=== PATIENT | female | born 1960 ===

== ENCOUNTER 2024-05-26 13:04 | Outpatient (AMB) | payer MEDICARE, MEDICAID, SELFPAY ==
--- NOTE | 2024-05-26 13:07 | MHC.OFFVIS ---
Vital Signs 05/26/24 13:15 Height 5 ft 7 in Weight 257 lb 15.053 oz BMI 40.4 BP 138/84 Blood Pressure Location Rt brachial Position Sitting Pulse 72 Pulse Source Pulse Oximeter Intake Visit Reasons: T2DM/Confirmed Intake Note: NEW Patient presents today to establish treatment for Type 2 Diabetes Mellitus: Last Diabetic eye exam was on: DUE Last Podiatry exam was on: Does not see a Coagulating Drying Supervisor Most recent HbA1c: 8.8%, 05/26/2024 Random Glucose- 171 mg/dL, Today Family Services Assistant Required: No Accompanied by: Self / Same As Patient Allergies No Known Allergies Allergy (Verified 05/26/24 13:16) Medication List - Last Reconciled 05/26/24 by Edie Savage PA-C atenolol 50 mg PO DAILY atorvastatin 20 mg PO BEDTIME celecoxib 400 mg PO BID PRN insulin glargine (Lantus Solostar U-100 Insulin) 60 units in the morning, 50 units at night subcutaneously every morning; lisinopril 10 mg PO DAILY oxycodone myristate CR-ER (Xtampza ER) 9 mg PO Q12H sitagliptin phosphate (Januvia) 100 mg PO DAILY HPI HPI T2DM/Confirmed: Details: Patient is a 63-year-old female with a significant past medical history of overactive bladder, chronic pain syndrome, PVD, lower leg edema, varicose veins, kidney stones, hyperlipidemia, type 2 diabetes presenting today to establish care regarding her diabetes. Endo: Dm- She was previously following with endocrinology at [place] but recently asked to switch practices. She was last seen about a year ago. Her most recent a1c was >12. Her a1c today is 8.8. She was dx with t2dm in her early 30s. She is currently on Lantus 60 units in the morning and 50 units in the evening, she is on Januvia 100 mg. -She does not frequently monitor her blood sugars. She states this morning it was 200. Today in the office it is 171. -She wants a weight loss drug. She has a hard time exercising with her chronic pain. She is very frustrated with her weight. She used to be on actos and states does not know why she was taken off, she used to be on metformin but had too much GI upset. She states that previously she thinks she was on glipizide or glimepiride and does not recall. Does not think that she had a reaction to the medication but at some point was taken off of it. cgm- has not had in year or so. She states that she had a reaction to the tape of the fay. She states that she has had diabetic training and met with an educator. She goes to Dr. Tidwell at [place] for podiatry. CV: Blood pressure today in the office is 138/84. She is currently on atenolol 50 mg daily and lisinopril 10 mg daily. Cholesterol is managed with atorvastatin 20 mg. Vasc: reports PVD and follows with vascular surgery, last visit with Radha Lombardi. Urology: follows with [facility] for renal stones[facility] Medical History (Updated 05/26/24 @ 14:00 by Edie Savage PA-C) Lupus (systemic lupus erythematosus) History of chronic back pain Type 2 diabetes mellitus with hyperglycemia Hx of hyperlipidemia Hx of essential hypertension Surgical History (Updated 05/26/24 @ 13:18 by ANJELICA Greer) History of back surgery Family History (Updated 05/26/24 @ 13:33 by ANJELICA Greer) Father Lupus (systemic lupus erythematosus) Mother Diabetes mellitus Maternal Aunt Diabetes mellitus Heart disease Social History Alcohol intake: current Alcohol intake frequency: does not drink Patient Tobacco Use Status: Never used Tobacco Physical Exam Vital Signs: Last Vital Signs Pulse 72 05/26/24 13:15 BP 138/84 05/26/24 13:15 BMI result Body Mass Index 40.4 Const Orientation/consciousness: patient oriented x3 Neck Neck: Yes no lymphadenopathy Thyroid: Thyroid normal Carotids: no bruits Resp Auscultation: clear to auscultation bilaterally Cardio Rate: regular rate Rhythm: regular rhythm Heart sounds: S1 normal heart sound present and S2 normal heart sound present Peripheral pulses: dorsalis pedis present Neuro General: patient oriented x3, gait normal and no focal motor deficits Extrem Other: Monofilament sensation intact bilaterally. Vibratory sensation intact bilaterally. Skin intact. General: Yes normal to inspection Office Procedures Glucose Monitoring Details Details: Dexcom G7 sensor provided today and applied for the patient. Reviewed how to work the reader and how the sensor works. I paired the sensor and the reader. Downloaded rosario on her phone as well. 71205 - Glucose Monitoring, continuous Procedure code (CPT) selection complete Results AMB Hemoglobin A1c AMB Hemoglobin A1c 8.8 % Last Edit by ANJELICA Greer on 05/26/24 13:37 Assessment & Plan Assessment & Plan (1) Uncontrolled type 2 diabetes mellitus with hyperglycemia, with long-term current use of insulin: Code(s): E11.65 - Type 2 diabetes mellitus with hyperglycemia; Z79.4 - continuous churn buttermaker (current) use of insulin Category: Medical Plan: We did spend about 70 minutes in [id number] time today discussing patient's past medical history, reviewing the pathophysiology of diabetes, the complications associated with diabetes including risk of amputations, neuropathy, blindness, stroke, heart attack etc.. We reviewed the diabetic diet. She did tell me about all of the diabetic books that she has at home to help her with cooking. start ozempic 0.25 mg weekly - discussed risks and benefits and adverse effects such as n/v/, pancreatitis. denies fam hx of thyroid malignancy d/c januvia continue lantus 60 units AM and 50 units PM start glipizide 5 mg er in the AM. -denies known reaction to this drug sensor and reader given today of the dexcom-downloaded and paired for the patient -ordered refills labs prior to appointment (2) Hyperlipidemia: Code(s): E78.5 - Hyperlipidemia, unspecified Category: Medical Plan: Continue atorvastatin. LFTs and lipids ordered (3) Hypertension: Code(s): I10 - Essential (primary) hypertension Category: Medical Plan: Continue current regimen. Orders: Orders AMB Hemoglobin A1c Today E11.9 - Type 2 diabetes mellitus without complications Comprehensive [place]. Panel Fast Today E11.65 - Type 2 diabetes mellitus with hyperglycemia, E78.5 - Hyperlipidemia, unspecified, I10 - Essential (primary) hypertension, Z79.4 - continuous churn buttermaker (current) use of insulin Microalbumin, Random (w Creat) Today E11.65 - Type 2 diabetes mellitus with hyperglycemia, E78.5 - Hyperlipidemia, unspecified, I10 - Essential (primary) hypertension, Z79.4 - [facility] (current) use of insulin Lipid Panel Today E11.65 - Type 2 diabetes mellitus with hyperglycemia, E78.5 - Hyperlipidemia, unspecified, I10 - Essential (primary) hypertension, Z79.4 - continuous churn buttermaker (current) use of insulin B Type Natriuretic Peptide Today E11.65 - Type 2 diabetes mellitus with hyperglycemia, E78.5 - Hyperlipidemia, unspecified, I10 - Essential (primary) hypertension, Z79.4 - [facility] (current) use of insulin Medications: New semaglutide (Ozempic) 0.25 mg (0.368 mL) subcut QWEEK 3 mL 1RF blood-glucose sensor (Dexcom G7 Sensor device) Use daily As directed to monitor glucose. change q 10 days 3 ea 5RF E11.65 - Type 2 diabetes mellitus with hyperglycemia, Z79.4 - continuous churn buttermaker (current) use of insulin glipizide ER 5 mg PO DAILY 90 tabs 0RF blood-glucose meter,continuous (Dexcom G7 Cashier Credit) use daily As directed to monitor blood glucose 1 ea 0RF Patient Instructions: stop januvia once you pick or get the ok to get ozempic start glipizide 5 mg in the morning continue lantus dosing sensors for the dexcom were sent in for you today short term followup in 2-3 weeks to be reassessed Coding Level of Care Code New Pt Level 5 (61030) Diagnoses Uncontrolled type 2 diabetes mellitus with hyperglycemia, with long-term current use of insulin E11.65; Z79.4 Hyperlipidemia E78.5 Hypertension I10 CPT Codes Details - CPT: 99292 - Glucose Monitoring, continuous ([id number])
[2024-05-26 13:15] VITALS: BP 138/84; PULSE 72; BMI 40.4
[2024-05-26 13:34] LABS: Glucose, Whole Blood 171 mg/dL (60-115)
== END 2024-05-26 14:09 | disposition home or self-care (01) ==
PROVIDERS: PCP Internal Medicine; Visit Provider Physician Assistant
DX: E11.65 Type 2 diabetes mellitus with hyperglycemia (principal); Z79.4 Long term (current) use of insulin; E78.5 Hyperlipidemia, unspecified; I10 Essential (primary) hypertension; E11.9 Type 2 diabetes mellitus without complications

== ENCOUNTER → 2024-05-26 13:04 | Outpatient (BNVA) | payer MEDICARE, MEDICAID, SELFPAY | PROVIDERS: PCP Internal Medicine; Visit Provider Physician Assistant | DX: E11.65 Type 2 diabetes mellitus with hyperglycemia (principal); E11.51 Type 2 diabetes mellitus with diabetic peripheral angiopathy without gangrene; E78.5 Hyperlipidemia, unspecified; N32.81 Overactive bladder; G89.4 Chronic pain syndrome; I10 Essential (primary) hypertension; Z79.4 Long term (current) use of insulin | CPT/HCPCS: 82947; 83036; 95250; 99202 ==

== ENCOUNTER 2024-06-16 10:23 | Outpatient (AMB) | payer MEDICARE, MEDICAID, SELFPAY ==
[2024-06-16 10:30] VITALS: BP 130/74; PULSE 74; BMI 40.8
--- NOTE | 2024-06-16 10:30 | A.OFFVIS_ITS ---
Vital Signs 06/16/24 10:30 Height 5 ft 7 in Weight 260 lb 12.909 oz BMI 40.8 BP 130/74 Blood Pressure Location Rt brachial Position Sitting Pulse 74 Pulse Source Pulse Oximeter Intake Visit Reasons: T2DM Intake Note: Patient present today to follow up on Type 2 Diabetes Mellitus. Last Diabetic Eye exam: 03/2024 Last Podiatry Visit: 03/2024 Random Glucose: 191 mg/dl HgA1C: 8.8% 05/26/2024 Information Security Associate Required: No Accompanied by: Self / Same As Patient Allergies No Known Allergies Allergy (Verified 06/16/24 10:36) Medication List - Last Reconciled 06/16/24 by Edie Savage PA-C atenolol 50 mg PO DAILY atorvastatin 20 mg PO BEDTIME blood-glucose meter,continuous (Dexcom G7 Glass Finisher) use daily As directed to monitor blood glucose blood-glucose sensor (Dexcom G7 Sensor device) Use daily As directed to monitor glucose. change q 10 days celecoxib 400 mg PO BID PRN insulin glargine (Lantus Solostar U-100 Insulin) 50 units in the morning, 50 units at night subcutaneously every morning; lisinopril 10 mg PO DAILY oxycodone myristate CR-ER (Xtampza ER) 9 mg PO Q12H semaglutide (Ozempic) 0.5 mg (0.736 mL) subcut QWEEK HPI HPI T2DM: Details: Patient is a 63-year-old female with a significant past medical history of overactive bladder, chronic pain syndrome, PVD, lower leg edema, varicose veins, kidney stones, hyperlipidemia, type 2 diabetes presenting today fr a follow up regarding her diabetes. Endo: Dm- Her a1c was 8.8. She was dx with t2dm in her early 30s. She is currently on Lantus 60 units in the morning and 40 units in the evening, she is on Ozempic 0.25 mg weekly, and glipizide -She wants a weight loss drug. She has a hard time exercising with her chronic pain. She is very frustrated with her weight. -She states that her blood sugars have been a bit lower since starting the ozempic. She is tolerating this medication. cgm- Dexcom download shows average glucose 185, G mi 7.7, standard deviation 51%. Very hyperglycemic 11%, hyperglycemic 43%, in range 45%, 1% hypoglycemia -the hypoglycemia occurred around 07:00. She used to be on actos and states does not know why she was taken off, she used to be on metformin but had too much GI upset. She states that previously she thinks she was on glipizide or glimepiride and does not recall. She was on glipizide recently but caused hypogylcemia. She states that she has had diabetic training and met with an educator. She goes to Dr. Tidwell at [facility] podiatry. CV: Blood pressure today in the office is 130/74. She is currently on atenolol 50 mg daily and lisinopril 10 mg daily. Cholesterol is managed with atorvastatin 20 mg. Vasc: reports PVD and follows with vascular surgery, last visit with Radha Lombardi. Urology: follows with [facility] for renal stones. [facility] Medical History Lupus (systemic lupus erythematosus) History of chronic back pain Type 2 diabetes mellitus with hyperglycemia Hx of hyperlipidemia Hx of essential hypertension Surgical History History of back surgery Family History Father Lupus (systemic lupus erythematosus) Mother Diabetes mellitus Maternal Aunt Diabetes mellitus Heart disease Social History Alcohol intake: current Alcohol intake frequency: does not drink Patient Tobacco Use Status: Never used Tobacco Physical Exam Vital Signs: Last Vital Signs Pulse 74 06/16/24 10:30 BP 130/74 06/16/24 10:30 BMI result Body Mass Index 40.8 Const Orientation/consciousness: patient oriented x3 Neck Neck: Yes no lymphadenopathy Thyroid: Thyroid normal Carotids: no bruits Resp Auscultation: clear to auscultation bilaterally Cardio Rate: regular rate Rhythm: regular rhythm Heart sounds: S1 normal heart sound present and S2 normal heart sound present Neuro General: patient oriented x3, gait normal and no focal motor deficits Office Procedures Glucose Monitoring Details Details: see [facility] [address] - Glucose monitoring, continuous-physician I&R Procedure code (CPT) selection complete Results Reviewed Results Reviewed: Laboratory Tests 05/26/24 13:34 Hgb A1c (Clinic) 8.8 H Assessment & Plan Assessment & Plan (1) Uncontrolled type 2 diabetes mellitus with hyperglycemia, with long-term current use of insulin: Code(s): E11.65 - Type 2 diabetes mellitus with hyperglycemia; Z79.4 - intermediate project manager (current) use of insulin Category: Medical Plan: decrease lantus to 50 units BID. increase ozempic 0.5 mg weekly follow up in 2-3 months or sooner if needed (2) Hypertension: Code(s): I10 - Essential (primary) hypertension Category: Medical Plan: wnl today. continue current plan (3) Hyperlipidemia: Code(s): E78.5 - Hyperlipidemia, unspecified Category: Medical Plan: continue current plan. Medications: New semaglutide (Ozempic) 0.5 mg (0.736 mL) subcut QWEEK 3 mL 4RF Discontinued semaglutide (Ozempic) Discontinued Reason: Doctor's Order 0.25 mg (0.368 mL) subcut QWEEK 3 mL 1RF glipizide ER Discontinued Reason: Doctor's Order 5 mg PO DAILY 90 tabs 0RF Coding Level of Care Code Est Pt Level 4 (80637) Diagnoses Uncontrolled type 2 diabetes mellitus with hyperglycemia, with long-term current use of insulin E11.65; Z79.4 Hypertension I10 Hyperlipidemia E78.5 CPT Codes Details - CPT: 82142 - Glucose monitoring, continuous-physician I&R ([id number])
[2024-06-16 10:42] LABS: Glucose, Whole Blood 191 mg/dL (60-115)
--- OUTSIDE RECORDS SUMMARY | 2024-06-16 15:04 | XMS_ITS | Encounter Summary ---
Author Organization [facility] Address [address] [place] [address] Care Team Providers Care Mathematics Professor Name Role Phone Brandyn Arriaga MD Unavailable Francisco Scales MD Unavailable [phone] Misbah Niño MD Unavailable David Maxwell MD Unavailable Ming Alvarez MD Unavailable [phone] Lino Carpio MD Unavailable [phone] Gianfranco Reynoso MD Unavailable Unavailable Efe Sanabria DO Unavailable Shaka Lyman MD Unavailable Pcp, No Primary Care Provider UnavailBryce Nayak DPM Unavailable Dominique Nicholas MD Primary Care Provider [phone] Anne Marie Chance MD Unavailable [phone] Ishmael Shaw OD Unavailable Amaya Cardenas RN Unavailable Robel Camarena DO Unavailable Robel Camarena DO Primary Care Provider [phone] Robel Camarena DO Unavailable Anne Marie Shafer [facility] Unavailable [phone] Reason for Visit * Reason Comments Medication Refill Encounter Details Date Type Department Care Team (Late st Contact Info) Description 02/16/2017 Refill [facility] [address] [place] [address] Dominique Nicholas MD [address] [place] [address] [place] [address] Allergic rhinitis due to other allergic trigger, unspecified rhinitis seasonality Social History Tobacco Use Types Packs/Day Years Used Date Smoking Tobacco: Never Smokeless Tobacco: Never Alcohol Use Standard Drinks/Week Comments No 0 (1 standard drink = 0.6 oz pur e alcohol) Sex and Gender Information Value Date Recorded Sex Assigned at Not on file Gender Identity Not on file Sexual Orientation Not on file documented as of this encounter Miscellaneous Notes * Telephone Encounter - Dominique Nicholas - 02/19/2017 7:51 AM EDT She is not primary care patient here any more * Telephone Encounter - Mai Fagan RN - 02/16/2017 4:46 PM EDT IS THIS PT. STILL OUR PRIMARY CARE PT.? documented in this encounter Plan of Treatment Not on file documented as of this encounter Visit Diagnoses Diagnosis Allergic rhinitis due to other allergic trigger, unspecified rhinitis seasonality documented in this encounter Care Teams Mathematics Professor Relationship Specialty Start Date End Date Pcp, No PCP - General General Medicine 11/06/16 06/20/17 Dominique Nicholas MD PCP - General Internal Medicine 06/21/17 04/18/20 Robel Camarena DO [address] [place] [address] PCP - General Internal Medicine 04/19/20 Robel Camarena [address] [place] [address] PCP - [employer] Medicare Attributed 11/02/20 Brandyn Arriaga MD [address] [place] [address] [address] [id number] Consulting Provider Gastroenterology 06/04/15 Francisco Scales MD [facility] [address] [place] [address] Consulting Provider Cardiovascular Disease 06/04/15 Misbah Niño MD [address] [place] [phone] Consulting Provider Physical Medicine and Rehabilitation 06/04/15 05/21/17 David Maxwell MD [address] [place] [address] [address] [place] [address] Consulting Provider Neurology 06/04/15 05/21/17 Ming Alvarez MD [address] [place] [address] Consulting Provider Surgery, Bariatric 06/04/15 05/21/17 Lino Carpio MD [address] [place] [address] Consulting Provider Internal Medicine 06/04/15 12/12/18 Gianfranco Reynoso MD [address] [place] [address] Consulting Provider Endocrinology 07/06/15 Efe Sanabria DO [address] [facility] [address] [place] [address] Consulting Provider Pulmonary Medicine 10/11/15 Shaka Lyman MD [address] [facility] [address] [place] [address] Consulting Provider Gastroenterology 10/11/15 12/12/18 Bryce Lema DPM Consulting Provider Podiatry 05/22/17 Anne Marie Chance MD Consulting Provider Rheumatology 05/07/18 Ishmael Shaw OD [address] [place] [address] Consulting Provider Optometry 07/22/18 Amaya Cardenas, RN [address] [address] ICP Community Cable Tender 02/27/19 06/01/19 Robel Camarena DO [address] [place] [address] Internal Medicine 02/16/20 Anne Marie Shafer LCSW [address] [place] [address] ICP Community Cable Tender 03/02/22 03/02/22 Rell Howe MD Consulting Provider Anesthesiology 10/11/15 KELLEN GEE MD [address] [place] [address] Rheumatology 03/22/16 05/21/17 batsheva chow [facility] 11/06/16 06/29/19 documented as of this encounter
--- OUTSIDE RECORDS SUMMARY | 2024-06-16 15:04 | XMS_ITS | Encounter Summary ---
Author Organization [facility] Address [address] [place] [address] Care Team Providers Care Transition Rn Name Role Phone Brandyn Arriaga MD Unavailable Francisco Scales MD Unavailable [phone] Lino Carpio MD Unavailable [phone] Gianfranco Reynoso MD Unavailable Unavailable Efe Sanabria DO Unavailable Shaka Lyman MD Unavailable Bryce Lema DPM Unavailable Dominique Nicholas MD Primary Care Provider [phone] Anne Marie Chance MD Unavailable [phone] Ishmael Shaw OD Unavailable Amaya Cardenas RN Unavailable [phone] Robel Camarena DO Unavailable [phone] Robel Camarena DO Primary Care Provider Robel Camarena DO Unavailable [phone] Anne Marie Shafer LCSW Unavailable [phone] Encounter Details Date Type Department Care Team (Late st Contact Info) Description 09/20/2017 Scanned Document [facility] [address] [place] [address] Provider, Generic Social History Tobacco Use Types Packs/Day Years Used Date Smoking Tobacco: Never Smokeless Tobacco: Never Alcohol Use Standard Drinks/Week Comments No 0 (1 standard drink = 0.6 oz pur e alcohol) Sex and Gender Information Value Date Recorded Sex Assigned at Not on file Gender Identity Not on file Sexual Orientation Not on file documented as of this encounter Plan of Treatment Not on file documented as of this encounter Visit Diagnoses Not on filedocumented in this encounter Care Teams Transition Rn Relationship Specialty Start Date End Date Dominique Nicholas MD [address] [place] [address] [address] [place] [address] PCP - General Internal Medicine 06/21/17 04/18/20 Robel Camarena DO [address] [place] [address] PCP - General Internal Medicine 04/19/20 Robel Camarena DO [address] [place] [address] PCP - [employer] Medicare Attributed 11/02/20 Brandyn Arriaga MD [address] [place] [address] [address] [place] [address] Consulting Provider Gastroenterology 06/04/15 Francisco Scales MD [address] [place] [address] [address] [place] [address] Consulting Provider Cardiovascular Disease 06/04/15 Lino Carpio MD [address] [place] [address] Consulting Provider Internal Medicine 06/04/15 12/12/18 Gianfranco Reynoso MD [address] [place] [address] Consulting Provider Endocrinology 07/06/15 Efe Sanabria DO [address] [facility] [address] [place] [address] Consulting Provider Pulmonary Medicine 10/11/15 Shaka Lyman MD [address] [facility] [address] [place] [address] Consulting Provider Gastroenterology 10/11/15 12/12/18 Bryce Lema DPM [address] [facility] [address] [place] [address] Consulting Provider Podiatry 05/22/17 Anne Marie Chance MD [address] [facility] [address] [place] [address] Consulting Provider Rheumatology 05/07/18 Ishmael Shaw OD [address] [address] Consulting Provider Optometry 07/22/18 Amaya Cardenas, RN [address] [facility] [address] [place] [address] ICP Community Paving Block Cutter 02/27/19 06/01/19 Robel Camarena DO [address] [place] [address] Internal Medicine 02/16/20 Anne Marie Shafer LCSW [address] [place] [address] ICP Community Paving Block Cutter 03/02/22 03/02/22 Rell Howe MD Consulting Provider Anesthesiology 10/11/15 batsheva chow [facility] 11/06/16 06/29/19 documented as of this encounter
--- OUTSIDE RECORDS SUMMARY | 2024-06-16 15:04 | XMS_ITS | Encounter Summary ---
Author Organization [facility] Address [address] [place] [address] Care Team Providers Care Horticulture Instructor Name Role Phone Brandyn Arriaga MD Unavailable Francisco Scales MD Unavailable [phone] Lino Carpio MD Unavailable [phone] Gianfranco Reynoso MD Unavailable Unavailable Efe Sanabria DO Unavailable Shaka Lyman MD Unavailable [phone] Bryce Lema DPM Unavailable Dominique Nicholas MD Primary Care Provider [phone] Anne Marie Chance MD Unavailable +[phone] [phone] Ishmael Shaw OD Unavailable Amaya Cardenas RN Unavailable [phone] Robel Camarena DO Unavailable Robel Camarena DO Primary Care Provider Robel Camarena DO Unavailable [phone] Anne Marie Shafer LCSW Unavailable [phone] Encounter Details Date Type Department Care Team (Late st Contact Info) Description 03/25/2018 Scanned Document [facility] 1060 [place] [address] Provider, Generic Social History Tobacco Use Types [...] on filedocumented in this encounter Care Teams Horticulture Instructor Relationship Specialty Start Date End Date Dominique Nicholas MD [address] [place] [address] [address] [place] [address] PCP - General Internal Medicine 06/21/17 04/18/20 Robel Camarena DO 200 [place] [address] PCP - General Internal Medicine 04/19/20 Robel Camarena DO [address] [place] [address] PCP - United Medicare Attributed 11/02/20 Brandyn Arriaga MD [address] [place] [address] 1000 [place] [address] Consulting Provider Gastroenterology 06/04/15 Francisco Scales MD [address] [place] [address] 811 [place] [address] Consulting Provider Cardiovascular Disease 06/04/15 Lino Carpio MD [address] [place] [address] Consulting Provider Internal Medicine 06/04/15 12/12/18 Gianfranco Reynoso MD [address] [place] [address] Consulting Provider Endocrinology 07/06/15 Efe Sanabria DO 85 [facility] 923 [place] [address] Consulting Provider Pulmonary Medicine 10/11/15 Shaka Lyman MD 6 [facility] [address] [place] [address] Consulting Provider Gastroenterology 10/11/15 12/12/18 Bryce Lema DPM [address] [facility] [address] [place] [address] Consulting Provider Podiatry 05/22/17 Anne Marie Chance MD [address] [facility] [address] [place] [address] Consulting Provider Rheumatology 05/07/18 Ishmael Shaw OD [address] [address] Consulting Provider Optometry 07/22/18 Amaya Cardenas, RN [address] [facility] 4 [place] [address] [employer] Community Computer Graphics Illustrator 02/27/19 06/01/19 Robel Camarena DO [address] [place] [address] Internal Medicine 02/16/20 Anne Marie Shafer LCSW [address] [place] [address] [employer] Community Computer Graphics Illustrator 03/02/22 03/02/22 Rell Howe MD Consulting Provider Anesthesiology 10/11/15 batsheva chow [facility] 11/06/16 06/29/19 documented as of this encounter
--- OUTSIDE RECORDS SUMMARY | 2024-06-16 15:04 | XMS_ITS | Encounter Summary ---
Author Organization [facility] Address [address] [place] [address] Care Team Providers Care Hash Slinger Name Role Phone Darien Caraballo DO Primary Care Provider [phone] Dominique Nicholas MD Primary Care Provider [phone] Brandyn Arriaga MD Unavailable Francisco Scales MD Unavailable [phone] Misbah Niño MD Unavailable [phone] David Maxwell MD Unavailable [phone] Ming Alvarez MD Unavailable [phone] Lino Carpio MD Unavailable [phone] Gianfranco Reynoso MD Unavailable Unavailable Efe Sanabria DO Unavailable [phone] Shaka Lyman MD Unavailable [phone] Pcp, No Primary Care Provider UnavailDominique Simmons MD Primary Care Provider [phone] Pcp, No Primary Care Provider Unavailmaria del carmen e Bryce Lema DPM Unavailable Dominique Nicholas MD Primary Care Provider Anne Marie Chance MD Unavailable +[phone] [phone] Ishmael Shaw OD Unavailable Amaya Cardenas RN Unavailable Robel Camarena DO Unavailable [phone] KathyRobel freeman DO Primary Care Provider RadhaadriannaRobel freeman DO Unavailable [phone] Anne Marie Shafer SPECIAL NEEDS CAREGIVER Unavailable [phone] Dominique Nicholas MD Primary Care Provider [phone] Encounter Details Date Type Department Care Team (Late st Contact Info) Description 06/01/2014 Scanned Document [address] [place] [address] Provider, Generic Social History Tobacco Use Types Packs/Day Years Used Date Smoking Tobacco: Never Assessed Sex and Gender Information Value Date Recorded Sex Assigned at Not on file Gender Identity Not on file Sexual Orientation Not on file documented as of this encounter Plan of Treatment Not on file documented as of this encounter Visit Diagnoses Not on filedocumented in this encounter Care Teams Hash Slinger Relationship Specialty Start Date End Date Darien Caraballo DO [address] [place] [address] PCP - General Internal Medicine 02/18/15 03/30/15 Dominique Nicholas MD [address] [place] [address] PCP - General Internal Medicine 03/31/15 07/09/16 Pcp, No PCP - General General Medicine 07/13/16 10/29/16 Dominique Nicholas MD [facility]0 [place] [address] PCP - General Internal Medicine 10/30/16 11/05/16 Pcp, No PCP - General General Medicine 11/06/16 06/20/17 Dominique Nicholas MD 1060 [place], [place] [address] PCP - General Internal Medicine 06/21/17 04/18/20 Robel Camarena DO 200 [place] [address] PCP - General Internal Medicine 04/19/20 Robel Camarena DO 200 [place] [address] PCP - United Medicare Attributed 11/02/20 Dominique Nicholas MD [address] [facility] 4011 [place], [place] [address] PCP - General 02/17/15 Brandyn Arriaga MD 85 [facility] 1000 [place] [address] Consulting Provider Gastroenterology 06/04/15 Francisco Scales MD [address] [place] [address] Consulting Provider Cardiovascular Disease 06/04/15 Misbah Niño MD [address] [place] [phone] Consulting Provider Physical Medicine and Rehabilitation 06/04/15 05/21/17 David Maxwell MD 85 [facility] 800 [place] [address] Consulting Provider Neurology 06/04/15 05/21/17 Ming Alvarez MD [address] [address] Consulting Provider Surgery, Bariatric 06/04/15 05/21/17 Lino Carpio MD 100 [place] [address] Consulting Provider Internal Medicine 06/04/15 12/12/18 Gianfranco Reynoso MD 100 [place] [address] Consulting Provider Endocrinology 07/06/15 Efe Sanabria DO 85 [facility] 923 [place] [address] Consulting Provider Pulmonary Medicine 10/11/15 Shaka Lyman MD 6 [facility] [address] [place] [address] Consulting Provider Gastroenterology 10/11/15 12/12/18 Bryce Lema DPM Consulting Provider Podiatry 05/22/17 Anne Marie Chance MD Consulting Provider Rheumatology 05/07/18 Ishmael Shaw OD [address] [place] [address] Consulting Provider Optometry 07/22/18 Amaya Cardenas, GREGORY 1290 [facility] 4 [place] [address] [facility] Community Actuarial Mathematician 02/27/19 06/01/19 Robel Camarena DO [address] [place] [address] Internal Medicine 02/16/20 Anne Marie Shafer, SPECIAL NEEDS CAREGIVER [address] [place] [address] [facility] Community Actuarial Mathematician 03/02/22 03/02/22 Rell Howe MD Consulting Provider Anesthesiology 10/11/15 KELLEN GEE MD [address] [place] [address] Rheumatology 03/22/16 05/21/17 batsheva chow SPECIAL NEEDS CAREGIVER [facility] 11/06/16 06/29/19 documented as of this encounter
--- OUTSIDE RECORDS SUMMARY | 2024-06-16 15:04 | XMS_ITS | Encounter Summary ---
Author Organization [facility] Address [address] [place] [address] Care Team Providers Care Stereo Equipment Salesperson Name Role Phone Darien Caraballo DO Primary Care Provider [phone] Dominique Nicholas MD Primary Care Provider [phone] Brandyn Arriaga MD Unavailable Francisco Scales MD Unavailable [phone] Misbah Niño MD Unavailable [phone] David Maxwell MD Unavailable [phone] Ming Alvarez MD Unavailable +[phone] Lino Carpio MD Unavailable [phone] Gianfranco Reynoso MD Unavailable Unavailable Efe Sanabria DO Unavailable [phone] Shaka Lyman MD Unavailable [phone] Pcp, No Primary Care Provider UnavailDominique Simmons MD Primary Care Provider [phone] Pcp, No Primary Care Provider Unavailmaria del carmen e Bryce Lema DPM Unavailable Dominique Nicholas MD Primary Care Provider Anne Marie Chance MD Unavailable +[phone] 00-0000 Ishmael Shaw OD Unavailable RonaldAmaya RN Unavailable Robel Camarena DO Unavailable FridanellyRobel freeman DO Primary Care Provider Robel Camarena DO Unavailable [phone] Anne Marie Shafer ADJUNCT WRITING INSTRUCTOR Unavailable Dominique Nicholas MD Primary Care Provider Encounter Details Date Type Department Care Team (Late st Contact Info) Description 12/04/2014 Scanned Document [place] [address] [place] [phone] Provider, Generic Social History Tobacco Use Types Packs/Day Years Used Date Smoking Tobacco: Never Assessed Sex and Gender Information Value Date Recorded Sex Assigned at Not on file Gender Identity Not on file Sexual Orientation Not on file documented as of this encounter Plan of Treatment Not on file documented as of this encounter Procedures Procedure Name Priority Date/Time Associated Diagnosis Comments HX GASTROENTEROLOGY UPPER ENDOSCOPY-SCAN 12/14/2014 documented in this encounter Results * HX GASTROENTEROLOGY UPPER ENDOSCOPY-SCAN (12/14/2014) Narrative 12/14/2014 Ordered by an unspecified provider. Generic Provider HX AMB PROCEDURES documented in this encounter Visit Diagnoses Not on filedocumented in this encounter Care Teams Stereo Equipment Salesperson Relationship Specialty Start Date End Date Darien Caraballo DO [address] [place] [address] PCP - General Internal Medicine 02/18/15 03/30/15 Dominique Nicholas MD [address] [place] [address] PCP - General Internal Medicine 03/31/15 07/09/16 Pcp, No PCP - General General Medicine 07/13/16 10/29/16 Dominique Nicholas MD 1060 [facility] [place] [address] PCP - General Internal Medicine 10/30/16 11/05/16 Pcp, No PCP - General General Medicine 11/06/16 06/20/17 Dominique Nicholas MD 1060 [facility] [place] [address] PCP - General Internal Medicine 06/21/17 04/18/20 Robel Camarena DO 200 [place] [address] PCP - General Internal Medicine 04/19/20 Robel Camarena DO 200 [place] [address] PCP - United Medicare Attributed 11/02/20 Dominique Nicholas MD 234 [facility] 4011 [place], [place] [address] PCP - General 02/17/15 Brandyn Arriaga MD 85 [facility] 1000 [place], [place] [address] Consulting Provider Gastroenterology 06/04/15 Francisco Scales MD [address] [place], [place] [address] Consulting Provider Cardiovascular Disease 06/04/15 Misbah Niño MD [address] [place] [address] Consulting Provider Physical Medicine and Rehabilitation 06/04/15 05/21/17 David Maxwell MD 85 [facility] 800 [place] [address] Consulting Provider Neurology 06/04/15 05/21/17 Ming Alvarez MD [address] [place] [address] Consulting Provider Surgery, Bariatric 06/04/15 05/21/17 Lino Carpio MD [address] [place] [address] Consulting Provider Internal Medicine 06/04/15 12/12/18 Gianfranco Reynoso MD [address] [place] [address] Consulting Provider Endocrinology 07/06/15 Efe Sanabria DO [address] [place] [address] 923 [place] [address] Consulting Provider Pulmonary Medicine 10/11/15 Shaka Lyman MD [address] [place] [address] 302 [place] [address] Consulting Provider Gastroenterology 10/11/15 12/12/18 Bryce Lema DPM Consulting Provider Podiatry 05/22/17 Anne Marie Chance MD Consulting Provider Rheumatology 05/07/18 Ishmael Shaw OD [address] [place] [address] Consulting Provider Optometry 07/22/18 Amaya Cardenas, RN [address] [place] [address] [facility] Community Store Group Manager 02/27/19 06/01/19 KathyRobel freeman [address] [place] [address] Internal Medicine 02/16/20 Anne Marie Shafer ADJUNCT WRITING INSTRUCTOR [address] [place] [address] [facility] Community Store Group Manager 03/02/22 03/02/22 Rell Howe MD Consulting Provider Anesthesiology 10/11/15 KELLEN GEE MD [address] [place] [address] Rheumatology 03/22/16 05/21/17 batsheva chow ADJUNCT WRITING INSTRUCTOR [facility] 11/06/16 06/29/19 documented as of this encounter
--- OUTSIDE RECORDS SUMMARY | 2024-06-16 15:04 | XMS_ITS | Encounter Summary ---
Author Organization [facility] Address [address] [place] [address] Care Team Providers Care Full Stack Engineer Name Role Phone Darien Caraballo DO Primary Care Provider [phone] Dominique Nicholas MD Primary Care Provider [phone] Brandyn Arriaga MD Unavailable Francisco Scales MD Unavailable [phone] Misbah Niño MD Unavailable [phone] David Maxwell MD Unavailable [phone] Ming Alvarez MD Unavailable +[phone] Lino Carpio MD Unavailable [phone] Gianfranco Reynoso MD Unavailable Unavailable Efe Sanabria DO Unavailable [phone] Shaka Lyman MD Unavailable [phone] Pcp, No Primary Care Provider UnavailDominique Simmons MD Primary Care Provider [phone] Pcp, No Primary Care Provider Unavailmaria del carmen e Bryce Lema DPM Unavailable Dominique Nicholas MD Primary Care Provider [phone] Anne Marie Chance MD Unavailable +1-000-0 00-0000 Ishmael Shaw OD Unavailable Amaya Cardenas RN Unavailable [phone] Robel Camarena DO Unavailable KathyRobel freeman DO Primary Care Provider [phone] KathyRobel freeman DO Unavailable Anne Marie Shafer PE MANAGER Unavailable Encounter Details Date Type Department Care Team (Late st Contact Info) Description 03/19/2015 Scanned Document [facility] 1060 [place] [address] Provider, Generic Social History Tobacco Use Types [...] on filedocumented in this encounter Care Teams Full Stack Engineer Relationship Specialty Start Date End Date Darien Caraballo DO [address] [place] [address] PCP - General Internal Medicine 02/18/15 03/30/15 Dominique Nicholas MD [address] [place] [address] PCP - General Internal Medicine 03/31/15 07/09/16 Pcp, No PCP - General General Medicine 07/13/16 10/29/16 Dominique Nicholas MD [address] [place] [address], [place] [address] PCP - General Internal Medicine 10/30/16 11/05/16 Pcp, No PCP - General General Medicine 11/06/16 06/20/17 Dominique Nicholas MD [address] [place] [address], [place] [address] PCP - General Internal Medicine 06/21/17 04/18/20 Robel Camarena DO 200 [place] [address] PCP - General Internal Medicine 04/19/20 Robel Camarena DO 200 [place] [address] PCP - United Medicare Attributed 11/02/20 Brandyn Arriaga MD 85 [facility] 1000 [place] [address] Consulting Provider Gastroenterology 06/04/15 Francisco Scales MD [facility] 811 [place] [address] Consulting Provider Cardiovascular Disease 06/04/15 Misbah Niño MD 35 [facility] [address] [place] [phone] Consulting Provider Physical Medicine and Rehabilitation 06/04/15 05/21/17 David Maxwell MD 85 [facility] 800 [place] [address] Consulting Provider Neurology 06/04/15 05/21/17 Ming Alvarez MD [address] [place] [address] Consulting Provider Surgery, Bariatric 06/04/15 05/21/17 Lino Carpio MD [address] [place] [address] Consulting Provider Internal Medicine 06/04/15 12/12/18 Gianfranco Reynoso MD 100 [place] [address] Consulting Provider Endocrinology 07/06/15 Efe Sanabria DO 85 [facility] 923 [place] [address] Consulting Provider Pulmonary Medicine 10/11/15 Shaka Lyman MD 6 [facility] [address] [place] [address] Consulting Provider Gastroenterology 10/11/15 12/12/18 Bryce Lema DPM Consulting Provider Podiatry 05/22/17 Anne Marie Chance MD Consulting Provider Rheumatology 05/07/18 Ishmael Shaw, LYDIA [address] [place] [address] Consulting Provider Optometry 07/22/18 Amaya Cardenas, GREGORY [address] [place] [address] [facility] Community Retail Event Assistant 02/27/19 06/01/19 Robel Camarena DO [address] [place] [address] Internal Medicine 02/16/20 Anne Marie Shafer, PE MANAGER [address] [place] [address] [facility] Community Retail Event Assistant 03/02/22 03/02/22 Rell Howe MD Consulting Provider Anesthesiology 10/11/15 KLELEN GEE MD [address] [place] [address] Rheumatology 03/22/16 05/21/17 [email or web address] chow [facility] 11/06/16 06/29/19 documented as of this encounter
--- OUTSIDE RECORDS SUMMARY | 2024-06-16 15:04 | XMS_ITS | Encounter Summary ---
Author Organization [facility] Address [address] [place] [address] Care Team Providers Care Provisioning Analyst Name Role Phone Dominique Nicholas MD Primary Care Provider [phone] Brandyn Arriaga MD Unavailable Francisco Scales MD Unavailable [phone] Misbah Niño MD Unavailable [phone] David Maxwell MD Unavailable [phone] Ming Alvarez MD Unavailable +[phone] Lino Carpio MD Unavailable [phone] Gianfranco Reynoso MD Unavailable Unavailable Efe Sanabria DO Unavailable [phone] Shaka Lyman MD Unavailable [phone] Pcp, No Primary Care Provider UnavailDominique Simmons MD Primary Care Provider Pcp, No Primary Care Provider UnavailBryce Nayak DPM Unavailable Dominique Nicholas MD Primary Care Provider Anne Marie Chance MD Unavailable +[phone] 00-0000 Ishmael Shaw OD Unavailable [phone] Amaya Cardenas RN Unavailable Robel Camarena DO Unavailable [phone] Robel Camarena DO Primary Care Provider Robel Camarena DO Unavailable [phone] Anne Marie Shafer BOARD OF EDUCATION SECRETARY Unavailable Encounter Details Date Type Department Care Team (Late st Contact Info) Description 12/04/2015 Scanned Document [address] [phone] Provider, Generic Social History Tobacco Use Types [...] Procedure Name Priority Date/Time Associated Diagnosis Comments XRAY EXTERNAL RESULT 12/04/2015 documented in this encounter Results * XRAY EXTERNAL RESULT (12/04/2015) Anatomical Region Laterality Modality Computed Radiogr aphy Narrative 12/07/2015 12:52 AM EDT Ordered by an unspecified provider. Generic Provider IMG DIAGNOSTIC IMAGI NG ORDERABLES documented in this encounter Visit Diagnoses Not on filedocumented in this encounter Care Teams Provisioning Analyst Relationship Specialty Start Date End Date Dominique Nicholas MD PCP - General Internal Medicine 03/31/15 07/09/16 Pcp, No PCP - General General Medicine 07/13/16 10/29/16 Dominique Nicholas MD PCP - General Internal Medicine 10/30/16 11/05/16 Pcp, No PCP - General General Medicine 11/06/16 06/20/17 Dominique Nicholas MD PCP - General Internal Medicine 06/21/17 04/18/20 Robel Camarena DO 200 [place] [address] PCP - General Internal Medicine 04/19/20 Robel Camarena DO 200 [place] [address] PCP - United Medicare Attributed 11/02/20 Brandyn Arriaga MD 85 [facility] 1000 [place] [address] Consulting Provider Gastroenterology 06/04/15 Francisco Scales MD [address] [place] [address] 811 [place] [address] Consulting Provider Cardiovascular Disease 06/04/15 Misbah Niño MD 35 [facility] 101 [place] [address] Consulting Provider Physical Medicine and Rehabilitation 06/04/15 05/21/17 David Maxwell MD 85 [facility] 800 [place] [address] Consulting Provider Neurology 06/04/15 05/21/17 Ming Alvarez MD [address] [place] [address] Consulting Provider Surgery, Bariatric 06/04/15 05/21/17 Lino Carpio MD [address] [place] [address] Consulting Provider Internal Medicine 06/04/15 12/12/18 Gianfranco Reynoso MD 100 [place] [address] Consulting Provider Endocrinology 07/06/15 Efe Sanabria DO 85 [facility] 923 [place] [address] Consulting Provider Pulmonary Medicine 10/11/15 Shaka Lyman MD 6 [facility] 302 [place] [address] Consulting Provider Gastroenterology 10/11/15 12/12/18 Bryce Lema DPM Consulting Provider Podiatry 05/22/17 Anne Marie Chance MD Consulting Provider Rheumatology 05/07/18 Ishmael Shaw OD [address] [place] [address] Consulting Provider Optometry 07/22/18 Amaya Cardenas, RN [address] [facility] 4 [place] [address] [facility] Community Pharmacy Associate 02/27/19 06/01/19 Robel Camarena DO [address] [place] [address] Internal Medicine 02/16/20 Anne Marie Shafer, BOARD OF EDUCATION SECRETARY [address] [place] [address] [facility] Community Pharmacy Associate 03/02/22 03/02/22 Rell Howe MD Consulting Provider Anesthesiology 10/11/15 KELLEN GEE MD [address] [place] [address] Rheumatology 03/22/16 05/21/17 [email or web address] chow [facility] 11/06/16 06/29/19 documented as of this encounter
--- OUTSIDE RECORDS SUMMARY | 2024-06-16 15:04 | XMS_ITS | Encounter Summary ---
Author Organization [facility] Address [address] [place] [address] Care Team Providers Care Forms Builder Name Role Phone Brandyn Arriaga MD Unavailable Francisco Scales MD Unavailable [phone] Lino Carpio MD Unavailable [phone] Gianfranco Reynoso MD Unavailable Unavailable Efe Sanabria DO Unavailable [phone] Shaka Lyman MD Unavailable Bryce Lema DPM Unavailable Dominique Nicholas MD Primary Care Provider Anne Marie Chance MD Unavailable [phone] [phone] Ishmael Shaw OD Unavailable [phone] Amaya Cardenas RN Unavailable Robel Camarena DO Unavailable Robel Camarena DO Primary Care Provider [phone] Robel Camarena DO Unavailable [phone] Anne Marie Shafer LCSW Unavailable [phone] Encounter Details Date Type Department Care Team (Late st Contact Info) Description 06/21/2017 Scanned Document [facility] [address] [place] [address] Dominique Nicholas MD [address] [place] [address] Social History Tobacco Use Types Packs/Day Years [...] on filedocumented in this encounter Care Teams Forms Builder Relationship Specialty Start Date End Date Dominique Nicholas MD 6 [facility] [address] [place] [address] PCP - General Internal Medicine 06/21/17 04/18/20 Robel Camarena DO [address] [place] [address] PCP - General Internal Medicine 04/19/20 Robel Camarena DO [address] [place] [address] PCP - [employer] Medicare Attributed 11/02/20 Brandyn Arriaga MD [address] [place] [address] [address] [place] [address] Consulting Provider Gastroenterology 06/04/15 Francisco Scales MD [address] [place] [address] 8[address] [place] [address] Consulting Provider Cardiovascular Disease 06/04/15 Lino Carpio MD [address] [place] [address] Consulting Provider Internal Medicine 06/04/15 12/12/18 Gianfranco Reynoso MD 100 [place] [address] Consulting Provider Endocrinology 07/06/15 Efe Sanabria DO [address] [place] [address] 923 [place] [address] Consulting Provider Pulmonary Medicine 10/11/15 Shaka Lyman MD [address] [facility] [address] [place] [address] Consulting Provider Gastroenterology 10/11/15 12/12/18 Bryce Lema DPM [address] [place] [address] Dr [address] [place] [address] Consulting Provider Podiatry 05/22/17 Anne Marie Chance MD [address] [place] [address] Dr [address] [place] [address] Consulting Provider Rheumatology 05/07/18 Ishmael Shaw OD [address] [place] [address] Consulting Provider Optometry 07/22/18 Amaya Cardenas, GREGORY [address] [place] [address] [facility] Community Solvent Process Extractor Operator 02/27/19 06/01/19 Robel Camarena DO [address] [place] [address] Internal Medicine 02/16/20 Anne Marie Shafer, SEB [address] [place] [address] [facility] Community Solvent Process Extractor Operator 03/02/22 03/02/22 Rell Howe MD Consulting Provider Anesthesiology 10/11/15 batsheva chow [facility] 11/06/16 06/29/19 documented as of this encounter
--- OUTSIDE RECORDS SUMMARY | 2024-06-16 15:04 | XMS_ITS | Encounter Summary ---
Author Organization [facility] Address [address] [place] [address] Care Team Providers Care Digital Imaging Technician Name Role Phone Brandyn Arriaga MD Unavailable Francisco Scales MD Unavailable [phone] Gianfranco Reynoso MD Unavailable Unavailable Efe Sanabria DO Unavailable [phone] Bryce Lema DPM Unavailable Dominique Nicholas MD Primary Care Provider [phone] Anne Marie Chance MD Unavailable +[phone] 00-0000 Ishmael Shaw OD Unavailable [phone] Amaya Cardenas RN Unavailable [phone] Robel Camarena DO Unavailable [phone] RadhaadanellyeEvano DO Primary Care Provider Eva Camarenano DO Unavailable [phone] Anne Marie ShaferW Unavailable [phone] Encounter Details Date Type Department Care Team (Late st Contact Info) Description 12/24/2018 Scanned Document [facility] NEUROSURGERY SCAN Neurosurgery, Scan Social History Tobacco Use Types Packs/Day Years [...] on filedocumented in this encounter Care Teams Digital Imaging Technician Relationship Specialty Start Date End Date Dominique Nicholas MD 85 [facility] 923 [place] [address] PCP - General Internal Medicine 06/21/17 04/18/20 Robel Camarena DO 200 [place] [address] PCP - General Internal Medicine 04/19/20 Robel Camarena DO [address] [place] [address] PCP - [employer] Medicare Attributed 11/02/20 Brandyn Arriaga MD 85 [facility] [address] [place] [address] Consulting Provider Gastroenterology 06/04/15 Francisco Scales MD [address] [place] [address] Consulting Provider Cardiovascular Disease 06/04/15 Gianfranco Reynoso MD [address] [place] [address] Consulting Provider Endocrinology 07/06/15 Efe Sanabria DO 85 [facility] [address] [place] [address] Consulting Provider Pulmonary Medicine 10/11/15 Bryce Lema DPM 85 [facility] [address] [place] [address] Consulting Provider Podiatry 05/22/17 Anne Marie Chance MD 85 [facility] 923 [place] [address] Consulting Provider Rheumatology 05/07/18 Ishmael Shaw OD 110 [facility] 100 [place] [address] Consulting Provider Optometry 07/22/18 Amaya Cardenas, RN [email or web address] [place] [address] [facility] Community House Parent 02/27/19 06/01/19 Robel Camarena DO [address] [place] [address] Internal Medicine 02/16/20 Anne Marie Shafer, QUALITY REVIEWER [address] [place] [address] [facility] Community House Parent 03/02/22 03/02/22 Rell Howe MD Consulting Provider Anesthesiology 10/11/15 [email or web address] chow QUALITY REVIEWER [facility] 11/06/16 06/29/19 documented as of this encounter
--- OUTSIDE RECORDS SUMMARY | 2024-06-16 15:04 | XMS_ITS | Encounter Summary ---
Author Organization [facility] Address [address] [place] [address] Care Team Providers Care Retail Tire Sales Manager Name Role Phone Dominique Nicholas MD Primary Care Provider Brandyn Arriaga MD Unavailable Francisco Scales MD Unavailable [phone] Misbah Niño MD Unavailable [phone] David Maxwell MD Unavailable [phone] Ming Alvarez MD Unavailable [phone] Lino Carpio MD Unavailable [phone] Gianfranco Reynoso MD Unavailable Unavailable Efe Sanabria DO Unavailable [phone] Shaka Lyman MD Unavailable [phone] Pcp, No Primary Care Provider UnavailDominique Simmons MD Primary Care Provider [phone] Pcp, No Primary Care Provider UnavailBryce Nayak DPM Unavailable Dominique Nicholas MD Primary Care Provider Anne Marie Chance MD Unavailable [phone] [phone] Ishmael Shaw OD Unavailable [phone] Amaya Cardenas RN Unavailable Robel Camarena DO Unavailable [phone] FridanellyRobel freeman DO Primary Care Provider Kathypete Robel DO Unavailable [phone] Anne Marie Shafer [facility] Unavailable Encounter Details Date Type Department Care Team (Late st Contact Info) Description 09/24/2015 Scanned Document [address] [id number] Provider, Generic Social History Tobacco Use Types Packs/Day Years Used Date Smoking Tobacco: Never Alcohol Use Standard Drinks/Week Comments Yes 0 (1 standard drink = 0.6 oz pur e alcohol) Sex and Gender Information Value Date Recorded Sex Assigned at Not on file Gender Identity Not on file Sexual Orientation Not on file documented as of this encounter Plan of Treatment Not on file documented as of this encounter Visit Diagnoses Not on filedocumented in this encounter Care Teams Retail Tire Sales Manager Relationship Specialty Start Date End Date Dominique Nicholas MD PCP - General Internal Medicine 03/31/15 07/09/16 Pcp, No PCP - General General Medicine 07/13/16 10/29/16 Dominique Nicholas MD PCP - General Internal Medicine 10/30/16 11/05/16 Pcp, No PCP - General General Medicine 11/06/16 06/20/17 Dominique Nicholas MD PCP - General Internal Medicine 06/21/17 04/18/20 Robel Camarena DO [address] [place] [address] PCP - General Internal Medicine 04/19/20 Robel Camarena DO [address] [place] [address] PCP - [employer] Medicare Attributed 11/02/20 Brandyn Arriaga MD 85 [place] [facility] 1000 [place] [address] Consulting Provider Gastroenterology 06/04/15 Francisco Scales MD [address] [place] [address] Consulting Provider Cardiovascular Disease 06/04/15 Misbah Niño MD [facility] [address] [place] [id number] Consulting Provider Physical Medicine and Rehabilitation 06/04/15 05/21/17 David Maxwell MD 85 [place] 800 [place] [address] Consulting Provider Neurology 06/04/15 05/21/17 Ming Alvarez MD [address] [place] [address] Consulting Provider Surgery, Bariatric 06/04/15 05/21/17 Lino Carpio MD [address] [place] [address] Consulting Provider Internal Medicine 06/04/15 12/12/18 Gianfranco Reynoso MD [address] [place] [address] Consulting Provider Endocrinology 07/06/15 Efe Sanabria DO 85 [facility] 923 [place] [address] Consulting Provider Pulmonary Medicine 10/11/15 Shaka Lyman MD 6 [facility] [address] [place] [address] Consulting Provider Gastroenterology 10/11/15 12/12/18 Bryce Lema DPM Consulting Provider Podiatry 05/22/17 Anne Marie Chance MD Consulting Provider Rheumatology 05/07/18 Ishmael Shaw OD [address] [place] [address] Consulting Provider Optometry 07/22/18 Amaya Cardenas, GREGORY [address] [address] [employer] Creative Services Designer 02/27/19 06/01/19 Robel Camarena DO [address] [place] [address] Internal Medicine 02/16/20 Anne Marie Shafer, GRADES 7 AND 8 TEACHER [address] [place] [address] [employer] Services Designer 03/02/22 03/02/22 Rell Howe MD Consulting Provider Anesthesiology 10/11/15 KELLEN GEE MD [address] [place] [address] Rheumatology 03/22/16 05/21/17 batsheva chow [facility] 11/06/16 06/29/19 documented as of this encounter
--- OUTSIDE RECORDS SUMMARY | 2024-06-16 15:04 | XMS_ITS | Clinical Summary ---
Author Organization [facility] Address [address] [place] [address] Care Team Providers Care Mechanical Estimator Name Role Phone Brandyn Arriaga MD Unavailable Francisco Scales MD Unavailable [phone] Gianfranco Reynoso MD Unavailable Unavailable Efe Sanabria DO Unavailable Bryce Lema DPM Unavailable Anne Marie Chance MD Unavailable [phone] Ishmael Shaw OD Unavailable [phone] Robel Camarena DO Unavailable Robel Camarena DO Primary Care Provider [phone] Robel Camarena DO Unavailable Allergies Active Allergy Reactions Criticality Noted Date Comments Aspirin Shortness Of Breath High 12/22/2014 Clopidogrel Shortness Of Breath High 07/10/2016 Duloxetine Hcl Rash/Dermatitis Low 10/11/2015 Canagliflozin Rash/Dermatitis Low 10/11/2015 Isoflavones (Soy) Swelling Medium 07/10/2016 Patient reports throat swelling with soy intake Lactose GI Intolerance/Nausea/Vo miting Low 12/01/2017 Latex Rash/Dermatitis Medium 11/30/2015 Pregabalin Shortness Of Breath High 10/11/2015 Chest pressure Metformin And Related Diarrhea Low 12/22/2014 diarrhea Ibuprofen Shortness Of Breath High 12/22/2014 SHORTNESS OF BREATH SHORTNESS OF BREATH Medications Medication Sig Dispensed Refills Start Date End Date Status albuterol (VENTOLIN HFA) 108 (90 BASE) MCG/ACT inhalerIndications:A alona, mild persistent, uncomplicated Inhale 2 puffs every 4 (four) hours as needed for wheezing. 1 Inhaler 1 03/10/2015 Active ADVAIR DISKUS 250-50 MCG/DOSE diskus inhalerIndications:A sthma, unspecified asthma severity, uncomplicated INHALE 1 PUFF 2 (TWO) TIMES A DAY. 1 each 3 06/14/2015 Active oxyCODONE-acetaminop hen (PERCOCET) 10-325 mg per tablet Take 1 tablet by mouth 3 (three) times a day as needed. 0 06/15/2016 Active hydroxychloroquine (PLAQUENIL) 200 MG tablet Take 200 mg by mouth 2 (two) times a day. With food or milk. Active FIBER ADULT GUMMIES PO Take by mouth. Active atorvastatin (LIPITOR) 20 MG tabletIndications:Mi xed hyperlipidemia Take 1 tablet (20 mg total) by mouth daily. 30 tablet 5 05/22/2017 Active escitalopram (LEXAPRO) 10 MG tablet Take 10 mg by mouth daily. 6 09/28/2017 Active KRILL OIL PO Take by mouth. Active B-D UF III MINI PEN NEEDLES 31G X 5 MM needleIndications:Di abetes mellitus without complication (HCC) USE WITH INSULIN PEN TWICE A DAY 100 pen needle 3 01/22/2018 Active lisinopril (PRINIVIL,ZeSTRIL) 20 MG tabletIndications:Es sential hypertension Take 1 tablet (20 mg total) by mouth daily. 30 tablet 3 04/23/2018 Active atenolol (TENORMIN) 50 MG tablet 06/01/2015 Active Biotin 10 MG Cap 06/01/2015 Active XTAMPZA ER 9 MG ER (extended release) capsule Take 9 mg by mouth 2 (two) times a day. 0 04/17/2018 Active baclofen (LIORESAL) 5 MG tablet Take 5 mg by mouth 2 (two) times a day as needed. Active lidocaine-prilocaine (EMLA) cream Apply topically once. Active fluticasone (FloNASE) 50 mcg/spray nasal sprayIndications:Env ironmental allergies SPRAY 2 SPRAYS INTO EACH NOSTRIL EVERY DAY 48 g 1 02/04/2019 Active sitaGLIPtin (Januvia) 100 MG tabletIndications:Di abetes mellitus without complication (HCC) Take 1 tablet (100 mg total) by mouth daily. 90 tablet 3 09/17/2019 Active pioglitazone (ACTOS) 45 MG tabletIndications:Di abetes mellitus without complication (HCC) Take 1 tablet (45 mg total) by mouth daily. 90 tablet 3 09/17/2019 Active insulin glargine (Lantus SoloStar) 100 units/mL prefilled pen injectionIndications :Diabetes mellitus without complication (HCC) INJECT 1 ML (100 UNITS TOTAL) UNDER THE SKIN DAILY INDICATIONS: TYPE 2 DIABETES. 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) 06/08/2016 Paranoia 05/19/2016 Chronic ankle pain 11/30/2015 Fibromyalgia 10/11/2015 Pain in joint, multiple sites 06/11/2015 Postlaminectomy syndrome, lumbar region 06/11/19 16 Diabetic peripheral neuropathy 06/01/2015 Depression 03/10/2015 Herniation of cervical inter vertebral disc with radiculopathy 03/10/2015 Risk for falls 03/10/2015 Hypotensive lower esophageal sphincter 5 Varicose vein 03/10/2015 Hyperuricuria 12/07/2014 Obstructive sleep apnea 12/04/2014 Type II diabetes mellitus with neurological elizabeth festations 10/06/2014 Hyperlipidemia 10/06/2014 Essential hypertension 10/06/2014 Type II diabetes mellitus 10/06/2014 Chronic pain associated with significant psychosocial dysfunction 06/08/2014 Overview (03/07/2015): Description : Pt went to the OR to have disc dissection and this resulted in an aggressive staph infection requiring multiple surgeries, ICU care x 5 months and she is left with chronic pain and lower limb monoplegia. She tries to manage this but difficult as she previously was quite active, raised 3 boys Annotation : back pain Description : Pt went to the OR to have disc dissection and this resulted in an aggressive staph infection requiring multiple surgeries, ICU care x 5 months and she is left with chronic pain and lower limb monoplegia. She tries to manage this but difficult as she previously was quite active, raised 3 boys Annotation : back pain Obesity 06/08/2014 Brachial neuritis 03/24/2014 Monoplegia of lower limb affecting side 03/24/20 14 Asthma 06/06/2013 Esophageal reflux 06/06/2013 Cervicalgia 06/06/2013 Resolved Problems Problem Noted Date Diagnosed Date Resolved Date Acute cystitis with hematuria 12/03/2016 05/22/2017 Dehydration 12/03/2016 05/22/2017 Hypertension, uncontrolled 11/08/2016 0 05/22/2017 Ankle swelling 11/08/2016 11/05/2017 Homeless 11/08/2016 12/13/2018 Partial small bowel obstruction 09/10/2016 05/22/2017 Dysuria 07/10/2016 05/22/2017 Pre-op exam 11/30/2015 05/22/2017 Regurgitation of food 03/10/20152017 Solitary cyst of breast 10/06/201409/19 Type II diabetes mellitus, uncontrolled 07/20/2014 06/04/2015 Chronic pain 06/08/2014 11/05/2017 Overview (11/30/2015): Description : Pt went to the OR to have disc dissection and this resulted in an aggressive staph infection requiring multiple surgeries, ICU care x 5 months and she is left with chronic pain and lower limb monoplegia. She tries to manage this but difficult as she previously was quite active, raised 3 boys Annotation : back pain Disturbance of skin sensation 12/01/2013 10/11/2015 Pain in soft tissues of limb 12/01/2013 10/11/2015 Elevation of level of transa minase and lactic acid dehydrogenase (LDH) 06/06/2013 10/11/2015 Immunizations Name Administration Dates Next Due Influenza High-Dose Quadrivalent,(FLUZONE HIGH-DOSE), Perservative Free IM 0.7 mL 65 years and older 03/05/2017 Influenza Inactivated/Split Preservative Free IM 05/21/9998,02/20/2018,03/14/2016,02/18,02/12/2012,02/22/2009,03/26/2008 Influenza, Quadrivalent 02/20/2018 PPD Test 05/23/2013,06/26/2011,05/09/2001 Pneumococcal Polysaccharide 23-Valent 05/09/2001 Tdap 05/23/2013 Family History Medical History Relation Name Comments Depression Father Diabetes Father Hypertension Father Lupus Father Systemic Erythe matosus Renal Disease Father Diabetes Mother Hyperlipidemia Mother Osteoporosis Mother Thyroid disease Sister Heart disease Unknown 1 Hypertension Unknown 2 Stroke Unknown 3 Relation Name Status Comments Father Mother Sister Unknown 1 Unknown 2 Unknown 3 Social History Tobacco Use Types Packs/Day Years Used Date Smoking Tobacco: Never Smokeless Tobacco: Never Alcohol Use Standard Drinks/Week Comments No 0 (1 standard drink = 0.6 oz pur e alcohol) Sex and Gender Information Value Date Recorded Sex Assigned at Not on file Gender Identity Not on file Sexual Orientation Not on file Last Filed Vital Signs Vital Sign Reading Time Taken Comments Blood Pressure 126/74 06/04/2020 10:56 AM EST Pulse 80 06/04/2020 10:56 AM EST Temperature 36.1 ??C (96.9 ??F) 06/04/2020 10:[address] Respiratory Rate 20 12/13/2018 12:55 PM EDT Oxygen Saturation 97% 12/13/2018 12:55 PM EDT Inhaled Oxygen Concentration - - Weight 124 kg (274 lb) 06/04/2020 10:56 AM EST Height 170.2 cm (5' 7 ) 12/13/2018 12:55 PM EDT Body Mass Index 42.91 12/13/2018 12:55 PM EDT Plan of Treatment Health Maintenance Due Date Last Done Comments COVID-19 Vaccine (#1) 10/30/1964 HIV Screening 10/30/1972 Zoster (Shingles) Vaccine (1 of 2) 10/30/1978 Pneumococcal Vaccine: Pediatric (0-5 Years) and At-Risk Patients (6 to 49 Years) (2 of 2 - PCV) 05/09/2002 05/09/2001 Pneumococcal Vaccines 50+ (2 of 2 - PCV) 05/09/2002 05/09/2001 Mammogram 10/08/2016 10/08/2014 Ophthalmology Exam 03/27/2019 03/27/2018 (P reviously Completed) RSV Vaccine 60 years and older and Patients (1 - Risk 60-74 years 1-dose series) 2019 Foot Exam 12/14/2019 12/13/2018 Creatinine with GFR 03/19/2020 03/19/2019, 11/14/2018, 02/08/2018, Additional history exists Lipid Panel 03/19/2020 03/19/2019, 10/20, 02/08/2018, Additional history exists Hemoglobin A1C 10/17/2020 04/19/2020, 02/20, 11/14/2018, Additional history exists Microalbumin/Creatinine Ratio Urine 04/19/2021 04/19/2020, 03/19/2019, 06/26/2017, Additional history exists Colonoscopy 07/18/2021 07/19/2011 (Prev iously Completed), 07/19/2011 Pap Smear (Ages 21-65) 12/13/2021 9 (Previously Completed), 12/13/2018 DTaP/Tdap/Td Vaccines (2 - Td or Tdap) 05/23/2023 05/23/2013 Influenza Vaccine 12/20/2023 04/15/4578, , 02/20/2018, Additional history exists Hepatitis C Virus Screening Completed 11/14/2018 Hepatitis B Vaccines Aged Out No long er eligible based on patient's age to complete this topic Procedures Procedure Name Priority Date/Time Associated Diagnosis Comments MICROALBUMIN, CREATININE, URINE, RANDOM Routine 04/19/2020 11:36 AM EST Type 2 diabetes mellitus with hyperglycemia, with long-term current use of insulin (HCC) HEMOGLOBIN A1C Routine 04/19/2020 11:36 AM EST Type 2 diabetes mellitus with hyperglycemia, with long-term current use of insulin (HCC) LIPID PANEL REFLEX DIRECT LDL Routine 03/19/2019 8:52 AM EDT Diabetes mellitus without complication (HCC) CREATININE WITH EGFR Routine 03/19/2019 8:52 AM EDT Diabetes mellitus without complication (HCC) THINPREP PAP TEST (DISPATCHER RADIO) WITH HPV SCREEN Routine 12/13/2018 1:34 PM EDT Screening for cervical cancer HEPATITIS C VIRUS (HCV) ANTIBODY Routine 11/14/2018 9:19 AM EDT Health care maintenance MAMMO - DIGITAL - SCREENING WITH CAD - G0202, [id number] Routine 10/08/2014 8:30 AM EDT HX GASTROENTEROLOGY COLONOSCOPY-SCAN Routine 07/19/2011 from Last 3 Months or Most Recently Relevant to Health Maintenance Results * Microalbumin, Creatinine, Urine, Random (04/19/2020 11:36 AM EST) Creatinine, Urine, Random 180 20 - 275 mg/dL [facility] Microalbumin, Urine, Random 2.5 See Note: mg/dL [facility] Comment: Reference Range: Reference Range Not established Microalbumin/Creat inine Ratio 14 <30 mcg/mg creat [facility] Comment: The ADA defines abnormalities in albumin excretion as follows: Category ? Result (mcg/mg creatinine) Normal ?<30 Microalbuminuria ? 30-299 Clinical albuminuria ?? > OR = 300 The ADA recommends that at least two of three specimens collected within a 3-6 month period be abnormal before considering a patient to be within a diagnostic category. Urine Pharyngeal structure / Unknown 04/19/2020 11:36 AM EST 04/19/2020 11:39 AM EST Narrative [facility] - 04/19/2020 9:39 PM EST FASTING:YES FASTING: YES Jv Connors APRN URINE ORDERABLES [facility] [address] [place] [address], [place] [address] * (ABNORMAL) Hemoglobin A1c (04/19/2020 11:36 AM EST) Hemoglobin A1C 6.5(H) <5.7 % of total Hgb [facility] Comment: For someone without known diabetes, a hemoglobin A1c value of 6.5% or greater indicates that they may have diabetes and this should be confirmed with a follow-up test. For someone with known diabetes, a value <7% indicates that their diabetes is well controlled and a value greater than or equal to 7% indicates suboptimal control. A1c targets should be individualized based on duration of diabetes, age, comorbid conditions, and other considerations. Currently, no consensus exists regarding use of hemoglobin A1c for diagnosis of diabetes for children. ?? Blood specimen (specimen) 04/19/2020 11:36 AM EST 04/19/2020 11:39 AM EST Narrative [facility] - 04/19/2020 9:39 PM EST FASTING:YES FASTING: YES Jv Connors APRN LAB BLOOD ORDERABLE S [facility] [address] [place] [address], [place] [address] * (ABNORMAL) Lipid Panel Reflex Direct LDL (03/19/2019 8:52 AM EDT) Cholesterol, Total 206(H) <200 mg/dL [facility] Cholesterol, HDL 43(L) >50 mg/dL [facility] Triglycerides 350(H) <150 mg/dL [facility] Comment: If a non-fasting specimen was collected, consider repeat triglyceride testing on a fasting specimen if clinically indicated. Zan et al. J. of Clin. Lipidol. 2015;9:129-169. LDL Cholesterol 113(H) mg/dL (calc) [facility] Comment: Reference range: <100 Desirable range <100 mg/dL for primary prevention; ?? <70 mg/dL for patients with CHD or diabetic patients with > or = 2 CHD risk factors. LDL-C is now calculated using the Humberto calculation, which is a validated novel method providing better accuracy than the Friedewald equation in the estimation of LDL-C. Roverto KING et al. HAILEY. 2013;310(19): 1101-6475 (http://education.Transmetrics/faq/JRK657) Cholesterol/HDL Ratio 4.8 <5.0 (calc) [facility] Non HDL Chol. (LDL+VLDL) 163(H) <130 mg/dL (calc) [facility] Comment: For patients with diabetes plus 1 major ASCVD risk factor, treating to a non-HDL-C goal of <100 mg/dL (LDL-C of <70 mg/dL) is considered a therapeutic option. Blood specimen (specimen) Blood specimen / Unknown 03/19/2019 8:52 AM EDT 03/19/2019 8:52 AM EDT Narrative [facility] - 03/20/2019 4:53 PM EDT FASTING:YES FASTING: YES Resulting Agency Comment Performing Organization Information: ?Site ID: [id number] ?Name: [facility] ?Address: [address] [place] [address], [place] [address] ?Director: Xenia Guerrero MD Gianfranco Reynoso MD LAB BLOOD ORDERABLES [facility] [address] [place] [address], [place] [address] * Creatinine with eGFR (03/19/2019 8:52 AM EDT) Creatinine 0.77 0.50 - 1.05 mg/dL [facility] Comment: For patients >49 years of age, the reference limit for Creatinine is approximately 13% higher for people identified as -[place]. eGFR Non- 85 > OR = 60 mL/min/1. 73m2 [facility] eGFR 98 > OR = 60 mL/min/1. 73m2 [facility] Blood specimen (specimen) Blood specimen / Unknown 03/19/2019 8:52 AM EDT 03/19/2019 8:52 AM EDT Narrative [facility] - 03/20/2019 4:53 PM EDT FASTING:YES FASTING: YES Resulting Agency Comment Performing Organization Information: ?Site ID: [id number] ?Name: [facility] ?Address: [address], [place] [address] ?Director: Xenia Guerrero MD Gianfranco Reynoso MD LAB BLOOD ORDERABLES [facility] [address], [facility] [place] [address] * ThinPrep Pap Test (Typo Machine Operator) with HPV Screen (12/13/2018 1:34 PM EDT) Clinical Information [facility] Comment:Postmenopausal LMP: [facility] Comment:POSTMENOPAUSAL Previous PAP: NONE GIVEN [facility] Previous Biopsy NONE GIVEN [facility] Source: Cervix [facility] Statement of Adequacy: [facility] Comment:SATISFACTORY FOR WILFREDO LUATION Interpretation/Res ult: [facility] Comment: Negative for intraepithelial lesion or malignancy. Atrophic pattern; predominantly parabasal cells Comment: [facility] Comment: This Pap test has been evaluated with computer assisted technology. Utility Maintenance Worker: [facility] Comment: RMM, CT(ASCP) CT screening location: [address] ??[id number] Review Utility Maintenance Worker: [facility] Comment: HJP, CT(ASCP) CT screening location: [address] ??[address] Comment [facility] Comment: EXPLANATORY NOTE: The Pap is a screening test for cervical cancer. It is not a diagnostic test and is subject to false negative and false positive results. It is most reliable when a satisfactory sample, regularly obtained, is submitted with relevant clinical findings and history, and when the Pap result is evaluated along with historic and current clinical information. Hpv Mrna [id number] Not Detected Not Detected [facility] Comment: This test was performed using the APTIMA HPV Assay ([employer] This assay detects E6/E7 viral messenger RNA (mRNA) from 14 high-risk HPV types (16,18,31,33,35,39,45,51,52,56,58,59,66,68). The analytical performance characteristics of this assay have been determined by [employer]. The modifications have not been cleared or approved by the FDA. This assay has been validated pursuant to the CLIA regulations and is used for clinical purposes. 12/13/2018 1:34 PM EDT 12/14/2018 3:07 AM EDT Narrative Resulting Agency Comment Performing Organization Information: ?Site ID: [id number] ?Name: [facility] ?Address: [address] [place] [address], [place] [address] ?Director: Xenia Guerrero MD Dominique Nicholas MD PATHOLOGY/CYTOLOGY O RDERABLES [email or web address] [address] [place] [address], [place] [address] * Hepatitis C Virus (HCV) Antibody (11/14/2018 9:19 AM EDT) Hepatitis C Antibody NON-REACT ROMAN NON-REACT ROMAN [facility] Hepatitis C Antibody (s/co) 0.07 <1.00 [facility] Comment: HCV antibody was non-reactive. There is no laboratory evidence of HCV infection. In most cases, no further action is required. However, if recent HCV exposure is suspected, a test for HCV RNA (test code 03276) is suggested. For additional information please refer to http://education.Medabil/faq/DBO39r5 (This link is being provided for informational/ educational purposes only.) Blood specimen (specimen) Blood specimen / Unknown 11/14/2018 9:19 AM EDT 11/14/2018 9:20 AM EDT Narrative [facility] - 11/15/2018 7:08 AM EDT FASTING:YES FASTING: YES Resulting Agency Comment Performing Organization Information: ?Site ID: [id number] ?Name: [facility] ?Address: [address] [place] [address], [place] [address] ?Director: Xenia Guerrero MD Dominique Nicholas MD LAB BLOOD ORDERABLES [facility] [address] [facility] 3rd Floor, [place] [address] * MAMMO - Digital - SCREENING with CAD - G0202, [id number] (10/08/2014 8:30 AM EDT) Anatomical Region Laterality Modality Other Narrative 10/08/2014 8:30 AM EDT HISTORY: Patient is 53 years old and is seen for screening. ??The patient has a history of bilateral biopsy more than 10 years ago - benign - 2003 and . ??The patient has no personal history of breast or ovarian cancer. ??The patient has no family history of breast cancer. FILMS COMPARED: The present examination has been compared to a prior imaging study dated 12/03/2010. TISSUE DENSITY: There are scattered fibroglandular densities. (ACR BIRADS density Category b) * MAMMOGRAM FINDINGS: The following digital mammographic views were obtained: bilateral craniocaudal, bilateral mediolateral oblique. ??Computer-aided detection was utilized by the radiologist in the interpretation of this examination. There are post-treatment changes seen in both breasts. Finding remains unchanged from the prior study. No suspicious masses, calcifications or other abnormalities are seen in either breast. IMPRESSION: Post-treatment changess in both breasts are benign. Routine follow-up mammogram in 1 year is recommended. The patient will receive a lay summary of the results of this breast imaging exam. Lay summaries for mammography examinations will also identify the patients personal breast tissue composition as required by state law. BIRADS Category 2: Benign *BREAST COMPOSITION Breast composition descriptions are based on the standard practice guidelines of the ACR BI-RADS [place]. A reference guide is provided below. BREAST COMPOSITION CATEGORIES - BIRADS VERSION V a. The breasts are almost entirely fatty. b. There are scattered areas of fibroglandular density. c. The breasts are heterogeneously dense, which may obscure small masses. d. The breasts are extremely dense, which lowers the sensitivity of mammography. Patients in categories c. and d. may qualify for supplemental screening exams. Thank you for referring your patient to us, Micki Wall MD (Electronically Signed - 10/09/2014 09:17) Procedure Note Ishmael Perez W - 12/02/2014 HISTORY: Patient is 53 years old and is seen for screening. The patient has ahistory of bilateral biopsy more than 10 years ago - benign - 2003 [id number]. The patient has no personal history of breast or ovarian cancer.The patient has no family history of breast cancer. FILMS COMPARED: The present examination has been compared to a prior imaging study dated12/03/2010. TISSUE DENSITY: There are scattered fibroglandular densities. (ACR BIRADS density Categoryb) * MAMMOGRAM FINDINGS: The following digital mammographic views were obtained: bilateralcraniocaudal, bilateral mediolateral oblique. Computer-aided detectionwas utilized by the radiologist in the interpretation of this examination.There are post-treatment changes seen in both breasts. Finding remains unchanged from the prior study. No suspicious masses, calcifications or other abnormalities are seen ineither breast. IMPRESSION: Post-treatment changess in both breasts are benign. Routine follow-up mammogram in 1 year is recommended. The patient will receive a lay summary of the results of this breastimaging exam. Lay summaries for mammography examinations will alsoidentify the patients personal breast tissue composition as required bystate law. BIRADS Category 2: Benign *BREAST COMPOSITION Breast composition descriptions are based on the standard practiceguidelines of the ACR BI-RADS [place]. A reference guide is providedbelow. BREAST COMPOSITION CATEGORIES - BIRADS VERSION V a. The breasts are almost entirely fatty. b. There are scattered areas of fibroglandular density. c. The breasts are heterogeneously dense, which may obscure smallmasses. d. The breasts are extremely dense, which lowers the sensitivity ofmammography. Patients in categories c. and d. may qualify for supplemental screeningexams. Thank you for referring your patient to us, Micki Wall MD (Electronically Signed - 10/09/2014 09:17) Ishmael Perez MD IMG LEGACY PROCEDURE S * HX GASTROENTEROLOGY COLONOSCOPY-SCAN (07/19/2011) Ishmael Perez MD HX AMB PROCEDURES from Last 3 Months or Most Recently Relevant to Health Maintenance Advance Directives * Full Code (Latest Code Status on File) Date Activated Date Inactivated Comments 09/10/2016 6:42 PM 09/13/2016 3:22 PM Care Teams Mechanical Estimator Relationship Specialty Start Date End Date Robel Camarena DO [address] [place] [address] PCP - General Internal Medicine 04/19/20 Robel Camarena DO [address] [place] [address] PCP - [employer] Attributed 11/02/20 Brandyn Arriaga MD [address] [facility] [address] [place] [address] Consulting Provider Gastroenterology 06/04/15 Francisco Scales MD [address] [place] [address] Consulting Provider Cardiovascular Disease 06/04/15 Gianfranco Reynoso MD [address] [place] [address] Consulting Provider Endocrinology 07/06/15 Efe Sanabria DO [address] [facility] [address] [place] [address] Consulting Provider Pulmonary Medicine 10/11/15 Bryce Lema DPM [address] [place] [address] Consulting Provider Podiatry 05/22/17 Anne Marie Chance MD [address] [place] [address] Consulting Provider Rheumatology 05/07/18 Ishmael Shaw OD [address] [place] [address] Consulting Provider Optometry 07/22/18 Robel Camarena DO [address] [place] [address] Internal Medicine 02/16/20 Rell Howe MD Consulting Provider Anesthesiology 10/11/15
--- OUTSIDE RECORDS SUMMARY | 2024-06-16 15:04 | XMS_ITS | Encounter Summary ---
Author Organization [facility] Address [address] [place] [address] Care Team Providers Care Hand Etcher Helper Name Role Phone Brandyn Arriaga MD Unavailable Francisco Scales MD Unavailable [phone] Lino Carpio MD Unavailable [phone] Gianfranco Reynoso MD Unavailable Unavailable Efe Sanabria DO Unavailable [phone] Shaka Lyman MD Unavailable Bryce Lema DPM Unavailable Dominique Nicholas MD Primary Care Provider [phone] Anne Marie Chance MD Unavailable [phone] Ishmael Shaw OD Unavailable Amaya Cardenas RN Unavailable Robel Camarena DO Unavailable Robel Camarena DO Primary Care Provider [phone] Robel Camarena DO Unavailable [phone] Anne Marie ShaferW Unavailable Reason for Visit * Reason Comments Medication Refill Encounter Details Date Type Department Care Team (Late st Contact Info) Description 01/19/2018 [facility] Endocrinology [address] [place] [address] Gianfranco Reynoso MD Needs valid address Social History Tobacco Use Types Packs/Day Years [...] encounter Miscellaneous Notes * Telephone Encounter - Gi Mota MA - 01/22/2018 11:23 AM EDT Sent to pharmacy. documented in this encounter Plan of Treatment Not on file documented as of this encounter Visit Diagnoses Not on filedocumented in this encounter Care Teams Hand Etcher Helper Relationship Specialty Start Date End Date Dominique Nicholas MD 6 [facility] [address] [place] [address] PCP - General Internal Medicine 06/21/17 04/18/20 Robel Camarena DO [address] [place] [address] PCP - General Internal Medicine 04/19/20 Robel Camarena DO [address] [place] [address] PCP - United Medicare Attributed 11/02/20 Brandyn Arriaga MD 85 [facility] [address] [place] [address] Consulting Provider Gastroenterology 06/04/15 Francisco Scales MD [address] [place] [address] Consulting Provider Cardiovascular Disease 06/04/15 Lino Carpio MD 100 [place] [address] Consulting Provider Internal Medicine 06/04/15 12/12/18 Gianfranco Reynoso MD [address] [place] [address] Consulting Provider Endocrinology 07/06/15 Efe Sanabria DO [address] [place] [address] Consulting Provider Pulmonary Medicine 10/11/15 Shaka Lyman MD [address] [place] [address] [address] [place] [address] Consulting Provider Gastroenterology 10/11/15 12/12/18 Bryce Lema DPM [address] [place] [address] Dr [address] [place] [address] Consulting Provider Podiatry 05/22/17 Anne Marie Chance MD [address] [place] [address] Dr [address] [place] [address] Consulting Provider Rheumatology 05/07/18 Ishmael Shaw OD [address] [place] [address] Consulting Provider Optometry 07/22/18 Amaya Cardenas, GREGORY [address] [address] [facility] Community Repair Cameraman 02/27/19 06/01/19 Robel Camarena DO [address] [place] [address] Internal Medicine 02/16/20 Anne Marie Shafer, BIOLOGY INTERNSHIP [address] [place] [address] [facility] Community Repair Cameraman 03/02/22 03/02/22 Rell Howe MD Consulting Provider Anesthesiology 10/11/15 batsheva chow [facility] 11/06/16 06/29/19 documented as of this encounter
--- OUTSIDE RECORDS SUMMARY | 2024-06-16 15:04 | XMS_ITS | Clinical Summary ---
Author Organization [email or web address] [facility] Address 1 [facility] [place] [address] Care Team Providers Care Ballistics Expert Name Role Phone Dominique Nicholas MD Primary Care Provider [phone] Allergies Active Allergy Reactions Criticality Noted Date Comments Aspirin Swelling 12/01/2017 Lactose GI Intolerance 12/01/2017 Latex, Natural Rubber Swelling 12/01/2017 Medications hydroxychloroqu ine (PLAQUENIL) 200 mg tablet TAKE 1 TABLET BY MOUTH TWICE A DAY 2 11/12/2017 Active atenolol (TENORMIN) 50 MG tablet TAKE 1 TABLET BY MOUTH EVERY DAY 2 09/16/2017 Active diazePAM (VALIUM) 5 MG tablet TAKE 1 TABLET BY MOUTH TWICE A DAY 0 10/04/2017 Active escitalopram oxalate (LEXAPRO) 10 MG tablet TAKE 1 TABLET EVERY DAY 6 09/28/2017 Active LANTUS SOLOSTAR U-100 INSULIN 100 unit/mL (3 mL) inpn INJECT 1 ML (100 UNITS TOTAL) UNDER THE SKIN DAILY INDICATIONS: TYPE 2 DIABETES. 3 11/05/2017 Active lidocaine-prilo cheryl (EMLA) cream APPLY TO AFFECTED AREA 3 TIMES A DAY NEEDED 0 11/23/2017 Active oxyCODONE-aceta minophen (PERCOCET) 10-325 mg tablet TAKE 1 TABLET BY MOUTH THREE TIMES A DAY 0 11/18/2017 Active XTAMPZA ER 9 mg CSpT TAKE 1 CAPSULE BY MOUTH TWICE A DAY 0 11/23/2017 Active JANUVIA 100 mg tablet TAKE 1 TABLET BY MOUTH EVERY DAY 3 09/29/2017 Active QSYMIA 7.5-46 mg CM24 TAKE 1 TABLET BY MOUTH DAILY. START AFTER 10/08.75 COMPLETED. 1 09/10/2017 Active Social History Tobacco Use Types Packs/Day Years Used Date Smoking Tobacco: Never Smokeless Tobacco: Never Comments No Sex and Gender Information Value Date Recorded Sex Assigned at Not on file Legal Sex Female 12:03 PM EDT Gender Identity Not on file Sexual Orientation Not on file Last Filed Vital Signs Vital Sign Reading Time Taken Comments Blood Pressure 128/78 12/01/2017 12:41 PM EDT Pulse 68 12/01/2017 12:41 PM EDT Temperature 36.1 ??C (97 ??F) 12/01/2017 12:41 PM EDT Respiratory Rate 14 12/01/2017 12:41 PM EDT Oxygen Saturation 97% 12/01/2017 12:41 PM EDT Inhaled Oxygen Concentration - - Weight 86.2 kg (190 lb) 12/01/2017 12:41 PM EDT Height 170.2 cm (5' 7 ) 12/01/2017 12:41 PM EDT Body Mass Index 29.76 12/01/2017 12:41 PM EDT Plan of Treatment Health Maintenance Due Date Last Done Comments Colorectal Cancer: COLONOSCO PY Screening every 10 yrs (or Modifier) 1960 Depression: Screening Annual ly using PHQ-2/9 in Adults 18 yrs or above (or HM Modifier)([facility]) 10/30/1977 Hepatitis C Virus Infection in Adolescents and Adults: Screening (or Modifier) ([facility]) 10/30/1977 EMILY Screening: Once using [facility]-BANG Questionnaire for Adults with Conditions or high BMI([facility]) 10/30/1977 SDOH Screening Reminder: Debby lindsey for all adults ([facility]) 10/30/1977 Tobacco Smoking Cessation: i n Adults excluding Women: Behavioral and Pharmacotherapy Interventions ([facility]) 10/30/1977 DTaP/Tdap/Td Vaccines ([facility]) (1 - Tdap) 10/30/1978 Cervical Cancer Screenin 1-65 yrs of age (or Modifier) 10/30/1980 Cervical Cancer Screening: P ap every 3 yrs pts age 21-65 10/30/1980 Cervical Cancer: Pap Screeni ng with Modifier timing ([facility]) 10/30/1980 Cervical Cancer: hrHPV alone or with cotesting Pap for Pts 30-65yrs screening every 5yrs ([facility]) 10/30/1980 Colorectal Cancer Screening 45 -75 Yrs (or HM Modifier) 10/30/2004 Colorectal Cancer: FLEXIBLE SIGMOIDOSCOPY Screening every 5 yrs 10/30/2004 Colorectal Cancer: Fecal Immunochemical Test (FIT) Annually [facility] 10/30/2004 Colorectal Cancer: High-sens itivity gFOBT Screening Annually [facility] 10/30/2004 Colorectal Cancer: Stool Col oguard Screening every 3 yrs 10/30/2004 Colorectal Cancer:CT Colonog venita Screening every 5 yrs 10/30/2004 Lipid Screening: Every 5 yrs for Women aged 45+ (or HM Modifier) ([facility]) 10/30/2005 Breast Cancer: Screening Debby ually age 50-74 yrs (or HM Modifier)([facility]) 10/30/2009 Zoster/Shingles Vaccine Seri es Screening: Adults aged 18+ yrs (or HM Modifiers)([facility]) (1 of 2) 10/30/2009 Flu Vaccination: Yearly for ages 18mos through 64 years (or Modifier)([facility]) 12/20/2023 COVID-19 Vaccine Screening: Initial Series and Booster Status ([facility]) ( - 2023-25 season) 2024 RSV Vaccines (1 - 1-dose 75+ series) 10/30/2034 Pneumococcal Vaccination Scr eening: Pts 0-19 & 19-64 yrs of age ([facility]) Aged Out No longer eligible based on patient's age to complete this topic Medical Devices Not on file Insurance [employer] MEDICARE Care Teams Ballistics Expert Relationship Specialty Start Date End Date Dominique Nicholas MD PCP - Personnel Supervisor 12/01/17
--- OUTSIDE RECORDS SUMMARY | 2024-06-16 15:04 | XMS_ITS | Encounter Summary ---
Author Organization [facility] Address [address] [place] [address] Care Team Providers Care Internet Marketing Manager Name Role Phone Brandyn Arriaga MD Unavailable Francisco Scales MD Unavailable [phone] Misbah Niño MD Unavailable David Maxwell MD Unavailable [phone] Ming Alvarez MD Unavailable [phone] Lino Carpio MD Unavailable [phone] Gianfranco Reynoso MD Unavailable Unavailable Efe Sanabria DO Unavailable Shaka Lyman MD Unavailable Pcp, No Primary Care Provider UnavailBryce Nayak DPM Unavailable Dominique Nicholas MD Primary Care Provider Anne Marie Chance MD Unavailable [phone] Ishmael Shaw OD Unavailable Amaya Cardenas RN Unavailable Robel Camarena DO Unavailable Robel Camarena DO Primary Care Provider Robel Camarena DO Unavailable [phone] Anne Marie Shafer [facility] Unavailable Reason for Visit * Reason Comments Medication Refill Encounter Details Date Type Department Care Team (Late st Contact Info) Description 03/22/2017 Refill [facility] [address] [place] [phone] Dominique Nicholas MD [address] [place] [address] [place] [id number] Essential hypertension Social History Tobacco Use Types Packs/Day Years [...] encounter Miscellaneous Notes * Telephone Encounter - Malina Flor LPN - 03/22/2017 7:15 AM EDT No longer a patient here, patient needs to find new PCP documented in this encounter Plan of Treatment Not on file documented as of this encounter Visit Diagnoses Diagnosis Essential hypertension Unspecified essential hypertension documented in this encounter Care Teams Internet Marketing Manager Relationship Specialty Start Date End Date Pcp, No PCP - General General Medicine 11/06/16 06/20/17 Dominique Nicholas MD PCP - General Internal Medicine 06/21/17 04/18/20 Robel Camarena DO [address] [place] [address] PCP - General Internal Medicine 04/19/20 Robel Camarena DO [address] [place] [address] PCP - United Medicare Attributed 11/02/20 Brandyn Arriaga MD 85 [facility] [address] [place] [phone] Consulting Provider Gastroenterology 06/04/15 Francisco Scales MD [address] [place] [address] Consulting Provider Cardiovascular Disease 06/04/15 Misbah Niño MD [facility] [address] [place] [phone] Consulting Provider Physical Medicine and Rehabilitation 06/04/15 05/21/17 David Maxwell MD 85 [facility] [address] [place] [address] Consulting Provider Neurology 06/04/15 05/21/17 Ming Alvarez MD [address] [place] [address] Consulting Provider Surgery, Bariatric 06/04/15 05/21/17 Lino Carpio MD 100 [place] [address] Consulting Provider Internal Medicine 06/04/15 12/12/18 Gianfranco Reynoso MD [address] [place] [address] Consulting Provider Endocrinology 07/06/15 Efe Sanabria DO [address] [facility] 9[address] [place] [address] Consulting Provider Pulmonary Medicine 10/11/15 Shaka Lyman MD 6 [facility] [address] [place] [address] Consulting Provider Gastroenterology 10/11/15 12/12/18 Bryce Lema DPM Consulting Provider Podiatry 05/22/17 Anne Marie Chance MD Consulting Provider Rheumatology 05/07/18 Ishmael Shaw OD [address] [address] Consulting Provider Optometry 07/22/18 Amaya Cardenas, RN [facility] 4 [place] [address] [facility] Community Mail Inserter 02/27/19 06/01/19 Robel Camarena DO [address] [place] [address] Internal Medicine 02/16/20 Anne Marie Shafer, COAT JOINER LOCKSTITCH [address] [facility] 4 [place] [address] [facility] Community Mail Inserter 03/02/22 03/02/22 Rell Howe MD Consulting Provider Anesthesiology 10/11/15 KELLEN GEE MD [address] [place] [address] Rheumatology 03/22/16 05/21/17 batsheva chow [facility] 11/06/16 06/29/19 documented as of this encounter
--- OUTSIDE RECORDS SUMMARY | 2024-06-16 15:04 | XMS_ITS | Encounter Summary ---
Author Organization [facility] Address [address] [place] [address] Care Team Providers Care Data Warehouse Administrator Name Role Phone Dominique Nicholas MD Primary Care Provider [phone] Brandyn Arriaga MD Unavailable Francisco Scales MD Unavailable [phone] Misbah Niño MD Unavailable [phone] David Maxwell MD Unavailable [phone] Ming Alvarez MD Unavailable [phone] Lino Carpio MD Unavailable [phone] Gianfranco Reynoso MD Unavailable Unavailable Efe Sanabria DO Unavailable [phone] Shaka Lyman MD Unavailable [phone] Pcp, No Primary Care Provider UnavailDominique Simmons MD Primary Care Provider [phone] Pcp, No Primary Care Provider UnavailBryce Nayak DPM Unavailable Dominique Nicholas MD Primary Care Provider Anne Marie Chance MD Unavailable [phone] Ishmael Shaw OD Unavailable [phone] Amaya Cardenas RN Unavailable Robel Camarena DO Unavailable [phone] FridanellyRobel freeman DO Primary Care Provider [phone] Kathypete Robel DO Unavailable [phone] Anne Marie Shafer [facility] Unavailable Encounter Details Date Type Department Care Team (Late st Contact Info) Description 05/06/2015 Scanned Document [address] [phone] Provider, Generic Social History Tobacco Use Types Packs/Day Years Used Date Smoking Tobacco: Never Alcohol Use Standard Drinks/Week Comments Not Asked 0 (1 standard drink = 0.6 oz pur e alcohol) Sex and Gender Information Value Date Recorded Sex Assigned at Not on file Gender Identity Not on file Sexual Orientation Not on file documented as of this encounter Plan of Treatment Not on file documented as of this encounter Visit Diagnoses Not on filedocumented in this encounter Care Teams Data Warehouse Administrator Relationship Specialty Start Date End Date Dominique Nicholas MD PCP - General Internal Medicine 03/31/15 07/09/16 Pcp, No PCP - General General Medicine 07/13/16 10/29/16 Dominique Nicholas MD PCP - General Internal Medicine 10/30/16 11/05/16 Pcp, No PCP - General General Medicine 11/06/16 06/20/17 Dominique Nicholas MD PCP - General Internal Medicine 06/21/17 04/18/20 Robel Camarena DO [address] [place] [address] PCP - General Internal Medicine 04/19/20 Robel Camarena DO [address] [place] [address] PCP - United Medicare Attributed 11/02/20 Brandyn Arriaga MD 85 [facility] [address] [place] [address] Consulting Provider Gastroenterology 06/04/15 Francisco Scales MD [address] [place] [address] Consulting Provider Cardiovascular Disease 06/04/15 Misbah Niño MD [facility] [address] [place] [phone] Consulting Provider Physical Medicine and Rehabilitation 06/04/15 05/21/17 David Maxwell MD 85 [facility] [address] [place] [address] Consulting Provider Neurology 06/04/15 05/21/17 Ming Alvarez MD [address] [place] [address] Consulting Provider Surgery, Bariatric 06/04/15 05/21/17 Lino Carpio MD [address] [place] [address] Consulting Provider Internal Medicine 06/04/15 12/12/18 Gianfranco Reynoso MD [address] [place] [address] Consulting Provider Endocrinology 07/06/15 Efe Sanabria DO 85 [facility] [address] [place] [address] Consulting Provider Pulmonary Medicine 10/11/15 Shaka Lyman MD 6 [facility] [address] [place] [address] Consulting Provider Gastroenterology 10/11/15 12/12/18 Bryce Lema DPM Consulting Provider Podiatry 05/22/17 Anne Marie Chance MD Consulting Provider Rheumatology 05/07/18 Ishmael Shaw OD [address] [place] [address] Consulting Provider Optometry 07/22/18 Amaya Cardenas, GREGORY [address] [address] [facility] Community Derrick Follower 02/27/19 06/01/19 Robel Camarena DO [address] [place] [address] Internal Medicine 02/16/20 Anne Marie Shafer, MARBLE SETTER [address] [address] [facility] Community Derrick Follower 03/02/22 03/02/22 Rell Howe MD Consulting Provider Anesthesiology 10/11/15 KELLEN GEE MD [address] [place] [address] Rheumatology 03/22/16 05/21/17 batsheva chow [facility] 11/06/16 06/29/19 documented as of this encounter
--- OUTSIDE RECORDS SUMMARY | 2024-06-16 15:04 | XMS_ITS | Encounter Summary ---
Author Organization [facility] Address [address] [place] [address] Care Team Providers Care Senior Staff Consultant Name Role Phone Dominique Nicholas MD Primary Care Provider Brandyn Arriaga MD Unavailable Francisco Scales MD Unavailable [phone] Misbah Niño MD Unavailable [phone] David Maxwell MD Unavailable [phone] Ming Alvarez MD Unavailable [phone] Lino Carpio MD Unavailable [phone] Gianfranco Reynoso MD Unavailable Unavailable Efe Sanabria DO Unavailable [phone] Shaka Lyman MD Unavailable [phone] Pcp, No Primary Care Provider UnavailDominique Simmons MD Primary Care Provider Pcp, No Primary Care Provider UnavailBryce Nayak DPM Unavailable Dominique Nicholas MD Primary Care Provider [phone] Anne Marie Chance MD Unavailable [phone] Ishmael Shaw OD Unavailable [phone] Amaya Cardenas RN Unavailable [phone] Robel Camarena DO Unavailable FridanellyRobel freeman DO Primary Care Provider [phone] Kathypete Robel DO Unavailable [phone] Anne Marie Shafer [facility] Unavailable Encounter Details Date Type Department Care Team (Late st Contact Info) Description 10/28/2015 Scanned Document [address] [phone] Provider, Generic Social History Tobacco Use Types [...] on filedocumented in this encounter Care Teams Senior Staff Consultant Relationship Specialty Start Date End Date Dominique Nicholas MD PCP - General Internal Medicine 03/31/15 07/09/16 Pcp, No PCP - General General Medicine 07/13/16 10/29/16 Dominique Nicholas MD PCP - General Internal Medicine 10/30/16 11/05/16 Pcp, No PCP - General General Medicine 11/06/16 06/20/17 Dominique Nicholas MD PCP - General Internal Medicine 06/21/17 04/18/20 Robel Camarena DO [address] [place] [address] PCP - General Internal Medicine 04/19/20 Robel Camarena DO [address] [place] [address] PCP - United Medicare Attributed 11/02/20 Brandyn Arriaga MD 85 [facility] [address] [place] [address] Consulting Provider Gastroenterology 06/04/15 Francisco Scales MD [address] [place] [address] Consulting Provider Cardiovascular Disease 06/04/15 Misbah Niño MD [facility] [address] [place] [phone] Consulting Provider Physical Medicine and Rehabilitation 06/04/15 05/21/17 David Maxwell MD 85 [facility] [address] [place] [address] Consulting Provider Neurology 06/04/15 05/21/17 Ming Alvarez MD [address] [place] [address] Consulting Provider Surgery, Bariatric 06/04/15 05/21/17 Lino Carpio MD [address] [place] [address] Consulting Provider Internal Medicine 06/04/15 12/12/18 Gianfranco Reynoso MD [address] [place] [address] Consulting Provider Endocrinology 07/06/15 Efe Sanabria DO [address] [facility] [address] [place] [address] Consulting Provider Pulmonary Medicine 10/11/15 Shaka Lyman MD 6 [facility] [address] [place] [address] Consulting Provider Gastroenterology 10/11/15 12/12/18 Bryce Lema DPM Consulting Provider Podiatry 05/22/17 Anne Marie Chance MD Consulting Provider Rheumatology 05/07/18 Ishmael Shaw OD [address] [place] [address] Consulting Provider Optometry 07/22/18 Amaya Cardenas, GREGORY [address] [address] [facility] Community Order Picker 02/27/19 06/01/19 Robel Camarena DO [address] [place] [address] Internal Medicine 02/16/20 Anne Marie Shafer, COMPUTER TESTER [address] [place] [address] [facility] Community Order Picker 03/02/22 03/02/22 Rell Howe MD Consulting Provider Anesthesiology 10/11/15 KELLEN GEE MD [address] [place] [address] Rheumatology 03/22/16 05/21/17 batsheva chow [facility] 11/06/16 06/29/19 documented as of this encounter
--- OUTSIDE RECORDS SUMMARY | 2024-06-16 15:04 | XMS_ITS | Encounter Summary ---
Author Organization [facility] Address [address] [place] [place] [address] Care Team Providers Care Transformer Builder Name Role Phone Brandyn Arriaga MD Unavailable Francisco Scales MD Unavailable [phone] Lino Carpio MD Unavailable [phone] Gianfranco Reynoso MD Unavailable Unavailable Efe Sanabria DO Unavailable [phone] Shaka Lyman MD Unavailable Pcp, No Primary Care Provider UnavailBryce Nayak DPM Unavailable Dominique Nicholas MD Primary Care Provider Anne Marie Chance MD Unavailable [phone] Ishmael Shaw OD Unavailable Amaya Cardenas RN Unavailable Robel Camarena DO Unavailable Robel Camarena DO Primary Care Provider Robel Camarena DO Unavailable [phone] Anne Marie Shafer WEB UI SOFTWARE ENGINEER Unavailable [phone] Reason for Visit * Reason Comments Medication Refill Encounter Details Date Type Department Care Team (Late st Contact Info) Description 06/20/2017 [facility] [address] [facility] [address] [place] [phone] Darien Caraballo, [address] [place] [address] Social History Tobacco Use Types Packs/Day Years [...] * Telephone Encounter - Dominique Nicholas - 06/21/2017 9:08 AM EST Followed by Dr Reynoso for diabetes * Telephone Encounter - Malina Flor LPN - 06/20/2017 2:26 PM EST This patient has an upcoming appointment with you, however you are no longer listed as PCP. Does this patient still see you? Are you willing to RF? documented in this encounter Plan of Treatment Not on file documented as of this encounter Visit Diagnoses Not on filedocumented in this encounter Care Teams Transformer Builder Relationship Specialty Start Date End Date Pcp, No PCP - General General Medicine 11/06/16 06/20/17 Dominique Nicholas MD PCP - General Internal Medicine 06/21/17 04/18/20 Robel Camarena DO 200 [place] [address] PCP - General Internal Medicine 04/19/20 Robel Camarena DO 200 [place] [address] PCP - United Medicare Attributed 11/02/20 Brandyn Arriaga MD 85 [facility] 1000 [place] [address] Consulting Provider Gastroenterology 06/04/15 Francisco Scales MD [address] [place] [address] Consulting Provider Cardiovascular Disease 06/04/15 Lino Carpio MD 100 [place] [address] Consulting Provider Internal Medicine 06/04/15 12/12/18 Gianfranco Reynoso MD [address] [place] [address] Consulting Provider Endocrinology 07/06/15 Efe Sanabria DO 85 [facility] 923 [place] [address] Consulting Provider Pulmonary Medicine 10/11/15 Shaka Lyman MD 6 [facility] [address] [place] [address] Consulting Provider Gastroenterology 10/11/15 12/12/18 Bryce Lema DPM Consulting Provider Podiatry 05/22/17 Anne Marie Chance MD Consulting Provider Rheumatology 05/07/18 Ishmael Shaw, OD 110 [facility] 100 [place] [address] Consulting Provider Optometry 07/22/18 Amaya Cardenas, RN [address] [place] [address] [facility] Community Gastroenterology Teacher 02/27/19 06/01/19 Robel Camarena DO [address] [place] [address] Internal Medicine 02/16/20 Anne Marie Shafer, WEB UI SOFTWARE ENGINEER [address] [place] [address] [facility] Community Gastroenterology Teacher 03/02/22 03/02/22 Rell Howe MD Consulting Provider Anesthesiology 10/11/15 batsheva chow WEB UI SOFTWARE ENGINEER [facility] 11/06/16 06/29/19 documented as of this encounter
--- OUTSIDE RECORDS SUMMARY | 2024-06-16 15:04 | XMS_ITS | Encounter Summary ---
Author Organization [facility] Address [address] [place] [address] Care Team Providers Care Guest Services Director Name Role Phone Darien Caraballo DO Primary Care Provider [phone] Dominique Nicholas MD Primary Care Provider [phone] Brandyn Arriaga MD Unavailable Francisco Scales MD Unavailable [phone] Misbah Niño MD Unavailable [phone] David Maxwell MD Unavailable [phone] Ming Alvarez MD Unavailable [phone] Lino Carpio MD Unavailable [phone] Gianfranco Reynoso MD Unavailable Unavailable Efe Sanabria DO Unavailable [phone] Shaka Lyman MD Unavailable [phone] Pcp, No Primary Care Provider UnavailDominique Simmons MD Primary Care Provider [phone] Pcp, No Primary Care Provider Unavailmaria del carmen e Bryce Lema DPM Unavailable Dominique Nicholas MD Primary Care Provider Anne Marie Chance MD Unavailable [phone] Ishmael Shaw OD Unavailable Amaya Cardenas RN Unavailable Robel Camarena DO Unavailable KathyRobel freeman DO Primary Care Provider [phone] KathyRobel freeman DO Unavailable [phone] Anne Marie Shafer ANIMAL HUSBANDMAN Unavailable Encounter Details Date Type Department Care Team (Late st Contact Info) Description 03/01/2015 Scanned Document [facility] 1060 [place] [address] Provider, Generic Social History Tobacco [...] on filedocumented in this encounter Care Teams Guest Services Director Relationship Specialty Start Date End Date Darien Caraballo DO [address] [place] [address] PCP - General Internal Medicine 02/18/15 03/30/15 Dominique Nicholas MD [address] [place] [address] PCP - General Internal Medicine 03/31/15 07/09/16 Pcp, No PCP - General General Medicine 07/13/16 10/29/16 Dominique Nicholas MD [address] [place] [address], [place] [address] PCP - General Internal Medicine 10/30/16 11/05/16 Pcp, No PCP - General General Medicine 11/06/16 06/20/17 Dominique Nicholas MD [address] [place] [address], [place] [address] PCP - General Internal Medicine 06/21/17 04/18/20 Robel Camarena DO 200 [place] [address] PCP - General Internal Medicine 04/19/20 Robel Camarena DO 200 [place] [address] PCP - United Medicare Attributed 11/02/20 Brandyn Arriaga MD 85 [facility] 1000 [place] [address] Consulting Provider Gastroenterology 06/04/15 Francisco Scales MD 100 [facility] 811 [place] [address] Consulting Provider Cardiovascular Disease 06/04/15 Misbah Niño MD 35 [facility] [address] [place] [phone] Consulting Provider Physical Medicine and Rehabilitation 06/04/15 05/21/17 David Maxwell MD 85 [facility] 800 [place] [address] Consulting Provider Neurology 06/04/15 05/21/17 Ming Alvarez MD [address] [place] [address] Consulting Provider Surgery, Bariatric 06/04/15 05/21/17 Lino Carpio MD [address] [place] [address] Consulting Provider Internal Medicine 06/04/15 12/12/18 Gianfranco Reynoso MD 100 [place] [address] Consulting Provider Endocrinology 07/06/15 Efe Sanabria DO 85 [facility] 923 [place] [address] Consulting Provider Pulmonary Medicine 10/11/15 Shaka Lyman MD 6 [facility] [address] [place] [address] Consulting Provider Gastroenterology 10/11/15 12/12/18 Bryce Lema DPM Consulting Provider Podiatry 05/22/17 Anne Marie Chance MD Consulting Provider Rheumatology 05/07/18 Ishmael Shaw, LYDIA [address] [place] [address] Consulting Provider Optometry 07/22/18 Amaya Cardenas, GREGORY [address] [place] [address] [facility] Community Hide Selector 02/27/19 06/01/19 Robel Camarena DO [address] [place] [address] Internal Medicine 02/16/20 Anne Marie Shafer, ANIMAL HUSBANDMAN [address] [place] [address] [facility] Community Hide Selector 03/02/22 03/02/22 Rell Howe MD Consulting Provider Anesthesiology 10/11/15 KELLEN GEE MD [address] [place] [address] Rheumatology 03/22/16 05/21/17 [email or web address] chow [facility] 11/06/16 06/29/19 documented as of this encounter
--- OUTSIDE RECORDS SUMMARY | 2024-06-16 15:04 | XMS_ITS | Encounter Summary ---
Author Organization [facility] Address [address] [place] [address] Care Team Providers Care Internal Combustion Engine Assembler Name Role Phone Brandyn Arriaga MD Unavailable Francisco Scales MD Unavailable [phone] Gianfranco Reynoso MD Unavailable Unavailable Efe Sanabria DO Unavailable [phone] Bryce Lema DPM Unavailable Dominique Nicholas MD Primary Care Provider Anne Marie Chance MD Unavailable [phone] Ishmael Shaw OD Unavailable Amaya Cardenas RN Unavailable Robel Camarena DO Unavailable RadhaadanteEvano DO Primary Care Provider Eva Camarenano DO Unavailable [phone] Anne Marie ShaferW Unavailable Encounter Details Date Type Department Care Team (Late st Contact Info) Description 01/08/2019 Scanned Document [address] [address] Provider, Generic Social History Tobacco Use [...] on filedocumented in this encounter Care Teams Internal Combustion Engine Assembler Relationship Specialty Start Date End Date Dominique Nicholas MD 85 [facility] 923 [place] [address] PCP - General Internal Medicine 06/21/17 04/18/20 Robel Camarena DO 200 [place] [address] PCP - General Internal Medicine 04/19/20 Robel Camarena DO 200 [place] [address] PCP - United Medicare Attributed 11/02/20 Brandyn Arriaga MD 85 [facility] [address] [place] [id number] Consulting Provider Gastroenterology 06/04/15 Francisco Scales MD [address] [place] [address] Consulting Provider Cardiovascular Disease 06/04/15 Gianfranco Reynoso MD [address] [place] [address] Consulting Provider Endocrinology 07/06/15 Efe Sanabria DO 85 [facility] 923 [place] [address] Consulting Provider Pulmonary Medicine 10/11/15 Bryce Lema DPM 85 [facility] 923 [place] [address] Consulting Provider Podiatry 05/22/17 Anne Marie Chance MD 85 [facility] 923 [place] [address] Consulting Provider Rheumatology 05/07/18 Ishmael Shaw OD 110 [facility] 100 [place] [address] Consulting Provider Optometry 07/22/18 Amaya Cardenas, GREGORY [address] [place] [address] [facility] Community Head Teller 02/27/19 06/01/19 Robel Camarena DO [address] [place] [address] Internal Medicine 02/16/20 Anne Marie Shafer PURCHASING ASSOCIATE [address] [place] [address] [facility] Community Head Teller 03/02/22 03/02/22 Rell Howe MD Consulting Provider Anesthesiology 10/11/15 batsheva chow PURCHASING ASSOCIATE [facility] 11/06/16 06/29/19 documented as of this encounter
--- OUTSIDE RECORDS SUMMARY | 2024-06-16 15:04 | XMS_ITS | Encounter Summary ---
Author Organization [facility] Address [address] [place] [address] Care Team Providers Care Dog Barber Name Role Phone Darien Caraballo DO Primary Care Provider [phone] Dominique Nicholas MD Primary Care Provider [phone] Brandyn Arriaga MD Unavailable Francisco Scales MD Unavailable [phone] Misbah Niño MD Unavailable [phone] David Maxwell MD Unavailable [phone] Ming Alvarez MD Unavailable [phone] Lino Carpio MD Unavailable [phone] Gianfranco Reynoso MD Unavailable Unavailable Efe Sanabria DO Unavailable [phone] Shaka Lyman MD Unavailable [phone] Pcp, No Primary Care Provider UnavailDominique Simmons MD Primary Care Provider [phone] Pcp, No Primary Care Provider Unavailmaria del carmen e Bryce Lema DPM Unavailable Dominique Nicholas MD Primary Care Provider Anne Marie Chance MD Unavailable +[phone] Ishmael Shaw OD Unavailable Amaya Cardenas RN Unavailable [phone] Robel Camarena DO Unavailable [phone] KathyRobel freeman DO Primary Care Provider RadhaadriannaRobel freeman DO Unavailable [phone] Anne Marie Shafer PEARL STRINGER Unavailable [phone] Dominique Nicholas MD Primary Care Provider [phone] Encounter Details Date Type Department Care Team (Late st Contact Info) Description 10/15/2014 Scanned Document [address] [place] [id number] Provider, Generic Social History Tobacco Use [...] on filedocumented in this encounter Care Teams Dog Barber Relationship Specialty Start Date End Date Darien Caraballo DO [address] [place] [address] PCP - General Internal Medicine 02/18/15 03/30/15 Dominique Nicholas MD [address] [place] [address] PCP - General Internal Medicine 03/31/15 07/09/16 Pcp, No PCP - General General Medicine 07/13/16 10/29/16 Dominique Nicholas MD [facility]0 [place] [address] PCP - General Internal Medicine 10/30/16 11/05/16 Pcp, No PCP - General General Medicine 11/06/16 06/20/17 Dominique Nicholas MD 1060 [place], [place] [address] PCP - General Internal Medicine 06/21/17 04/18/20 Robel Camarena DO 200 [place] [address] PCP - General Internal Medicine 04/19/20 Roebl Camarena DO 200 [place] [address] PCP - United Medicare Attributed 11/02/20 Dominique Nicholas MD 234 [facility] 4011 [place], [place] [address] PCP - General 02/17/15 Brandyn Arriaga MD 85 [facility] 1000 [place] [address] Consulting Provider Gastroenterology 06/04/15 Francisco Scales MD [address] [place] [address] Consulting Provider Cardiovascular Disease 06/04/15 Misbah Niño MD [address] [place] [phone] Consulting Provider Physical Medicine and Rehabilitation 06/04/15 05/21/17 David Maxwell MD 85 [facility] 800 [place] [address] Consulting Provider Neurology 06/04/15 05/21/17 Ming Alvarez MD [address] [address] Consulting Provider Surgery, Bariatric 06/04/15 05/21/17 Lino Carpio MD 100 [place] [address] Consulting Provider Internal Medicine 06/04/15 12/12/18 Gianfranco Reynoso MD 100 [place] [address] Consulting Provider Endocrinology 07/06/15 Efe Sanabria DO 85 [facility] 923 [place] [address] Consulting Provider Pulmonary Medicine 10/11/15 Shaka Lyman MD 6 [facility] [address] [place] [address] Consulting Provider Gastroenterology 10/11/15 12/12/18 Bryce Lema DPM Consulting Provider Podiatry 05/22/17 Anne Marie Chance MD Consulting Provider Rheumatology 05/07/18 Ishmael Shaw OD [address] [place] [address] Consulting Provider Optometry 07/22/18 Amaya Cardenas, GREGORY 1290 [facility] 4 [place] [address] [facility] Community Senior Software Architect 02/27/19 06/01/19 Robel Camarena DO [address] [place] [address] Internal Medicine 02/16/20 Anne Marie Shafer, PEARL STRINGER [address] [place] [address] [facility] Community Senior Software Architect 03/02/22 03/02/22 Rell Howe MD Consulting Provider Anesthesiology 10/11/15 KELLEN GEE MD [address] [place] [address] Rheumatology 03/22/16 05/21/17 [email or web address] chow PEARL STRINGER [facility] 11/06/16 06/29/19 documented as of this encounter
--- OUTSIDE RECORDS SUMMARY | 2024-06-16 15:05 | XMS_ITS | Encounter Summary ---
Author Organization [facility] Address [address] [place] [address] Care Team Providers Care Circuit Clerk Name Role Phone Darien Caraballo DO Primary Care Provider [phone] Dominique Nicholas MD Primary Care Provider [phone] Brandyn Arriaga MD Unavailable Francisco Scales MD Unavailable [phone] Misbah Niño MD Unavailable [phone] David Maxwell MD Unavailable [phone] Ming Alvarez MD Unavailable [phone] Lino Carpio MD Unavailable [phone] Gianfranco Reynoso MD Unavailable Unavailable Efe Sanabria DO Unavailable [phone] Shaka Lyman MD Unavailable [phone] Pcp, No Primary Care Provider UnavailDominique Simmons MD Primary Care Provider [phone] Pcp, No Primary Care Provider Unavailmaria del carmen e Bryce Lema DPM Unavailable Dominique Nicholas MD Primary Care Provider Anne Marie Chance MD Unavailable [phone] Ishmael Shaw OD Unavailable RonaldAmaya RN Unavailable Robel Camarena DO Unavailable FridanellyRobel freeman DO Primary Care Provider Robel Camarena DO Unavailable Anne Marie Shafer SUPPLIER QUALITY MANAGER Unavailable [phone] Dominique Nicholas MD Primary Care Provider Encounter Details Date Type Department Care Team (Late st Contact Info) Description 01/28/2015 Scanned Document [address] [place] [address] [place] [phone] Provider, Generic Social History Tobacco Use Types [...] Associated Diagnosis Comments HX GASTROENTEROLOGY UPPER ENDOSCOPY-SCAN 01/28/2015 documented in this encounter Results * HX GASTROENTEROLOGY UPPER ENDOSCOPY-SCAN (01/28/2015) Narrative 01/28/2015 Ordered by an unspecified provider. Generic Provider HX AMB PROCEDURES documented in this encounter Visit Diagnoses Not on filedocumented in this encounter Care Teams Circuit Clerk Relationship Specialty Start Date End Date Darien Caraballo DO [address] [place] [address] PCP - General Internal Medicine 02/18/15 03/30/15 Dominique Nicholas MD [address] [place] [address] PCP - General Internal Medicine 03/31/15 07/09/16 Pcp, No PCP - General General Medicine 07/13/16 10/29/16 Dominique Nicholas MD 1060 [place] [address] PCP - General Internal Medicine 10/30/16 11/05/16 Pcp, No PCP - General General Medicine 11/06/16 06/20/17 Dominique Nicholas MD 1060 [place] [address] PCP - General Internal Medicine 06/21/17 04/18/20 Robel Camarena DO 200 [place] [address] PCP - General Internal Medicine 04/19/20 Robel Camarena DO 200 [place] [address] PCP - United Medicare Attributed 11/02/20 Dominique Nicholas MD 234 [facility] 4011 [place], [place] [address] PCP - General 02/17/15 Brandyn Arriaga MD 85 [facility] 1000 [place], [place] [address] Consulting Provider Gastroenterology 06/04/15 Francisco Scales MD [address] [place], [place] [address] Consulting Provider Cardiovascular Disease 06/04/15 Misbah Niño MD [address] [place] [address] Consulting Provider Physical Medicine and Rehabilitation 06/04/15 05/21/17 David Maxwell MD 85 [facility] 800 [place] [address] Consulting Provider Neurology 06/04/15 05/21/17 Ming Alvarez MD [address] [place] [address] Consulting Provider Surgery, Bariatric 06/04/15 05/21/17 Lino Carpio MD [address] [place] [address] Consulting Provider Internal Medicine 06/04/15 12/12/18 Gianfranco Reynoso MD [address] [place] [address] Consulting Provider Endocrinology 07/06/15 Efe Sanabria DO [address] [place] [address] 923 [place] [address] Consulting Provider Pulmonary Medicine 10/11/15 Shaka Lyman MD [address] [place] [address] 302 [place] [address] Consulting Provider Gastroenterology 10/11/15 12/12/18 Bryce Lema DPM Consulting Provider Podiatry 05/22/17 Anne Marie Chance MD Consulting Provider Rheumatology 05/07/18 Ishmael Shaw OD [address] [place] [address] Consulting Provider Optometry 07/22/18 Amaya Cardenas, RN [address] [place] [address] [facility] Community Pharmaceutical Assistant 02/27/19 06/01/19 KathyRobel freeman [address] [place] [address] Internal Medicine 02/16/20 Anne Marie Shafer SUPPLIER QUALITY MANAGER [address] [place] [address] [facility] Community Pharmaceutical Assistant 03/02/22 03/02/22 Rell Howe MD Consulting Provider Anesthesiology 10/11/15 KELLEN GEE MD [address] [place] [address] Rheumatology 03/22/16 05/21/17 [email or web address] chow SUPPLIER QUALITY MANAGER [facility] 11/06/16 06/29/19 documented as of this encounter
--- OUTSIDE RECORDS SUMMARY | 2024-06-16 15:05 | XMS_ITS | Encounter Summary ---
Author Organization [facility] Address [address] [place] [address] Care Team Providers Care Acid Polymerization Operator Name Role Phone Brandyn Arriaga MD Unavailable Francisco Scales MD Unavailable [phone] Misbah Niño MD Unavailable David Maxwell MD Unavailable Ming Alvarez MD Unavailable [phone] Lino Carpio MD Unavailable Gianfranco Reynoso MD Unavailable Unavailable Efe Sanabria DO Unavailable [phone] Shaka Lyman MD Unavailable Pcp, No Primary Care Provider UnavailDominique Simmons MD Primary Care Provider Pcp, No Primary Care Provider UnavailBryce Nayak DPM Unavailable Dominique Nicholas MD Primary Care Provider Anne Marie Chance MD Unavailable [phone] Ishmael Shaw OD Unavailable Amaya Cardenas RN Unavailable Robel Camarena DO Unavailable Nicol Robel Primary Care Provider [phone] Radhaadriannapete Robel Unavailable Anne Marie Shafer [facility] Unavailable [phone] Encounter Details Date Type Department Care Team (Late st Contact Info) Description 09/13/2016 Documentation [place] [address] [address] [place] [address] Inez Galo, GREGORY 80 [place], [place] [phone] Social History Tobacco Use Types Packs/Day Years [...] on filedocumented in this encounter Care Teams Acid Polymerization Operator Relationship Specialty Start Date End Date Pcp, No PCP - General General Medicine 07/13/16 10/29/16 Dominique Nicholas MD PCP - General Internal Medicine 10/30/16 11/05/16 Pcp, No PCP - General General Medicine 11/06/16 06/20/17 Dominique Nicholas MD PCP - General Internal Medicine 06/21/17 04/18/20 Robel Camarena DO 200 [place] [address] PCP - General Internal Medicine 04/19/20 Robel Camarena DO 200 [place] [address] PCP - United Medicare Attributed 11/02/20 Brandyn Arriaga MD 85 [facility] [address] [place] [address] Consulting Provider Gastroenterology 06/04/15 Francisco Scales MD [address] [place] [address] Consulting Provider Cardiovascular Disease 06/04/15 Misbah Niño MD [address] [place] [phone] Consulting Provider Physical Medicine and Rehabilitation 06/04/15 05/21/17 David Maxwell MD 85 [facility] [address] [place] [address] Consulting Provider Neurology 06/04/15 05/21/17 Ming Alvarez MD [address] [place] [address] Consulting Provider Surgery, Bariatric 06/04/15 05/21/17 Lino Carpio MD 100 [place] [address] Consulting Provider Internal Medicine 06/04/15 12/12/18 Gianfranco Reynoso MD 100 [place] [address] Consulting Provider Endocrinology 07/06/15 Efe Sanabria DO 85 [facility] [address] [place] [address] Consulting Provider Pulmonary Medicine 10/11/15 Shaka Lyman MD 6 [facility] [address] [place] [address] Consulting Provider Gastroenterology 10/11/15 12/12/18 Bryce Lema DPM Consulting Provider Podiatry 05/22/17 Anne Marie Chance MD Consulting Provider Rheumatology 05/07/18 Ishmael Sahw OD [address] [address] Consulting Provider Optometry 07/22/18 Amaya Cardenas, RN [address] [facility] 4 [place] [address] [facility] Community Portable Track Line Marker 02/27/19 06/01/19 Robel Camarena DO [address] [place] [address] Internal Medicine 02/16/20 Anne Marie Shafer, WAREHOUSE LABORER [address] [facility] 4 [place] [address] [facility] Community Portable Track Line Marker 03/02/22 03/02/22 Rell Howe MD Consulting Provider Anesthesiology 10/11/15 KELLEN GEE MD [address] [place] [address] Rheumatology 03/22/16 05/21/17 [email or web address] chow WAREHOUSE LABORER [facility] 11/06/16 06/29/19 documented as of this encounter
--- OUTSIDE RECORDS SUMMARY | 2024-06-16 15:05 | XMS_ITS | Encounter Summary ---
Author Organization [facility] Address [address] [place] [address] Care Team Providers Care Cashier Or Checker Stock Clerk Name Role Phone Brandyn Arriaga MD Unavailable Francisco Scales MD Unavailable [phone] Gianfranco Reynoso MD Unavailable Unavailable Efe Sanabria DO Unavailable Bryce Lema DPM Unavailable Anne Marie Chance MD Unavailable [phone] Ishmael Shaw OD Unavailable Robel Camarena DO Unavailable [phone] Robel Camarena DO Primary Care Provider [phone] Robel Camarena DO Unavailable Anne Marie Shafer [facility] Unavailable [phone] Reason for Visit * Reason Comments Medication Refill Encounter Details Date Type Department Care Team (Late st Contact Info) Description 05/18/2021 Refill [facility] Endocrinology [address] [phone] Gianfranco Reynoso MD Needs valid address Type 2 diabetes mellitus with hyperglycemia, with long-term current use of insulin (HCC) Social History Tobacco Use Types Packs/Day Years [...] as of this encounter Visit Diagnoses Diagnosis Type 2 diabetes mellitus with hyperglycemia, with long-term current use of insulin (HCC) documented in this encounter Care Teams Cashier Or Checker Stock Clerk Relationship Specialty Start Date End Date Robel Camarena DO [address] [place] [address] PCP - General Internal Medicine 04/19/20 Robel Camarena DO [address] [place] [address] PCP - [employer] Medicare Attributed 11/02/20 Brandyn Arriaga MD 85 [facility] [address] [place] [address] Consulting Provider Gastroenterology 06/04/15 Francisco Scales MD [address] [place], [place] [id number] Consulting Provider Cardiovascular Disease 06/04/15 Gianfranco Reynoso MD [address] [place] [address] Consulting Provider Endocrinology 07/06/15 Efe Sanabria DO 85 [facility] [address] [place] [address] Consulting Provider Pulmonary Medicine 10/11/15 Bryce Lema DPM 85 [facility] [address] [place] [address] Consulting Provider Podiatry 05/22/17 Anne Marie Chance MD 85 [facility] 923 [place] [address] Consulting Provider Rheumatology 05/07/18 Ishmael Shaw OD 110 [facility] 100 [place] [address] Consulting Provider Optometry 07/22/18 Robel Camarena DO [address] [place] [address] Internal Medicine 02/16/20 Anne Marie Shafer, [facility] 1290 [facility] 4 [place] [address] [facility] Community Shop And Alteration Tailor 03/02/22 03/02/22 Rell Howe MD Consulting Provider Anesthesiology 10/11/15 documented as of this encounter
--- OUTSIDE RECORDS SUMMARY | 2024-06-16 15:05 | XMS_ITS | Encounter Summary ---
Author Organization [facility] Address [address] [place] [address] Care Team Providers Care Transport Manager Name Role Phone Brandyn Arriaga MD Unavailable Francisco Scales MD Unavailable [phone] Gianfranco Reynoso MD Unavailable Unavailable Efe Sanabria DO Unavailable Bryce Lema DPM Unavailable Anne Marie Chance MD Unavailable [phone] Ishmael Shaw OD Unavailable Robel Camarena DO Unavailable [phone] Robel Camarena DO Primary Care Provider Robel Camarena DO Unavailable Anne Marie Shafer [facility] Unavailable Reason for Visit * Reason Comments Medication Refill Encounter Details Date Type Department Care Team (Late st Contact Info) Description 09/08/[address] [phone] Gianfranco Reynoso MD Needs valid address Diabetes mellitus without complication (HCC) Social History Tobacco Use Types Packs/Day [...] as of this encounter Visit Diagnoses Diagnosis Diabetes mellitus without complication (HCC) Type II or unspecified type diabetes mellitus without mention of complication, not stated as uncontrolled documented in this encounter Care Teams Transport Manager Relationship Specialty Start Date End Date Robel Camarena DO [address] [place] [address] PCP - General Internal Medicine 04/19/20 Robel Camarena DO [address] [place] [address] PCP - [employer] Medicare Attributed 11/02/20 Brandyn Arriaga MD 85 [facility] [address] [place] [address] Consulting Provider Gastroenterology 06/04/15 Francisco Scales MD [address] [place] [address] Consulting Provider Cardiovascular Disease 06/04/15 Gianfranco Reynoso MD [address] [place] [address] Consulting Provider Endocrinology 07/06/15 Efe Sanabria DO 85 [facility] [address] [place] [address] Consulting Provider Pulmonary Medicine 10/11/15 Bryce Lema DPM 85 [facility] 923 [place] [address] Consulting Provider Podiatry 05/22/17 Anne Marie Chance MD 85 [facility] 923 [place] [address] Consulting Provider Rheumatology 05/07/18 Ishmael Shaw OD 110 [facility] 100 [place] [address] Consulting Provider Optometry 07/22/18 Robel Camarena DO [address] [place] [address] Internal Medicine 02/16/20 Anne Marie Shafer SERVICE ESTABLISHMENT ATTENDANT [address] [facility] 4 [place] [address] [facility] Community Rn Case Mgr 03/02/22 03/02/22 Rell Howe MD Consulting Provider Anesthesiology 10/11/15 documented as of this encounter
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
--- OUTSIDE RECORDS SUMMARY | 2024-06-16 15:05 | XMS_ITS | Encounter Summary ---
Author Organization [facility] Address [address] [place] [address] Care Team Providers Care Entry Processor Name Role Phone Brandyn Arriaga MD Unavailable Francisco Scales MD Unavailable [phone] Gianfranco Reynoso MD Unavailable Unavailable Efe Sanabria DO Unavailable Bryce Lema DPM Unavailable Anne Marie Chance MD Unavailable [phone] Ishmael Shaw OD Unavailable Robel Camarena DO Unavailable Robel Camarena DO Primary Care Provider [phone] Robel Camarena DO Unavailable [phone] Anne Marie Shafer [facility] Unavailable Reason for Visit * Reason Comments Medication Refill Encounter Details Date Type Department Care Team (Late st Contact Info) Description 11/10/[address] [phone] Gianfranco Reynoso MD Needs valid address Diabetes [...] uncontrolled documented in this encounter Care Teams Entry Processor Relationship Specialty Start Date End Date Robel Camarena DO [address] [place] [address] PCP - General Internal Medicine 04/19/20 Robel Camarena DO [address] [place] [address] PCP - [employer] Medicare Attributed 11/02/20 Brandyn Arriaga MD 85 [facility] [address] [place] [address] Consulting Provider Gastroenterology 06/04/15 Francisco Scales MD [address] [place] [address] Consulting Provider Cardiovascular Disease 06/04/15 Gianfranco Reynoso MD [address] [place] [address] Consulting Provider Endocrinology 07/06/15 Efe Sanabria DO 85 [facility] [address] [place] [address] Consulting Provider Pulmonary Medicine 10/11/15 Bryce Lema DPM 85 [facility] [address] [place] [address] Consulting Provider Podiatry 05/22/17 Anne Marie Chance MD 85 [facility] [address] [place] [address] Consulting Provider Rheumatology 05/07/18 Ishmael Shaw OD 110 [facility] 100 [place] [address] Consulting Provider Optometry 07/22/18 Robel Camarena DO [address] [place] [address] Internal Medicine 02/16/[address] LIGHT REPAIRER HELPER [address] [facility] 4 [place] [address] [facility] Community Agricultural Science Professor 03/02/22 03/02/22 Rell Howe MD Consulting Provider Anesthesiology 10/11/15 documented as of this encounter
--- OUTSIDE RECORDS SUMMARY | 2024-06-16 15:05 | XMS_ITS | Encounter Summary ---
Author Organization [facility] Address [address] [place] [address] Care Team Providers Care Shipping/Receiving Manager Name Role Phone Dominique Nicholas MD Primary Care Provider Brandyn Arriaga MD Unavailable Francisco Scales MD Unavailable [phone] Misbah Niño MD Unavailable [phone] David Maxwell MD Unavailable [phone] Ming Alvarez MD Unavailable [phone] Lino Carpio MD Unavailable [phone] Gianfranco Reynoso MD Unavailable Unavailable Efe Sanabria DO Unavailable [phone] Shaka Lyman MD Unavailable [phone] Pcp, No Primary Care Provider UnavailDominique Simmons MD Primary Care Provider [phone] Pcp, No Primary Care Provider UnavailBryce Nayak DPM Unavailable Dominique Nicholas MD Primary Care Provider [phone] Anne Marie Chance MD Unavailable [phone] Ishmael Shaw OD Unavailable [phone] Amaya Cardenas RN Unavailable [phone] Robel Camarena DO Unavailable [phone] Robel Camarena DO Primary Care Provider Robel Camarena DO Unavailable [phone] Anne Marie Shafer COUNTERINTELLIGENCE/HUMINT SPECIALIST Unavailable Encounter Details Date Type Department Care Team (Late st Contact Info) Description 05/09/2016 Scanned Document [address] [phone] Provider, Generic Social History Tobacco Use Types [...] Procedure Name Priority Date/Time Associated Diagnosis Comments ECG 12-LEAD 05/09/2016 documented in this encounter Results * ECG 12-LEAD (05/09/2016) Narrative 05/09/2016 Ordered by an unspecified provider. Generic Provider ECG ORDERABLES documented in this encounter Visit Diagnoses Not on filedocumented in this encounter Care Teams Shipping/Receiving Manager Relationship Specialty Start Date End Date Dominique Nicholas MD PCP - General Internal Medicine 03/31/15 07/09/16 Pcp, No PCP - General General Medicine 07/13/16 10/29/16 Dominique Nicholas MD PCP - General Internal Medicine 10/30/16 11/05/16 Pcp, No PCP - General General Medicine 11/06/16 06/20/17 Dominique Nicholas MD PCP - General Internal Medicine 06/21/17 04/18/20 Robel Camarena DO 200 [place] [address] PCP - General Internal Medicine 04/19/20 Robel Camarena DO 200 [place] [address] PCP - United Medicare Attributed 11/02/20 Brandyn Arriaga MD 85 [facility] 1000 [place] [address] Consulting Provider Gastroenterology 06/04/15 Francisco Scales MD 100 [facility] [address] [place] [address] Consulting Provider Cardiovascular Disease 06/04/15 Misbah Niño MD 35 [facility] [address] [place] [address] Consulting Provider Physical Medicine and Rehabilitation 06/04/15 05/21/17 David Maxwell MD 85 [facility] 800 [place] [address] Consulting Provider Neurology 06/04/15 05/21/17 Ming Alvarez MD [address] [place] [address] Consulting Provider Surgery, Bariatric 06/04/15 05/21/17 Lino Carpio MD [address] [place] [address] Consulting Provider Internal Medicine 06/04/15 12/12/18 Gianfranco Reynoso MD 100 [place] [address] Consulting Provider Endocrinology 07/06/15 Efe Sanabria DO 85 [facility] 923 [place] [address] Consulting Provider Pulmonary Medicine 10/11/15 Shaka Lyman MD 6 [facility] [address] [place] [address] Consulting Provider Gastroenterology 10/11/15 12/12/18 Bryce Lema DPM Consulting Provider Podiatry 05/22/17 Anne Marie Chance MD Consulting Provider Rheumatology 05/07/18 Ishmael Shaw OD 110 [facility] 100 [place] [address] Consulting Provider Optometry 07/22/18 Amaya Cardenas, RN [address] [facility] 4 [place] [address] ICP Community Resident Advisor 02/27/19 06/01/19 Robel Camarena DO [address] [place] [address] Internal Medicine 02/16/20 Anne Marie Shafer, COUNTERINTELLIGENCE/HUMINT SPECIALIST [address] [place] [address] ICP Community Resident Advisor 03/02/22 03/02/22 Rell Howe MD Consulting Provider Anesthesiology 10/11/15 KELLEN GEE MD [address] [place] [address] Rheumatology 03/22/16 05/21/17 batsheva chow [facility] 11/06/16 06/29/19 documented as of this encounter
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
--- OUTSIDE RECORDS SUMMARY | 2024-06-16 15:05 | XMS_ITS | Clinical Summary ---
Author Organization [facility] Address [address] [place] [address] Care Team Providers Care Preventive Medicine Officer Name Role Phone Dominique Nicholas MD Primary Care Provider [phone] Allergies Active Allergy Reactions Criticality Noted Date Comments Aspirin Anaphylaxis High 05/25/2014 All aspirin products; i.e. plavix Canagliflozin Rash Low 12/24/2015 Duloxetine Hcl Rash Low 12/24/2015 Ibuprofen Shortness Of Breath High 12/24/2015 SHORTNESS OF BREATH Latex Other (See Comments) Medium 12/24/2015 Metformin And Related Diarrhea Low 12/24/2015 diarrhea Clopidogrel 12/24/2015 Pollen Extract Other (See Comments) Medium 12/24/2015 Pregabalin Other (See Comments) 12/24/2015 Chest pressure Medications Medication Sig Dispensed Refills Start Date End Date Status insulin glargine (LANTUS) injection 100 units/mL Inject 80 Units under the skin daily. 20 units at bedtime 0 Active atenolol (TENORMIN) tablet 50 mg Take 50 mg by mouth daily. 0 Active sitaGLIPtin (JANUVIA) 100 MG tablet Take 100 mg by mouth daily. 0 Active Loratadine 10 MG CAPS Take by mouth daily. 0 Active pantoprazole (PROTONIX) 40 MG tablet Take 40 mg by mouth every morning on an empty stomach. 0 Active Probiotic Product (PROBIOTIC DAILY PO) Take by mouth daily. 0 Active QSYMIA 11.25-69 MG CP24 daily. Did not stop Last dose this am Instructed not to take DOS Joel in 's office informed 0 12/10/2015 Active oxyCODONE-acetamino phen (PERCOCET) 7.5-325 MG per tablet 1 tablet every 8 (eight) hours as needed. 0 11/27/2015 Active diazepam (VALIUM) tablet 5 mg Take 5 mg by mouth 2 (two) times a day. 0 Active KRILL OIL PO Take by mouth daily. 0 Active atorvastatin (LIPITOR) tablet 20 mg Take 20 mg by mouth every evening. 0 Active fluticasone (FLONASE) 50 MCG/ACT nasal spray spray/apply 1 spray in each nostril daily. 0 Active fluticasone-salmete rol (ADVAIR) 250-50 MCG/DOSE DISKUS 1 inhalation by Inhaled route every 12 (twelve) hours. 0 Active albuterol (PROVENTIL HFA;VENTOLIN HFA) 108 (90 BASE) MCG/ACT inhaler Inhale 2 puffs into the lungs every 6 (six) hours as needed for wheezing. 0 Active lisinopril (PRINIVIL,ZESTRIL) tablet 20 mg Take 20 mg by mouth every evening. 0 Active oxyCODONE-acetamino phen (PERCOCET) 5-325 MG per tablet Take 1 tablet by mouth every 4 (four) hours as needed. 30 tablet 0 12/24/2015 Active Social History Tobacco Use Types Packs/Day [...] Sign Reading Time Taken Comments Blood Pressure 102/76 12/24/2015 2:40 PM EDT Pulse 70 12/24/2015 2:40 PM EDT Temperature 36.7 ??C (98.1 ??F) 12/24/2015 11:59 AM E DT Respiratory Rate 16 12/24/2015 2:40 PM EDT Oxygen Saturation 97% 12/24/2015 2:40 PM EDT Inhaled Oxygen Concentration - - Weight 98.9 kg (218 lb) 12/23/2015 10:57 AM EDT Height 170.2 cm (5' 7 ) 12/23/2015 10:57 AM EDT Body Mass Index 34.14 12/23/2015 10:57 AM EDT Plan of Treatment Health Maintenance Due Date Last Done Comments Hepatitis C Screening 1960 COVID-19 Vaccine (#1) 05/01/1960 Depression Screening 1971 Preventative Health Evaluation 10/30/1977 Cervical Cancer Screening (Pap Smear) 10/30/1980 Colon Cancer Screening (Colonoscopy) 10/30/2004 Breast Cancer Screening (Mammogram) 10/30/2009 Shingrix-Zoster Vaccine (1 of 2) 10/30/2009 DTap / Tdap / Td (2 - Td or Tdap) 05/23/2023 05/23/2013 Influenza Vaccine (#1) 2024 7, 03/14/2016, 02/18/2015, Additional history exists Pneumococcal Vaccine (2 of 2 - PCV) 10/30/2024 05/09/2001 RSV Adult > 60+ Yrs or (1 - 1-dose 75+ series) 10/30/2034 Pneumococcal Vaccine Aged Out 05/09/2001 No long er eligible based on patient's age to complete this topic Hepatitis B Vaccines Aged Out No long er eligible based on patient's age to complete this topic RSV Ped < 20 months Aged Out No longe r eligible based on patient's age to complete this topic Medical Devices Implanted Type Area Conveyor Tender [employer] Device Identifier Shelf Expiration Date Model / Serial / Lot Ubly 3.5mm Insite Ft Ti W\(2) Strands Of Size 0 Needled Fo - [id number] - [id number] Implanted:Qty: 1 on 12/24/2015 by Bryce Lema DPM at [facility] Right: Ankle [employer] 12/18/2017 [id number] / / [id number] Ubly 4.5mm Insite Ft Ti W\(2) Strands Of Size 2 Needled Fo - [id number] - [id number] Implanted:Qty: 1 on 12/24/2015 by Bryce Lema DPM at [facility] Right: Ankle [employer] 11/22/2016 [id number] / / [id number] Accufill Injectable Bone Substitute Material 3cc - [id number] - [id number] Implanted:Qty: 1 on 12/24/2015 by Bryce Lema DPM at [facility] Right: Ankle [employer] 02/17/2018 [id number] / / [id number] Advance Directives For more information, please contact: [phone] Latest Code Status on File Code Status Date Activated Date Inactivated Comments Full Code 12/24/2015 8:14 AM 12/24/2015 10:27 PM This c ode status was ascertained in the following way: discussion with patient. Care Teams Preventive Medicine Officer Relationship Specialty Start Date End Date Dominique Nicholas MD [address] [facility] [address] [place] [address] PCP - General Internal Medicine 12/23/15
--- OUTSIDE RECORDS SUMMARY | 2024-06-16 15:05 | XMS_ITS | Encounter Summary ---
Author Organization [facility] Address [address] [place] [address] Care Team Providers Care Gas Or Petroleum Operator Name Role Phone Dominique Nicholas MD Primary Care Provider Brandyn Arriaga MD Unavailable Francisco Scales MD Unavailable [phone] Misbah Niño MD Unavailable [phone] David Maxwell MD Unavailable [phone] Ming Alvarez MD Unavailable [phone] Lino Carpio MD Unavailable [phone] Gianfranco Reynoso MD Unavailable Unavailable Efe Sanabria DO Unavailable [phone] Shaka Lyman MD Unavailable [phone] Pcp, No Primary Care Provider UnavailDominique Simmons MD Primary Care Provider Pcp, No Primary Care Provider UnavailBryce Nayak DPM Unavailable Dominique Nicholas MD Primary Care Provider Anne Marie Chance MD Unavailable [phone] Ishmael Shaw OD Unavailable [phone] Amaya Cardenas RN Unavailable [phone] FridanellyRobel freeman DO Unavailable Robel Camarena DO Primary Care Provider Robel Camarena DO Unavailable [phone] Anne Marie Shafer BULK COOLERS INSTALLER Unavailable [phone] Encounter Details Date Type Department Care Team (Late st Contact Info) Description 05/12/2016 Scanned Document [address] [address] Provider, Generic Social History Tobacco Use Types [...] on filedocumented in this encounter Care Teams Gas Or Petroleum Operator Relationship Specialty Start Date End Date Dominique Nicholas MD PCP - General Internal Medicine 03/31/15 07/09/16 Pcp, No PCP - General General Medicine 07/13/16 10/29/16 Dominique Nicholas MD PCP - General Internal Medicine 10/30/16 11/05/16 Pcp, No PCP - General General Medicine 11/06/16 06/20/17 Dominique Nicholas MD PCP - General Internal Medicine 06/21/17 04/18/20 Robel Camarena DO [address] [place] [address] PCP - General Internal Medicine 04/19/20 Robel Camarena DO [address] [place] [address] PCP - [employer] Medicare Attributed 11/02/20 Brandyn Arriaga MD 85 [facility] 1000 [place] [address] Consulting Provider Gastroenterology 06/04/15 Francisco Scales MD [address] [place] [address] Consulting Provider Cardiovascular Disease 06/04/15 Misbah Niño MD [address] [place] [address] [address] [place] [address] Consulting Provider Physical Medicine and Rehabilitation 06/04/15 05/21/17 David Maxwell MD 85 [facility] 800 [place] [address] Consulting Provider Neurology 06/04/15 05/21/17 Ming Alvarez MD [address] [place] [address] Consulting Provider Surgery, Bariatric 06/04/15 05/21/17 Lino Carpio MD [address] [place] [address] Consulting Provider Internal Medicine 06/04/15 12/12/18 Gianfranco Reynoso MD [address] [place] [address] Consulting Provider Endocrinology 07/06/15 Efe Sanabria DO 85 [facility] 923 [place] [address] Consulting Provider Pulmonary Medicine 10/11/15 Shaka Lyman MD [address] [facility] [address] [place] [address] Consulting Provider Gastroenterology 10/11/15 12/12/18 Bryce Lema DPM Consulting Provider Podiatry 05/22/17 Anne Marie Chance MD Consulting Provider Rheumatology 05/07/18 Ishmael Shaw OD [address] [place] [address] Consulting Provider Optometry 07/22/18 Amaya Cardenas, RN [address] [facility] 4 [place] [address] ICP Community Apparel Merchandiser 02/27/19 06/01/19 Robel Camarena DO [address] [place] [address] Internal Medicine 02/16/20 Anne Marie Shafer BULK COOLERS INSTALLER [address] [place] [address] ICP Community Apparel Merchandiser 03/02/22 03/02/22 Rell Howe MD Consulting Provider Anesthesiology 10/11/15 KELLEN GEE MD [address] [place] [address] Rheumatology 03/22/16 05/21/17 batsheva chow [facility] 11/06/16 06/29/19 documented as of this encounter
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
--- OUTSIDE RECORDS SUMMARY | 2024-06-16 15:05 | XMS_ITS | Encounter Summary ---
Author Organization [facility] Address [address] [place] [address] Care Team Providers Care Municipal Firefighter Name Role Phone Darien Caraballo DO Primary Care Provider [phone] Dominique Nicholas MD Primary Care Provider [phone] Brandyn Arriaga MD Unavailable Francisco Scales MD Unavailable [phone] Misbah Niño MD Unavailable [phone] David Maxwell MD Unavailable [phone] Ming Alvarez MD Unavailable [phone] Lino Carpio MD Unavailable [phone] Gianfranco Reynoso MD Unavailable Unavailable Efe Sanabria DO Unavailable [phone] Shaka Lyman MD Unavailable [phone] Pcp, No Primary Care Provider UnavailDominique Simmons MD Primary Care Provider [phone] Pcp, No Primary Care Provider Unavailmaria del carmen e Bryce Lema DPM Unavailable Dominique Nicholas MD Primary Care Provider Anne Marie Chance MD Unavailable [phone] Ishmael Shaw OD Unavailable Amaya Cardenas RN Unavailable [phone] Robel Camarena DO Unavailable [phone] KathyRobel freeman DO Primary Care Provider RadhaadriannaRobel freeman DO Unavailable [phone] Anne Marie Shafer ADVERTISING OPERATIONS COORDINATOR Unavailable [phone] Dominique Nicholas MD Primary Care Provider Encounter Details Date Type Department Care Team (Late st Contact Info) Description 12/28/2014 Scanned Document [address] [place] [address] Provider, Generic Social History Tobacco Use [...] on filedocumented in this encounter Care Teams Municipal Firefighter Relationship Specialty Start Date End Date Darien Caraballo DO [address] [place] [address] PCP - General Internal Medicine 02/18/15 03/30/15 Dominique Nicholas MD [address] [place] [address] PCP - General Internal Medicine 03/31/15 07/09/16 Pcp, No PCP - General General Medicine 07/13/16 10/29/16 Dominique Nicholas MD [facility] [place] [address] PCP - General Internal Medicine 10/30/16 11/05/16 Pcp, No PCP - General General Medicine 11/06/16 06/20/17 Dominique Nicholas MD [address] [place], [place] [address] PCP - General Internal Medicine 06/21/17 04/18/20 Robel Camarena DO 200 [place] [address] PCP - General Internal Medicine 04/19/20 Robel Camarena DO 200 [place] [address] PCP - [employer] Medicare Attributed 11/02/20 Dominique Nicholas MD [address] [facility] 4[address] [place], [place] [address] PCP - General 02/17/15 Brandyn Arriaga MD 85 [facility] 1000 [place] [address] Consulting Provider Gastroenterology 06/04/15 Francisco Scales MD [address] [place] [address] Consulting Provider Cardiovascular Disease 06/04/15 Misbah Niño MD [address] [place] [phone] Consulting Provider Physical Medicine and Rehabilitation 06/04/15 05/21/17 David Maxwell MD 85 [facility] 800 [place] [address] Consulting Provider Neurology 06/04/15 05/21/17 Ming Alvarez MD [address] [address] Consulting Provider Surgery, Bariatric 06/04/15 05/21/17 Lino Carpio MD 100 [place] [address] Consulting Provider Internal Medicine 06/04/15 12/12/18 Gianfranco Reynoso MD 100 [place] [address] Consulting Provider Endocrinology 07/06/15 Efe Sanabria DO 85 [facility] 923 [place] [address] Consulting Provider Pulmonary Medicine 10/11/15 Shaka Lyman MD 6 [facility] [address] [place] [address] Consulting Provider Gastroenterology 10/11/15 12/12/18 Bryce Lema DPM Consulting Provider Podiatry 05/22/17 Anne Marie Chance MD Consulting Provider Rheumatology 05/07/18 Ishmael Shaw OD [address] [place] [address] Consulting Provider Optometry 07/22/18 Amaya Cardenas, GREGORY 1290 [facility] 4 [place] [address] [facility] Community Bread Icer 02/27/19 06/01/19 Robel Camarena DO [address] [place] [address] Internal Medicine 02/16/20 Anne Marie Shafer, ADVERTISING OPERATIONS COORDINATOR [address] [place] [address] [facility] Community Bread Icer 03/02/22 03/02/22 Rell Howe MD Consulting Provider Anesthesiology 10/11/15 KELLEN GEE MD [address] [place] [address] Rheumatology 03/22/16 05/21/17 batsheva chow ADVERTISING OPERATIONS COORDINATOR [facility] 11/06/16 06/29/19 documented as of this encounter
--- OUTSIDE RECORDS SUMMARY | 2024-06-16 15:05 | XMS_ITS | Encounter Summary ---
Author Organization [facility] Address [address] [place] [address] Care Team Providers Care Certified Veterinary Technician Name Role Phone Brandyn Arriaga MD Unavailable Francisco Scales MD Unavailable [phone] Gianfranco Reynoso MD Unavailable Unavailable Efe Sanabria DO Unavailable [phone] Bryce Lema DPM Unavailable Anne Marie Chance MD Unavailable +1-000-0 00-0000 Ishmael Shaw OD Unavailable [phone] Robel Camarena DO Unavailable Robel Camarena DO Primary Care Provider Robel Camarena DO Unavailable [phone] Anne Marie Shafer [facility] Unavailable [phone] Reason for Visit * Reason Comments Medication Refill Encounter Details Date Type Department Care Team (Late st Contact Info) Description 06/14/[address] [phone] Gianfranco Reynoso MD Needs valid address Diabetes [...] on file Sexual Orientation Not on file COVID-19 Exposure Response Date Recorded In the last month, have you been in contact with someone who was confirmed or suspected to have Coronavirus / COVID-19? No / Unsure 06/04/2020 10:37 AM EST documented as of this encounter Plan of Treatment Not on file documented as of this encounter Visit Diagnoses Diagnosis Diabetes mellitus without complication (HCC) Type II or unspecified type diabetes mellitus without mention of complication, not stated as uncontrolled documented in this encounter Care Teams Certified Veterinary Technician Relationship Specialty Start Date End Date Robel Camarena DO [address] [place] [address] PCP - General Internal Medicine 04/19/20 Robel Camarena DO 200 [place] [address] PCP - United Medicare Attributed 11/02/20 Brandyn Arriaga MD 85 [facility] [address] [place] [address] Consulting Provider Gastroenterology 06/04/15 Francisco Scales MD [address] [place] [address] Consulting Provider Cardiovascular Disease 06/04/15 Gianfranco Reynoso MD [address] [place] [address] Consulting Provider Endocrinology 07/06/15 Efe Sanabria DO 85 [facility] [address] [place] [address] Consulting Provider Pulmonary Medicine 10/11/15 Bryce Lema DPM [address] [place] [address] [address] Consulting Provider Podiatry 05/22/17 Anne Marie Chance MD [address] [address] Consulting Provider Rheumatology 05/07/18 Ishmael Shaw OD 110 [facility] 100 [place] [address] Consulting Provider Optometry 07/22/18 Robel Camarena DO [address] [place] [address] Internal Medicine 02/16/20 Anne Marie Shafer, [facility] 1290 [facility] 4 [place] [address] [facility] Community School Teacher 03/02/22 03/02/22 Rell Howe MD Consulting Provider Anesthesiology 10/11/15 documented as of this encounter
--- OUTSIDE RECORDS SUMMARY | 2024-06-16 15:05 | XMS_ITS | Encounter Summary ---
Author Organization [facility] Address [address] [place] [address] Care Team Providers Care Health Manager Name Role Phone Brandyn Arriaga MD Unavailable Francisco Scales MD Unavailable [phone] Misbah Niño MD Unavailable David Maxwell MD Unavailable [phone] Ming Alvarez MD Unavailable [phone] Lino Carpio MD Unavailable [phone] Gianfranco Reynoso MD Unavailable Unavailable Efe Sanabria DO Unavailable [phone] Shaka Lyman MD Unavailable [phone] Dominique Nicholas MD Primary Care Provider Pcp, No Primary Care Provider Unavailmaria del carmen e Bryce Lema DPM Unavailable Dominique Nicholas MD Primary Care Provider Anne Marie Chance MD Unavailable [phone] Ishmael Shaw OD Unavailable Amaya Cardenas RN Unavailable Robel Camarena DO Unavailable Robel Camarena DO Primary Care Provider [phone] FridanellyRobel freeman DO Unavailable Anne Marie Shafer [facility] Unavailable [phone] Encounter Details Date Type Department Care Team (Late st Contact Info) Description 11/01/2016 Abstract [facility] [address] [place] [phone] Matthew Sahu LPN 406 [place] [address] Social History Tobacco Use Types Packs/Day Years [...] on filedocumented in this encounter Care Teams Health Manager Relationship Specialty Start Date End Date Dominique Nicholas MD 6 [facility] [address] [place] [address] PCP - General Internal Medicine 10/30/16 11/05/16 Pcp, No PCP - General General Medicine 11/06/16 06/20/17 Dominique Nicholas MD 6 [facility] [address] [place] [address] PCP - General Internal Medicine 06/21/17 04/18/20 Robel Camarena DO 200 [place] [address] PCP - General Internal Medicine 04/19/20 Robel Camarena DO 200 [place] [address] PCP - United Medicare Attributed 11/02/20 Brandyn Arriaga MD 85 [facility] 1000 [place] [phone] Consulting Provider Gastroenterology 06/04/15 Francisco Scales MD [address] [place] [address] Consulting Provider Cardiovascular Disease 06/04/15 Misbah Niño MD 35 [facility] [address] [place] [phone] Consulting Provider Physical Medicine and Rehabilitation 06/04/15 05/21/17 David Maxwell MD 85 [facility] 800 [place] [address] Consulting Provider Neurology 06/04/15 05/21/17 Ming Alvarez MD [address] [place] [address] Consulting Provider Surgery, Bariatric 06/04/15 05/21/17 Lino Carpio MD 100 [place] [address] Consulting Provider Internal Medicine 06/04/15 12/12/18 Gianfranco Reynoso MD 100 [place] [address] Consulting Provider Endocrinology 07/06/15 Efe Sanabria DO 85 [facility] 923 [place] [address] Consulting Provider Pulmonary Medicine 10/11/15 Shaka Lyman MD [address] [facility] [address] [place] [address] Consulting Provider Gastroenterology 10/11/15 12/12/18 Bryce Lema DPM Consulting Provider Podiatry 05/22/17 Anne Marie Chance MD Consulting Provider Rheumatology 05/07/18 Ishmael Shaw OD [address] [address] Consulting Provider Optometry 07/22/18 Amaya Cardenas, RN [address] [facility] 4 [place] [address] [facility] Community Carpet Weaver 02/27/19 06/01/19 Robel Camarena DO [address] [place] [address] Internal Medicine 02/16/20 Anne Marie Shafer, [facility] [address] [facility] 4 [place] [address] ICP Community Carpet Weaver 03/02/22 03/02/22 Rell Howe MD Consulting Provider Anesthesiology 10/11/15 KELLEN GEE MD [address] [place] [address] Rheumatology 03/22/16 05/21/17 batsheva chow CAR MOVER [facility] 11/06/16 06/29/19 documented as of this encounter
--- OUTSIDE RECORDS SUMMARY | 2024-06-16 15:05 | XMS_ITS | Encounter Summary ---
Author Organization [facility] Address [address] [place] [address] Care Team Providers Care Barrel Cooper Name Role Phone Brandyn Arriaga MD Unavailable Francisco Scales MD Unavailable [phone] Misbah Niño MD Unavailable David Maxwell MD Unavailable Ming Alvarez MD Unavailable [phone] Lino Carpio MD Unavailable [phone] Gianfranco Reynoso MD Unavailable Unavailable Efe Sanabria DO Unavailable [phone] Shaka Lyman MD Unavailable Pcp, No Primary Care Provider UnavailDominique Simmons MD Primary Care Provider Pcp, No Primary Care Provider UnavailBryce Nayak DPM Unavailable Dominique Nicholas MD Primary Care Provider [phone] Anne Marie Chance MD Unavailable +1-000-0 00-0000 Ishmael Shaw OD Unavailable Amaya Cardenas RN Unavailable [phone] Robel Camarena DO Unavailable Kathypete Robel Primary Care Provider Nicol Robel Unavailable [phone] Anne Marie ShaferW Unavailable [phone] Encounter Details Date Type Department Care Team (Late st Contact Info) Description 09/13/2016 Documentation [facility] 80 [place] [address] Rowena Baker, GREGORY [address] [place], [place] [phone] Social History Tobacco Use Types Packs/Day Years [...] on filedocumented in this encounter Care Teams Barrel Cooper Relationship Specialty Start Date End Date Pcp, No PCP - General General Medicine 07/13/16 10/29/16 Dominique Nicholas MD PCP - General Internal Medicine 10/30/16 11/05/16 Pcp, No PCP - General General Medicine 11/06/16 06/20/17 Dominique Nicholas MD PCP - General Internal Medicine 06/21/17 04/18/20 Robel Camarena DO 200 [place] [address] PCP - General Internal Medicine 04/19/20 Robel Camarena DO 200 [place] [address] PCP - United Medicare Attributed 11/02/20 Brandyn Arriaga MD 85 [facility] [address] [place] [address] Consulting Provider Gastroenterology 06/04/15 Francisco Scales MD [address] [place] [address] Consulting Provider Cardiovascular Disease 06/04/15 Misbah Niño MD [address] [place] [phone] Consulting Provider Physical Medicine and Rehabilitation 06/04/15 05/21/17 David Maxwell MD 85 [facility] [address] [place] [address] Consulting Provider Neurology 06/04/15 05/21/17 Ming Alvarez MD [address] [place] [address] Consulting Provider Surgery, Bariatric 06/04/15 05/21/17 Lino Carpio MD 100 [place] [address] Consulting Provider Internal Medicine 06/04/15 12/12/18 Gianfranco Reynoso MD 100 [place] [address] Consulting Provider Endocrinology 07/06/15 Efe Sanabria DO 85 [facility] [address] [place] [address] Consulting Provider Pulmonary Medicine 10/11/15 Shaka Lyman MD [address] [facility] [address] [place] [address] Consulting Provider Gastroenterology 10/11/15 12/12/18 Bryce Lema DPM Consulting Provider Podiatry 05/22/17 Anne Marie Chance MD Consulting Provider Rheumatology 05/07/18 Ishmael Shaw OD [address] [address] Consulting Provider Optometry 07/22/18 Amaya Cardenas, RN [facility] 4 [place] [address] ICP Community Remote Coders 02/27/19 06/01/19 Robel Camarena DO [address] [place] [address] Internal Medicine 02/16/20 Anne Marie Shafer, [employer]VE[employer]ATION DIV[employer]IEUTENANT [address] [facility] 4 [place] [address] ICP Community Remote Coders 03/02/22 03/02/22 Rell Howe MD Consulting Provider Anesthesiology 10/11/15 KELLEN GEE MD [address] [place] [address] Rheumatology 03/22/16 05/21/17 batsheva chow [employer]VE[employer]ATION [employer] [facility] 11/06/16 06/29/19 documented as of this encounter
--- OUTSIDE RECORDS SUMMARY | 2024-06-16 15:05 | XMS_ITS | Encounter Summary ---
Author Organization [facility] Address [address] [place] [address] Care Team Providers Care Road Marker Name Role Phone Dominique Nicholas MD Primary Care Provider Brandyn Arriaga MD Unavailable Francisco Scales MD Unavailable [phone] Misbah Niño MD Unavailable [phone] David Maxwell MD Unavailable [phone] Ming Alvarez MD Unavailable [phone] Lino Carpio MD Unavailable [phone] Gianfranco Reynoso MD Unavailable Unavailable Efe Sanabria DO Unavailable [phone] Shaka Lyman MD Unavailable [phone] Pcp, No Primary Care Provider UnavailDominique Simmons MD Primary Care Provider [phone] Pcp, No Primary Care Provider UnavailBryce Nayak DPM Unavailable Dominique Nicholas MD Primary Care Provider [phone] Anne Marie Chance MD Unavailable +[phone] 00-0000 Ishmael Shaw OD Unavailable [phone] Amaya Cardenas RN Unavailable Robel Camarena DO Unavailable FridanellyRobel freeman DO Primary Care Provider FridanellyRobel freeman DO Unavailable [phone] Anne Marie Shafer INSTRUCTIONAL DESIGN SPECIALIST Unavailable Encounter Details Date Type Department Care Team (Late st Contact Info) Description 04/21/2016 Scanned Document [facility] Bariatric Surgery [address] [place] [address] Tressa Goddard PA Needs valid address Social History Tobacco Use [...] on filedocumented in this encounter Care Teams Road Marker Relationship Specialty Start Date End Date Dominique Nicholas MD PCP - General Internal Medicine 03/31/15 07/09/16 Pcp, No PCP - General General Medicine 07/13/16 10/29/16 Dominique Nicholas MD PCP - General Internal Medicine 10/30/16 11/05/16 Pcp, No PCP - General General Medicine 11/06/16 06/20/17 Dominique Nicholas MD PCP - General Internal Medicine 06/21/17 04/18/20 Robel Camarena DO [address] [place] [address] PCP - General Internal Medicine 04/19/20 Robel Camarena DO [address] [place] [address] PCP - United Medicare Attributed 11/02/20 Brandyn Arriaga MD 85 [facility] 1000 [place] [address] Consulting Provider Gastroenterology 06/04/15 Francisco Scales MD [address] [place] [address] Consulting Provider Cardiovascular Disease 06/04/15 Misbah Niño MD [address] [place] [address] 101 [place] [phone] Consulting Provider Physical Medicine and Rehabilitation 06/04/15 05/21/17 David Maxwell MD 85 [facility] 800 [place] [address] Consulting Provider Neurology 06/04/15 05/21/17 Ming Alvarez MD [address] [place] [address] Consulting Provider Surgery, Bariatric 06/04/15 05/21/17 Lino Carpio MD 100 [place] [address] Consulting Provider Internal Medicine 06/04/15 12/12/18 Gianfranco Reynoso MD 100 [place] [address] Consulting Provider Endocrinology 07/06/15 Efe Sanabria DO 85 [facility] 923 [place] [address] Consulting Provider Pulmonary Medicine 10/11/15 Shaka Lyman MD 6 [facility] [address] [place] [address] Consulting Provider Gastroenterology 10/11/15 12/12/18 Bryce eLma DPM Consulting Provider Podiatry 05/22/17 Anne Marie Chance MD Consulting Provider Rheumatology 05/07/18 Ishmael Shaw OD [address] [place] [address] Consulting Provider Optometry 07/22/18 Amaya Cardenas, RN [address] [facility] 4 [place] [address] ICP Community Safety Compliance Specialist 02/27/19 06/01/19 Robel Camarena DO [address] [place] [address] Internal Medicine 02/16/20 Anne Marie Shafer, [facility] [address] [facility] 4 [place] [address] ICP Community Safety Compliance Specialist 03/02/22 03/02/22 Rell Howe MD Consulting Provider Anesthesiology 10/11/15 KELLEN GEE MD [address] [place] [address] Rheumatology 03/22/16 05/21/17 batsheva chow [facility] 11/06/16 06/29/19 documented as of this encounter
--- OUTSIDE RECORDS SUMMARY | 2024-06-16 15:05 | XMS_ITS | Encounter Summary ---
Author Organization [facility] Address [address] [place] [address] Care Team Providers Care Grain Thresher Name Role Phone Dominique Nicholas MD Primary Care Provider Brandyn Arriaga MD Unavailable Francisco Scales MD Unavailable [phone] Misbah Niño MD Unavailable [phone] David Maxwell MD Unavailable [phone] Ming Alvarez MD Unavailable [phone] Lino Carpio MD Unavailable Gianfranco Reynoso MD Unavailable Unavailable Efe Sanabria DO Unavailable [phone] Shaka Lyman MD Unavailable [phone] Pcp, No Primary Care Provider UnavailDominique Simmons MD Primary Care Provider Pcp, No Primary Care Provider UnavailBryce Nayak DPM Unavailable Dominique Nicholas MD Primary Care Provider Anne Marie Chance MD Unavailable +[phone] 00-0000 Ishmael Shaw OD Unavailable [phone] Amaya Cardenas RN Unavailable Robel Camarena DO Unavailable [phone] Robel Camarena DO Primary Care Provider [phone] Robel Camarena DO Unavailable [phone] Anne Marie Shafer LUMBER RACKER Unavailable Encounter Details Date Type Department Care Team (Late st Contact Info) Description 04/06/[address] [facility] [place] [address] Provider, Generic Social History Tobacco Use Types [...] Procedure Name Priority Date/Time Associated Diagnosis Comments LAB RESULT 04/11/2016 documented in this encounter Results * LAB RESULT (04/11/2016) Narrative 04/11/2016 Ordered by an unspecified provider. Generic Provider HX AMB PROCEDURES documented in this encounter Visit Diagnoses Not on filedocumented in this encounter Care Teams Grain Thresher Relationship Specialty Start Date End Date Dominique Nicholas MD PCP - General Internal Medicine 03/31/15 07/09/16 Pcp, No PCP - General General Medicine 07/13/16 10/29/16 Dominique Nicholas MD PCP - General Internal Medicine 10/30/16 11/05/16 Pcp, No PCP - General General Medicine 11/06/16 06/20/17 Dominique Nicholas MD PCP - General Internal Medicine 06/21/17 04/18/20 Eva CamarenaDO kimberly 200 [place] [address] PCP - General Internal Medicine 04/19/20 Kathypete DO Robel 200 [place] [address] PCP - United Medicare Attributed 11/02/20 Brandyn Arriaga MD 85 [facility] 1000 [place] [address] Consulting Provider Gastroenterology 06/04/15 Francisco Scales MD [address] [place] [address] Consulting Provider Cardiovascular Disease 06/04/15 Misbah Niño MD 35 [facility] [address] [place] [address] Consulting Provider Physical Medicine and Rehabilitation 06/04/15 05/21/17 David Maxwell MD 85 [facility] 800 [place] [address] Consulting Provider Neurology 06/04/15 05/21/17 Ming Alvarez MD [address] [place] [address] Consulting Provider Surgery, Bariatric 06/04/15 05/21/17 Lino Carpio MD [address] [place] [address] Consulting Provider Internal Medicine 06/04/15 12/12/18 Gianfranco Reynoso MD 100 [place] [address] Consulting Provider Endocrinology 07/06/15 Efe Sanabria DO 85 [facility] 923 [place] [address] Consulting Provider Pulmonary Medicine 10/11/15 Shaka Lyman MD 6 [facility] [address] [place] [address] Consulting Provider Gastroenterology 10/11/15 12/12/18 Bryce Lema DPM Consulting Provider Podiatry 05/22/17 Anne Marie Chance MD Consulting Provider Rheumatology 05/07/18 Ishmael Shaw OD [address] [place] [address] Consulting Provider Optometry 07/22/18 Amaya Cardenas, GREGORY 1290 [facility] [address] [address] [facility] Community Cd Storage And Materials Make Up Helper 02/27/19 06/01/19 Robel Camarena DO [address] [place] [address] Internal Medicine 02/16/20 Anne Marie Shafer, SEB [address] [facility] 4 [place] [address] ICP Community [employer] Make Up Helper 03/02/22 03/02/22 Rell Howe MD Consulting Provider Anesthesiology 10/11/15 KELLEN GEE MD [address] [place], [place] Rheumatology 03/22/16 05/21/17 [email or web address] chow [facility] 11/06/16 06/29/19 documented as of this encounter
--- OUTSIDE RECORDS SUMMARY | 2024-06-16 15:05 | XMS_ITS | Encounter Summary ---
Author Organization [facility] Address [address] [place] [address] Care Team Providers Care Termination Clerk Name Role Phone Brandyn Arriaga MD Unavailable Francisco Scales MD Unavailable [phone] Misbah Niño MD Unavailable David Maxwell MD Unavailable Ming Alvarez MD Unavailable [phone] Lino Carpio MD Unavailable [phone] Gianfranco Reynoso MD Unavailable Unavailable Efe Sanabria DO Unavailable Shaka Lyman MD Unavailable Pcp, No Primary Care Provider UnavailDominique Simmons MD Primary Care Provider Pcp, No Primary Care Provider UnavailBryce Nayak DPM Unavailable Dominique Nicholas MD Primary Care Provider [phone] Anne Marie Chance MD Unavailable +1-000-0 00-0000 Ishmael Shaw OD Unavailable Amaya Cardenas RN Unavailable Robel Camarena DO Unavailable Robel Camarena DO Primary Care Provider FridanellyRobel freeman DO Unavailable Anne Marie Shafer [facility] Unavailable [phone] Encounter Details Date Type Department Care Team (Late st Contact Info) Description 07/19/2016 Scanned Document [address] [address] Provider, Generic Social History Tobacco [...] on filedocumented in this encounter Care Teams Termination Clerk Relationship Specialty Start Date End Date Pcp, No PCP - General General Medicine 07/13/16 10/29/16 Dominique Nicholas MD PCP - General Internal Medicine 10/30/16 11/05/16 Pcp, No PCP - General General Medicine 11/06/16 06/20/17 Dominique Nicholas MD PCP - General Internal Medicine 06/21/17 04/18/20 Robel Camarena DO 200 [place] [address] PCP - General Internal Medicine 04/19/20 Robel Camarena DO 200 [place] [address] PCP - United Medicare Attributed 11/02/20 Brandyn Arriaga MD [address] [place], [place] [id number] Consulting Provider Gastroenterology 06/04/15 Francisco Scales MD [address] [place] [address] Consulting Provider Cardiovascular Disease 06/04/15 Misbah Nioñ MD [facility] [address] [place] [address] Consulting Provider Physical Medicine and Rehabilitation 06/04/15 05/21/17 David Maxwell MD 85 [facility] [address] [place] [id number] Consulting Provider Neurology 06/04/15 05/21/17 Ming Alvarez MD [address] [place] [address] Consulting Provider Surgery, Bariatric 06/04/15 05/21/17 Lino Carpio MD [address] [place] [address] Consulting Provider Internal Medicine 06/04/15 12/12/18 Gianfranco Reynoso MD 100 [place] [address] Consulting Provider Endocrinology 07/06/15 Efe Sanabria DO 85 [facility] 923 [place] [address] Consulting Provider Pulmonary Medicine 10/11/15 Shaka Lyman MD [address] [place] [address] [address] [place] [address] Consulting Provider Gastroenterology 10/11/15 12/12/18 Bryce Lema DPM Consulting Provider Podiatry 05/22/17 Anne Marie Chance MD Consulting Provider Rheumatology 05/07/18 Ishmael Shaw OD [address] [place] [address] Consulting Provider Optometry 07/22/18 Amaya Cardenas, RN [address] [place] [address] [facility] Community Bobbin Winder Tender 02/27/19 06/01/19 Robel Camarena DO [address] [place] [address] Internal Medicine 02/16/20 Anne Marie Shafer, DENTURE WAXER [address] [place] [address] ICP Community Bobbin Winder Tender 03/02/22 03/02/22 Rell Howe MD Consulting Provider Anesthesiology 10/11/15 KELLEN GEE MD [address] [place] [address] Rheumatology 03/22/16 05/21/17 batsheva chow DENTURE WAXER [facility] 11/06/16 06/29/19 documented as of this encounter
== END 2024-06-16 11:02 | disposition home or self-care (01) ==
PROVIDERS: PCP Internal Medicine; Visit Provider Physician Assistant
DX: E11.65 Type 2 diabetes mellitus with hyperglycemia (principal); Z79.4 Long term (current) use of insulin; I10 Essential (primary) hypertension; E78.5 Hyperlipidemia, unspecified

== ENCOUNTER → 2024-06-16 10:23 | Outpatient (BNVA) | payer MEDICARE, MEDICAID, SELFPAY | PROVIDERS: PCP Internal Medicine; Visit Provider Physician Assistant | DX: E11.65 Type 2 diabetes mellitus with hyperglycemia (principal); E78.5 Hyperlipidemia, unspecified; I10 Essential (primary) hypertension; Z79.4 Long term (current) use of insulin | CPT/HCPCS: 82947; 99212 ==

== ENCOUNTER 2024-09-15 10:46 | Outpatient (AMB) | payer MEDICARE, MEDICAID, SELFPAY ==
[2024-09-15 10:55] VITALS: BP 128/80; PULSE 78; O2SAT 97; BMI 39.7
--- NOTE | 2024-09-15 10:55 | A.OFFVIS_ITS ---
Vital Signs 09/15/24 10:55 Height 5 ft 7 in Weight 253 lb 8.505 oz BMI 39.7 BP 128/80 Blood Pressure Location Rt brachial Position Sitting Pulse 78 Pulse Source Pulse Oximeter Pulse Oximetry (%) 97 Oxygen Delivery Method Room Air Intake Visit Reasons: T2DM Intake Note: Patient present today for Type 2 Diabetes Mellitus Last Diabetic eye exam: 2023 Last Podiatry Visit: 06/2024 Random Glucose: 194 mg/dl HgA1C: 8.5% Air Traffic Control Operator Required: No Accompanied by: Self / Same As Patient Allergies No Known Allergies Allergy (Verified 09/15/24 11:01) Medication List - Last Reconciled 09/15/24 by Edie Savage PA-C atenolol 50 mg PO DAILY atorvastatin 20 mg PO BEDTIME blood-glucose sensor ([employer] G7 Sensor device) Use daily As directed to monitor glucose. change q 10 days blood-glucose,software developer consultant,cont ([employer]ex[employer] G7 Communications Lead) use daily As directed to monitor blood glucose celecoxib 400 mg PO BID PRN insulin glargine (Lantus Solostar U-100 Insulin) 50 units in the morning, 50 units at night subcutaneously every morning; lisinopril 10 mg PO DAILY oxycodone myristate CR-ER (Xtampza ER) 9 mg PO Q12H semaglutide (Ozempic) 0.5 mg (0.736 mL) subcut QWEEK HPI HPI T2DM: Details: Patient is a 63-year-old female with a significant past medical history of overactive bladder, chronic pain syndrome, PVD, lower leg edema, varicose veins, kidney stones, hyperlipidemia, type 2 diabetes presenting today fr a follow up regarding her diabetes. Endo: Dm- Her a1c was 8.8 and today is 8.5. She was dx with t2dm in her early 30s. She is currently on Lantus 50 units in the morning and 50 units in the evening, she is on Ozempic 0.5 mg weekly. -She states that her blood sugars have been a bit lower since starting the ozempic. She is tolerating this medication. She has cut the lantus down to 30 or 20 units at night as she is getting a lot of low blood sugars overnight. She states that the ozempic is curbing her appetite and the dose of lantus is too much. cgm- Dexcom download shows average glucose 185, G mi 7.4, standard deviation 51%. Very hyperglycemic 1%, hyperglycemic 18%, in range 81%, 0% hypoglycemia She was going low overnight and in the morning She used to be on actos and states does not know why she was taken off, she used to be on metformin but had too much GI upset. She states that previously she thinks she was on glimepiride and had hypoglycemia. She was on glipizide recently but caused hypogylcemia. Did not tolerate trulicity with nausea and felt ineffective. She states that she has had diabetic training and met with an educator. She goes to Dr. Tidwell at [facility] for podiatry. CV: Blood pressure today in the office is 128/80. She is currently on atenolol 50 mg daily and lisinopril 10 mg daily. Cholesterol is managed with atorvastatin 20 mg. Vasc: reports PVD and follows with vascular surgery, last visit with Radha Lombardi. Urology: follows with [facility] for renal stones. [facility] Medical History Lupus (systemic lupus erythematosus) History of chronic back pain Type 2 diabetes mellitus with hyperglycemia Hx of hyperlipidemia Hx of essential hypertension Surgical History History of back surgery Family History Father Lupus (systemic lupus erythematosus) Mother Diabetes mellitus Maternal Aunt Diabetes mellitus Heart disease Social History Alcohol intake: current Alcohol intake frequency: does not drink Patient Tobacco Use Status: Never used Tobacco Physical Exam Vital Signs: Last Vital Signs Pulse 78 09/15/24 10:55 BP 128/80 09/15/24 10:55 Pulse Ox 97 09/15/24 10:55 Oxygen Delivery Method Room Air 09/15/24 10:55 BMI result Body Mass Index 39.7 Const Orientation/consciousness: patient oriented x3 HEENT Ears: hearing grossly normal bilaterally Neck Thyroid: Thyroid normal Lymphatic: no lymphadenopathy noted Resp Auscultation: clear to auscultation bilaterally Cardio Rate: regular rate Rhythm: regular rhythm Heart sounds: S1 normal heart sound present and S2 normal heart sound present Skin General skin exam: no rashes or lesions noted Neuro General: patient oriented x3, gait normal and no focal motor deficits Results AMB Hemoglobin A1c AMB Hemoglobin A1c 8.5 % Last Edit by ANJELICA Carmichael on 09/15/24 11:33 Results Reviewed Results Reviewed: Laboratory Last Values Glucose (Clinic) 194 mg/dL (60-115) H 09/15/24 11:04 Hgb A1c (Clinic) 8.5 % (4.0-6.0) H 09/15/24 11:06 Laboratory Tests 05/26/24 06/16/24 13:34 10:38 Glucose (Clinic) 191 H Hgb A1c (Clinic) 8.8 H Assessment & Plan Assessment & Plan (1) Uncontrolled type 2 diabetes mellitus with hyperglycemia, with long-term current use of insulin: Code(s): E11.65 - Type 2 diabetes mellitus with hyperglycemia; Z79.4 - group home (current) use of insulin Category: Medical Plan: increase ozempic to 1 mg decrease lantus to 50 units once a day advised labs prior to appointment (2) Hyperlipidemia: Code(s): E78.5 - Hyperlipidemia, unspecified Category: Medical Plan: atorivastatin 20 mg lipids and lfts ordered (3) Hypertension: Code(s): I10 - Essential (primary) hypertension Category: Medical Plan: wnl continue current plan Orders: Orders AMB Hemoglobin A1c Today E11.65 - Type 2 diabetes mellitus with hyperglycemia, Z13.9 - Encounter for screening, unspecified, Z79.4 - group home (current) use of insulin Medications: New insulin glargine (Lantus Solostar U-100 Insulin) 50 units (0.5 mL) subcut QAM 15 mL 4RF semaglutide (Ozempic) 1 mg (0.75 mL) subcut QWEEK 3 mL 5RF Discontinued semaglutide (Ozempic) Discontinued Reason: Doctor's Order 0.5 mg (0.736 mL) subcut QWEEK 3 mL 4RF Patient Instructions: reduce the lantus to ONCE A DAY to 50 units increase ozempic to 1 mg weekly do labs a few days prior to our appointment Coding Level of Care Code Est Pt Level 4 (56780) Complex EM visit Add On G2211 Diagnoses Uncontrolled type 2 diabetes mellitus with hyperglycemia, with long-term current use of insulin E11.65; Z79.4 Hyperlipidemia E78.5 Hypertension I10
[2024-09-15 11:08] LABS: Glucose, Whole Blood 194 mg/dL (60-115)
--- OUTSIDE RECORDS SUMMARY | 2024-09-15 12:49 | XMS_ITS | Encounter Summary ---
Author Organization Formerly [facility] Address [address] [place] [address] Care Team Providers Care Documentation Designer Name Role Phone Brandyn Arriaga MD Unavailable Francisco Scales MD Unavailable [phone] Lino Carpio MD Unavailable [phone] Gianfranco Reynoso MD Unavailable Unavailable Efe Sanabria DO Unavailable [phone] Shaka Lyman MD Unavailable Pcp, No Primary Care Provider UnavailBryce Nayak DPM Unavailable Dominique Nicholas MD Primary Care Provider Anne Marie Chance MD Unavailable [phone] 00-0000 Ishmael Sahw OD Unavailable Amaya Cardenas RN Unavailable Roebl Camarena DO Unavailable Robel Camarena DO Primary Care Provider [phone] Robel Camarena DO Unavailable Anne Marie Shafer SCHEDULING SPECIALIST Unavailable Reason for Visit * Reason Comments Medication Refill Encounter Details Date Type Department Care Team (Late st Contact Info) Description 06/20/2017 [facility] [place]iller [address] [place] [id number] Darien Caraballo, [address] [place] [address] Social History Tobacco Use Types Packs/Day Years Used Date Smoking Tobacco: Never Smokeless Tobacco: Never Alcohol Use Standard Drinks/Week Comments No 0 (1 standard drink = 0.6 oz pur e alcohol) Comments No Sex and Gender Information Value Date Recorded Sex Assigned at Not on file Legal Sex Female 3:33 PM EDT Gender Identity Not on file Sexual Orientation Not on file 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 Not on file Not [...] on filedocumented in this encounter Care Teams Documentation Designer Relationship Specialty Start Date End Date Pcp, No PCP - General General Medicine 11/06/16 06/20/17 Dominique Nicholas MD PCP - General Internal Medicine 06/21/17 04/18/20 Robel Camarena DO [address] [place] [address] PCP - General Internal Medicine 04/19/20 Robel Camarena DO [address] [place] [address] PCP - United Medicare Attributed 11/02/20 Brandyn Arriaga MD 85 [facility] [address] [place] [address] Consulting Provider Gastroenterology 06/04/15 Francisco Scales MD [address] [place] [address] Consulting Provider Cardiovascular Disease 06/04/15 Lino Carpio MD 100 [place] [address] Consulting Provider Internal Medicine 06/04/15 12/12/18 Gianfranco Reynoso MD 100 [place] [address] Consulting Provider Endocrinology 07/06/15 Efe Sanabria DO 85 [facility] [address] [place] [address] Consulting Provider Pulmonary Medicine 10/11/15 Shaka Lyman MD 6 [facility] [address] [place] [address] Consulting Provider Gastroenterology 10/11/15 12/12/18 Bryce Lema DPM Consulting Provider Podiatry 05/22/17 Anne Marie Chance MD Consulting Provider Rheumatology 05/07/18 Ishmael Shaw OD [address] [place] [address] 100 [place] [address] Consulting Provider Optometry 07/22/18 Amaya Cardenas, RN [address] [place] [address] [facility] Community Assistant Education Director 02/27/19 06/01/19 Robel Camarena DO [address] [place] [address] Internal Medicine 02/16/20 Anne Marie Shafer [facility] [address] [place] [address] [facility] Community Assistant Education Director 03/02/22 03/02/22 Rell Howe MD Consulting Provider Anesthesiology 10/11/15 batsheva chow [facility] 11/06/16 06/29/19 documented as of this encounter
--- OUTSIDE RECORDS SUMMARY | 2024-09-15 12:49 | XMS_ITS | Encounter Summary ---
Author Organization [facility] Address [address] [place] [address] Care Team Providers Care Fundraising Specialist Name Role Phone Brandyn Arriaga MD Unavailable Francisco Scales MD Unavailable [phone] Gianfranco Reynoso MD Unavailable Unavailable Efe Sanabria DO Unavailable Bryce Lema DPM Unavailable Dominique Nicholas MD Primary Care Provider Anne Marie Chance MD Unavailable +1-000-0 00-0000 Ishmael Shaw OD Unavailable [phone] Amaya Cardenas RN Unavailable Robel Camarena DO Unavailable RadhaadanteEvano DO Primary Care Provider [phone] Eva Camarenano DO Unavailable [phone] Anne Marie ShaferW Unavailable Encounter Details Date Type Department Care Team (Late st Contact Info) Description 01/08/2019 Scanned Document [address] [address] Provider, Generic Social History Tobacco [...] on filedocumented in this encounter Care Teams Fundraising Specialist Relationship Specialty Start Date End Date Dominique Nicholas MD 85 [facility] 923 [place] [address] PCP - General Internal Medicine 06/21/17 04/18/20 Robel Camarena DO 200 [place] [address] PCP - General Internal Medicine 04/19/20 Robel Camarena DO [address] [place] [address] PCP - United Medicare Attributed 11/02/20 Brandyn Arriaga MD 85 [facility] [address] [place] [address] Consulting Provider Gastroenterology 06/04/15 Francisco Scales MD [address] [place] [address] Consulting Provider Cardiovascular Disease 06/04/15 Gianfranco Reynoso MD [address] [place] [address] Consulting Provider Endocrinology 07/06/15 Efe Sanabria DO 85 [facility] [address] [place] [address] Consulting Provider Pulmonary Medicine 10/11/15 Bryce Lema DPM [address] [place] [address] Consulting Provider Podiatry 05/22/17 Anne Marie Chance MD [address] [place] [address] Consulting Provider Rheumatology 05/07/18 Ishmael Shaw OD 110 [facility] 100 [place] [address] Consulting Provider Optometry 07/22/18 Amaya Cardenas, RN [address] [facility] 4 [place] [address] [facility] Community Yoke Setter 02/27/19 06/01/19 Robel Camarena DO [address] [place] [address] Internal Medicine 02/16/20 Anne Marie Shafer, BRAKE HOLDER [address] [place] [address] [facility] Community Yoke Setter 03/02/22 03/02/22 Rell Howe MD Consulting Provider Anesthesiology 10/11/15 batsheva chow BRAKE HOLDER [facility] 11/06/16 06/29/19 documented as of this encounter
--- OUTSIDE RECORDS SUMMARY | 2024-09-15 12:49 | XMS_ITS | Encounter Summary ---
Author Organization [facility] Address [address] [place] [address] Care Team Providers Care Vessel Scrapper Helper Name Role Phone Brandyn Arriaga MD Unavailable Francisco Scales MD Unavailable [phone] Gianfranco Reynoso MD Unavailable Unavailable Efe Sanabria DO Unavailable Bryce Lema DPM Unavailable Dominique Nicholas MD Primary Care Provider Anne Marie Chance MD Unavailable +1-000-0 00-0000 Ishmael Shaw OD Unavailable [phone] Amaya Cardenas RN Unavailable [phone] Robel Camarena DO Unavailable [phone] Radhaadante Robel DO Primary Care Provider [phone] Eva Camarenano DO Unavailable [phone] Anne Marie ShaferW Unavailable [phone] Encounter Details Date Type Department Care Team (Late st Contact Info) Description 12/24/2018 Scanned Document [facility] NEUROSURGERY SCAN Neurosurgery, Scan Social History [...] on filedocumented in this encounter Care Teams Vessel Scrapper Helper Relationship Specialty Start Date End Date Dominique Nicholas MD 85 [facility] 923 [place] [address] PCP - General Internal Medicine 06/21/17 04/18/20 Robel Camarena DO 200 [place] [address] PCP - General Internal Medicine 04/19/20 Robel Camarena DO 200 [place] [address] PCP - United Medicare Attributed 11/02/20 Brandyn Arriaga MD [address] [facility] [address] [place] [id number] Consulting Provider Gastroenterology 06/04/15 Francisco Scales MD [address] [place] [address] Consulting Provider Cardiovascular Disease 06/04/15 Gianfranco Reynoso MD [address] [place] [address] Consulting Provider Endocrinology 07/06/15 Efe Sanabria DO 85 [facility] 923 [place] [address] Consulting Provider Pulmonary Medicine 10/11/15 Bryce Lema DPM 85 [facility] 923 [place] [address] Consulting Provider Podiatry 05/22/17 Anne Marie Chance MD 85 [facility] 923 [place] [address] Consulting Provider Rheumatology 05/07/18 Ishmael Shaw, LYDIA [address] [place] [address] 100 [place] [address] Consulting Provider Optometry 07/22/18 Amaya Cardenas, GREGORY [address] [place] [address] [facility] Community Transitional Nurse 02/27/19 06/01/19 Robel Camarena DO [address] [place] [address] Internal Medicine 02/16/20 Anne Marie Shafer [facility] RN [address] [place] [address] [facility] Community Transitional Nurse 03/02/22 03/02/22 Rell Howe MD Consulting Provider Anesthesiology 10/11/15 batsheva chow BEH[facility]IORAL HEALTH RN [facility] 11/06/16 06/29/19 documented as of this encounter
--- OUTSIDE RECORDS SUMMARY | 2024-09-15 12:49 | XMS_ITS | Encounter Summary ---
Author Organization [facility] Address [address] [place] [address] Care Team Providers Care Classified Advertising Supervisor Name Role Phone Dominique Nicholas MD Primary Care Provider Brandyn Arriaga MD Unavailable Francisco Scales MD Unavailable [phone] Misbah Niño MD Unavailable [phone] David Maxwell MD Unavailable [phone] Ming Alvarez MD Unavailable [phone] Lino Carpio MD Unavailable [phone] Gianfranco Reynoso MD Unavailable Unavailable Efe Sanabria DO Unavailable [phone] Shaka Lyman MD Unavailable [phone] Pcp, No Primary Care Provider UnavailDominique Simmons MD Primary Care Provider Pcp, No Primary Care Provider UnavailBryce Nayak DPM Unavailable Dominique Nicholas MD Primary Care Provider Anne Marie Chance MD Unavailable +[phone] 00-0000 Ishmael Shaw OD Unavailable [phone] Amaya Cardenas RN Unavailable [phone] Robel Camarena DO Unavailable [phone] Nicol Robel DO Primary Care Provider [phone] Kathypete Robel DO Unavailable [phone] Anne Marie Shafer DRY KILN OPERATOR HELPER Unavailable [phone] Encounter Details Date Type Department Care Team (Late st Contact Info) Description 09/24/2015 Scanned Document [address] [id number] Provider, Generic Social History Tobacco Use Types [...] on filedocumented in this encounter Care Teams Classified Advertising Supervisor Relationship Specialty Start Date End Date Dominique Nicholas MD PCP - General Internal Medicine 03/31/15 07/09/16 Pcp, No PCP - General General Medicine 07/13/16 10/29/16 Dominique Nicholas MD PCP - General Internal Medicine 10/30/16 11/05/16 Pcp, No PCP - General General Medicine 11/06/16 06/20/17 Dominique Nicholas MD PCP - General Internal Medicine 06/21/17 04/18/20 Robel Camarena DO [address] [place] [address] PCP - General Internal Medicine 04/19/20 Robel Camarena DO [address] [place] [address] PCP - United Medicare Attributed 11/02/20 Brandyn Arriaga MD 85 [facility] 1000 [place] [address] Consulting Provider Gastroenterology 06/04/15 Francisco Scales MD [address] [place] [address] Consulting Provider Cardiovascular Disease 06/04/15 Misbah Niño MD [address] [place] [address] Consulting Provider Physical Medicine and Rehabilitation 06/04/15 05/21/17 David Maxwell MD 85 [facility] 800 [place] [address] Consulting Provider Neurology 06/04/15 05/21/17 Ming Alvarez MD [address] [place] [address] Consulting Provider Surgery, Bariatric 06/04/15 05/21/17 Lino Carpio MD [address] [place] [address] Consulting Provider Internal Medicine 06/04/15 12/12/18 Gianfranco Reynoso MD 100 [place] [address] Consulting Provider Endocrinology 07/06/15 Efe Sanabria DO 85 [facility] 923 [place] [address] Consulting Provider Pulmonary Medicine 10/11/15 Shaka Lyman MD [address] [place] [address] Consulting Provider Gastroenterology 10/11/15 12/12/18 Bryce Lema DPM Consulting Provider Podiatry 05/22/17 Anne Marie Chance MD Consulting Provider Rheumatology 05/07/18 Ishmael Shaw OD [address] [place] [address] 100 [place] [address] Consulting Provider Optometry 07/22/18 Amaya Cardenas, GREGORY [address] [address] [facility] Community Senior Field Engineer 02/27/19 06/01/19 Robel Camarena DO [address] [place] [address] Internal Medicine 02/16/20 Anne Marie Shafer LCSW [address] [place] [address] [facility] Community Senior Field Engineer 03/02/22 03/02/22 Rell Howe MD Consulting Provider Anesthesiology 10/11/15 KELLEN GEE MD [address] [place] [address] Rheumatology 03/22/16 05/21/17 batsheva OLVERAW [facility] 11/06/16 06/29/19 documented as of this encounter
--- OUTSIDE RECORDS SUMMARY | 2024-09-15 12:49 | XMS_ITS | Encounter Summary ---
Author Organization [facility] Address [address] [place] [address] Care Team Providers Care Wash Operator Name Role Phone Dominique Nicholas MD Primary Care Provider Brandyn Arriaga MD Unavailable Francisco Scales MD Unavailable [phone] Misbah Niño MD Unavailable [phone] David Maxwell MD Unavailable [phone] Ming Alvarez MD Unavailable [phone] Lino Carpio MD Unavailable [phone] Gianfranco Palomo MD Unavailable Unavailable Efe Sanabria DO Unavailable [phone] Shaka Lyman MD Unavailable [phone] Pcp, No Primary Care Provider UnavailDominique Simmons MD Primary Care Provider Pcp, No Primary Care Provider UnavailBryce Nayak DPM Unavailable Dominique Nicholas MD Primary Care Provider [phone] Anne Marie Chance MD Unavailable +1-000-0 00-0000 Ishmael Shaw OD Unavailable [phone] Amaya Cardenas RN Unavailable [phone] Robel Camarena DO Unavailable [phone] Robel Camarena DO Primary Care Provider Robel Camarena DO Unavailable [phone] Anne Marie Shafer [facility] Unavailable Reason for Visit * Reason Comments Medication Refill Encounter Details Date Type Department Care Team (Late st Contact Info) Description 04/05/[address] [address] Catina Mckoy MD [address] [place] [address] Social History Tobacco Use Types Packs/Day Years Used Date Smoking Tobacco: Never Alcohol Use Standard Drinks/Week Comments Not Asked 0 (1 standard drink = 0.6 oz pur e alcohol) Comments Unknown Sex and Gender Information Value Date Recorded Sex Assigned at Not on file Legal Sex Female 3:33 PM EDT Gender Identity Not on file Sexual Orientation Not on file documented as of this encounter Miscellaneous Notes * Telephone Encounter - Mai Fagan RN - 04/05/2015 10:41 AM EST PLEASE FORWARD REFILL REQUEST TO DR. [place] IN [place] documented in this encounter Plan of Treatment Not on file documented as of this encounter Visit Diagnoses Not on filedocumented in this encounter Care Teams Wash Operator Relationship Specialty Start Date End Date Dominique Nicholas MD PCP - General Internal Medicine 03/31/15 07/09/16 Pcp, No PCP - General General Medicine 07/13/16 10/29/16 Dominique Nicholas MD PCP - General Internal Medicine 10/30/16 11/05/16 Pcp, No PCP - General General Medicine 11/06/16 06/20/17 Dominique Nicholas MD PCP - General Internal Medicine 06/21/17 04/18/20 Eva Camarenakimberly 200 [place] [address] PCP - General Internal Medicine 04/19/20 Eva CamarenanoDO 200 [place] [address] PCP - United Medicare Attributed 11/02/20 Brandyn Arriaga MD 85 [facility] 1000 [place] [address] Consulting Provider Gastroenterology 06/04/15 Francisco Scales MD [address] [place] [address] Consulting Provider Cardiovascular Disease 06/04/15 Misbah Niño MD [address] [place] [address] Consulting Provider Physical Medicine and Rehabilitation 06/04/15 05/21/17 David Maxwell MD 85 [facility] 800 [place] [address] Consulting Provider Neurology 06/04/15 05/21/17 Ming Alvarez MD [address] [place] [address] Consulting Provider Surgery, Bariatric 06/04/15 05/21/17 Lino Carpio MD 100 [place] [address] Consulting Provider Internal Medicine 06/04/15 12/12/18 Gianfranco Palomo MD 100 [place] [address] Consulting Provider Endocrinology 07/06/15 Efe Sanabria DO 85 [facility] 923 [place] [address] Consulting Provider Pulmonary Medicine 10/11/15 Shaka Lyman MD 6 [facility] 302 [place] [address] Consulting Provider Gastroenterology 10/11/15 12/12/18 Bryce Lema DPM Consulting Provider Podiatry 05/22/17 Anne Marie Chance MD Consulting Provider Rheumatology 05/07/18 Ishmael Shaw OD [address] [place] [address] Consulting Provider Optometry 07/22/18 Amaya Cardenas, GREGORY [address] [place] [address] [facility] Community Sand Analyst 02/27/19 06/01/19 Robel Camarena DO [address] [place] [address] Internal Medicine 02/16/20 Anne Marie Shafer, ELECTRIC SWITCH REPAIRER [address] [place] [address] [facility] Community Sand Analyst 03/02/22 03/02/22 Rell Howe MD Consulting Provider Anesthesiology 10/11/15 KELLEN GEE MD [address] [place] [address] Rheumatology 03/22/16 05/21/17 batsheva chow [facility] 11/06/16 06/29/19 documented as of this encounter
--- OUTSIDE RECORDS SUMMARY | 2024-09-15 12:49 | XMS_ITS | Encounter Summary ---
Author Organization [facility] Address [address] [place] [address] Care Team Providers Care Guest Services Manager Name Role Phone Darien Caraballo DO Primary Care Provider [phone] Dominique Nicholas MD Primary Care Provider [phone] Brandyn Arriaga MD Unavailable Francisco Scales MD Unavailable [phone] Misbah Niño MD Unavailable [phone] David Maxwell MD Unavailable [phone] Ming Alvarez MD Unavailable [phone] Lino Carpio MD Unavailable [phone] Gianfranco Reynoso MD Unavailable Unavailable Efe Sanabria DO Unavailable [phone] Shaka Lyman MD Unavailable [phone] Pcp, No Primary Care Provider UnavailDominique Simmons MD Primary Care Provider [phone] Pcp, No Primary Care Provider Unavailmaria del carmen e Bryce Lema DPM Unavailable Dominique Nicholas MD Primary Care Provider Anne Marie Chance MD Unavailable [phone] Ishmael Shaw OD Unavailable Amaya Cardenas RN Unavailable [phone] Robel Camarena DO Unavailable [phone] KathyRobel freeman DO Primary Care Provider FridanellyRobel freeman DO Unavailable [phone] Anne Marie Shafer GOVERNMENT SALES MANAGER Unavailable Dominique Nicholas MD Primary Care Provider Encounter Details Date Type Department Care Team (Late st Contact Info) Description 06/01/2014 Scanned Document [address] [place] [id number] Provider, Generic Social History Tobacco Use Types Packs/Day Years Used Date Smoking Tobacco: Never Assessed Comments Unknown Sex and Gender Information Value Date Recorded Sex Assigned at Not on file Legal Sex Female 3:33 PM EDT Gender Identity Not on file Sexual Orientation Not on file documented as of this encounter Plan of Treatment Not on file documented as of this encounter Visit Diagnoses Not on filedocumented in this encounter Care Teams Guest Services Manager Relationship Specialty Start Date End Date Darien Caraballo DO [facility]0 [place] [address] PCP - General Internal Medicine 02/18/15 03/30/15 Dominique Nicholas MD [facility] [place] [address] PCP - General Internal Medicine 03/31/15 07/09/16 Pcp, No PCP - General General Medicine 07/13/16 10/29/16 Dominique Nicholas MD [address] [facility] [address] PCP - General Internal Medicine 10/30/16 11/05/16 Pcp, No PCP - General General Medicine 11/06/16 06/20/17 [place] [address] [place] [address] PCP - General Internal Medicine 06/21/17 04/18/20 Robel Camarena DO [address] [place] [address] PCP - General Internal Medicine 04/19/20 Robel Camarena DO [address] [place] [address] PCP - [employer] Medicare Attributed 11/02/20 Dominique Nicholas MD [address] [place] [address] PCP - General 02/17/15 Brandyn Arriaga MD 85 [facility] 1000 [place] [address] Consulting Provider Gastroenterology 06/04/15 Francisco Scales MD [address] [place] [address] Consulting Provider Cardiovascular Disease 06/04/15 Misbah Niño MD [address] [place] [address] Consulting Provider Physical Medicine and Rehabilitation 06/04/15 05/21/17 David Maxwell MD [address] [facility] 800 [place] [address] Consulting Provider Neurology 06/04/15 05/21/17 Ming Alvarez MD [address] [address] Consulting Provider Surgery, Bariatric 06/04/15 05/21/17 Lino Carpio MD 100 [place] [address] Consulting Provider Internal Medicine 06/04/15 12/12/18 Gianfranco Reynoso MD 100 [place] [address] Consulting Provider Endocrinology 07/06/15 Efe Sanabria DO 85 [facility] 923 [place] [address] Consulting Provider Pulmonary Medicine 10/11/15 Shaka Lyman MD [address] [place] [address] Consulting Provider Gastroenterology 10/11/15 12/12/18 Bryce Lema DPM Consulting Provider Podiatry 05/22/17 Anne Marie Chance MD Consulting Provider Rheumatology 05/07/18 Ishmael Shaw OD [address] [place] [address] 100 [place] [address] Consulting Provider Optometry 07/22/18 Amaya Cardenas, GREGORY 1290 [facility][1] 4 [place] [address] [facility] Community Fish Hatchery Laborer 02/27/19 06/01/19 Robel Camarena DO [address] [place] [address] Internal Medicine 02/16/20 Anne Marie Shafer, GOVERNMENT SALES MANAGER [address] [place] [address] [facility] Community Fish Hatchery Laborer 03/02/22 03/02/22 Rell [place] MD Consulting Provider Anesthesiology 10/11/15 KELLEN GEE MD [address] [place] [address] Rheumatology 03/22/16 05/21/[address] [facility] 11/06/16 06/29/19 documented as of this encounter
--- OUTSIDE RECORDS SUMMARY | 2024-09-15 12:49 | XMS_ITS | Encounter Summary ---
Author Organization [facility] Address [address] [place] [address] Care Team Providers Care Trim Master Operator Name Role Phone Brandyn Arriaga MD Unavailable Francisco Scales MD Unavailable [phone] Lino Carpio MD Unavailable [phone] Gianfranco Reynoso MD Unavailable Unavailable Efe Sanabria DO Unavailable [phone] Shaak Lyman MD Unavailable Bryce Lema DPM Unavailable Dominique Nicholas MD Primary Care Provider [phone] Anne Marie Chance MD Unavailable [phone] Ishmael Shaw OD Unavailable [phone] Amaya Cardenas RN Unavailable Robel Camarena DO Unavailable Robel Camarena DO Primary Care Provider [phone] Robel Camarena DO Unavailable [phone] Anne Marie ShaferW Unavailable [phone] Reason for Visit * Reason Comments Medication Refill Encounter Details Date Type Department Care Team (Late st Contact Info) Description 01/19/2018 [facility] Endocrinology [address] [place] [address] Gianfranco Reynoso MD Social History Tobacco Use Types Packs/Day Years [...] on filedocumented in this encounter Care Teams Trim Master Operator Relationship Specialty Start Date End Date Dominique Nicholas MD 6 [facility] [address] [place] [address] PCP - General Internal Medicine 06/21/17 04/18/20 Robel Camarena DO 200 [place] [address] PCP - General Internal Medicine 04/19/20 Robel Camarena DO 200 [place] [address] PCP - [employer] Medicare Attributed 11/02/20 Brandyn Arriaga MD 85 [facility] 1000 [place] [address] Consulting Provider Gastroenterology 06/04/15 Francisco Scales MD [address] [place] [address] Consulting Provider Cardiovascular Disease 06/04/15 Lino Carpio MD 100 [place] [address] Consulting Provider Internal Medicine 06/04/15 12/12/18 Gianfranco Reynoso MD 100 [place] [address] Consulting Provider Endocrinology 07/06/15 Efe Sanabria DO 85 [facility] [address] [place] [address] Consulting Provider Pulmonary Medicine 10/11/15 Shaka Lyman MD [address] [facility] [address] [place] [address] Consulting Provider Gastroenterology 10/11/15 12/12/18 Bryce Lema DPM [address] [facility] [address] [place] [address] Consulting Provider Podiatry 05/22/17 Anne Marie [place] MD [address] [facility] [address] [place] [address] Consulting Provider Rheumatology 05/07/18 Ishmael Shaw OD [address] [place] [address] Consulting Provider Optometry 07/22/18 Amaya Cardenas, GREGORY [address] [facility] 4 [place] [address] [facility] Community Delivery Technician 02/27/19 06/01/19 Robel Camarena DO [address] [place] [address] Internal Medicine 02/16/20 Anne Marie Shafer, BIOINFORMATICIST [address] [place] [address] [facility] Community Delivery Technician 03/02/22 03/02/22 Rell [place] MD Consulting Provider Anesthesiology 10/11/15 batsheva chow [facility] 11/06/16 06/29/19 documented as of this encounter
--- OUTSIDE RECORDS SUMMARY | 2024-09-15 12:49 | XMS_ITS | Clinical Summary ---
Author Organization [employer] [facility] Address [address] [place] [address] Care Team Providers Care Machine Deicer Element Winder Name Role Phone Dominique Nicholas MD Primary Care Provider [phone] Allergies Active Allergy Reactions Criticality Noted Date [...] Adults 18 yrs or above (or HM Modifier)([facility]) 1959 Hepatitis C Virus Infection in Adolescents and Adults: Screening (or Modifier) ([facility]) 10/30/1977 EMILY Screening: Once using [facility] Questionnaire for Adults with Conditions or high BMI([facility]) 10/30/1977 SDOH Screening Reminder: Debby portillo for all adults ([facility]) 10/30/1977 Tobacco Smoking Cessation: i n Adults excluding Women: Behavioral and Pharmacotherapy Interventions ([facility]) 10/30/1977 DTaP/Tdap/Td Vaccines ([facility]) (1 - Tdap) 10/30/1978 Cervical Cancer Screenin 1-65 yrs of age (or Modifier) 10/30/1980 Cervical Cancer Screening: P ap every 3 yrs pts age 21-65 10/30/1980 Cervical Cancer: Pap Screeni ng with Modifier timing ([facility]) 10/30/1980 Cervical Cancer: hrHPV alone or with cotesting Pap for Pts 30-65yrs screening every 5yrs ([facility]) 10/30/1980 Colorectal Cancer Screening 45 -75 Yrs (or HM Modifier ) 10/30/2004 Colorectal Cancer: FLEXIBLE SIGMOIDOSCOPY Screening every 5 yrs 10/30/2004 Colorectal Cancer: Fecal Imm unochemical Test (FIT) Annually [facility] 10/30/2004 Colorectal Cancer: High-sens itivity gFOBT Screening Annually [facility] 10/30/2004 Colorectal Cancer: Stool Col oguard Screening every 3 yrs 10/30/2004 Colorectal Cancer:CT Colonography Screening every 5 yr s 10/30/2004 Lipid Screening: Every 5 yrs for Women aged 45+ (or HM Modifier) ([facility]) 10/30/2005 Breast Cancer: Screening Debby ually age 50-74 yrs (or HM Modifier)([facility]) 10/30/2009 Pneumococcal Vaccination Scr eening: Patients 50+ yrs of age ([facility]) (1 of 1 - PCV) 10/30/2009 Zoster/Shingles Vaccine Seri es Screening: Adults aged 18+ yrs (or HM Modifiers)([facility]) (1 of 2) 10/30/2009 COVID-19 Vaccine Screening: Initial Series and Booster Status ([facility]) (2023- season) 2024 Flu Vaccination: Yearly for ages 18mos through 64 years (or Modifier)([facility]) 12/19/2024 RSV Vaccines (1 - 1-dose 75+ series) 10/30/2034 [employer] Not on file Insurance [employer] MEDICARE Care Teams Machine Deicer Element Winder Relationship Specialty Start Date End Date Dominique Nicholas MD PCP - Morning Nanny 12/01/17
--- OUTSIDE RECORDS SUMMARY | 2024-09-15 12:49 | XMS_ITS | Encounter Summary ---
Author Organization [facility] Address [address] [place] [address] Care Team Providers Care Agricultural Pilot Name Role Phone Brandyn Arriaga MD Unavailable Francisco Scales MD Unavailable [phone] Lino Carpio MD Unavailable [phone] Gianfranco Reynoso MD Unavailable Unavailable Efe Sanabria DO Unavailable [phone] Shaka Lyman MD Unavailable Bryce Lema DPM Unavailable Dominique Nicholas MD Primary Care Provider Anne Marie Chance MD Unavailable +[phone] 00-0000 Ishmael Shaw OD Unavailable [phone] Amaya Cardenas RN Unavailable [phone] Robel Camarena DO Unavailable [phone] Robel Camarena DO Primary Care Provider Robel Camarena DO Unavailable [phone] Anne Marie Shafer LCSW Unavailable [phone] Encounter Details Date Type Department Care Team (Late st Contact Info) Description 06/21/2017 Scanned Document [facility] [address] [place] [address] Dominique Nicholas MD [address] [place] [address] Social History Tobacco Use Types Packs/Day Years [...] on filedocumented in this encounter Care Teams Agricultural Pilot Relationship Specialty Start Date End Date Dominique Nicholas MD 6 [facility] [address] [place] [address] PCP - General Internal Medicine 06/21/17 04/18/20 Robel Camarena DO 200 [place] [address] PCP - General Internal Medicine 04/19/20 Robel Camarena DO 200 [place] [address] PCP - [employer] Medicare Attributed 11/02/20 Brandyn Arriaga MD 85 [facility] 1000 [place] [address] Consulting Provider Gastroenterology 06/04/15 Francisco Scales MD [address] [place] [address] Consulting Provider Cardiovascular Disease 06/04/15 Lino Carpio MD [address] [place] [address] Consulting Provider Internal Medicine 06/04/15 12/12/18 Gianfranco Reynoso MD [address] [place] [address] Consulting Provider Endocrinology 07/06/15 Efe Sanabria DO [address] [place] [address] Consulting Provider Pulmonary Medicine 10/11/15 Shaka Lyman MD [address] [place] [address] [address] [place] [address] Consulting Provider Gastroenterology 10/11/15 12/12/18 Bryce Lema DPM [address] [place] [address] [address] [place] [address] Consulting Provider Podiatry 05/22/17 Anne Marie [place] MD [address] [place] [address] [place] [address] Consulting Provider Rheumatology 05/07/18 Ishmael Shaw OD [address] [place] [address] Consulting Provider Optometry 07/22/18 Amaya Cardenas, GREGORY 1290 [facility] 4 [place] [address] [facility] Community University Counselor 02/27/19 06/01/19 Robel Camarena DO [address] [place] [address] Internal Medicine 02/16/20 Anne Marie Shafer, PROPOSAL EDITOR [address] [place] [address] [facility] Community University Counselor 03/02/22 03/02/22 Rell [place] MD Consulting Provider Anesthesiology 10/11/15 batsheva chow [facility] 11/06/16 06/29/19 documented as of this encounter
--- OUTSIDE RECORDS SUMMARY | 2024-09-15 12:49 | XMS_ITS | Encounter Summary ---
Author Organization [facility] Address [address] [place] [address] Care Team Providers Care Inventory Auditor Name Role Phone Brandyn Arriaga MD Unavailable Francisco Scales MD Unavailable [phone] Lino Carpio MD Unavailable [phone] Gianfranco Reynoso MD Unavailable Unavailable Efe Sanabria DO Unavailable [phone] Shaka Lyman MD Unavailable Bryce Lema DPM Unavailable Dominique Nicholas MD Primary Care Provider [phone] Anne Marie Chance MD Unavailable +[phone] [phone] Ishmael Shaw OD Unavailable Amaya Cardenas RN Unavailable [phone] Robel Camarena DO Unavailable Robel Camarena DO Primary Care Provider Robel Camarena DO Unavailable [phone] Anne Marie Shafer LCSW Unavailable [phone] Encounter Details Date Type Department Care Team (Late st Contact Info) Description 09/20/2017 Scanned Document [facility] 1060 [place] [address] Provider, Generic Social History Tobacco Use Types [...] on filedocumented in this encounter Care Teams Inventory Auditor Relationship Specialty Start Date End Date Dominique Nicholas MD 6 [facility] [address] [place] [address] PCP - General Internal Medicine 06/21/17 04/18/20 Robel Camarena DO 200 [place] [address] PCP - General Internal Medicine 04/19/20 Robel Camarena DO 200 [place] [address] PCP - [employer] Medicare Attributed 11/02/20 Brandyn Arriaga MD [address] [place] [address] 1000 [place] [address] Consulting Provider Gastroenterology 06/04/15 Francisco Scales MD 100 [facility] 811 [place] [address] Consulting Provider Cardiovascular Disease 06/04/15 Lino Carpio MD 100 [place] [address] Consulting Provider Internal Medicine 06/04/15 12/12/18 Gianfranco Reynoso MD 100 [place] [address] Consulting Provider Endocrinology 07/06/15 Efe Sanabria DO [address] [place] [address] 923 [place] [address] Consulting Provider Pulmonary Medicine 10/11/15 Shaka Lyman MD [address] [facility] [address] [place] [address] Consulting Provider Gastroenterology 10/11/15 12/12/18 Bryce Lema DPM [address] [facility] [address] [place] [address] Consulting Provider Podiatry 05/22/17 Anne Marie [place] MD [address] [place] [address] [address] [place] [address] Consulting Provider Rheumatology 05/07/18 Ishmael Shaw OD [address] [place] [address] Consulting Provider Optometry 07/22/18 Amaya Cardenas, GREGORY [address] [place] [address] [facility] Community Smog Technician 02/27/19 06/01/19 Robel Camarena DO [address] [place] [address] Internal Medicine 02/16/20 Anne Marie Shafer, MOLDING PROCESS TECHNICIAN [address] [place] [address] [facility] Community Smog Technician 03/02/22 03/02/22 Rell [place] MD Consulting Provider Anesthesiology 10/11/15 batsheva chow [facility] 11/06/16 06/29/19 documented as of this encounter
--- OUTSIDE RECORDS SUMMARY | 2024-09-15 12:49 | XMS_ITS ---
Author Name [facility] Organization Unknown Care Team Organization Name Specialty Phone Email Start Date End Da te [facility] Neurology, [facility] LOIS MORALES, Primary Care 02/10/2021 024 [facility] JUANJOSE LIU Primary Care
--- OUTSIDE RECORDS SUMMARY | 2024-09-15 12:49 | XMS_ITS | Clinical Summary ---
Author Organization [facility] Address [address] [place] [address] Care Team Providers Care Manufacturing Engineering Professor Name Role Phone Brandyn Arriaga MD Unavailable Francisco Scales MD Unavailable [phone] Gianfranco Reynoso MD Unavailable Unavailable Efe aSnabria DO Unavailable Bryce Lema DPM Unavailable Anne Marie Chance MD Unavailable [phone] Ishmael Shaw OD Unavailable [phone] Robel Camarena DO Unavailable Robel Camarena DO Primary Care Provider [phone] Robel Camarena DO Unavailable [phone] Allergies Active Allergy Reactions Criticality Noted Date [...] SHORTNESS OF BREATH SHORTNESS OF BREATH Medications albuterol (VENTOLIN HFA) 108 (90 BASE) MCG/ACT inhalerIndications :Asthma, mild persistent, uncomplicated Inhale 2 puffs every 4 (four) hours as needed for wheezing. 1 Inhaler 1 5 Active ADVAIR DISKUS 250-50 MCG/DOSE diskus inhalerIndications :Asthma, unspecified asthma severity, uncomplicated INHALE 1 PUFF 2 (TWO) TIMES A DAY. 1 each 3 6 Active oxyCODONE-acetamin ophen (PERCOCET) 10-325 mg per tablet Take 1 tablet by mouth 3 (three) times a day as needed. 0 7 Active hydroxychloroquine (PLAQUENIL) 200 MG tablet Take 200 mg by mouth 2 (two) times a day. With food or milk. Active FIBER ADULT GUMMIES PO Take by mouth. Active atorvastatin (LIPITOR) 20 MG tabletIndications: Mixed hyperlipidemia Take 1 tablet (20 mg total) by mouth daily. 30 tablet 5 8 Active escitalopram (LEXAPRO) 10 MG tablet Take 10 mg by mouth daily. 6 8 Active KRILL OIL PO Take by mouth. Active B-D UF III MINI PEN NEEDLES 31G X 5 MM needleIndications: Diabetes mellitus without complication (HCC) USE WITH INSULIN PEN TWICE A DAY 100 pen needle 3 8 Active lisinopril (PRINIVIL,ZeSTRIL) 20 MG tabletIndications: Essential hypertension Take 1 tablet (20 mg total) by mouth daily. 30 tablet 3 8 Active atenolol (TENORMIN) 50 MG tablet 6 Active Biotin 10 MG Cap 6 Active XTAMPZA ER 9 MG ER (extended release) capsule Take 9 mg by mouth 2 (two) times a day. 0 8 Active baclofen (LIORESAL) 5 MG tablet Take 5 mg by mouth 2 (two) times a day as needed. Active lidocaine-prilocai ne (EMLA) cream Apply topically once. Active fluticasone (FloNASE) 50 mcg/spray nasal sprayIndications:E nvironmental allergies SPRAY 2 SPRAYS INTO EACH NOSTRIL EVERY DAY 48 g 1 9 Active sitaGLIPtin (Januvia) 100 MG tabletIndications: Diabetes mellitus without complication (HCC) Take 1 tablet (100 mg total) by mouth daily. 90 tablet 3 0 Active pioglitazone (ACTOS) 45 MG tabletIndications: Diabetes mellitus without complication (HCC) Take 1 tablet (45 mg total) by mouth daily. 90 tablet 3 0 Active insulin glargine (Lantus SoloStar) 100 units/mL prefilled pen injectionIndicatio ns:Diabetes mellitus without complication (HCC) INJECT 1 ML (100 UNITS TOTAL) UNDER THE SKIN DAILY INDICATIONS: TYPE 2 DIABETES. 30 pens 30 pen 3 0 Active OneTouch Verio stripIndications:T ype 2 diabetes mellitus with hyperglycemia, with long-term current use of insulin (HCC) Tests blood sugar once daily 100 test strip 3 0 Active OneTouch Delica Lancets 30G Misc lancetIndications: Type 2 diabetes mellitus with hyperglycemia, with long-term current use of insulin (HCC) Tests blood sugar once daily 100 lancet 3 0 Active Active Problems Problem Noted Date Diagnosed [...] lactic acid dehydrogenase (LDH) 06/06/2013 10/11/2015 Immunizations Immunization Administration Dates Next Due Influenza High-Dose Quadrivalent,(FLUZONE HIGH-DOSE), Perservative Free IM 0.7 mL 65 years and older 03/05/2017 Influenza Inactivated/Split Preservative Free IM 02/20/2018,03/14/2016,02/18/2015,02/11,02/22/2009,03/26/2008, Influenza, Quadrivalent 02/20/2018 PPD Test 05/23/2013,06/26/2011,05/09/2001 Pneumococcal [...] file Not on file Not on file Last Filed Vital Signs [...] (Shingles) Vaccine (1 of 2) 10/30/1978 Pneumococcal Vaccines 50+ (2 of 2 - [...] or Tdap) 05/23/2023 05/23/2013 Influenza Vaccine 12/20/2023 02/20/2018, , 03/05/2017, Additional history exists Hepatitis C Virus Screening [...] mellitus without complication (HCC) THINPREP PAP TEST (CORPORATE AIRCRAFT MECHANIC) WITH HPV SCREEN Routine 12/13/2018 1:34 PM EDT Screening for cervical cancer HEPATITIS C VIRUS (HCV) ANTIBODY Routine 11/14/2018 9:19 AM EDT Health care maintenance MAMMO - DIGITAL - SCREENING WITH CAD - G0202, [id number] Routine 10/08/2014 8:30 AM EDT HX GASTROENTEROLOGY COLONOSCOPY-SCAN Routine 07/19/2011 from Last 3 Months or Most Recently Relevant to Health Maintenance Results * Microalbumin, Creatinine, Urine, Random (04/19/2020 11:36 AM EST) Creatinine, Urine, Random 180 20 - 275 mg/dL [facility] Microalbumin, Urine, Random 2.5 See Note: mg/dL [facility] Comment: Reference Range: Reference Range Not established Microalbumin/Creat inine Ratio 14 <30 mcg/mg creat [facility] Comment: The ADA defines abnormalities in albumin [...] 04/19/2020 9:39 PM EST FASTING:YES FASTING: YES us Jv Connors PACKER INSPECTOR URINE ORDERABLES Final Resu lt [facility] [address] [place] [address], [place] [address] * (ABNORMAL) Hemoglobin A1c (04/19/2020 11:36 AM EST) Hemoglobin A1C 6.5(H) <5.7 % of total Hgb [facility] Comment: For someone without known diabetes, a [...] FASTING: YES Jv Connors APRN LAB BLOOD ORDERABLES Final Result [facility] [address] [place] [address], [place] [address] * (ABNORMAL) Lipid Panel Reflex Direct LDL (03/19/2019 8:52 AM EDT) Cholesterol, Total 206(H) <200 mg/dL [facility] Cholesterol, HDL 43(L) >50 mg/dL [facility] Triglycerides 350(H) <150 mg/dL [facility] Comment: If a non-fasting specimen was collected, consider repeat triglyceride testing on a fasting specimen if clinically indicated. Zan et al. J. of Clin. Lipidol. 2015;9:129-169. LDL Cholesterol 113(H) mg/dL (calc) [facility] Comment: Reference range: <100 Desirable range <100 mg/dL for primary prevention; ?? <70 mg/dL for patients with CHD or diabetic patients with > or = 2 CHD risk factors. LDL-C is now calculated using the Humberto calculation, which is a validated novel method providing better accuracy than the Friedewald equation in the estimation of LDL-C. Roverto KING et al. HAILEY. 2013;310(19): 4294-7771 (http://education.[employer].Intention Technology/faq/DTZ875) Cholesterol/HDL Ratio 4.8 <5.0 (calc) [facility] [...] Performing Organization Information: ?Site ID: [id number] ?Name: [facility] ?Address: [address] [place] [phone] ?Director: Xenia Guerrero MD Gianfranco Reynoso MD LAB BLOOD ORDERABLES Final Resu lt [email or web address] [place] [address] * Creatinine with eGFR (03/19/2019 8:52 AM EDT) Creatinine 0.77 0.50 - 1.05 mg/dL [facility] Comment: For patients >49 years of age, the reference limit for Creatinine is approximately 13% higher for people identified as -Honduran. eGFR Non- 85 > OR = 60 mL/min/1. 73m2 [facility] eGFR 98 > OR = 60 mL/min/1. 73m2 [facility] Blood specimen (specimen) Blood specimen / Unknown 03/19/2019 8:52 AM EDT 03/19/2019 8:52 AM EDT Narrative [facility] - 03/20/2019 4:53 PM EDT FASTING:YES FASTING: YES Resulting Agency Comment Performing Organization Information: ?Site ID: [id number] ?Name: [facility] ?Address: [address], [place] [address] ?Director: Xenia Guerrero MD Gianfranco Reynoso MD LAB BLOOD ORDERABLES Final Resu lt [facility] [address], [place] [address] * ThinPrep Pap Test (Olive Knocker) with HPV Screen (12/13/2018 1:34 PM EDT) Clinical Information [facility] Comment:Postmenopausal LMP: [facility] Comment:POSTMENOPAUSAL Previous PAP: NONE GIVEN [facility] Previous Biopsy NONE GIVEN [facility] Source: Cervix [facility] Statement of Adequacy: [facility] Comment:SATISFACTORY FOR WILFREDO LUATION Interpretation/Res ult: [facility] Comment: Negative for intraepithelial lesion or malignancy. Atrophic pattern; predominantly parabasal cells Comment: [facility] Comment: This Pap test has been evaluated with computer assisted technology. Supervisor Shearing: [facility] Comment: RMM, CT(ASCP) CT screening location: [address] ??[address] Review Supervisor Shearing: [facility] Comment: HJP, CT(ASCP) CT screening location: [address] ??[address] Comment [facility] Comment: EXPLANATORY NOTE: [...] was performed using the APTIMA HPV Assay ([employer] This assay detects E6/E7 viral messenger RNA (mRNA) from 14 high-risk HPV types (16,18,31,33,35,39,45,51,52,56,58,59,66,68). The analytical performance characteristics of this assay have been determined by [employer]. The modifications have not been cleared or approved by the FDA. This assay has been validated pursuant to the CLIA regulations and is used for clinical purposes. 12/13/2018 1:34 PM EDT 12/14/2018 3:07 AM EDT Narrative Resulting Agency Comment Performing Organization Information: ?Site ID: [id number] ?Name: [facility] ?Address: [address] [place] [phone] ?Director: Xenia Guerrero MD us Dominique Nicholas MD LAB AMB PATH/CYTO ORDERABLES F inal Result [email or web address] [address] [place] [id number] * Hepatitis C Virus (HCV) Antibody (11/14/2018 9:19 AM EDT) Hepatitis C Antibody NON-REACT ROMAN NON-REACT ROMAN [facility] Hepatitis C Antibody (s/co) 0.07 <1.00 [facility] Comment: HCV antibody was non-reactive. There is no laboratory evidence of HCV infection. In most cases, no further action is required. However, if recent HCV exposure is suspected, a test for HCV RNA (test code 82600) is suggested. For additional information please refer to http://education.[employer]/faq/UMA57q4 (This link is being provided for informational/ educational purposes only.) Blood specimen (specimen) Blood specimen / Unknown 11/14/2018 9:19 AM EDT 11/14/2018 9:20 AM EDT Narrative [facility] - 11/15/2018 7:08 AM EDT FASTING:YES FASTING: YES Resulting Agency Comment Performing Organization Information: ?Site ID: [id number] ?Name: [facility] ?Address: [address] [place] [address] [place] [address] ?Director: Xenia Guerrero MD us Dominique Nicholas MD LAB BLOOD ORDERABLES Final Res ult [facility] [address] [facility] 3rd Floor, [place] [address] * MAMMO - Digital - SCREENING with CAD - G0202, 259[address] (10/08/2014 8:30 AM EDT) Anatomical Region Laterality [...] practice guidelines of the ACR BI-RADS [place]. A reference guide is provided below. BREAST [...] - 10/09/2014 09:17) Procedure Note Ishmael Perez - 12/02/2014 HISTORY: Patient is 53 years old and is seen for screening. The patient has ahistory of bilateral biopsy more than 10 years ago - benign - 2003 [id number]. The patient has no personal history of [...] standard practiceguidelines of the ACR BI-RADS [place]. A reference guide is providedbelow. BREAST COMPOSITION [...] 10/09/2014 09:17) Ishmael Perez MD IMG LEGACY PROCEDURES Edited R esult - Final * HX GASTROENTEROLOGY COLONOSCOPY-SCAN (07/19/2011) Ishmael Perez MD HX AMB PROCEDURES Final Result from Last 3 Months or Most Recently Relevant to Health Maintenance Insurance MEDICARE Advance Directives * Full Code (Latest Code Status on File) Date Activated Date Inactivated Comments 09/10/2016 6:42 PM 09/13/2016 3:22 PM Care Teams Manufacturing Engineering Professor Relationship Specialty Start Date End Date Robel Camarena DO [address] [place] [address] PCP - General Internal Medicine 04/19/20 Robel Camarena DO 200 [place] [address] PCP - [employer] Medicare Attributed 11/02/20 Brandyn Arriaga MD [address] [place] [address] Consulting Provider Gastroenterology 06/04/15 Francisco Scales MD [address] [place] [address] Consulting Provider Cardiovascular Disease 06/04/15 Gianfranco Reynoso MD [address] [place] [address] Consulting Provider Endocrinology 07/06/15 Efe Sanabria DO [address] [facility] [address] [place] [address] Consulting Provider Pulmonary Medicine 10/11/15 Bryce Lema DPM [address] [facility] [address] [place] [address] Consulting Provider Podiatry 05/22/17 Anne Marie Chance MD [address] [facility] [address] [place] [address] Consulting Provider Rheumatology 05/07/18 Ishmael Shaw OD [address] [place] [address] Consulting Provider Optometry 07/22/18 Robel Camarena DO [address] [place] [address] Internal Medicine 02/16/20 Rell Howe MD Consulting Provider Anesthesiology 10/11/15
--- OUTSIDE RECORDS SUMMARY | 2024-09-15 12:49 | XMS_ITS | Encounter Summary ---
Author Organization [facility] Address [address] [place] [address] Care Team Providers Care Cloth Grader Supervisor Name Role Phone Brandyn Arriaga MD Unavailable Francisco Scales MD Unavailable [phone] Lino Carpio MD Unavailable [phone] Gianfranco Reynoso MD Unavailable Unavailable Efe Sanabria DO Unavailable Shaka Lyman MD Unavailable [phone] Bryce Lema DPM Unavailable Dominique Nicholas MD Primary Care Provider Anne Marie Chance MD Unavailable [phone] Ishmael Shaw OD Unavailable Amaya Cardenas RN Unavailable Robel Camarena DO Unavailable Robel Camarena DO Primary Care Provider Robel Camarena DO Unavailable [phone] Anne Marie Shafer LCSW Unavailable [phone] Encounter Details Date Type Department Care Team (Late st Contact Info) Description 03/25/2018 Scanned Document [facility] [address] [place] [address] Provider, Generic Social History Tobacco Use Types [...] on filedocumented in this encounter Care Teams Cloth Grader Supervisor Relationship Specialty Start Date End Date Dominique Nicholas MD [address] [facility] [address] [place] [address] PCP - General Internal Medicine 06/21/17 04/18/20 Robel Camarena DO 200 [place] [address] PCP - General Internal Medicine 04/19/20 Robel Camarena DO 200 [place] [address] PCP - [employer] Medicare Attributed 11/02/20 Brandyn Arriaga MD [address] [place] [address] [address] [place] [address] Consulting Provider Gastroenterology 06/04/15 Francisco Scales MD 100 [facility] [address] [place] [address] Consulting Provider Cardiovascular Disease 06/04/15 Lino Carpio MD 100 [place] [address] Consulting Provider Internal Medicine 06/04/15 12/12/18 Gianfranco Reynoso MD 100 [place] [address] Consulting Provider Endocrinology 07/06/15 Efe Sanabria DO [address] [place] [address] [address] [place] [address] Consulting Provider Pulmonary Medicine 10/11/15 Shaka Lyman MD [address] [facility] [address] [place] [address] Consulting Provider Gastroenterology 10/11/15 12/12/18 Bryce Lema DPM [address] [facility] [address] [place] [address] Consulting Provider Podiatry 05/22/17 Anne Marie Chance MD [address] [place] [address] [address] [place] [address] Consulting Provider Rheumatology 05/07/18 Ishmael Shaw OD [address] [place] [address] Consulting Provider Optometry 07/22/18 Amaya Cardenas, GREGORY [address] [place] [address] [employer] Community News Broadcaster 02/27/19 06/01/19 Robel Camarena DO [address] [place] [address] Internal Medicine 02/16/20 Anne Marie Shafer, METAL WEATHER STRIPPER [address] [place] [address] [employer] Community News Broadcaster 03/02/22 03/02/22 Rell Howe MD Consulting Provider Anesthesiology 10/11/[address] [facility] 11/06/16 06/29/19 documented as of this encounter
--- OUTSIDE RECORDS SUMMARY | 2024-09-15 12:49 | XMS_ITS | Encounter Summary ---
Author Organization [facility] Address [address] [place] [address] Care Team Providers Care Photography Intern Name Role Phone Darien Caraballo DO Primary Care Provider [phone] Dominique Nicholas MD Primary Care Provider [phone] Brandyn Arriaga MD Unavailable Francisco Scales MD Unavailable [phone] Misbah Niño MD Unavailable [phone] David Maxwell MD Unavailable [phone] Ming Alvarez MD Unavailable [phone] Lino Carpio MD Unavailable [phone] Gianfranco Reynoso MD Unavailable Unavailable Efe Sanabria DO Unavailable [phone] Shaka Lyman MD Unavailable [phone] Pcp, No Primary Care Provider UnavailDominique Simmons MD Primary Care Provider [phone] Pcp, No Primary Care Provider Unavailmaria del carmen e Bryec Lema DPM Unavailable Dominique Nicholas MD Primary Care Provider Anne Marie Chance MD Unavailable [phone] Ishmael Shaw OD Unavailable Amaya Cardenas RN Unavailable Robel Camarena DO Unavailable [phone] KathyRobel freeman DO Primary Care Provider FridanellyRobel freeman DO Unavailable [phone] Anne Marie Shafer PATIENT CARE NURSING ASSISTANT Unavailable Dominique Nicholas MD Primary Care Provider Encounter Details Date Type Department Care Team (Late st Contact Info) Description 10/15/2014 Scanned Document [address] [place] [address] Provider, Generic Social History Tobacco Use [...] on filedocumented in this encounter Care Teams Photography Intern Relationship Specialty Start Date End Date Darien Caraballo DO [facility] [place] [address] PCP - General Internal Medicine 02/18/15 03/30/15 Dominique Nicholas MD [facility] [place] [address] PCP - General Internal Medicine 03/31/15 07/09/16 Pcp, No PCP - General General Medicine 07/13/16 10/29/16 Dominique Nicholas MD [facility] [place] [address] PCP - General Internal Medicine 10/30/16 11/05/16 Pcp, No PCP - General General Medicine 11/06/16 06/20/17 [place] [address] [place] [address] PCP - General Internal Medicine 06/21/17 04/18/20 Robel Camarena DO 200 [place] [address] PCP - General Internal Medicine 04/19/20 Robel Camarena DO 200 [place] [address] PCP - [employer] Medicare Attributed 11/02/20 Dominique Nicholas MD [address] [place] [address] PCP - General 02/17/15 Brandyn Arriaga MD 85 [facility] [address] [place] [address] Consulting Provider Gastroenterology 06/04/15 Francisco Scales MD [address] [place] [address] Consulting Provider Cardiovascular Disease 06/04/15 Misbah Niño MD [address] [place] [address] Consulting Provider Physical Medicine and Rehabilitation 06/04/15 05/21/17 David Maxwell MD 85 [facility] [address] [place] [address] Consulting Provider Neurology 06/04/15 05/21/17 Ming Alvarez MD [address] [address] Consulting Provider Surgery, Bariatric 06/04/15 05/21/17 Lino Carpio MD 100 [place] [address] Consulting Provider Internal Medicine 06/04/15 12/12/18 Gianfranco Reynoso MD 100 [place] [address] Consulting Provider Endocrinology 07/06/15 Efe Sanabria DO 85 [facility] [address]23 [place] [address] Consulting Provider Pulmonary Medicine 10/11/15 Shaka Lyman MD [address] [facility] [address] [place] [address] Consulting Provider Gastroenterology 10/11/15 12/12/18 Bryce Lema DPM Consulting Provider Podiatry 05/22/17 Anne Marie Chance MD Consulting Provider Rheumatology 05/07/18 Ishmael Shaw OD [address] [place] [address] 100 [place] [address] Consulting Provider Optometry 07/22/18 Amaya Cardenas, GREGORY [address] [facility] 4 [place] [address] [facility] Community Export Freight Manager 02/27/19 06/01/19 Robel Camarena DO [address] [place] [address] Internal Medicine 02/16/20 Anne Marie Shafer, PATIENT CARE NURSING ASSISTANT [address] [place] [address] [facility] Community Export Freight Manager 03/02/22 03/02/22 Rell Howe MD Consulting Provider Anesthesiology 10/11/15 KELLEN GEE MD [address] [place] [address] Rheumatology 03/22/16 05/21/17 batsheva chow [facility] 11/06/16 06/29/19 documented as of this encounter
--- OUTSIDE RECORDS SUMMARY | 2024-09-15 12:49 | XMS_ITS | Encounter Summary ---
Author Organization [facility] Address [address] [place] [address] Care Team Providers Care Phlebotomy Manager Name Role Phone Darien Caraballo DO Primary Care Provider [phone] Dominique Nicholas MD Primary Care Provider [phone] Brandyn Arriaga MD Unavailable Francisco Scales MD Unavailable [phone] Misbah Niño MD Unavailable [phone] David Maxwell MD Unavailable [phone] Ming Alvarez MD Unavailable +[phone] Lino Carpio MD Unavailable Gianfranco Reynoso MD Unavailable Unavailable Efe Sanabria DO Unavailable [phone] Shaka Lyman MD Unavailable [phone] Pcp, No Primary Care Provider UnavailDominique Simmons MD Primary Care Provider [phone] Pcp, No Primary Care Provider Unavailmaria del carmen e Bryce Lema DPM Unavailable Dominique Nicholas MD Primary Care Provider Anne Marie Chance MD Unavailable +[phone] Ishmael Shaw OD Unavailable RonaldAmaya RN Unavailable [phone] Robel Camarena DO Unavailable [phone] Robel Camarena DO Primary Care Provider [phone] Robel Camarena DO Unavailable [phone] Soni Anne Marie J PHOTO PRODUCER Unavailable Dominique Nicholas MD Primary Care Provider Encounter Details Date Type Department Care Team (Late st Contact Info) Description 12/04/2014 Scanned Document [place] [address] [place] [phone] Provider, Generic Social History Tobacco Use Types [...] Narrative 12/14/2014 Ordered by an unspecified provider. us Generic Provider HX AMB PROCEDURES Final Result documented in this encounter Visit Diagnoses Not on filedocumented in this encounter Care Teams Phlebotomy Manager Relationship Specialty Start Date End Date Darien Caraballo DO [address] [place] [address] PCP - General Internal Medicine 02/18/15 03/30/15 Dominique Nicholas MD [address] [place] [address] PCP - General Internal Medicine 03/31/15 07/09/16 Pcp, No PCP - General General Medicine 07/13/16 10/29/16 Dominique Nicholas MD 1060 [facility] [place] [address] PCP - General Internal Medicine 10/30/16 11/05/16 Pcp, No PCP - General General Medicine 11/06/16 06/20/17 [place] [address] [place], [place] [address], [place] [address] PCP - General Internal Medicine 06/21/17 04/18/20 Robel Camarena DO 200 [place] [address] PCP - General Internal Medicine 04/19/20 Robel Camarena DO 200 [place] [address] PCP - United Medicare Attributed 11/02/20 Dominique Nicholas MD [address] [place] [address] 4011 [place] [address] PCP - General 02/17/15 Brandyn Arriaga MD [address] [place] [address] 1000 [place] [address] Consulting Provider Gastroenterology 06/04/15 Francisco Scales MD [address] [place] [address] Consulting Provider Cardiovascular Disease 06/04/15 Misbah Niño MD [address] [place] [address] Consulting Provider Physical Medicine and Rehabilitation 06/04/15 05/21/17 David Maxwell MD [address] [place] [address] 800 [place] [address] Consulting Provider Neurology 06/04/15 05/21/17 Ming Alvarez MD [address] [place] [address] Consulting Provider Surgery, Bariatric 06/04/15 05/21/17 Lino Carpio MD [address] [place] [address] Consulting Provider Internal Medicine 06/04/15 12/12/18 Gianfranco Reynoso MD [address] [place] [address] Consulting Provider Endocrinology 07/06/15 Efe Sanabria DO [address] [place] [address] 923 [place] [address] Consulting Provider Pulmonary Medicine 10/11/15 Shaka Lyman MD [address] [place] [address] [address] [place] [address] Consulting Provider Gastroenterology 10/11/15 12/12/18 Bryce Lema DPM Consulting Provider Podiatry 05/22/17 Anne Marie Chance MD Consulting Provider Rheumatology 05/07/18 Ishmael Shaw, OD [address] [place] [address] Consulting Provider Optometry 07/22/18 Amaya Cardenas, RN [address] [place] [address] [facility] Community Stripper And Taper 02/27/19 06/01/19 Robel Camarena DO [address] [place] [address] Internal Medicine 02/16/20 Anne Marie Shafer LCSW [address] [place] [address] [facility] Community Stripper And Taper 03/02/22 03/02/22 Rell Howe MD Consulting Provider Anesthesiology 10/11/15 KELLEN GEE MD [address] [place] [address] Rheumatology 03/22/16 05/21/17 batsheva chow PHOTO PRODUCER [facility] 11/06/16 06/29/19 documented as of this encounter
--- OUTSIDE RECORDS SUMMARY | 2024-09-15 12:49 | XMS_ITS | Encounter Summary ---
Author Organization [facility] Address [address] [place] [address] Care Team Providers Care Freight Traffic Consultant Name Role Phone Dominique Nicholas MD Primary Care Provider Brandyn Arriaga MD Unavailable Francisco Scales MD Unavailable [phone] Misbah Niño MD Unavailable [phone] David Maxwell MD Unavailable [phone] Ming Alvarez MD Unavailable [phone] Lino Carpio MD Unavailable [phone] Gianfranco Reynoso MD Unavailable Unavailable Efe Sanabria DO Unavailable [phone] Shaka Lyman MD Unavailable [phone] Pcp, No Primary Care Provider UnavailDominique Simmons MD Primary Care Provider Pcp, No Primary Care Provider UnavailBryce Nayak DPM Unavailable Dominique Nicholas MD Primary Care Provider Anne Marie Chance MD Unavailable +[phone] Ishmael Shaw OD Unavailable [phone] Amaya Cardenas RN Unavailable Robel Camarena DO Unavailable [phone] KathyRobel freeman DO Primary Care Provider KathyRobel freeman DO Unavailable [phone] Anne Marie Shafer CONSULTING SALES EXECUTIVE Unavailable Encounter Details Date Type Department Care Team (Late st Contact Info) Description 06/01/2015 Scanned Document [address] [phone] Provider, Generic Social History Tobacco Use Types [...] on filedocumented in this encounter Care Teams Freight Traffic Consultant Relationship Specialty Start Date End Date Dominique Nicholas MD PCP - General Internal Medicine 03/31/15 07/09/16 Pcp, No PCP - General General Medicine 07/13/16 10/29/16 Dominique Nicholas MD PCP - General Internal Medicine 10/30/16 11/05/16 Pcp, No PCP - General General Medicine 11/06/16 06/20/17 Dominique Nicholas MD PCP - General Internal Medicine 06/21/17 04/18/20 Robel Camarena DO [address] [place] [address] PCP - General Internal Medicine 04/19/20 Robel Camarena DO [address] [place] [address] PCP - United Medicare Attributed 11/02/20 Brandyn Arriaga MD 85 [facility] 1000 [place] [address] Consulting Provider Gastroenterology 06/04/15 Francisco Scales MD [address] [place] [address] Consulting Provider Cardiovascular Disease 06/04/15 Misbah Niño MD [address] [place] [address] Consulting Provider Physical Medicine and Rehabilitation 06/04/15 05/21/17 David Maxwell MD 85 [facility] 800 [place] [address] Consulting Provider Neurology 06/04/15 05/21/17 Ming Alvarez MD [address] [place] [address] Consulting Provider Surgery, Bariatric 06/04/15 05/21/17 Lino Carpio MD 100 [place] [address] Consulting Provider Internal Medicine 06/04/15 12/12/18 Gianfranco Reynoso MD 100 [place] [address] Consulting Provider Endocrinology 07/06/15 Efe Sanabria DO 85 [facility] [address] [place] [address] Consulting Provider Pulmonary Medicine 10/11/15 Shaka Lyman MD 6 [facility] [address] [place] [address] Consulting Provider Gastroenterology 10/11/15 12/12/18 Bryce Lema DPM Consulting Provider Podiatry 05/22/17 Anne Marie Chance MD Consulting Provider Rheumatology 05/07/18 Ishmael Shaw OD [address] [place] [address] Consulting Provider Optometry 07/22/18 Amaya Cardenas, RN [address] [facility] 4 [place] [address] [facility] Community Building Construction Superintendent 02/27/19 06/01/19 Robel Camarena DO [address] [place] [address] Internal Medicine 02/16/20 Anne Marie Shafer, CONSULTING SALES EXECUTIVE [address] [place] [address] [facility] Community Building Construction Superintendent 03/02/22 03/02/22 Rell Howe MD Consulting Provider Anesthesiology 10/11/15 KELLEN GEE MD [address] [place] [address] Rheumatology 03/22/16 05/21/17 batsheva chow [facility] 11/06/16 06/29/19 documented as of this encounter
--- OUTSIDE RECORDS SUMMARY | 2024-09-15 12:49 | XMS_ITS | Encounter Summary ---
Author Organization [facility] Address [address] [place] [address] Care Team Providers Care Receiver/Laborer Name Role Phone Dominique Nicholas MD Primary Care Provider [phone] Brandyn Arriaga MD Unavailable Francisco Scales MD Unavailable [phone] Misbah Niño MD Unavailable [phone] David Maxwell MD Unavailable [phone] Ming Alvarez MD Unavailable [phone] Lino Carpio MD Unavailable [phone] Gianfranco Reynoso MD Unavailable Unavailable Efe Sanabria DO Unavailable [phone] Shaka Lyman MD Unavailable [phone] Pcp, No Primary Care Provider UnavailDominique Simmons MD Primary Care Provider Pcp, No Primary Care Provider UnavailBryce Nayak DPM Unavailable Dominique Nicholas MD Primary Care Provider Anne Marie Chance MD Unavailable +[phone] Ishmael Shaw OD Unavailable [phone] Amaya Cardenas RN Unavailable [phone] Robel Camarena DO Unavailable [phone] Nicol Robel DO Primary Care Provider [phone] Kathypete Robel DO Unavailable [phone] Anne Marie Shafer ARMHOLE FELLER HANDSTITCHING MACHINE Unavailable [phone] Encounter Details Date Type Department Care Team (Late st Contact Info) Description 10/28/2015 Scanned Document [address] [phone] Provider, Generic Social History Tobacco Use Types [...] on filedocumented in this encounter Care Teams Receiver/Laborer Relationship Specialty Start Date End Date Dominique Nicholas MD PCP - General Internal Medicine 03/31/15 07/09/16 Pcp, No PCP - General General Medicine 07/13/16 10/29/16 Dominique Nicholas MD PCP - General Internal Medicine 10/30/16 11/05/16 Pcp, No PCP - General General Medicine 11/06/16 06/20/17 Dominique Nicholas MD PCP - General Internal Medicine 06/21/17 04/18/20 Robel Camarena DO [address] [place] [address] PCP - General Internal Medicine 04/19/20 Robel Camarena DO [address] [place] [address] PCP - United Medicare Attributed 11/02/20 Brandyn Arriaga MD 85 [facility] 1000 [place] [address] Consulting Provider Gastroenterology 06/04/15 Francisco Scales MD [address] [place] [address] Consulting Provider Cardiovascular Disease 06/04/15 Misbah Niño MD [address] [place] [address] Consulting Provider Physical Medicine and Rehabilitation 06/04/15 05/21/17 David Maxwell MD 85 [facility] 800 [place] [address] Consulting Provider Neurology 06/04/15 05/21/17 Ming Alvarez MD [address] [place] [address] Consulting Provider Surgery, Bariatric 06/04/15 05/21/17 Lino Carpio MD [address] [place] [address] Consulting Provider Internal Medicine 06/04/15 12/12/18 Gianfranco Reynoso MD 100 [place] [address] Consulting Provider Endocrinology 07/06/15 Efe Sanabria DO 85 [facility] 923 [place] [address] Consulting Provider Pulmonary Medicine 10/11/15 Shaka Lyman MD [address] [facility] [address] [place] [address] Consulting Provider Gastroenterology 10/11/15 12/12/18 Bryce Lema DPM Consulting Provider Podiatry 05/22/17 Anne Marie Chance MD Consulting Provider Rheumatology 05/07/18 Ishmael Shaw OD [address] [place] [address] 100 [place] [address] Consulting Provider Optometry 07/22/18 Amaya Cardenas, GREGORY [address] [address] [facility] Community Community Coordinator For [employer] School 02/27/19 06/01/19 Robel Camarena DO [address] [place] [address] Internal Medicine 02/16/20 Anne Marie Shafer LCSW [address] [place] [address] [facility] Community Community Coordinator [employer] 03/02/22 03/02/22 Rell Howe MD Consulting Provider Anesthesiology 10/11/15 KELLEN GEE MD [address] [place] [address] Rheumatology 03/22/16 05/21/17 batsheva OLVERAW [facility] 11/06/16 06/29/19 documented as of this encounter
--- OUTSIDE RECORDS SUMMARY | 2024-09-15 12:49 | XMS_ITS | Encounter Summary ---
Author Organization [facility] Address [address] [place] [address] Care Team Providers Care Template Worker Name Role Phone Dominique Nicholas MD Primary Care Provider Brandyn Arriaga MD Unavailable Francisco Scales MD Unavailable Misbah Niño MD Unavailable [phone] David Maxwell MD Unavailable [phone] Ming Alvarez MD Unavailable +[phone] Lino Carpio MD Unavailable [phone] Gianfranco Reynoso MD Unavailable Unavailable Efe Sanabria DO Unavailable [phone] Shaka Lyman MD Unavailable [phone] Pcp, No Primary Care Provider UnavailDominique Simmons MD Primary Care Provider Pcp, No Primary Care Provider UnavailBryce Nayak DPM Unavailable Dominique Nicholas MD Primary Care Provider Anne Marie Chance MD Unavailable +[phone] 00-0000 Ishmael Shaw OD Unavailable [phone] Amaya Cardenas RN Unavailable [phone] Robel Camarena DO Unavailable [phone] Robel Camarena DO Primary Care Provider Robel Camarena DO Unavailable [phone] Anne Marie Shafer SEISMOGRAPHER Unavailable [phone] Encounter Details Date Type Department Care Team (Late st Contact Info) Description 12/04/2015 Scanned Document [address] [phone] Provider, Generic Social History Tobacco Use Types [...] AM EDT Ordered by an unspecified provider. us Generic Provider IMG DIAGNOSTIC IMAGING ORDERABL ES Edited Result - Final documented in this encounter Visit Diagnoses Not on filedocumented in this encounter Care Teams Template Worker Relationship Specialty Start Date End Date Dominique Nicholas MD PCP - General Internal Medicine 03/31/15 07/09/16 Pcp, No PCP - General General Medicine 07/13/16 10/29/16 Dominique Nicholas MD PCP - General Internal Medicine 10/30/16 11/05/16 Pcp, No PCP - General General Medicine 11/06/16 06/20/17 Dominique Nicholas MD PCP - General Internal Medicine 06/21/17 04/18/20 Robel Camarena DO 200 [place] [address] PCP - General Internal Medicine 04/19/20 Robel Camarena DO 200 [place] [address] PCP - United Medicare Attributed 11/02/20 Brandyn Arriaga MD 85 [facility] 1000 [place] [id number] Consulting Provider Gastroenterology 06/04/15 Francisco Scales MD [address] [place] [address] Consulting Provider Cardiovascular Disease 06/04/15 Misbah Niño MD [address] [place] [address] Consulting Provider Physical Medicine and Rehabilitation 06/04/15 05/21/17 David Maxwell MD 85 [facility] 800 [place] [address] Consulting Provider Neurology 06/04/15 05/21/17 Ming Alvarez MD [address] [place] [address] Consulting Provider Surgery, Bariatric 06/04/15 05/21/17 Lino Carpio MD 100 [place] [address] Consulting Provider Internal Medicine 06/04/15 12/12/18 Gianfranco Reynoso MD 100 [place] [address] Consulting Provider Endocrinology 07/06/15 Efe Sanabria DO 85 [facility] 923 [place] [address] Consulting Provider Pulmonary Medicine 10/11/15 Shaka Lyman MD 6 [facility] 302 [place] [address] Consulting Provider Gastroenterology 10/11/15 12/12/18 Bryce Lema DPM Consulting Provider Podiatry 05/22/17 Anne Marie Chance MD Consulting Provider Rheumatology 05/07/18 Ishmael Shaw OD [address] [address] Consulting Provider Optometry 07/22/18 Amaya Cardenas, GREGORY [address] [facility] 4 [place] [address] [facility] Community Director Of Casework 02/27/19 06/01/19 Robel Camarena DO [address] [place] [address] Internal Medicine 02/16/20 Anne Marie Shafer, SEISMOGRAPHER [address] [place] [address] [facility] Community Director Of Casework 03/02/22 03/02/22 Rell Howe MD Consulting Provider Anesthesiology 10/11/15 KELLEN GEE MD [address] [place] [address] Rheumatology 03/22/16 05/21/17 batsheva chow [facility] 11/06/16 06/29/19 documented as of this encounter
--- OUTSIDE RECORDS SUMMARY | 2024-09-15 12:49 | XMS_ITS | Encounter Summary ---
Author Organization [facility] Address [address] [place] [address] Care Team Providers Care Portable Track Crew Chief Name Role Phone Brandyn Arriaga MD Unavailable Francisco Scales MD Unavailable [phone] Lino Carpio MD Unavailable [phone] Gianfranco Reynoso MD Unavailable Unavailable Efe Sanabria DO Unavailable Shaka Lyman MD Unavailable Bryce Lema DPM Unavailable Dominique Nicholas MD Primary Care Provider Anne Marie Chance MD Unavailable +1-000-0 00-0000 Ishmael Shaw OD Unavailable Amaya Cardenas RN Unavailable [phone] Robel Camarena DO Unavailable Robel Camarena DO Primary Care Provider Robel Camarena DO Unavailable [phone] Anne Marie Shafer LCSW Unavailable [phone] Encounter Details Date Type Department Care Team (Late st Contact Info) Description 08/13/2017 Scanned Document [facility] 1060 [place] [address] Provider, Generic Social History Tobacco Use Types [...] on filedocumented in this encounter Care Teams Portable Track Crew Chief Relationship Specialty Start Date End Date Dominique Nicholas MD 6 [facility] [address] [place] [address] PCP - General Internal Medicine 06/21/17 04/18/20 Robel Camarena DO 200 [place] [address] PCP - General Internal Medicine 04/19/20 Robel Camarena DO 200 [place] [address] PCP - United Medicare Attributed 11/02/20 Brandyn Arriaga MD [address] [place] [address] 1000 [place] [address] Consulting Provider Gastroenterology 06/04/15 Francisco Scales MD 100 [facility] 811 [place] [address] Consulting Provider Cardiovascular Disease 06/04/15 Lino Carpio MD 100 [place] [address] Consulting Provider Internal Medicine 06/04/15 12/12/18 Gianfranco Reynoso MD 100 [place] [address] Consulting Provider Endocrinology 07/06/15 Efe Sanabria DO [address] [place] [address] 923 [place] [address] Consulting Provider Pulmonary Medicine 10/11/15 Shaka Lyman MD [address] [facility] [address] [place] [address] Consulting Provider Gastroenterology 10/11/15 12/12/18 Bryce Lema DPM [address] [facility] [address] [place] [address] Consulting Provider Podiatry 05/22/17 Anne Marie Chance MD [address] [place] [address] [address] [place] [address] Consulting Provider Rheumatology 05/07/18 Ishmael Shaw OD [address] [place] [address] Consulting Provider Optometry 07/22/18 Amaya Cardenas, GREGORY [address] [place] [address] [facility] Community Town Manager 02/27/19 06/01/19 Robel Camarena DO [address] [place] [address] Internal Medicine 02/16/20 Anne Marie Shafer, ELECTRONIC INSTALLER [address] [place] [address] [facility] Community Town Manager 03/02/22 03/02/22 Rell Howe MD Consulting Provider Anesthesiology 10/11/15 [email or web address] chow [facility] 11/06/16 06/29/19 documented as of this encounter
--- OUTSIDE RECORDS SUMMARY | 2024-09-15 12:49 | XMS_ITS | Encounter Summary ---
Author Organization [facility] Address [address] [place] [address] Care Team Providers Care Import Customer Service Manager Name Role Phone Darien Caraballo DO Primary Care Provider [phone] Dominique Nicholas MD Primary Care Provider [phone] Brandyn Arriaga MD Unavailable Francisco Scales MD Unavailable [phone] Misbah Niño MD Unavailable [phone] David Maxwell MD Unavailable [phone] Ming Alvarez MD Unavailable [phone] Lino Carpio MD Unavailable [phone] Gianfranco Reynoso MD Unavailable Unavailable Efe Sanabria DO Unavailable [phone] Shaka Lyman MD Unavailable [phone] Pcp, No Primary Care Provider UnavailDominique Simmons MD Primary Care Provider [phone] Pcp, No Primary Care Provider Unavailmaria del carmen e Bryce Lema DPM Unavailable Dominique Nicholas MD Primary Care Provider Anne Marie Chance MD Unavailable [phone] Ishmael Shaw OD Unavailable Amaya Cardenas RN Unavailable [phone] Robel Camarena DO Unavailable [phone] KathyRobel freeman DO Primary Care Provider FridanellyRobel freeman DO Unavailable [phone] Anne Marie Shafer RIVET BUCKER Unavailable [phone] Dominique Nicholas MD Primary Care Provider [phone] Encounter Details Date Type Department Care Team (Late st Contact Info) Description 05/06/2014 Scanned Document [address] [place] [phone] Provider, Generic Social History Tobacco Use [...] on filedocumented in this encounter Care Teams Import Customer Service Manager Relationship Specialty Start Date End Date Darien Caraballo DO [facility] [place] [address] PCP - General Internal Medicine 02/18/15 03/30/15 Dominique Nicholas MD [facility] [place] [address] PCP - General Internal Medicine 03/31/15 07/09/16 Pcp, No PCP - General General Medicine 07/13/16 10/29/16 Dominique Nicholas MD 0 [facility] [place] [address] PCP - General Internal Medicine 10/30/16 11/05/16 Pcp, No PCP - General General Medicine 11/06/16 06/20/17 [place] [address] [place] [address] PCP - General Internal Medicine 06/21/17 04/18/20 Robel Camarena DO 200 [place] [address] PCP - General Internal Medicine 04/19/20 Robel Camarena DO 200 [place] [address] PCP - United Medicare Attributed 11/02/20 Dominique Nicholas MD [address] [place] [address] PCP - General 02/17/15 Brandyn Arriaga MD 85 [facility] 1000 [place] [address] Consulting Provider Gastroenterology 06/04/15 Francisco Scales MD [address] [place] [address] Consulting Provider Cardiovascular Disease 06/04/15 Misbah Niño MD [address] [place] [address] Consulting Provider Physical Medicine and Rehabilitation 06/04/15 05/21/17 David Maxwell MD 85 [facility] 800 [place] [address] Consulting Provider Neurology 06/04/15 05/21/17 Ming Alvarez MD [address] [address] Consulting Provider Surgery, Bariatric 06/04/15 05/21/17 Lino Carpio MD 100 [place] [address] Consulting Provider Internal Medicine 06/04/15 12/12/18 Gianfranco Reynoso MD 100 [place] [address] Consulting Provider Endocrinology 07/06/15 Efe Sanabria DO 85 [facility] 923 [place] [address] Consulting Provider Pulmonary Medicine 10/11/15 Shaka Lyman MD [address] [facility] [address] [place] [address] Consulting Provider Gastroenterology 10/11/15 12/12/18 Bryce Lema DPM Consulting Provider Podiatry 05/22/17 Anne Marie Chance MD Consulting Provider Rheumatology 05/07/18 Ishmael Shaw OD [address] [place] [address] 100 [place] [address] Consulting Provider Optometry 07/22/18 Amaya Cardenas, GREGORY [address] [place] [facility] 4 [place] [address] [facility] Community Sammying Machine Operator 02/27/19 06/01/19 Robel Camarena DO [address] [place] [address] Internal Medicine 02/16/20 Anne Marie Shafer, RIVET BUCKER [address] [place] [address] [facility] Community Sammying Machine Operator 03/02/22 03/02/22 Rell Howe MD Consulting Provider Anesthesiology 10/11/15 KELLEN GEE MD [address] [place] [address] Rheumatology 03/22/16 05/21/17 batsheva chow [facility] 11/06/16 06/29/19 documented as of this encounter
--- OUTSIDE RECORDS SUMMARY | 2024-09-15 12:50 | XMS_ITS | Encounter Summary ---
Author Organization [facility] Address [address] [place] [address] Care Team Providers Care Tankman Name Role Phone Brandyn Arriaga MD Unavailable Francisco Scales MD Unavailable [phone] Gianfranco Reynoso MD Unavailable Unavailable Efe Sanabria DO Unavailable Bryce Lema DPM Unavailable Anne Marie Chance MD Unavailable [phone] Ishmael Shaw OD Unavailable Robel Camarena DO Unavailable [phone] Robel Camarena DO Primary Care Provider Robel Camarena DO Unavailable Anne Marie Shafer [facility] Unavailable [phone] Reason for Visit * Reason Comments Medication Refill Encounter Details Date Type Department Care Team (Late st Contact Info) Description 05/18/2021 Refill [facility] Endocrinology [address] [id number] Gianfranco Reynoso MD Type 2 diabetes mellitus with hyperglycemia, with [...] (HCC) documented in this encounter Care Teams Tankman Relationship Specialty Start Date End Date Robel Camarena DO 200 [place] [address] PCP - General Internal Medicine 04/19/20 Robel Camarena DO 200 [place] [address] PCP - United Medicare Attributed 11/02/20 Brandyn Arriaga MD 85 [facility] [place] [address] [place] [address] Consulting Provider Gastroenterology 06/04/15 Francisco Scales MD [address] [place] [address] Consulting Provider Cardiovascular Disease 06/04/15 Gianfranco Reynoso MD [address] [place] [address] Consulting Provider Endocrinology 07/06/15 Efe Sanabria DO 85 [facility] [address] [place] [id number] Consulting Provider Pulmonary Medicine 10/11/15 Bryce Lema DPM 85 [facility] [address] [place] [address] Consulting Provider Podiatry 05/22/17 Anne Marie Chance MD 85 [facility] 923 [place] [address] Consulting Provider Rheumatology 05/07/18 Ishmael Shaw OD 110 [facility] 100 [place] [address] Consulting Provider Optometry 07/22/18 Robel Camarena DO [address] [place] [address] Internal Medicine 02/16/20 Anne Marie Shafer, DEAN OF FACULTY 1290 [facility] 4 [place] [address] [facility] Community Hourly Shift 03/02/22 03/02/22 Rell Howe MD Consulting Provider Anesthesiology 10/11/15 documented as of this encounter
--- OUTSIDE RECORDS SUMMARY | 2024-09-15 12:50 | XMS_ITS | Clinical Summary ---
Author Organization [facility] Address [address] [place] [address] Phone Care Team Providers Care Construction Administrative Assistant Name Role Phone Gaston Colorado MD Primary [...] reports throat swelling with soy intake Medications insulin glargine (Lantus Solostar U-100 Insulin) 100 unit/mL (3 mL) injection pen INJECT 60 UNITS INTO THE SKIN EVERY MORNING 4 Active blood-glucose meter kit E11.9 TO CHECK SUGARS THREE TIMES A DAY 4 Active ONETOUCH DELICA LANCETS MISC E11.9 to check sugars three times a day 4 Active oxyCODONE myristate (Xtampza ER) 9 mg capsule,sprinkle ,ER 12hr tmprr Take by mouth. Active lidocaine-priloc luann (EMLA) 2.5-2.5 % cream Apply topically as needed. Active lisinopriL (PRINIVIL,ZESTRI L) 10 mg tablet Take 1 tablet (10 mg total) by mouth 1 (one) time each day. Active fluticasone propion-salmeter oL (ADVAIR DISKUS) 500-50 mcg/dose diskus inhaler Inhale into the lungs. Active albuterol HFA (PROAIR HFA ; PROVENTIL HFA ; VENTOLIN HFA) 90 mcg/actuation inhaler Inhale 2 Puffs into the lungs. 5 Active atenoloL (TENORMIN) 50 mg tablet Take 1 tablet (50 mg total) by mouth 1 (one) time each day. 6 Active atorvastatin (LIPITOR) 20 mg tablet Take 1 Tablet by mouth. 6 Active fluticasone propionate (FLONASE) 50 mcg/actuation nasal spray 1 [place]. Active oxyCODONE-acetam inophen (PERCOCET) 10-325 mg per tablet Take 1 Tablet by mouth. 7 Active SITagliptin phosphate (Januvia) 100 mg tablet Take 1 tablet (100 mg total) by mouth 1 (one) time each day. 6 Active multivitamin (MULTIPLE VITAMINS ORAL) Take 1 Capsule by mouth. Active Lactobacillus acidophilus (PROBIOTIC ORAL) Take by mouth. Active blood sugar diagnostic (OneTouch Verio test strips) test stripIndications :Type 2 diabetes mellitus with hyperglycemia, with long-term current use of insulin ([facility] V24, [facility] V28) USE DIRECTED TO CHECK SUGARS THREE TIMES A DAY 200 strip 2 5 Active Active Problems Problem Noted Date Diagnosed Date Morbid obesity with BMI of 4 0.0-44.9, adult ([facility] V24, [facility] V28) 04/01/2024 Type 2 diabetes mellitus wit h hyperglycemia, with long-term current use of insulin ([facility] V24, [facility] V28) 04/01/2024 Kidney stones 09/07/2023 Encounters Date Type Department Care Team Description 08/05/2024 10:45 AM EDT Office Visit Orthopedic Surgery [place] [address] [place] [address] [place] [phone] Joselito Hernandez, DPM Plantar fascial fibromatosis (Primary Dx); Diabetic mononeuropathy simplex ([facility] V24, [facility] V28); Type II diabetes mellitus with peripheral circulatory disorder ([facility] V24, [facility] V28); Dermatophytosis of nail from Last 3 Months Social History Tobacco Use Types Packs/Day Years Used Date Smoking Tobacco: Never Smokeless Tobacco: Never Tobacco Cessation:Counseling Given: Not Answered Comments Unknown Sex and Gender Information Value Date Recorded Sex Assigned at Not on file Legal Sex Female 1:58 PM EST Gender Identity Not on file Sexual Orientation Not on file Obstetrics History Last Filed Vital Signs Vital Sign Reading Time Taken Comments Blood Pressure 130/74 09/06/2023 4:44 PM EDT Pulse 78 09/06/2023 4:44 PM EDT Temperature - - Respiratory Rate - - Oxygen Saturation - - Inhaled Oxygen Concentration - - Weight 114 kg (251 lb) 08/05/2024 10:51 AM EDT Height 170 cm (5' 6.94 ) 08/05/2024 10:51 AM EDT Body Mass Index 39.39 08/05/2024 10:51 AM EDT Plan of Treatment Health Maintenance Due Date Last Done Comments Diabetes: Annual Foot Exam 10/30/1969 Diabetes: Annual Retina Eye Exam 10/30/1969 Cervical Cancer Screening: Pap Smear 10/30/1980 Pneumococcal Vaccine: 50+ Years (2 of 2 - PCV) 05/09/2002 05/09/2001 Pneumococcal Vaccine: Pediatrics (0 to 5 Years) and At-Risk Patients (6 to 64 Years) (2 of 2 - PCV) 05/09/2002 05/09/2001 RSV Immunization Adult Patients (1 - Risk 60-74 years 1-dose [...] Hypertension/CHF/CAD Annual BMP Blood Test 04/02/2024 03/07/2023 COVID-19 Vaccine (6 - Pfizer risk ) 09/08/2024 03/10/2024, 02/19/2023, 09/20/2021, Additional history exists Zoster Vaccines Completed 01/03/2022, 09/20/2021 Influenza Vaccine Completed 03/10/2024, , 05/03/2022, Additional [...] patient's age to complete this topic Meningococcal B Vaccine Aged Out No l onger eligible based on patient's age to complete this topic RSV Immunization Patients Under 20 months Aged Out No longer eligible based on patient's age to complete this topic Varicella Vaccines Aged Out No longer eligible based on patient's age to complete this topic Procedures Procedure Name Priority Date/Time Associated Diagnosis Comments HM ANNUAL BMP BLOOD TEST Routine 03/07/2023 HEMOGLOBIN A1C Routine 03/07/2023 SHAHNAZ SCREENING DIGITAL Routine 03/04/2021 1:55 PM EDT Encounter for screening mammogram for malignant neoplasm of breast URINE ALBUMIN CREATININE RATIO Routine 04/19/2020 from Last 3 Months or Most Recently Relevant to Health Maintenance Results * Annual BMP Blood Test (03/07/2023) Annual BMP Blood Test abstracted Historical Provider HEALTH MAINTENANCE Final Result * (ABNORMAL) Hemoglobin A1c (03/07/2023) Hemoglobin A1C 6.7(A) <=6.5 % Blood Venous blood specimen / Unknown Historical Provider LAB BLOOD ORDERABLES Marycruz l Result * SHAHNAZ SCREENING DIGITAL (03/04/2021 1:55 PM EDT) Anatomical Region Laterality Modality Mammography 02/23/2021 9:35 AM EDT Narrative 03/04/2021 1:55 PM EDT [facility] Diagnostic Imaging Department [address] [place] [address] Patient: ??RONEY MERCEDES ?/Age/Sex: 1960 - 60 - F Unit#: ??[id number] ? Location/Status: ??SPDIMAM/REG CLI ? Mnemonic/Ordering Site: ??DIGSC/SPMAM Ordering Physician: ??JUANJOSE LIU MD Shahnaz Screening Digital - 02/23/214 INDICATION: SCREENING COMPARISON: No prior studies are available for comparison. TECHNIQUE: CC and MLO views of the breasts were obtained, using full field digital mammography with 3D tomosynthesis views in the MLO projection. Computer aided detection with the [employer] 7.2-H was employed. FINDINGS: The breasts contain [...] date for the next mammogram. ([id number] / [id number]) , ??[id number] Dictating Physician: ??TERESA GREWAL MD Electronically Signed by: ??TERESA GREWAL MD Dic Date/Time: ??03/04/21 1351 Sign date/Time: ??03/04/21 1352 Procedure Note Teresa Grewal MD - 05/10/2022 [facility] Diagnostic Imaging Department [address] [place] [address] Patient: RONEY MERCEDES Krystina /Age/Sex: 1960 - 60 - F Unit#: [id number] Location/Status: SPDIMAM/REG CLI Mnemonic/Ordering Site: DIGSC/SPMAM Ordering Physician: JUANJOSE LIU MD Shahnaz Screening Digital - 02/23/21 - 1014 INDICATION: SCREENING COMPARISON: No prior studies are available for comparison. TECHNIQUE: CC and MLO views of the breasts were obtained, using full field digital mammography with 3D tomosynthesis views in the MLO projection. Computer aided detection with the [employer] 7.2-H was employed. FINDINGS: The breasts contain [...] a target date for the next mammogram. [id number] / [id number]) , [id number] Dictating Physician: TERESA GREWAL MD Electronically Signed by: TERESA GREWAL MD Dic Date/Time: 03/04/21 1351 Sign date/Time: 03/04/21 1358 Juanjose Liu DO IMG BI PROCEDURES Final Resul t * HM Urine Albumin Creatinine Ratio (04/19/2020) HM Urine Albumin Creatinine Ratio abstracted Historical Provider HEALTH MAINTENANCE Final Result from Last 3 Months or Most Recently Relevant to Health Maintenance Insurance UNITED [employer]CARE MEDICARE [place] [facility] [employer]ARE MEDICARE MEDICAID - [place] Care Teams Construction Administrative Assistant Relationship Specialty Start Date End Date Gaston Colorado MD [address] [place] [address] PCP - General Internal Medicine 06/17/19
--- OUTSIDE RECORDS SUMMARY | 2024-09-15 12:50 | XMS_ITS | Encounter Summary ---
Author Organization [facility] Address [address] [place] [address] Care Team Providers Care Emc Storage Architect Name Role Phone Darien Caraballo DO Primary Care Provider [phone] Dominique Nicholas MD Primary Care Provider [phone] Brandyn Arriaga MD Unavailable Francisco Scales MD Unavailable [phone] Misbah Niño MD Unavailable [phone] David Maxwell MD Unavailable [phone] Ming Alvarez MD Unavailable [phone] Lino Carpio MD Unavailable [phone] Gianfranco Reynoso MD Unavailable Unavailable Efe Sanabria DO Unavailable [phone] Shaka Lyman MD Unavailable [phone] Pcp, No Primary Care Provider UnavailDominique Simmons MD Primary Care Provider [phone] Pcp, No Primary Care Provider Unavailmaria del carmen e Bryce Lema DPM Unavailable Dominique Nicholas MD Primary Care Provider Anne Marie Chance MD Unavailable [phone] Ishmael Shaw OD Unavailable Amaya Cardenas RN Unavailable [phone] Robel Camarena DO Unavailable [phone] KathyRobel freeman DO Primary Care Provider [phone] FridanellyRobel freeman DO Unavailable Anne Marie Shafer CLINICAL ADMINISTRATOR Unavailable [phone] Dominique Nicholas MD Primary Care Provider Encounter Details Date Type Department Care Team (Late st Contact Info) Description 12/28/2014 Scanned Document [address] [place] [phone] Provider, Generic Social History Tobacco Use [...] on filedocumented in this encounter Care Teams Emc Storage Architect Relationship Specialty Start Date End Date Darien Caraballo DO [facility]0 [place] [address] PCP - General Internal Medicine 02/18/15 03/30/15 Dominique Nicholas MD [facility] [place] [address] PCP - General Internal Medicine 03/31/15 07/09/16 Pcp, No PCP - General General Medicine 07/13/16 10/29/16 Dominique Nicholas MD 0 [facility] [place] [address] PCP - General Internal Medicine 10/30/16 11/05/16 Pcp, No PCP - General General Medicine 11/06/16 06/20/17 [place] [address] [place] [address] PCP - General Internal Medicine 06/21/17 04/18/20 Robel Camarena DO 200 [place] [address] PCP - General Internal Medicine 04/19/20 Robel Camarena DO 200 [place] [address] PCP - United Medicare Attributed 11/02/20 Dominique Nicholas MD [address] [place] [address] PCP - General 02/17/15 Brandyn Arriaga MD 85 [facility] 1000 [place] [address] Consulting Provider Gastroenterology 06/04/15 Francisco Scales MD [address] [place] [address] Consulting Provider Cardiovascular Disease 06/04/15 Misbah Niño MD [address] [place] [address] Consulting Provider Physical Medicine and Rehabilitation 06/04/15 05/21/17 David Maxwell MD 85 [facility] 800 [place] [address] Consulting Provider Neurology 06/04/15 05/21/17 Ming Alvarez MD [address] [address] Consulting Provider Surgery, Bariatric 06/04/15 05/21/17 Lino Carpio MD 100 [place] [address] Consulting Provider Internal Medicine 06/04/15 12/12/18 Gianfranco Ryenoso MD 100 [place] [address] Consulting Provider Endocrinology 07/06/15 Efe Sanabria DO 85 [facility] 923 [place] [address] Consulting Provider Pulmonary Medicine 10/11/15 Shaka Lyman MD [address] [facility] [address] [place] [address] Consulting Provider Gastroenterology 10/11/15 12/12/18 Bryce Lema DPM Consulting Provider Podiatry 05/22/17 Anne Marie Chance MD Consulting Provider Rheumatology 05/07/18 Ishmael Shaw OD [address] [place] [address] 100 [place] [address] Consulting Provider Optometry 07/22/18 Amaya Cardenas, GREGORY [address] [facility] 4 [place] [address] [facility] Community Stock Crane Operator 02/27/19 06/01/19 Robel Camarena DO [address] [place] [address] Internal Medicine 02/16/20 Anne Marie Shafer, CLINICAL ADMINISTRATOR [address] [place] [address] [facility] Community Stock Crane Operator 03/02/22 03/02/22 Rell Howe MD Consulting Provider Anesthesiology 10/11/15 KELLEN GEE MD [address] [place] [address] Rheumatology 03/22/16 05/21/17 batsheva chow [facility] 11/06/16 06/29/19 documented as of this encounter
--- OUTSIDE RECORDS SUMMARY | 2024-09-15 12:50 | XMS_ITS | Encounter Summary ---
Author Organization [facility] Address [address] [place] [address] Care Team Providers Care Oil Bay Technician Name Role Phone Dominique iNcholas MD Primary Care Provider Brandyn Arriaga MD Unavailable Francisco Scales MD Unavailable Misbah Niño MD Unavailable [phone] David Maxwell MD Unavailable [phone] Ming Alvarez MD Unavailable [phone] Lino Carpio MD Unavailable [phone] Gianfranco Reynoso MD Unavailable Unavailable Efe Sanabria DO Unavailable [phone] Shaka Lyman MD Unavailable [phone] Pcp, No Primary Care Provider UnavailDominique Simmons MD Primary Care Provider Pcp, No Primary Care Provider UnavailBryce Nayak DPM Unavailable Dominique Nicholas MD Primary Care Provider Anne Marie Chance MD Unavailable [phone] Ishmael Shaw OD Unavailable [phone] Amaya Cardenas RN Unavailable [phone] Robel Camarena DO Unavailable [phone] Nicol Robel DO Primary Care Provider [phone] Robel Camarena Unavailable [phone] Anne Marie Shafer TAKE UP SUPERVISOR Unavailable [phone] Encounter Details Date Type Department Care Team (Late st Contact Info) Description 04/21/2016 Scanned Document [facility] Bariatric Surgery [address] [place] [address] Tressa Goddard PA Needs valid address Social [...] on filedocumented in this encounter Care Teams Oil Bay Technician Relationship Specialty Start Date End Date Dominique Nicholas MD PCP - General Internal Medicine 03/31/15 07/09/16 Pcp, No PCP - General General Medicine 07/13/16 10/29/16 Dominique Nicholas MD PCP - General Internal Medicine 10/30/16 11/05/16 Pcp, No PCP - General General Medicine 11/06/16 06/20/17 Dominique Nicholas MD PCP - General Internal Medicine 06/21/17 04/18/20 Robel Camarena DO 200 [place] [address] PCP - General Internal Medicine 04/19/20 Robel Camarena DO 200 [place] [address] PCP - United Medicare Attributed 11/02/20 Brandyn Arriaga MD [address] [place] [address] Consulting Provider Gastroenterology 06/04/15 Francisco Scales MD [address] [place] [address] [place] [address] Consulting Provider Cardiovascular Disease 06/04/15 Misbah Niño MD [address] [place] [address] [place] [address] Consulting Provider Physical Medicine and Rehabilitation 06/04/15 05/21/17 David Maxwell MD [address] [place] [address] Consulting Provider Neurology 06/04/15 05/21/17 Ming Alvarez MD [address] [place] [address] Consulting Provider Surgery, Bariatric 06/04/15 05/21/17 Lino Carpio MD [address] [place] [address] Consulting Provider Internal Medicine 06/04/15 12/12/18 Gianfranco Reynoso MD [address] [place] [address] Consulting Provider Endocrinology 07/06/15 Efe Sanabria DO [address] [facility] 923 [place] [address] Consulting Provider Pulmonary Medicine 10/11/15 Shaka Lyman MD 6 [facility] [address] [place] [address] Consulting Provider Gastroenterology 10/11/15 12/12/18 Bryce Lema DPM Consulting Provider Podiatry 05/22/17 Anne Marie Chance MD Consulting Provider Rheumatology 05/07/18 Ishmael Shaw OD [address] [place] [address] 100 [place] [address] Consulting Provider Optometry 07/22/18 Amaya Cardenas, GREGORY [address] [address] [facility] Community Awning Hanger Supervisor 02/27/19 06/01/19 Robel Camarena DO [address] [place] [address] Internal Medicine 02/16/20 Anne Marie Shafer LCSW [address] [place] [address] [facility] Community Awning Hanger Supervisor 03/02/22 03/02/22 Rell Howe MD Consulting Provider Anesthesiology 10/11/15 KELLEN GEE MD [address] [place] [address] Rheumatology 03/22/16 05/21/17 batsheva chow [facility] 11/06/16 06/29/19 documented as of this encounter
--- OUTSIDE RECORDS SUMMARY | 2024-09-15 12:50 | XMS_ITS | Encounter Summary ---
Author Organization [facility] Address [address] [place] [address] Care Team Providers Care Digital Field Service Technician Name Role Phone Dominique Nicholas MD Primary Care Provider [phone] Brandyn Arriaga MD Unavailable Francisco Scales MD Unavailable [phone] Misbah Niño MD Unavailable [phone] David Maxwell MD Unavailable [phone] Ming Alvarez MD Unavailable [phone] Lino Carpio MD Unavailable [phone] Gianfranco Reynoso MD Unavailable Unavailable Efe Sanabria DO Unavailable [phone] Shaka Lyman MD Unavailable [phone] Pcp, No Primary Care Provider UnavailDominique Simmons MD Primary Care Provider Pcp, No Primary Care Provider UnavailBryce Nayak DPM Unavailable Dominique Nicholas MD Primary Care Provider Anne Marie Chance MD Unavailable [phone] Ishmael Shaw OD Unavailable [phone] Amaya Cardenas RN Unavailable Robel Camarena DO Unavailable [phone] Robel Camarena DO Primary Care Provider Robel Camarena DO Unavailable [phone] Anne Marie Shafer LOTTERY SALES CLERK Unavailable Encounter Details Date Type Department Care Team (Late st Contact Info) Description 04/06/2016 Scanned Document [facility] [place] [address] Provider, Generic Social History Tobacco Use Types [...] Narrative 04/11/2016 Ordered by an unspecified provider. us Generic Provider HX AMB PROCEDURES Edited Result - Final documented in this encounter Visit Diagnoses Not on filedocumented in this encounter Care Teams Digital Field Service Technician Relationship Specialty Start Date End Date Dominique Nicholas MD PCP - General Internal Medicine 03/31/15 07/09/16 Pcp, No PCP - General General Medicine 07/13/16 10/29/16 Dominique Nicholas MD PCP - General Internal Medicine 10/30/16 11/05/16 Pcp, No PCP - General General Medicine 11/06/16 06/20/17 Dominique Nicholas MD PCP - General Internal Medicine 06/21/17 04/18/20 Robel Camarena DO 200 [place] [address] PCP - General Internal Medicine 04/19/20 KathyRobel freeman DO 200 [place] [address] PCP - United Medicare Attributed 11/02/20 Brandyn Arriaga MD 85 [facility] 1000 [place] [address] Consulting Provider Gastroenterology 06/04/15 Francisco Scales MD [address] [place] [address] Consulting Provider Cardiovascular Disease 06/04/15 Misbah Niño MD [address] [place] [address] Consulting Provider Physical Medicine and Rehabilitation 06/04/15 05/21/17 David Maxwell MD 85 [facility] 800 [place] [address] Consulting Provider Neurology 06/04/15 05/21/17 Ming Alvarez MD [address] [place] [address] Consulting Provider Surgery, Bariatric 06/04/15 05/21/17 Lino Carpio MD 100 [place] [address] Consulting Provider Internal Medicine 06/04/15 12/12/18 Gianfranco Reynoso MD 100 [place] [address] Consulting Provider Endocrinology 07/06/15 Efe Sanabria DO [address] [place] [address] 923 [place] [address] Consulting Provider Pulmonary Medicine 10/11/15 Shaka Lyman MD [address] [place] [address] 302 [place] [address] Consulting Provider Gastroenterology 10/11/15 12/12/18 Bryce Lema DPM Consulting Provider Podiatry 05/22/17 Anne Marie Chance MD Consulting Provider Rheumatology 05/07/18 Ishmael Shaw OD [address] [place] [address] Consulting Provider Optometry 07/22/18 Amaya Cardenas, GREGORY [address] [place] [address] [facility] Community Weight Yardage Checker 02/27/19 06/01/19 Robel Camarena DO [address] [place] [address] Internal Medicine 02/16/20 Anne Marie Shafer, LOTTERY SALES CLERK [address] [place] [address] [facility] Community Weight Yardage Checker 03/02/22 03/02/22 Rell Howe MD Consulting Provider Anesthesiology 10/11/15 KELLEN GEE MD [address] [place] [address] Rheumatology 03/22/16 05/21/17 batsheva chow [facility] 11/06/16 06/29/19 documented as of this encounter
--- OUTSIDE RECORDS SUMMARY | 2024-09-15 12:50 | XMS_ITS | Encounter Summary ---
Author Organization [facility] Address [address] [place] [address] Care Team Providers Care Warranty Manager Name Role Phone Brandyn Arriaga MD Unavailable Francisco Scales MD Unavailable [phone] Gianfranco Reynoso MD Unavailable Unavailable Efe Sanabria DO Unavailable [phone] Bryce Lema DPM Unavailable Anne Marie Chance MD Unavailable +[phone] [phone] Ishmael Shaw OD Unavailable Robel Camarena DO Unavailable Robel Camarena DO Primary Care Provider [phone] Robel Camarena DO Unavailable Anne Marie Shafer [facility] Unavailable [phone] Reason for Visit * Reason Comments Medication Refill Encounter Details Date Type Department Care Team (Late st Contact Info) Description 11/10/[address] [phone] Gianfranco Reynoso MD Diabetes mellitus without complication (HCC) Social History [...] uncontrolled documented in this encounter Care Teams Warranty Manager Relationship Specialty Start Date End Date Robel Camarena DO 200 [place] [address] PCP - General Internal Medicine 04/19/20 Robel Camarena DO 200 [place] [address] PCP - United Medicare Attributed 11/02/20 Brandyn Arriaga MD 85 [facility] [address] [place] [address] Consulting Provider Gastroenterology 06/04/15 Francisco Scales MD [address] [place] [address] Consulting Provider Cardiovascular Disease 06/04/15 Gianfranco Reynoso MD [address] [place] [address] Consulting Provider Endocrinology 07/06/15 Efe Sanabria DO 85 [facility] [address] [place] [address] Consulting Provider Pulmonary Medicine 10/11/15 Bryce Lema DPM 85 [facility] [address] [place] [address] Consulting Provider Podiatry 05/22/17 Anne Marie Chance MD 85 [facility] 923 [place] [address] Consulting Provider Rheumatology 05/07/18 Ishmael Shaw OD 110 [facility] 100 [place] [address] Consulting Provider Optometry 07/22/18 Robel Camarena DO [address] [place] [address] Internal Medicine 02/16/20 Anne Marie Shafer, [facility] 1290 [facility] 4 [place] [address] [facility] Community Drafter Castings 03/02/22 03/02/22 Rell Howe MD Consulting Provider Anesthesiology 10/11/15 documented as of this encounter
--- OUTSIDE RECORDS SUMMARY | 2024-09-15 12:50 | XMS_ITS | Encounter Summary ---
Author Organization [facility] Address [address] [place] [address] Care Team Providers Care Cardiology Teacher Name Role Phone Darien Caraballo DO Primary Care Provider [phone] Dominique Nicholas MD Primary Care Provider [phone] Brandyn Arriaga MD Unavailable Francisco Scales MD Unavailable [phone] Misbah Niño MD Unavailable [phone] David Maxwell MD Unavailable [phone] Ming Alvarez MD Unavailable [phone] Lino Carpio MD Unavailable [phone] Gianfranco Reynoso MD Unavailable Unavailable Efe Sanabria DO Unavailable [phone] Shaka Lyman MD Unavailable [phone] Pcp, No Primary Care Provider UnavailDominique Simmons MD Primary Care Provider [phone] Pcp, No Primary Care Provider Unavailmaria del carmen e Bryce Lema DPM Unavailable Dominique Nicholas MD Primary Care Provider Anne Marie Chance MD Unavailable +[phone] 00-0000 Ishmael Shaw OD Unavailable RonaldAmaya RN Unavailable Robel Camarena DO Unavailable [phone] Robel Camarena DO Primary Care Provider Robel Camarena DO Unavailable [phone] Soni Anne Marie J EQUIPMENT SERVICES ASSOCIATE Unavailable [phone] Dominique Nicholas MD Primary Care Provider Encounter Details Date Type Department Care Team (Late st Contact Info) Description 01/28/2015 Scanned Document [address] [phone] Provider, Generic Social History Tobacco Use Types [...] unspecified provider. Generic Provider HX AMB PROCEDURES Final Result documented in this encounter Visit Diagnoses Not on filedocumented in this encounter Care Teams Cardiology Teacher Relationship Specialty Start Date End Date Darien Caraballo DO [address] [place] [address] PCP - General Internal Medicine 02/18/15 03/30/15 Dominique Nicholas MD [address] [place] [address] PCP - General Internal Medicine 03/31/15 07/09/16 Pcp, No PCP - General General Medicine 07/13/16 10/29/16 Dominique Nicholas MD [address] [place] [address] PCP - General Internal Medicine 10/30/16 11/05/16 Pcp, No PCP - General General Medicine 11/06/16 06/20/17 [place] [address] [place], [place] [address], [place] [address] PCP - General Internal Medicine 06/21/17 04/18/20 Robel Camarena DO 200 [place] [address] PCP - General Internal Medicine 04/19/20 Robel Camarena DO 200 [place] [address] PCP - United Medicare Attributed 11/02/20 Dominique Nicholas MD [address] [place] [address] 4011 [place] [address] PCP - General 02/17/15 Brandyn Arriaga MD [address] [place] [address] 1000 [place] [address] Consulting Provider Gastroenterology 06/04/15 Francisco Scales MD [address] [place] [address] Consulting Provider Cardiovascular Disease 06/04/15 Misbah Niño MD [address] [place] [address] Consulting Provider Physical Medicine and Rehabilitation 06/04/15 05/21/17 David Maxwell MD [address] [place] [address] 800 [place] [address] Consulting Provider Neurology 06/04/15 05/21/17 Ming Alvarez MD [address] [place] [address] Consulting Provider Surgery, Bariatric 06/04/15 05/21/17 Lino Carpio MD [address] [place] [address] Consulting Provider Internal Medicine 06/04/15 12/12/18 Gianfranco Reynoso MD [address] [place] [address] Consulting Provider Endocrinology 07/06/15 Efe Sanabria DO [address] [place] [address] 923 [place] [address] Consulting Provider Pulmonary Medicine 10/11/15 Shaka Lyman MD [address] [place] [address] [address] [place] [address] Consulting Provider Gastroenterology 10/11/15 12/12/18 Bryce Lema DPM Consulting Provider Podiatry 05/22/17 Anne Marie Chance MD Consulting Provider Rheumatology 05/07/18 Ishmael Shaw, OD [address] [place] [address] Consulting Provider Optometry 07/22/18 Amaya Cardenas, RN [address] [place] [address] [facility] Community Media Buyer 02/27/19 06/01/19 Robel Camarena DO [address] [place] [address] Internal Medicine 02/16/20 Anne Marie Shafer LCSW [address] [place] [address] [facility] Community Media Buyer 03/02/22 03/02/22 Rell Howe MD Consulting Provider Anesthesiology 10/11/15 KELLEN GEE MD [address] [place] [address] Rheumatology 03/22/16 05/21/17 batsheva chow EQUIPMENT SERVICES ASSOCIATE [facility] 11/06/16 06/29/19 documented as of this encounter
--- OUTSIDE RECORDS SUMMARY | 2024-09-15 12:50 | XMS_ITS | Encounter Summary ---
Author Organization [facility] Address [address] [place] [address] Care Team Providers Care Reordering Clerk Name Role Phone Brandyn Arriaga MD Unavailable Francisco Scales MD Unavailable Misbah Niño MD Unavailable David Maxwell MD Unavailable Ming Alvarez MD Unavailable [phone] Lino Carpio MD Unavailable [phone] Gianfranco Reynoso MD Unavailable Unavailable Efe Sanabria DO Unavailable [phone] Shaka Lyman MD Unavailable [phone] Dominique Nicholas MD Primary Care Provider Pcp, No Primary Care Provider Unavailmaria del carmen e Bryce Lema DPM Unavailable Dominique Nicholas MD Primary Care Provider [phone] Anne Marie Chance MD Unavailable +1-000-0 00-0000 Ishmael Shaw OD Unavailable Amaya Cardenas RN Unavailable [phone] Robel Camarena DO Unavailable Robel Camarena DO Primary Care Provider Kathypete Robel DO Unavailable [phone] Anne Marie Shafer [facility] Unavailable Encounter Details Date Type Department Care Team (Late st Contact Info) Description 11/01/2016 Abstract [facility] DIABETES & NUTRITION [address] [place] [phone] Matthew Sahu LPN [address] [place] [address] Social History Tobacco Use Types Packs/Day Years [...] on filedocumented in this encounter Care Teams Reordering Clerk Relationship Specialty Start Date End Date Dominique Nicholas MD 6 [facility] [address] [address] PCP - General Internal Medicine 10/30/16 11/05/16 Pcp, No PCP - General General Medicine 11/06/16 06/20/17 Dominique Nicholas MD [address] [place] [address] [address] [place] [address] PCP - General Internal Medicine 06/21/17 04/18/20 Robel Camarena DO [address] [place] [address] PCP - General Internal Medicine 04/19/20 Robel Camarena DO [address] [place] [address] PCP - United Medicare Attributed 11/02/20 Brandyn Arriaga MD 85 [facility] 1000 [place] [address] Consulting Provider Gastroenterology 06/04/15 Francisco Scales MD [address] [place] [address] Consulting Provider Cardiovascular Disease 06/04/15 Misbah Niño MD [address] [place] [address] Consulting Provider Physical Medicine and Rehabilitation 06/04/15 05/21/17 David Maxwell MD 85 [facility] 800 [place] [address] Consulting Provider Neurology 06/04/15 05/21/17 Ming Alvarez MD [address] [place], [place] [address] Consulting Provider Surgery, Bariatric 06/04/15 05/21/17 Lino Carpio MD [address] [place] [address] Consulting Provider Internal Medicine 06/04/15 12/12/18 Gianfranco Reynoso MD [address] [place] [address] Consulting Provider Endocrinology 07/06/15 Efe Sanabria DO 85 [facility] 923 [place] [address] Consulting Provider Pulmonary Medicine 10/11/15 Shaka Lyman MD [address] [facility] [address] [place] [address] Consulting Provider Gastroenterology 10/11/15 12/12/18 Bryce Lema DPM Consulting Provider Podiatry 05/22/17 Anne Marie Chance MD Consulting Provider Rheumatology 05/07/18 Ishmael Shaw OD [address] [place] [address] Consulting Provider Optometry 07/22/18 Amaya Cardenas, GREGORY [address] [facility] 4 [place] [address] ICP Community Flat Sheet Maker 02/27/19 06/01/19 Robel Camarena DO [address] [place] [address] Internal Medicine 02/16/20 Anne Marie Shafer, GLAZING DEPARTMENT SUPERVISOR [address] [place] [address] ICP Community Flat Sheet Maker 03/02/22 03/02/22 Rell Howe MD Consulting Provider Anesthesiology 10/11/15 KELLEN GEE MD [address] [place] [address] Rheumatology 03/22/16 05/21/17 batsheva chow [facility] 11/06/16 06/29/19 documented as of this encounter
--- OUTSIDE RECORDS SUMMARY | 2024-09-15 12:50 | XMS_ITS | Encounter Summary ---
Author Organization [facility] Address [address] [place] [address] Care Team Providers Care Cms Expert Name Role Phone Brandyn Arriaga MD Unavailable Francisco Scales MD Unavailable [phone] Misbah Niño MD Unavailable David Maxwell MD Unavailable [phone] Ming Alvarez MD Unavailable [phone] Lino Carpio MD Unavailable [phone] Gianfranco Reynoso MD Unavailable Unavailable Efe Sanabria DO Unavailable [phone] Shaka Lyman MD Unavailable Pcp, No Primary Care Provider UnavailDominique Simmons MD Primary Care Provider [phone] Pcp, No Primary Care Provider Unavailmaria del carmen e Bryce Lema DPM Unavailable Dominique Nicholas MD Primary Care Provider Anne Marie Chance MD Unavailable +[phone] [phone] Ishmael Shaw OD Unavailable Amaya Cardenas RN Unavailable [phone] Robel Camarena DO Unavailable FridanellyEva freemanno Primary Care Provider [phone] Nicol Robel Unavailable [phone] Anne Marie Shafer [facility] Unavailable [phone] Encounter Details Date Type Department Care Team (Late st Contact Info) Description 07/19/2016 Scanned Document [address] [phone] Provider, Generic Social History Tobacco [...] on filedocumented in this encounter Care Teams Cms Expert Relationship Specialty Start Date End Date Pcp, No PCP - General General Medicine 07/13/16 10/29/16 Dominique Nicholas MD PCP - General Internal Medicine 10/30/16 11/05/16 Pcp, No PCP - General General Medicine 11/06/16 06/20/17 Dominique Nicholas MD PCP - General Internal Medicine 06/21/17 04/18/20 Robel Camarena DO 200 [place] [address] PCP - General Internal Medicine 04/19/20 Robel Camarena DO 200 [place] [address] PCP - United Medicare Attributed 11/02/20 Brandyn Arriaga MD 85 [facility] [address] [place] [address] Consulting Provider Gastroenterology 06/04/15 Francisco Scales MD [address] [place] [address] Consulting Provider Cardiovascular Disease 06/04/15 Misbah Niño MD [address] [place] [address] Consulting Provider Physical Medicine and Rehabilitation 06/04/15 05/21/17 David Maxwell MD 85 [facility] 800 [place] [address] Consulting Provider Neurology 06/04/15 05/21/17 Ming Alvarez MD [address] [place] [address] Consulting Provider Surgery, Bariatric 06/04/15 05/21/17 Lino Carpio MD [address] [place] [address] Consulting Provider Internal Medicine 06/04/15 12/12/18 Gianfranco Reynoso MD 100 [place] [address] Consulting Provider Endocrinology 07/06/15 Efe Sanabria DO 85 [facility] [address] [place] [address] Consulting Provider Pulmonary Medicine 10/11/15 Shaka Lyman MD 6 [facility] [address] [place] [address] Consulting Provider Gastroenterology 10/11/15 12/12/18 Bryce Lema DPM Consulting Provider Podiatry 05/22/17 Anne Marie Chance MD Consulting Provider Rheumatology 05/07/18 Ishmael Shaw OD [address] [address] Consulting Provider Optometry 07/22/18 Amaya Cardenas, RN [facility] 4 [place] [address] [facility] Community Psychology Intern 02/27/19 06/01/19 Robel Camarena DO [address] [place] [address] Internal Medicine 02/16/20 Anne Marie Shafer, EXPORT TRAFFIC DEPARTMENT MANAGER [address] [place] [address] ICP Community Psychology Intern 03/02/22 03/02/22 Rell Howe MD Consulting Provider Anesthesiology 10/11/15 KELLEN GEE MD [address] [place] [address] Rheumatology 03/22/16 05/21/17 batsheva chow [facility] 11/06/16 06/29/19 documented as of this encounter
--- OUTSIDE RECORDS SUMMARY | 2024-09-15 12:50 | XMS_ITS | Encounter Summary ---
Author Organization [facility] Address [address] [place] [address] Care Team Providers Care Brake Lining Finisher Asbestos Name Role Phone Dominique Nciholas MD Primary Care Provider [phone] Brandyn Arriaga MD Unavailable Francisco Scales MD Unavailable [phone] Misbah Niño MD Unavailable [phone] David Maxwell MD Unavailable [phone] Ming Alvarez MD Unavailable [phone] Lino Carpio MD Unavailable [phone] Gianfranco Reynoso MD Unavailable Unavailable Efe Sanabria DO Unavailable [phone] Shaka Lyman MD Unavailable [phone] Pcp, No Primary Care Provider UnavailDominique Simmons MD Primary Care Provider Pcp, No Primary Care Provider UnavailBryce Nayak DPM Unavailable Dominique Nicholas MD Primary Care Provider [phone] Anne Marie Chance MD Unavailable +1-000-0 00-0000 Ishmael Shaw OD Unavailable [phone] Amaya Cardenas RN Unavailable [phone] Robel Camarena DO Unavailable [phone] Robel Camarena DO Primary Care Provider [phone] Robel Camarena DO Unavailable [phone] Anne Marie Shafer [employer] Unavailable Encounter Details Date Type Department Care Team (Late st Contact Info) Description 05/09/2016 Scanned Document [address] [phone] Provider, Generic Social History Tobacco Use Types [...] Narrative 05/09/2016 Ordered by an unspecified provider. us Generic Provider ECG ORDERABLES Final Result documented in this encounter Visit Diagnoses Not on filedocumented in this encounter Care Teams Brake Lining Finisher Asbestos Relationship Specialty Start Date End Date Dominique Nicholas MD PCP - General Internal Medicine 03/31/15 07/09/16 Pcp, No PCP - General General Medicine 07/13/16 10/29/16 Dominique Nicholas MD PCP - General Internal Medicine 10/30/16 11/05/16 Pcp, No PCP - General General Medicine 11/06/16 06/20/17 Dominique Nicholas MD PCP - General Internal Medicine 06/21/17 04/18/20 Eva Camarenakimberly 200 [place] [address] PCP - General Internal Medicine 04/19/20 Robel Camarena DO 200 [place] [address] PCP - [place] Medicare Attributed 11/02/20 Brandyn Arriaga MD 85 [facility] 1000 [place] [address] Consulting Provider Gastroenterology 06/04/15 Francisco Scales MD [address] [place] [address] Consulting Provider Cardiovascular Disease 06/04/15 Misbah Niño MD [address] [place] [address] Consulting Provider Physical Medicine and Rehabilitation 06/04/15 05/21/17 David Maxwell MD 85 [facility] 800 [place] [address] Consulting Provider Neurology 06/04/15 05/21/17 Ming Alvarez MD [address] [place] [address] Consulting Provider Surgery, Bariatric 06/04/15 05/21/17 Lino Carpio MD 100 [place] [address] Consulting Provider Internal Medicine 06/04/15 12/12/18 Gianfranco Reynoso MD 100 [place] [address] Consulting Provider Endocrinology 07/06/15 Efe Sanabria DO [address] [place] [address] 923 [place] [address] Consulting Provider Pulmonary Medicine 10/11/15 Shaka Lyman MD [address] [place] [address] 302 [place] [address] Consulting Provider Gastroenterology 10/11/15 12/12/18 Bryce Lema DPM Consulting Provider Podiatry 05/22/17 Anne Marie Chance MD Consulting Provider Rheumatology 05/07/18 Ishmael Shaw OD [address] [place] [address] Consulting Provider Optometry 07/22/18 Amaya Cardenas, GREGORY [address] [place] [address] [facility] Community Electrical Timing Device Calibrator 02/27/19 06/01/19 Robel Camarena DO [address] [place] [address] Internal Medicine 02/16/20 Anne Marie Shafer, HUB LEAD [address] [place] [address] ICP Community Electrical Timing Device Calibrator 03/02/22 03/02/22 Rell Howe MD Consulting Provider Anesthesiology 10/11/15 KELLEN GEE MD [address] [place] [address] Rheumatology 03/22/16 05/21/17 batsheva chwo [facility] 11/06/16 06/29/19 documented as of this encounter
--- OUTSIDE RECORDS SUMMARY | 2024-09-15 12:50 | XMS_ITS | Clinical Summary ---
Author Organization [facility] Address [address] [place] [address] Care Team Providers Care Floral Artist Name Role Phone Dominique Nicholas MD Primary Care Provider [phone] Allergies Active Allergy Reactions Criticality Noted Date [...] this topic Medical Devices Implanted Type Area Loom Mechanic Device Identifier Shelf Expiration Date Model / Serial / Lot Lilburn 3.5mm Insite Ft Ti W\(2) Strands Of Size 0 Needled Fo - [id number] - [id number] Implanted:Qty: 1 on 12/24/2015 by Bryce Lema DPM at [facility] Right: Ankle [employer] 12/18/2017 [id number] / / [id number] Lilburn 4.5mm Insite Ft Ti W\(2) Strands Of Size 2 Needled Fo - [id number] - [id number] Implanted:Qty: 1 on 12/24/2015 by Bryce Lema DPM at [facility] Right: Ankle [employer] 11/22/2016 [id number] / / [id number] Accufill Injectable Bone Substitute Material 3cc - [id number] - [id number] Implanted:Qty: 1 on 12/24/2015 by Bryce Lema DPM at [facility] Right: Ankle [employer] 02/17/2018 [id number] / / [id number] Advance Directives For more information, please contact: [phone] Latest Code Status on File Code Status Date Activated Date Inactivated Comments Full Code 12/24/2015 8:14 AM 12/24/2015 10:27 PM This c ode status was ascertained in the following way: discussion with patient. Care Teams Floral Artist Relationship Specialty Start Date End Date Dominique Nicholas MD [address] [place] [address] PCP - General Internal Medicine 12/23/15
--- OUTSIDE RECORDS SUMMARY | 2024-09-15 12:50 | XMS_ITS | Encounter Summary ---
Author Organization Formerly [facility] Address [address] [place] [address] Care Team Providers Care Box Person Name Role Phone Brandyn rAriaga MD Unavailable [place] Scales MD Unavailable [phone] Misbah Niño MD Unavailable [phone] David Maxwell MD Unavailable Ming Alvarez MD Unavailable [phone] Lino Carpio MD Unavailable [phone] Gianfranco Reynoso MD Unavailable Unavailable Efe Sanabria DO Unavailable Shaka Lyman MD Unavailable Pcp, No Primary Care Provider UnavailBryce Nayak DPM Unavailable Dominique Nicholas MD Primary Care Provider [phone] Anne Marie Chance MD Unavailable [phone] Ishmael Shaw OD Unavailable Amaya Cardenas RN Unavailable Robel Camarena DO Unavailable Robel Camarena DO Primary Care Provider Robel Camarena DO Unavailable Anne Marie Shafer [facility] Unavailable Reason for Visit * Reason Comments Medication Refill Encounter Details Date Type Department Care Team (Late st Contact Info) Description 02/16/2017 Refill [facility] [address] [place] [id number] Dominique Nicholas MD [address] [place] [address] [place] [address] [phone] Allergic rhinitis due to other allergic trigger, [...] seasonality documented in this encounter Care Teams Box Person Relationship Specialty Start Date End Date Pcp, No PCP - General General Medicine 11/06/16 06/20/17 Dominique Nicholas MD PCP - General Internal Medicine 06/21/17 04/18/20 Robel Camarena DO [address] [place] [address] PCP - General Internal Medicine 04/19/20 Robel Camarena DO [address] [place] [address] PCP - United Medicare Attributed 11/02/20 Brandyn Arriaga MD 85 [facility] [address] [place] [address] Consulting Provider Gastroenterology 06/04/15 [place] Scales MD [address] [place] [address] Consulting Provider Cardiovascular Disease 06/04/15 Misbah Niño MD [address] [place] [address] Consulting Provider Physical Medicine and Rehabilitation 06/04/15 05/21/17 David Maxwell MD 85 [facility] [address] [place] [address] Consulting Provider Neurology 06/04/15 05/21/17 Ming Alvarez MD [address] [place] [address] Consulting Provider Surgery, Bariatric 06/04/15 05/21/17 Lino Carpio MD [address] [place] [address] Consulting Provider Internal Medicine 06/04/15 12/12/18 Gianfranco Reynoso MD 100 [place] [address] Consulting Provider Endocrinology 07/06/15 Efe Sanabria DO 85 [facility] 9[address] [place] [address] Consulting Provider Pulmonary Medicine 10/11/15 Shaka Lyman MD [address] [place] [address] [address] [place] [address] Consulting Provider Gastroenterology 10/11/15 12/12/18 Bryce Lema DPM Consulting Provider Podiatry 05/22/17 Anne Marie Chance MD Consulting Provider Rheumatology 05/07/18 Ishmael Shaw OD 110 [facility] 100 [place] [address] Consulting Provider Optometry 07/22/18 Amaya Cardenas, GREGORY [address] [address] ICP Community Sand Carrier 02/27/19 06/01/19 Robel Camarena DO [address] [place] [address] Internal Medicine 02/16/20 Anne Marie Shafer LCSW [address] [facility] 4 [place] [address] ICP Community Sand Carrier 03/02/22 03/02/22 Rell Howe MD Consulting Provider Anesthesiology 10/11/15 KELLEN GEE MD 515 [facility] Rheumatology 03/22/16 05/21/17 batsheva chow [facility] 11/06/16 06/29/19 documented as of this encounter
--- OUTSIDE RECORDS SUMMARY | 2024-09-15 12:50 | XMS_ITS | Encounter Summary ---
Author Organization [facility] Address [address] [place] [address] Care Team Providers Care Hat Trimmer Name Role Phone Brandyn Arriaga MD Unavailable [place] Scales MD Unavailable [phone] Misbah Niño MD Unavailable David Maxwell MD Unavailable Ming Alvarez MD Unavailable [phone] Lino Carpio MD Unavailable [phone] Gianfranco Reynoso MD Unavailable Unavailable Efe Sanabria DO Unavailable Shaka Lyman MD Unavailable [phone] Pcp, No Primary Care Provider UnavailDominique Simmons MD Primary Care Provider Pcp, No Primary Care Provider Unavailmaria del carmen e Bryce Lema DPM Unavailable Dominique Nicholas MD Primary Care Provider [phone] Anne Marie Chance MD Unavailable [phone] Ishmael Shaw OD Unavailable Amaya Cardenas RN Unavailable Robel Camarena DO Unavailable Robel Camarena DO Primary Care Provider Robel Camarena DO Unavailable [phone] Anne Marie Shafer [facility] Unavailable [phone] Encounter Details Date Type Department Care Team (Late st Contact Info) Description 09/13/2016 Documentation [place] [address] [address] [place] [address] Inez Galo, GREGORY [address] [place] [address] Social History Tobacco Use Types Packs/Day Years [...] on filedocumented in this encounter Care Teams Hat Trimmer Relationship Specialty Start Date End Date Pcp, No PCP - General General Medicine 07/13/16 10/29/16 Dominique Nicholas MD PCP - General Internal Medicine 10/30/16 11/05/16 Pcp, No PCP - General General Medicine 11/06/16 06/20/17 Dominique Nicholas MD PCP - General Internal Medicine 06/21/17 04/18/20 Robel Camarena DO 200 [place] [address] PCP - General Internal Medicine 04/19/20 Robel Camarena DO [address] [place] [address] PCP - United Medicare Attributed 11/02/20 Brandyn Arriaga MD 85 [facility] [address] [place] [id number] Consulting Provider Gastroenterology 06/04/15 [place] Scales MD [address] [place] [address] Consulting Provider Cardiovascular Disease 06/04/15 Misbah Niño MD [address] [facility] [address] [place] [address] Consulting Provider Physical Medicine and Rehabilitation 06/04/15 05/21/17 David Maxwell MD [address] [place] [address] 800 [place] [address] Consulting Provider Neurology 06/04/15 05/21/17 Ming Alvarez MD [address] [place], [place] [address] Consulting Provider Surgery, Bariatric 06/04/15 05/21/17 Lino Carpio MD [address] [place] [address] Consulting Provider Internal Medicine 06/04/15 12/12/18 Gianfranco Reynoso MD [address] [place] [address] Consulting Provider Endocrinology 07/06/15 Efe Sanabria DO [address] [place] [address] 923 [place] [address] Consulting Provider Pulmonary Medicine 10/11/15 Shaka Lyman MD [address] [facility] [address] [place] [address] Consulting Provider Gastroenterology 10/11/15 12/12/18 Bryce Lema DPM Consulting Provider Podiatry 05/22/17 Anne Marie Chance MD Consulting Provider Rheumatology 05/07/18 Ishmael Shaw OD [address] [place] [address] Consulting Provider Optometry 07/22/18 Amaya Cardenas, GREGORY [address] [facility] 4 [place] [address] ICP Community Shaker Out 02/27/19 06/01/19 Robel Camarena DO [address] [place] [address] Internal Medicine 02/16/20 Anne Marie Shafer, BIOPHYSICS PROFESSOR [address] [place] [address] ICP Community Shaker Out 03/02/22 03/02/22 Rell Howe MD Consulting Provider Anesthesiology 10/11/15 KELLEN GEE MD [address] [place] [address] Rheumatology 03/22/16 05/21/17 batsheva chow [facility] 11/06/16 06/29/19 documented as of this encounter
--- OUTSIDE RECORDS SUMMARY | 2024-09-15 12:50 | XMS_ITS | Encounter Summary ---
Author Organization Formerly [facility] Address [address] [place] [address] Care Team Providers Care Chest Painting And Sealing Supervisor Name Role Phone Brandyn Arriaga MD Unavailable [place] Scales MD Unavailable [phone] Misbah Niño MD Unavailable David Maxwell MD Unavailable Ming Alvarez MD Unavailable [phone] Lino Carpio MD Unavailable [phone] Gianfranco Reynoso MD Unavailable Unavailable Efe Sanabria DO Unavailable [phone] Shaka Lyman MD Unavailable Pcp, No Primary Care Provider UnavailDominique Simmons MD Primary Care Provider Pcp, No Primary Care Provider Unavailmaria del carmne e Bryce Lema DPM Unavailable Dominique Nicholas MD Primary Care Provider Anne Marie Chance MD Unavailable [phone] Ishmael Shaw OD Unavailable Amaya Cardenas RN Unavailable [phone] Robel Camarena DO Unavailable Robel Camarena Primary Care Provider [phone] Nicol Robel BHARDWAJ Unavailable [phone] Anne Marie ShaferW Unavailable Encounter Details Date Type Department Care Team (Late st Contact Info) Description 09/13/2016 Documentation [facility] [address] [place] [address] Rowena Baker, GREGORY [address] [place] [address] Social History Tobacco Use Types Packs/Day Years [...] on filedocumented in this encounter Care Teams Chest Painting And Sealing Supervisor Relationship Specialty Start Date End Date Pcp, No PCP - General General Medicine 07/13/16 10/29/16 Dominique Nicholas MD PCP - General Internal Medicine 10/30/16 11/05/16 Pcp, No PCP - General General Medicine 11/06/16 06/20/17 Dominique Nicholas MD PCP - General Internal Medicine 06/21/17 04/18/20 Robel Camarena DO 200 [place] [address] PCP - General Internal Medicine 04/19/20 Robel Camarena DO [address] [place] [address] PCP - United Medicare Attributed 11/02/20 Brandyn Arriaga MD 85 [facility] 1000 [place] [address] Consulting Provider Gastroenterology 06/04/15 [place] Scales MD 100 [place] [facility] [address] [place] [id number] Consulting Provider Cardiovascular Disease 06/04/15 Misbah Niño MD [address] [place] [facility] [address] [place] [address] Consulting Provider Physical Medicine and Rehabilitation 06/04/15 05/21/17 David Maxwell MD [address] [place] [address] 800 [place] [address] Consulting Provider Neurology 06/04/15 05/21/17 Ming Alvarez MD [address] [place] [address] Consulting Provider Surgery, Bariatric 06/04/15 05/21/17 Lino Carpio MD [address] [place] [address] Consulting Provider Internal Medicine 06/04/15 12/12/18 Gianfranco Reynoso MD [address] [place] [address] Consulting Provider Endocrinology 07/06/15 Efe Sanabria DO 85 [facility] 923 [place] [address] Consulting Provider Pulmonary Medicine 10/11/15 Shaka Lyman MD [address] [facility] [address] [place] [address] Consulting Provider Gastroenterology 10/11/15 12/12/18 Bryce Lema DPM Consulting Provider Podiatry 05/22/17 Anne Marie Chance MD Consulting Provider Rheumatology 05/07/18 Ishmael Shaw OD [address] [place] [address] Consulting Provider Optometry 07/22/18 Amaya Cardenas, RN [address] [address] ICP Community Warehouse Distribution Specialist 02/27/19 06/01/19 Robel Camarena DO [address] [place] [address] Internal Medicine 02/16/20 Anne Marie Shafer, MUSIC EDUCATION DIRECTOR [address] [address] ICP Community Warehouse Distribution Specialist 03/02/22 03/02/22 Rell Howe MD Consulting Provider Anesthesiology 10/11/15 KELLEN GEE MD [address] [place] [address] Rheumatology 03/22/16 05/21/17 batsheva chow [facility] 11/06/16 06/29/19 documented as of this encounter
--- OUTSIDE RECORDS SUMMARY | 2024-09-15 12:50 | XMS_ITS | Encounter Summary ---
Author Organization Formerly [facility] Address [address] [place] [address] Care Team Providers Care Supervisor Frame Sample And Pattern Name Role Phone Darien Caraballo DO Primary Care Provider [phone] Dominique Nicholas MD Primary Care Provider [phone] Brandyn Arriaga MD Unavailable [place] Scales MD Unavailable [phone] Misbah Niño MD Unavailable [phone] David Maxwell MD Unavailable [phone] Ming Alvarez MD Unavailable [phone] Lino Carpio MD Unavailable [phone] Gianfranco Reynoso MD Unavailable Unavailable Efe Sanabria DO Unavailable [phone] Shaka Lyman MD Unavailable [phone] Pcp, No Primary Care Provider UnavailDominique Simmons MD Primary Care Provider [phone] Pcp, No Primary Care Provider Unavailmaria del carmen e Bryce Lema DPM Unavailable Dominique Nicholas MD Primary Care Provider Anne Marie Chance MD Unavailable [phone] Ishmael Shaw OD Unavailable Amaya Cardenas RN Unavailable Robel Camarena DO Unavailable RadhaadriannaRobel freeman DO Primary Care Provider FridanellyRobel freeman DO Unavailable Anne Marie Shafer INDIVIDUALIZED EDUCATION PLAN AIDE Unavailable Encounter Details Date Type Department Care Team (Late st Contact Info) Description 03/01/2015 Scanned Document [facility] 10[address] [place] [address] Provider, Generic Social History Tobacco Use Types [...] on filedocumented in this encounter Care Teams Supervisor Frame Sample And Pattern Relationship Specialty Start Date End Date Darien Caraballo DO [address] [place] [address] PCP - General Internal Medicine 02/18/15 03/30/15 Dominique Nicholas MD [address] [place] [address] PCP - General Internal Medicine 03/31/15 07/09/16 Pcp, No PCP - General General Medicine 07/13/16 10/29/16 Dominique Nicholas MD [address] [place] [address] PCP - General Internal Medicine 10/30/16 11/05/16 Pcp, No PCP - General General Medicine 11/06/16 06/20/17 Dominique Nicholas MD [address] [place] [address] PCP - General Internal Medicine 06/21/17 04/18/20 Robel Camarena DO 200 [place] [address] PCP - General Internal Medicine 04/19/20 Robel Camarena DO [address] [place] [address] PCP - United Medicare Attributed 11/02/20 Brandyn Arriaga MD [address] [address] Consulting Provider Gastroenterology 06/04/15 [place] Scales MD [address] [place] [address] Consulting Provider Cardiovascular Disease 06/04/15 Misbah Niño MD [address] [place] [address] Consulting Provider Physical Medicine and Rehabilitation 06/04/15 05/21/17 David Maxwell MD 85 [facility] 800 [place] [address] Consulting Provider Neurology 06/04/15 05/21/17 Ming Alvarez MD [address] [place] [address] Consulting Provider Surgery, Bariatric 06/04/15 05/21/17 Lino Carpio MD 100 [place] [address] Consulting Provider Internal Medicine 06/04/15 12/12/18 Gianfranco Reynoso MD 100 [place] [address] Consulting Provider Endocrinology 07/06/15 Efe Sanabria DO 85 [facility] 923 [place] [address] Consulting Provider Pulmonary Medicine 10/11/15 Shaka Lyman MD [address] [place] [address] 302 [place] [address] Consulting Provider Gastroenterology 10/11/15 12/12/18 Bryce Lema DPM Consulting Provider Podiatry 05/22/17 Anne Marie Chance MD Consulting Provider Rheumatology 05/07/18 Ishmael Shaw, LYDIA [address] [place] [address] Consulting Provider Optometry 07/22/18 Amaya Cardenas, GREGORY [address] [place] [address] [facility] Community Seat Mender 02/27/19 06/01/19 Robel Camarena DO [address] [place] [address] Internal Medicine 02/16/20 Anne Marie Shafer, SEB [address] [place] [address] ICP Community Seat Mender 03/02/22 03/02/22 Rell Howe MD Consulting Provider Anesthesiology 10/11/15 KELLEN GEE MD [address] [place] [address] Rheumatology 03/22/16 05/21/17 [email or web address] [email or web address] [facility] 11/06/16 06/29/19 documented as of this encounter
--- OUTSIDE RECORDS SUMMARY | 2024-09-15 12:50 | XMS_ITS | Encounter Summary ---
Author Organization [facility] Address [address] [place] [address] Care Team Providers Care Home Comfort Advisor Name Role Phone Darien Caraballo DO Primary Care Provider [phone] Dominique Nicholas MD Primary Care Provider [phone] Brandyn Arriaga MD Unavailable [place] Scales MD Unavailable [phone] Misbah Nioñ MD Unavailable [phone] David Maxwell MD Unavailable [phone] Ming Alvarez MD Unavailable [phone] Lino Carpio MD Unavailable [phone] Gianfranco Reynoso MD Unavailable Unavailable Efe Sanabria DO Unavailable [phone] Shaka Lyman MD Unavailable [phone] Pcp, No Primary Care Provider UnavailDominique Simmons MD Primary Care Provider [phone] Pcp, No Primary Care Provider Unavailmaria del carmen e Bryce Lema DPM Unavailable Dominique Nicholas MD Primary Care Provider Anne Marie Chance MD Unavailable [phone] Ishmael Shaw OD Unavailable Amaya Cardenas RN Unavailable Robel Camarena DO Unavailable RadhaadriannaRobel freeman DO Primary Care Provider [phone] FridanellyRobel freeman DO Unavailable Anne Marie Shafer GAME DESIGNER Unavailable Encounter Details Date Type Department Care Team (Late st Contact Info) Description 03/19/2015 Scanned Document [facility] 10[address] [place] [phone] Provider, Generic Social History Tobacco Use Types [...] on filedocumented in this encounter Care Teams Home Comfort Advisor Relationship Specialty Start Date End Date Darien Caraballo DO [address] [place] [address] PCP - General Internal Medicine 02/18/15 03/30/15 Dominique Nicholas MD [address] [place] [address] PCP - General Internal Medicine 03/31/15 07/09/16 Pcp, No PCP - General General Medicine 07/13/16 10/29/16 Dominique Nicholas MD [address] [place] [address] PCP - General Internal Medicine 10/30/16 11/05/16 Pcp, No PCP - General General Medicine 11/06/16 06/20/17 Dominique Nicholas MD [address] [place] [address] PCP - General Internal Medicine 06/21/17 04/18/20 Robel Camarena DO 200 [place] [address] PCP - General Internal Medicine 04/19/20 Robel Camarena DO 200 [place] [address] PCP - United Medicare Attributed 11/02/20 Brandyn Arriaga MD [address] [address] Consulting Provider Gastroenterology 06/04/15 Francisco Scales MD [address] [place] [address] Consulting Provider Cardiovascular Disease 06/04/15 Misbah Niño MD [address] [place] [address] Consulting Provider Physical Medicine and Rehabilitation 06/04/15 05/21/17 David Maxwell MD 85 [facility] 800 [place] [address] Consulting Provider Neurology 06/04/15 05/21/17 Ming Alvarez MD [address] [place] [address] Consulting Provider Surgery, Bariatric 06/04/15 05/21/17 Lino Carpio MD [address] [place] [address] Consulting Provider Internal Medicine 06/04/15 12/12/18 Gianfranco Reynoso MD [address] [place] [address] Consulting Provider Endocrinology 07/06/15 Efe Sanabria DO 85 [facility] 923 [place] [address] Consulting Provider Pulmonary Medicine 10/11/15 Shaka Lyman MD [address] [place] [address] 302 [place] [address] Consulting Provider Gastroenterology 10/11/15 12/12/18 Bryce Lema DPM Consulting Provider Podiatry 05/22/17 Anne Marie Chance MD Consulting Provider Rheumatology 05/07/18 Ishmael Shaw, LYDIA [address] [place] [address] Consulting Provider Optometry 07/22/18 Amaya Cardenas, GREGORY [address] [place] [address] [facility] Community Collator Hand 02/27/19 06/01/19 Robel Camarena DO [address] [place] [address] Internal Medicine 02/16/20 Anne Marie Shafer, SEB [address] [place] [address] ICP Community Collator Hand 03/02/22 03/02/22 Rell Howe MD Consulting Provider Anesthesiology 10/11/15 KELLEN GEE MD [address] [place] [address] Rheumatology 03/22/16 05/21/17 [email or web address] chow [facility] 11/06/16 06/29/19 documented as of this encounter
--- OUTSIDE RECORDS SUMMARY | 2024-09-15 12:50 | XMS_ITS | Encounter Summary ---
Author Organization [facility] Address [address] [place] [address] Care Team Providers Care Science Writer Name Role Phone Brandyn Arriaga MD Unavailable [place] Scales MD Unavailable [phone] Gianfranco Reynoso MD Unavailable Unavailable Efe Sanabria DO Unavailable [phone] Bryce Lema DPM Unavailable Anne Marie Chance MD Unavailable +[phone] [phone] Ishmael Shaw OD Unavailable Robel Camarena DO Unavailable Robel Camarena DO Primary Care Provider [phone] Robel Camarena DO Unavailable [phone] Anne Marie Shafre [facility] Unavailable Reason for Visit * Reason Comments Medication Refill Encounter Details Date Type Department Care Team (Late st Contact Info) Description 06/14/[address] [phone] Gianfranco Reynoso MD Diabetes mellitus without complication [...] file Not on file Not on file COVID-19 Exposure Response Date [...] uncontrolled documented in this encounter Care Teams Science Writer Relationship Specialty Start Date End Date Robel Camarena DO 200 [place] [address] PCP - General Internal Medicine 04/19/20 Robel Camarena DO 200 [place] [address] PCP - United Medicare Attributed 11/02/20 Brandyn Arriaga MD 85 [facility] [address] [place] [address] Consulting Provider Gastroenterology 06/04/15 Francisco Scales MD [address] [place] [address] Consulting Provider Cardiovascular Disease 06/04/15 Gianfranco Reynoso MD [address] [place] [address] Consulting Provider Endocrinology 07/06/15 Efe Sanabria DO 85 [facility] [address] [place] [address] Consulting Provider Pulmonary Medicine 10/11/15 Bryce Lema DPM 85 [facility] 923 [place] [address] Consulting Provider Podiatry 05/22/17 Anne Marie Chance MD 85 [facility] 923 [place] [address] Consulting Provider Rheumatology 05/07/18 Ishmael Shaw OD 110 [facility] 100 [place] [address] Consulting Provider Optometry 07/22/18 Robel Camarena DO [address] [place] [address] Internal Medicine 02/16/20 Anne Marie Shafer, [facility] [address] [facility] 4 [place] [address] [facility] Community Computer Systems Architect 03/02/22 03/02/22 Rell Howe MD Consulting Provider Anesthesiology 10/11/15 documented as of this encounter
--- OUTSIDE RECORDS SUMMARY | 2024-09-15 12:50 | XMS_ITS | Encounter Summary ---
Author Organization [facility] Address [address] [place] [address] Care Team Providers Care Energy Specialist Name Role Phone Dominique Nicholas MD Primary Care Provider [phone] Brandyn Arriaga MD Unavailable Francisco Scales MD Unavailable [phone] Misbah Niño MD Unavailable [phone] David Maxwell MD Unavailable [phone] Ming Alvarez MD Unavailable [phone] Lino Carpio MD Unavailable [phone] Gianfranco Reynoso MD Unavailable Unavailable Efe Sanabria DO Unavailable [phone] Shaka Lyman MD Unavailable [phone] Pcp, No Primary Care Provider UnavailDominique Simmons MD Primary Care Provider Pcp, No Primary Care Provider UnavailBryce Nayak DPM Unavailable Dominique Nicholas MD Primary Care Provider Anne Marie Chance MD Unavailable [phone] Ishmael Shaw OD Unavailable [phone] Amaya Cardenas RN Unavailable Robel Camarena DO Unavailable [phone] KathyRobel freeman DO Primary Care Provider KathyEva freemanno DO Unavailable [phone] Anne Marie Shafer BOILERMAKER Unavailable [phone] Encounter Details Date Type Department Care Team (Late st Contact Info) Description 05/12/2016 Scanned Document [address] [phone] Provider, Generic Social History Tobacco Use Types [...] on filedocumented in this encounter Care Teams Energy Specialist Relationship Specialty Start Date End Date Dominique Nicholas MD PCP - General Internal Medicine 03/31/15 07/09/16 Pcp, No PCP - General General Medicine 07/13/16 10/29/16 Dominique Nicholas MD PCP - General Internal Medicine 10/30/16 11/05/16 Pcp, No PCP - General General Medicine 11/06/16 06/20/17 Dominique Nicholas MD PCP - General Internal Medicine 06/21/17 04/18/20 Robel Camarena DO [address] [place] [address] PCP - General Internal Medicine 04/19/20 Robel Camarena 200 [place] [address] PCP - United Medicare Attributed 11/02/20 Brandyn Arriaga MD 85 [facility] [address] [phone] Consulting Provider Gastroenterology 06/04/15 Francisco Scales MD [address] [place] [address] Consulting Provider Cardiovascular Disease 06/04/15 Misbah Niño MD [address] [place] [address] Consulting Provider Physical Medicine and Rehabilitation 06/04/15 05/21/17 David Maxwell MD [address] [place] [address] 800 [place] [address] Consulting Provider Neurology 06/04/15 05/21/17 Ming Alvarez MD [address] [place] [address] Consulting Provider Surgery, Bariatric 06/04/15 05/21/17 Lino Carpio MD [address] [place] [address] Consulting Provider Internal Medicine 06/04/15 12/12/18 Gianfranco Reynoso MD [address] [place] [address] Consulting Provider Endocrinology 07/06/15 Efe Sanabria DO 85 [facility] 923 [place] [address] Consulting Provider Pulmonary Medicine 10/11/15 Shaka Lyman MD [address] [place] [address] Consulting Provider Gastroenterology 10/11/15 12/12/18 Bryce Lema DPM Consulting Provider Podiatry 05/22/17 Anne Marie Chance MD Consulting Provider Rheumatology 05/07/18 Ishmael Shaw OD [address] [place] [address] 100 [place] [address] Consulting Provider Optometry 07/22/18 Amaya Cardenas, GREGORY [address] [place] [address] ICP Community Shaker [employer] 02/27/19 06/01/19 Robel Camarena DO [address] [place] [address] Internal Medicine 02/16/20 Anne Marie Shafer, BOILERMAKER [address] [place] [address] ICP Community Shaker [place] 03/02/22 03/02/22 Rell Howe MD Consulting Provider Anesthesiology 10/11/15 KELLEN GEE MD [address] [place] [address] Rheumatology 03/22/16 05/21/17 batsheva chow [facility] 11/06/16 06/29/19 documented as of this encounter
--- OUTSIDE RECORDS SUMMARY | 2024-09-15 12:50 | XMS_ITS | Encounter Summary ---
Author Organization [facility] Address [address] [place] [address] Care Team Providers Care Banking Services Advisor Name Role Phone Brandyn Arriaga MD Unavailable Francisco Scales MD Unavailable [phone] Misbah Niño MD Unavailable David Maxwell MD Unavailable Ming Alvarez MD Unavailable [phone] Lino Carpio MD Unavailable [phone] Gianfranco Reynoso MD Unavailable Unavailable Efe Sanabria DO Unavailable Shaka Lyman MD Unavailable Pcp, No Primary Care Provider UnavailBryce Nayak DPM Unavailable Dominique Nicholas MD Primary Care Provider Anne Marie Chance MD Unavailable [phone] Ishmael Shaw OD Unavailable Amaya Cardenas RN Unavailable Robel Camarena DO Unavailable [phone] Robel Camarena DO Primary Care Provider [phone] Robel Camarena DO Unavailable Anne Marie Shafer [facility] Unavailable Reason for Visit * Reason Comments Medication Refill Encounter Details Date Type Department Care Team (Late st Contact Info) Description 03/22/2017 Refill [facility] [address] [place] [address] Dominique Nicholas MD [address] [place] [address] [id number] Essential hypertension Social History Tobacco Use Types [...] hypertension documented in this encounter Care Teams Banking Services Advisor Relationship Specialty Start Date End Date Pcp, No PCP - General General Medicine 11/06/16 06/20/17 Dominique Nicholas MD PCP - General Internal Medicine 06/21/17 04/18/20 Robel Camarena DO [address] [place] [address] PCP - General Internal Medicine 04/19/20 Robel Camarena DO [address] [place] [address] PCP - United Medicare Attributed 11/02/20 Brandyn Arriaga MD 85 [facility] [address] [address] [phone] Consulting Provider Gastroenterology 06/04/15 Francisco Scales MD [address] [place] [address] Consulting Provider Cardiovascular Disease 06/04/15 Misbah Niño MD [address] [place] [address] Consulting Provider Physical Medicine and Rehabilitation 06/04/15 05/21/17 David Maxwell MD 85 [facility] 800 [place] [address] Consulting Provider Neurology 06/04/15 05/21/17 Ming Alvarez MD [address] [place] [address] Consulting Provider Surgery, Bariatric 06/04/15 05/21/17 Lino Carpio MD 100 [place] [address] Consulting Provider Internal Medicine 06/04/15 12/12/18 Gianfranco Reynoso MD 100 [place] [address] Consulting Provider Endocrinology 07/06/15 Efe Sanabria DO 85 [facility] 923 [place] [address] Consulting Provider Pulmonary Medicine 10/11/15 Shaka Lyman MD [address] [facility] [address] [place] [address] Consulting Provider Gastroenterology 10/11/15 12/12/18 Bryce Lema DPM Consulting Provider Podiatry 05/22/17 Anne Marie Chance MD Consulting Provider Rheumatology 05/07/18 Ishmael Shaw OD [address] [place] [address] Consulting Provider Optometry 07/22/18 Amaya Cardenas, RN [address] [facility] 4 [place] [address] ICP Community Car Icer 02/27/19 06/01/19 Robel Camarena DO [address] [place] [address] Internal Medicine 02/16/20 Anne Marie Shafer, LAWNMOWER REPAIR MECHANIC [address] [facility] 4 [place] [address] ICP Community Car Icer 03/02/22 03/02/22 Rell Howe MD Consulting Provider Anesthesiology 10/11/15 KELLEN GEE MD [address] [place] [address] Rheumatology 03/22/16 05/21/17 batsheva chow LAWNMOWER REPAIR MECHANIC [facility] 11/06/16 06/29/19 documented as of this encounter
--- OUTSIDE RECORDS SUMMARY | 2024-09-15 12:50 | XMS_ITS | Encounter Summary ---
Author Organization [facility] Address [address] [place] [address] Care Team Providers Care Interim Controller Name Role Phone Dominique Nicholas MD Primary Care Provider Brandyn Arriaga MD Unavailable Francisco Scales MD Unavailable [phone] Misbah Niño MD Unavailable [phone] David Maxwell MD Unavailable [phone] Ming Alvarez MD Unavailable [phone] Lino Carpio MD Unavailable [phone] Gianfranco Reynoso MD Unavailable Unavailable Efe Sanabria DO Unavailable [phone] Shaka Lyman MD Unavailable [phone] Pcp, No Primary Care Provider UnavailDominique Simmons MD Primary Care Provider [phone] Pcp, No Primary Care Provider UnavailBryce Nayak DPM Unavailable Dominique Nicholas MD Primary Care Provider Anne Marie Chance MD Unavailable [phone] Ishmael Shaw OD Unavailable [phone] Amaya Cardenas RN Unavailable Robel Camarena DO Unavailable KathyRobel freeman DO Primary Care Provider KathyRobel freeman DO Unavailable [phone] Anne Marie Shafer OUTPATIENT RECEPTIONIST Unavailable Encounter Details Date Type Department Care Team (Late st Contact Info) Description 05/06/2015 Scanned Document [address] [phone] Provider, Generic Social History Tobacco Use Types [...] on filedocumented in this encounter Care Teams Interim Controller Relationship Specialty Start Date End Date Dominique Nicholas MD PCP - General Internal Medicine 03/31/15 07/09/16 Pcp, No PCP - General General Medicine 07/13/16 10/29/16 Dominique Nicholas MD PCP - General Internal Medicine 10/30/16 11/05/16 Pcp, No PCP - General General Medicine 11/06/16 06/20/17 Dominique Nicholas MD PCP - General Internal Medicine 06/21/17 04/18/20 Robel Camarena DO [address] [place] [address] PCP - General Internal Medicine 04/19/20 Robel Camarena DO [address] [place] [address] PCP - United Medicare Attributed 11/02/20 Brandyn Arriaga MD 85 [facility] 1000 [place] [address] Consulting Provider Gastroenterology 06/04/15 Francisco Scales MD [address] [place] [address] Consulting Provider Cardiovascular Disease 06/04/15 Misbah Niño MD [address] [place] [address] Consulting Provider Physical Medicine and Rehabilitation 06/04/15 05/21/17 David Maxwell MD 85 [facility] 800 [place] [address] Consulting Provider Neurology 06/04/15 05/21/17 Ming Alvarez MD [address] [place] [address] Consulting Provider Surgery, Bariatric 06/04/15 05/21/17 Lino Carpio MD 100 [place] [address] Consulting Provider Internal Medicine 06/04/15 12/12/18 Gianfranco Reynoso MD 100 [place] [address] Consulting Provider Endocrinology 07/06/15 Efe Sanabria DO 85 [facility] [address] [place] [address] Consulting Provider Pulmonary Medicine 10/11/15 Shaka Lyman MD 6 [facility] [address] [place] [address] Consulting Provider Gastroenterology 10/11/15 12/12/18 Bryce Lema DPM Consulting Provider Podiatry 05/22/17 Anne Marie Chance MD Consulting Provider Rheumatology 05/07/18 Ishmael Shaw OD [address] [place] [address] Consulting Provider Optometry 07/22/18 Amaya Cardenas, RN [address] [facility] 4 [place] [address] ICP Community Ironworker Apprentice Shop 02/27/19 06/01/19 Robel Camarena DO [address] [place] [address] Internal Medicine 02/16/20 Anne Marie Shafer, OUTPATIENT RECEPTIONIST [address] [place] [address] ICP Community Ironworker Apprentice Shop 03/02/22 03/02/22 Rell Howe MD Consulting Provider Anesthesiology 10/11/15 KELLEN GEE MD [address] [place] [address] Rheumatology 03/22/16 05/21/17 batsheva chow [facility] 11/06/16 06/29/19 documented as of this encounter
--- OUTSIDE RECORDS SUMMARY | 2024-09-15 12:50 | XMS_ITS | Encounter Summary ---
Author Organization [facility] Address [address] [place] [address] Care Team Providers Care Apartment Coordinator Name Role Phone Brandyn Arriaga MD Unavailable Francisco Scales MD Unavailable [phone] Gianfranco Reynoso MD Unavailable Unavailable Efe Sanabria DO Unavailable Bryce Lema DPM Unavailable Anne Marie Chance MD Unavailable +[phone] 00-0000 Ishmael Shaw OD Unavailable [phone] Robel Camarena DO Unavailable Robel Camarena DO Primary Care Provider [phone] Robel Camarena DO Unavailable [phone] Anne Marie Shafer [facility] Unavailable Reason for Visit * Reason Comments Medication Refill Encounter Details Date Type Department Care Team (Late st Contact Info) Description 09/08/[address] [phone] Gianfranco Reynoso MD Diabetes mellitus without complication [...] uncontrolled documented in this encounter Care Teams Apartment Coordinator Relationship Specialty Start Date End Date Robel Camarena DO 200 [place] [address] PCP - General Internal Medicine 04/19/20 Robel Camarena DO [address] [place] [address] PCP - United Medicare Attributed 11/02/20 Brandyn Arriaga MD 85 [facility] [address] [place] [address] Consulting Provider Gastroenterology 06/04/15 Francisco Scales MD [address] [place] [address] Consulting Provider Cardiovascular Disease 06/04/15 Gianfranco Reynoso MD [address] [place] [address] Consulting Provider Endocrinology 07/06/15 Efe Sanabria DO 85 [facility] [address] [place] [address] Consulting Provider Pulmonary Medicine 10/11/15 Bryce Lema DPM 85 [facility] [address] [place] [address] Consulting Provider Podiatry 05/22/17 Anne Marie Chance MD 85 [facility] 923 [place] [address] Consulting Provider Rheumatology 05/07/18 Ishmael Shaw OD 110 [facility] 100 [place] [address] Consulting Provider Optometry 07/22/18 Robel Camarena DO [address] [place] [address] Internal Medicine 02/16/20 Anne Marie Shafer, [facility] 1290 [facility] 4 [place] [address] [facility] Community Visitor Information Assistant 03/02/22 03/02/22 Rell Howe MD Consulting Provider Anesthesiology 10/11/15 documented as of this encounter
== END 2024-09-15 11:25 | disposition home or self-care (01) ==
LOC: HO.ENCR 10:46
PROVIDERS: PCP Internal Medicine; Visit Provider Physician Assistant
DX: E11.65 Type 2 diabetes mellitus with hyperglycemia (principal); Z79.4 Long term (current) use of insulin; E78.5 Hyperlipidemia, unspecified; I10 Essential (primary) hypertension; Z13.9 Encounter for screening, unspecified

== ENCOUNTER → 2024-09-15 10:46 | Outpatient (BNVA) | payer MEDICARE, MEDICAID, SELFPAY | PROVIDERS: PCP Internal Medicine; Visit Provider Physician Assistant | DX: E11.65 Type 2 diabetes mellitus with hyperglycemia (principal); E78.5 Hyperlipidemia, unspecified; I10 Essential (primary) hypertension; Z79.4 Long term (current) use of insulin | CPT/HCPCS: 82947; 83036; 99212 ==

== ENCOUNTER 2024-11-10 11:13 | Outpatient (AMB) | payer MEDICARE, MEDICAID, SELFPAY ==
[2024-11-10 11:22] VITALS: BP 126/68; PULSE 68; O2SAT 96; BMI 38.2
--- NOTE | 2024-11-10 11:22 | A.OFFVIS_ITS ---
Vital Signs 11/10/24 11:22 Height 5 ft 7 in Weight 243 lb 13.3 oz BMI 38.2 BP 126/68 Blood Pressure Location Rt brachial Position Sitting Pulse 68 Pulse Source Pulse Oximeter Pulse Oximetry (%) 96 Oxygen Delivery Method Room Air Intake Visit Reasons: T2DM Intake Note: Patient present today for Type 2 Diabetes Mellitus Last Diabetic eye exam: 01/2024 Last Podiatry Visit: 08/2024 Random Glucose: 230 mg/dl HgA1C: 8.5% 09/15/24 Scenic Designer Required: No Accompanied by: Self / Same As Patient Allergies No Known Allergies Allergy (Verified 11/10/24 11:27) Medication List - Last Reconciled 11/10/24 by Edie Savage PA-C atenolol 50 mg PO DAILY atorvastatin 20 mg PO BEDTIME blood-glucose sensor (Dexcom G7 Sensor device) Use daily As directed to monitor glucose. change q 10 days blood-glucose,humane officer,cont (Dexcom G7 Overhead Cleaner Maintainer) use daily As directed to monitor blood glucose celecoxib 400 mg PO BID PRN insulin glargine (Lantus Solostar U-100 Insulin) 50 units (0.5 mL) subcut QAM lisinopril 10 mg PO DAILY oxycodone myristate CR-ER (Xtampza ER) 9 mg PO Q12H HPI HPI T2DM: Details: Patient is a 64-year-old female with a significant past medical history of overactive bladder, chronic pain syndrome, PVD, lower leg edema, varicose veins, kidney stones, hyperlipidemia, type 2 diabetes presenting today fr a follow up regarding her diabetes. Endo: Dm- Her a1c was 8.5. She was dx with t2dm in her early 30s. She is currently on Lantus 50 units in the morning, she is on Ozempic 0.5 mg weekly. She is nauseous with the ozempic 0.5 mg and had severe n/v. cgm- Dexcom download shows average glucose 220, standard deviation 29%. Very hyperglycemic 35%, hyperglycemic 41%, in range 29%, 0% hypoglycemia She used to be on actos and states does not know why she was taken off, she used to be on metformin but had too much GI upset. She states that previously she thinks she was on glimepiride and had hypoglycemia. She was on glipizide recently but caused hypogylcemia. Did not tolerate trulicity with nausea and felt ineffective. She states that she has had diabetic training and met with an educator. She goes to Dr. Tidwell at [facility] for podiatry. CV: Blood pressure today in the office is 126/68. She is currently on atenolol 50 mg daily and lisinopril 10 mg daily. Cholesterol is managed with atorvastatin 20 mg. Vasc: reports PVD and follows with vascular surgery, last visit with Radha Lombardi. Urology: follows with [facility] for renal stones. [facility] Medical History Lupus (systemic lupus erythematosus) History of chronic back pain Type 2 diabetes mellitus with hyperglycemia Hx of hyperlipidemia Hx of essential hypertension Surgical History History of back surgery Family History Father Lupus (systemic lupus erythematosus) Mother Diabetes mellitus Maternal Aunt Diabetes mellitus Heart disease Social History Alcohol intake: current Alcohol intake frequency: does not drink Patient Tobacco Use Status: Never used Tobacco Physical Exam Vital Signs: Last Vital Signs Pulse 68 11/10/24 11:22 BP 126/68 11/10/24 11:22 Pulse Ox 96 11/10/24 11:22 Oxygen Delivery Method Room Air 11/10/24 11:22 BMI result Body Mass Index 38.2 Const Orientation/consciousness: patient oriented x3 HEENT Ears: hearing grossly normal bilaterally Neck Neck: Yes no lymphadenopathy Thyroid: Thyroid normal Carotids: no bruits Lymphatic: no lymphadenopathy noted Resp Auscultation: clear to auscultation bilaterally Cardio Rate: regular rate Rhythm: regular rhythm Heart sounds: S1 normal heart sound present and S2 normal heart sound present Peripheral pulses: dorsalis pedis present Skin General skin exam: no rashes or lesions noted Neuro General: patient oriented x3, gait normal and no focal motor deficits Extrem Other: Monofilament sensation intact bilaterally. Vibratory sensation intact bilaterally. Skin intact. General: Yes normal to inspection Assessment & Plan Assessment & Plan (1) Uncontrolled type 2 diabetes mellitus with hyperglycemia, with long-term current use of insulin: Code(s): E11.65 - Type 2 diabetes mellitus with hyperglycemia; Z79.4 - computer terminal operator (current) use of insulin Category: Medical Plan: take lantus 30 units BID start humalog 3 units with breakfast, lunch, and dinner start mounjaro 2.5 mg weekly, stop ozempic return in 4-6 weeks for follow up (2) Hypertension: Code(s): I10 - Essential (primary) hypertension Category: Medical Plan: wnl continue current plan (3) Hyperlipidemia: Code(s): E78.5 - Hyperlipidemia, unspecified Category: Medical Plan: as above Medications: New tirzepatide (Mounjaro) 2.5 mg (0.5 mL) subcut QWEEK 2 mL 2RF insulin lispro (Humalog KwikPen (U-100) Insulin) with breakfast, lunch and dinner 3 units (0.03 mL) subcut TID 15 mL 3RF Changed From insulin glargine (Lantus Solostar U-100 Insulin) 50 units (0.5 mL) subcut QAM 15 mL 4RF To insulin glargine (Lantus Solostar U-100 Insulin) 30 units (0.3 mL) subcut BID 18 mL 4RF 30 days Patient Instructions: take lantus 30 units BID start humalog 3 units with breakfast, lunch, and dinner (if you don't eat, don't take it) start mounjaro 2.5 mg weekly, stop ozempic return in 4-6 weeks for follow up Coding Level of Care Code Est Pt Level 4 (17880) Complex EM visit Add On G2211 Diagnoses Uncontrolled type 2 diabetes mellitus with hyperglycemia, with long-term current use of insulin E11.65; Z79.4 Hypertension I10 Hyperlipidemia E78.5
[2024-11-10 11:34] LABS: Glucose, Whole Blood 230 mg/dL (60-115)
--- OUTSIDE RECORDS SUMMARY | 2024-11-10 12:50 | XMS_ITS | Encounter Summary ---
Author Organization [facility] Address [address] [place] [address] Care Team Providers Care Perlite Grinder Name Role Phone Brandyn Arriaga MD Unavailable Francisco Scales MD Unavailable [phone] Gianfranco Reynoso MD Unavailable Unavailable Efe Sanabria DO Unavailable Bryce Lema DPM Unavailable Dominique Nicholas MD Primary Care Provider Anne Marie Chance MD Unavailable [phone] 00-0000 Ishmael Shaw OD Unavailable Amaya Cardenas RN Unavailable [phone] Robel Camarena DO Unavailable RadhaadanteEvano DO Primary Care Provider Eva Camarenano DO Unavailable Anne Marie ShaferW Unavailable [phone] Encounter Details Date Type Department Care Team (Late st Contact Info) Description 01/08/2019 Scanned Document [address] [phone] Provider, Generic Social History Tobacco [...] on filedocumented in this encounter Care Teams Perlite Grinder Relationship Specialty Start Date End Date Dominique Nicholas MD 85 [facility] [address] [place] [address] PCP - General Internal Medicine 06/21/17 04/18/20 Robel Camarena DO 200 [place] [address] PCP - General Internal Medicine 04/19/20 Robel Camarena DO 200 [place] [address] PCP - United Medicare Attributed 11/02/20 09/17/24 Brandyn Arriaga MD 85 [facility] [address] [place] [address] Consulting Provider Gastroenterology 06/04/15 Francisco Scales MD [address] [place] [address] Consulting Provider Cardiovascular Disease 06/04/15 Gianfranco Reynoso MD [address] [place] [address] Consulting Provider Endocrinology 07/06/15 Efe Sanabria DO 85 [facility] [address] [place] [address] Consulting Provider Pulmonary Disease 10/11/15 Bryce Lema DPM [address] [place] [address] Consulting Provider Podiatry 05/22/17 Anne Marie Chance MD [address]37[address] [place] [address] Consulting Provider Rheumatology 05/07/18 Ishmael Shaw OD [address] [place] [address] 100 [place] [address] Consulting Provider Optometry 07/22/18 Amaya Cardenas, RN [address] [facility] 4 [place] [address] [facility] Community Dispatch Supervisor 02/27/19 06/01/19 Robel Camarena DO [address] [place] [address] Internal Medicine 02/16/20 Anne Marie Shafer, TOUCH UP CARVER [address] [place] [address] ICP Community Dispatch Supervisor 03/02/22 03/02/22 Rell Howe MD Consulting Provider Anesthesiology 10/11/15 batsheva chow [facility] 11/06/16 06/29/19 documented as of this encounter
== END 2024-11-10 11:51 | disposition home or self-care (01) ==
LOC: HO.ENCR 11:14
PROVIDERS: PCP Internal Medicine; Visit Provider Physician Assistant
DX: E11.65 Type 2 diabetes mellitus with hyperglycemia (principal); Z79.4 Long term (current) use of insulin; I10 Essential (primary) hypertension; E78.5 Hyperlipidemia, unspecified

== ENCOUNTER → 2024-11-10 11:13 | Outpatient (BNVA) | payer MEDICARE, MEDICAID, SELFPAY | PROVIDERS: PCP Internal Medicine; Visit Provider Physician Assistant | DX: E11.65 Type 2 diabetes mellitus with hyperglycemia (principal); E78.5 Hyperlipidemia, unspecified; I10 Essential (primary) hypertension; Z79.4 Long term (current) use of insulin | CPT/HCPCS: 82947; 99212 ==

== ENCOUNTER 2024-12-05 10:47 | Outpatient (AMB) | payer MEDICARE, MEDICAID, SELFPAY ==
[2024-12-05 10:55] VITALS: BP 110/58; PULSE 66; O2SAT 98; BMI 39.4
--- NOTE | 2024-12-05 10:55 | MHC.OFFVIS ---
Vital Signs 12/05/24 10:55 Height 5 ft 7 in Weight 251 lb 5.231 oz BMI 39.4 BP 110/58 L Blood Pressure Location Rt brachial Position Sitting Pulse 66 Pulse Source Pulse Oximeter Pulse Oximetry (%) 98 Oxygen Delivery Method Room Air Intake Visit Reasons: dm Intake Note: Patient present today for Type 2 Diabetes Mellitus Last Diabetic eye exam: 02/2024 Last Podiatry Visit: 05/2024 Random Glucose: 220 mg/dl HgA1C: 8.5% 09/15/24 Accounting Generalist Required: No Accompanied by: Self / Same As Patient Allergies No Known Allergies Allergy (Verified 12/05/24 11:01) Medication List - Last Reconciled 12/05/24 by Edie Savage PA-C atenolol 50 mg PO DAILY atorvastatin 20 mg PO BEDTIME blood-glucose sensor (DexBarnebys G7 Sensor device) Use daily As directed to monitor glucose. change q 10 days blood-glucose,market development analyst,cont (Dexcom G7 Spudder) use daily As directed to monitor blood glucose celecoxib 400 mg PO BID PRN insulin glargine (Lantus Solostar U-100 Insulin) 30 units (0.3 mL) subcut BID 30 days insulin lispro (Humalog KwikPen (U-100) Insulin) 3 units (0.03 mL) subcut TID lisinopril 10 mg PO DAILY oxycodone myristate CR-ER (Xtampza ER) 9 mg PO Q12H tirzepatide (Mounjaro) 2.5 mg (0.5 mL) subcut QWEEK HPI HPI dm: Details: Patient is a 64-year-old female with a significant past medical history of overactive bladder, chronic pain syndrome, PVD, lower leg edema, varicose veins, kidney stones, hyperlipidemia, type 2 diabetes presenting today for a follow up regarding her diabetes. Endo: Dm- Her a1c was 8.5. She was dx with t2dm in her early 30s. She is currently on Lantus 38 units BID, humalog 3 units and recently started mounjaro 2.5 mg weekly. She is tolerating the mounjaro well. She states that she does not like having to inject lantus twice a day. She feels it is ineffective. cgm- Dexcom download shows average glucose 220, standard deviation 40, GMI 8.6%. Very hyperglycemic 23%, hyperglycemic 56%, in range 21%, 0% hypoglycemia She used to be on actos and states does not know why she was taken off, she used to be on metformin but had too much GI upset. She states that previously she thinks she was on glimepiride and had hypoglycemia. She was on glipizide recently but caused hypogylcemia. Did not tolerate trulicity with nausea and felt ineffective. ozempic caused n/v. She states that she has had diabetic training and met with an educator. She goes to Dr. Tidwell at [place] for podiatry. CV: Blood pressure today in the office is 110/58. She is currently on atenolol 50 mg daily and lisinopril 10 mg daily. Cholesterol is managed with atorvastatin 20 mg. Vasc: reports PVD and follows with vascular surgery, last visit with Radha Lombardi. Urology: follows with [facility] for renal stones. [facility] Medical History Lupus (systemic lupus erythematosus) History of chronic back pain Type 2 diabetes mellitus with hyperglycemia Hx of hyperlipidemia Hx of essential hypertension Surgical History History of back surgery Family History Father Lupus (systemic lupus erythematosus) Mother Diabetes mellitus Maternal Aunt Diabetes mellitus Heart disease Social History Alcohol intake: current Alcohol intake frequency: does not drink Patient Tobacco Use Status: Never used Tobacco Physical Exam Vital Signs: Last Vital Signs Pulse 66 12/05/24 10:55 BP 110/58 L 12/05/24 10:55 Pulse Ox 98 12/05/24 10:55 Oxygen Delivery Method Room Air 12/05/24 10:55 BMI result Body Mass Index 39.4 Const Orientation/consciousness: patient oriented x3 HEENT Ears: hearing grossly normal bilaterally Neck Thyroid: Thyroid normal Lymphatic: no lymphadenopathy noted Resp Auscultation: clear to auscultation bilaterally Cardio Rate: regular rate Rhythm: regular rhythm Heart sounds: S1 normal heart sound present and S2 normal heart sound present Skin General skin exam: no rashes or lesions noted Neuro General: patient oriented x3, gait normal and no focal motor deficits Results Reviewed Results Reviewed: Laboratory Last Values Glucose (Clinic) 220 mg/dL (60-115) H 12/05/24 11:04 Assessment & Plan Assessment & Plan (1) Uncontrolled type 2 diabetes mellitus with hyperglycemia, with long-term current use of insulin: Code(s): E11.65 - Type 2 diabetes mellitus with hyperglycemia; Z79.4 - terminal worker (current) use of insulin Category: Medical Plan: increase mounjaro to 5 mg weekly increase humalog to 8 units with meals switch from lantus to toujeo and increase to 80 units has glucose tabs at home, reviewed rule of 15s insurance switched and prefers accu-chek to one touch, ordered new supplies (2) Hypertension: Code(s): I10 - Essential (primary) hypertension Category: Medical Plan: WNL. Continue current regimen (3) Hyperlipidemia: Code(s): E78.5 - Hyperlipidemia, unspecified Category: Medical Plan: Reports this is monitored by PCP and normal. Medications: New blood sugar diagnostic (Accu-Chek Guide test strips) use 2x daily As directed to monitor blood glucose 100 ea 0RF E11.65 - Type 2 diabetes mellitus with hyperglycemia, Z79.4 - retirement (current) use of insulin blood-glucose meter (Accu-Chek Guide Glucose Meter) Use daily As directed to monitor blood glucose 1 ea 0RF E11.65 - Type 2 diabetes mellitus with hyperglycemia, Z79.4 - retirement (current) use of insulin lancets (Accu-Chek Softclix Lancets) use bid As directed to monitor blood glucose 100 ea 3RF E11.65 - Type 2 diabetes mellitus with hyperglycemia, Z79.4 - retirement (current) use of insulin insulin glargine U-300 conc (Toujeo Max U-300 SoloStar) 80 units (0.2667 mL) subcut DAILY 12 mL 5RF 30 days tirzepatide (Mounjaro) 5 mg (0.5 mL) subcut QWEEK 2 mL 5RF Changed From insulin lispro (Humalog KwikPen (U-100) Insulin) with breakfast, lunch and dinner 3 units (0.03 mL) subcut TID 15 mL 3RF To insulin lispro (Humalog KwikPen (U-100) Insulin) with breakfast, lunch and dinner 8 units (0.08 mL) subcut TID 15 mL 3RF Discontinued tirzepatide (Mounjaro) Discontinued Reason: Doctor's Order 2.5 mg (0.5 mL) subcut QWEEK 2 mL 2RF insulin glargine (Lantus Solostar U-100 Insulin) Discontinued Reason: Doctor's Order 30 units (0.3 mL) subcut BID 30 days 18 mL 4RF Patient Instructions: increase mounjaro to 5 mg weekly increase humalog to 8 units with meals switch from lantus to toujeo and increase to 80 units switch to accu-chek Coding Level of Care Code Est Pt Level 4 (24573) Complex EM visit Add On G2211 Diagnoses Uncontrolled type 2 diabetes mellitus with hyperglycemia, with long-term current use of insulin E11.65; Z79.4 Hypertension I10 Hyperlipidemia E78.5
[2024-12-05 11:07] LABS: Glucose, Whole Blood 220 mg/dL (60-115)
--- OUTSIDE RECORDS SUMMARY | 2024-12-05 11:20 | XMS_ITS | Encounter Summary ---
Author Organization [facility] Address [address] [place] [address] Care Team Providers Care Hides Soaker Name Role Phone Brandyn Arriaga MD Unavailable Francisco Scales MD Unavailable [phone] iGanfranco Reynoso MD Unavailable Unavailable Efe Sanabria DO Unavailable Bryce Lema DPM Unavailable Dominique Nicholas MD Primary Care Provider [phone] Anne Marie Chance MD Unavailable [phone] Ishmael Shaw OD Unavailable Amaya Cardenas RN Unavailable Robel Camarena DO Unavailable RadhaadanteEvano DO Primary Care Provider Eva Camarenano DO Unavailable Anne Marie ShaferW Unavailable Encounter Details Date Type Department Care Team (Late st Contact Info) Description 01/08/2019 Scanned Document [address] [id number] Provider, Generic Social History Tobacco [...] on filedocumented in this encounter Care Teams Hides Soaker Relationship Specialty Start Date End Date Dominique Nicholas MD [address] [facility] [address] [place] [address] PCP - General Internal Medicine 06/21/17 04/18/20 Robel Camarena DO [address] [place] [address] PCP - General Internal Medicine 04/19/20 Robel Camarena DO [address] [place] [address] PCP - [employer] Medicare Attributed 11/02/20 09/17/24 Brandyn Arriaga MD [address] [facility] [address] [place] [address] Consulting Provider Gastroenterology 06/04/15 Francisco Scales MD [address] [place] [address] Consulting Provider Cardiovascular Disease 06/04/15 Gianfranco Reynoso MD [address] [place] [address] Consulting Provider Endocrinology 07/06/15 Efe Sanabria DO [address] [facility] [address] [place] [address] Consulting Provider Pulmonary Disease 10/11/15 Bryce Lema DPM [address] [place] [address] Consulting Provider Podiatry 05/22/17 Anne Marie Chance MD [address] [place] [address] Consulting Provider Rheumatology 05/07/18 Ishmael Shaw OD [address] [place] [address] [address] [place] [address] Consulting Provider Optometry 07/22/18 Amaya Cardenas, RN [address] [facility] [address] [place] [address] [facility] Community Gear Changer 02/27/19 06/01/19 Robel Camarena DO [address] [place] [address] Internal Medicine 02/16/20 Anne Marie Shafer, METALLOGRAPHY TEACHER [address] [place] [address] [facility] Community Gear Changer 03/02/22 03/02/22 Rell Howe MD Consulting Provider Anesthesiology 10/11/15 batsheva chow [facility] 11/06/16 06/29/19 documented as of this encounter
--- OUTSIDE RECORDS SUMMARY | 2024-12-05 11:20 | XMS_ITS | Clinical Summary ---
Author Organization [facility] Address [address] [place] [address] Care Team Providers Care Software Integration Developer Name Role Phone Dominique Nicholas MD Primary Care Provider [phone] Allergies Active Allergy Reactions Criticality Noted Date [...] 68 12/01/2017 12:41 PM EDT Temperature 36.1 C (97 F) 12/01/2017 12:41 PM EDT Respiratory Rate 14 [...] Adults 18 yrs or above (or HM Modifier)([facility]) 10/30/1977 Hepatitis C Virus Infection in Adolescents and Adults: Screening (or Modifier) ([facility]) 10/30/1977 EMILY Screening: Once using ST OP-BANG Questionnaire for Adults with Conditions or high BMI([facility]) 10/30/1977 SDOH Screening Reminder: Debby lindsey for all adults ([facility]) 10/30/1977 Tobacco Smoking Cessation: i n Adults excluding Women: Behavioral and Pharmacotherapy Interventions ([facility]) 10/30/1977 DTaP/Tdap/Td Vaccines ([facility]) (1 - Tdap) 10/30/1978 Cervical Cancer Screenin 1-65 yrs of age (or Modifier) 10/30/1980 Cervical Cancer Screening: P ap every 3 yrs pts age 21-65 10/30/1980 Cervical Cancer: Pap Screeni ng with Modifier timing ([facility]) 10/30/1980 Cervical Cancer: hrHPV alone or with cotesting Pap for Pts 30-65yrs screening every 5yrs ([facility]) 10/30/1980 Colorectal Cancer Screening 45 -75 Yrs (or HM Modifier ) 10/30/2004 Colorectal Cancer: FLEXIBLE SIGMOIDOSCOPY Screening every 5 yrs 10/30/2004 Colorectal Cancer: Fecal Imm unochemical Test (FIT) Annually [facility] 10/30/2004 Colorectal Cancer: High-sens itivity gFOBT Screening Annually [facility] 10/30/2004 Colorectal Cancer: Stool Col oguard Screening every 3 yrs 10/30/2004 Colorectal Cancer:CT Colonography Screening every 5 yr s 10/30/2004 Breast Cancer: Screening Debby ually age 50-74 yrs (or HM Modifier)([facility]) 10/30/2009 Pneumococcal Vaccination Scr eening: Patients 50+ yrs of age ([facility]) (1 of 1 - PCV) 10/30/2009 Zoster/Shingles Vaccine Seri es Screening: Adults aged 18+ yrs (or HM Modifiers)([facility]) (1 of 2) 10/30/2009 COVID-19 Vaccine Screening: Initial Series and Booster Status ([facility]) (2023- season) 2024 Osteoporosis Screening to Pr event Fractures: Women aged 65 years+ ([facility]) 10/30/2024 Flu Vaccination: Ages 65+: Y early High Dose Recommended (or Modifier)([facility]) 12/19/2024 RSV Vaccines (1 - 1-dose 75+ series) 10/30/2034 Medical Devices Not on file Insurance [employer] MEDICARE Care Teams Software Integration Developer Relationship Specialty Start Date End Date Dominique Nicholas MD PCP - Ambulatory Technologist 12/01/17
--- OUTSIDE RECORDS SUMMARY | 2024-12-05 11:20 | XMS_ITS ---
Author Name [facility] Organization Unknown Care Team Organization Name Specialty Phone Email Start Date End Da te [facility], [facility] LOIS MORALES, Primary Care 02/10/2021 024 [facility] JUANJOSE LIU Primary Care
--- OUTSIDE RECORDS SUMMARY | 2024-12-05 11:20 | XMS_ITS | Encounter Summary ---
Author Organization [facility] Address [address] [place] [address] Care Team Providers Care Clearing House Clerk Name Role Phone Dominique Nicholas MD Primary Care Provider [phone] Dominique Nicholas MD Primary Care Provider [phone] Encounter Details Date Type Department Care Team (Late st Contact Info) Description 07/03/2016 Documentation [facility] [address] [place] [address] Tabitha Saldana MSW [facility] Social History Tobacco Use Types Packs/Day Years Used Date Smoking Tobacco: Never Alcohol Use Standard Drinks/Week Comments Not Asked 0 (1 standard drink = 0.6 oz pur e alcohol) Comments Unknown Sex and Gender Information Value Date Recorded Sex Assigned at Not on file Legal Sex Female 12:09 PM EST Gender Identity Not on file Sexual Orientation Not on file documented as of this encounter Plan of Treatment Not on file documented as of this encounter Visit Diagnoses Not on filedocumented in this encounter Care Teams Clearing House Clerk Relationship Specialty Start Date End Date Dominique Nicholas MD [address] [place] [address] PCP - General Internal Medicine 05/16/16 07/25/16 Dominique Nicholas MD [address] [place] [address] PCP - General Internal Medicine 12/05/16 documented as of this encounter
--- OUTSIDE RECORDS SUMMARY | 2024-12-05 11:20 | XMS_ITS | Clinical Summary ---
Author Organization [facility] Address [address] [place] [address] Care Team Providers Care Barrow Worker Helper Name Role Phone Dominique Nicholas MD Primary Care Provider [phone] Allergies Active Allergy Reactions Criticality Noted Date [...] 70 12/24/2015 2:40 PM EDT Temperature 36.7 C (98.1 F) 12/24/2015 11:59 AM EDT Respiratory Rate 16 12/24/2015 2:40 PM EDT [...] (2 - Td or Tdap) 05/23/2023 05/23/2013 Fall Risk Assessment 10/30/2024 Osteoporosis Screening (DEXA Scan) 10/30/2024 Pneumococcal Vaccine (2 of 2 - PCV) 10/30/2024 05/09/2001 Influenza Vaccine (#1) 2025 7, 03/14/2016, 02/18/2015, Additional history exists RSV Adult > 60+ Yrs or (1 [...] this topic Medical Devices Implanted Type Area Supervisor Compressed Yeast Device Identifier Shelf Expiration Date Model / Serial / Lot Keota 3.5mm Insite Ft Ti W\(2) Strands Of Size 0 Needled Fo - [id number] - [id number] Implanted:Qty: 1 on 12/24/2015 by Bryce Lema DPM at [facility] Right: Ankle [employer] 12/18/2017 [id number] / / [id number] Keota 4.5mm Insite Ft Ti W\(2) Strands Of Size 2 Needled Fo - [id number] - [id number] Implanted:Qty: 1 on 12/24/2015 by Bryce Lema DPM at [facility] Right: Ankle [employer] 11/22/2016 [id number] / / [id number] Accufill Injectable Bone Substitute Material 3cc - [id number] - [id number] Implanted:Qty: 1 on 12/24/2015 by Bryce Lema DPM at [facility] Right: Ankle [employer] 02/17/2018 [id number] / / [id number] Advance Directives For more information, please contact: [phone] Latest Code Status on File Code Status Date Activated Date Inactivated Comments Full Code 12/24/2015 8:14 AM 12/24/2015 10:27 PM This c ode status was ascertained in the following way: discussion with patient. Care Teams Barrow Worker Helper Relationship Specialty Start Date End Date Dominique Nicholas MD [address] [facility] [address] [place] [address] PCP - General Internal Medicine 12/23/15
== END 2024-12-05 11:33 | disposition home or self-care (01) ==
LOC: HO.ENCR 10:48
PROVIDERS: PCP Internal Medicine; Visit Provider Physician Assistant
DX: E11.65 Type 2 diabetes mellitus with hyperglycemia (principal); Z79.4 Long term (current) use of insulin; I10 Essential (primary) hypertension; E78.5 Hyperlipidemia, unspecified

== ENCOUNTER → 2024-12-05 10:47 | Outpatient (BNVA) | payer MEDICARE, SELFPAY | PROVIDERS: PCP Internal Medicine; Visit Provider Physician Assistant | DX: E11.65 Type 2 diabetes mellitus with hyperglycemia (principal); E78.5 Hyperlipidemia, unspecified; I10 Essential (primary) hypertension; Z79.4 Long term (current) use of insulin | CPT/HCPCS: 82947; 99212 ==

== ENCOUNTER 2025-01-02 09:51 | Outpatient (AMB) | payer MEDICARE, SELFPAY ==
--- NOTE | 2025-01-02 09:56 | A.OFFVIS_ITS ---
Vital Signs 01/02/25 10:00 Height 5 ft 7 in Weight 249 lb 1.957 oz BMI 39.0 BP 120/60 Blood Pressure Location Rt brachial Position Sitting Pulse 84 Pulse Source Pulse Oximeter Pulse Oximetry (%) 96 Oxygen Delivery Method Room Air Intake Visit Reasons: DMT2 Follow-Up Intake Note: Patient present today for Type 2 Diabetes Mellitus follow-up: Last Diabetic eye exam: 02/2024 Last Podiatry Visit: 05/2024 Random Glucose: 124 mg/dL HgA1C: 7.7 % , 01/02/2025 Oracle Manager Required: No Accompanied by: Self / Same As Patient Allergies No Known Allergies Allergy (Verified 01/02/25 10:12) Medication List - Last Reconciled 01/02/25 by Edie Savage PA-C atenolol 50 mg PO DAILY atorvastatin 20 mg PO BEDTIME blood sugar diagnostic (Accu-Chek Guide test strips) use 2x daily As directed to monitor blood glucose blood-glucose meter (Accu-Chek Guide Glucose Meter) Use daily As directed to monitor blood glucose blood-glucose sensor (Dexcom G7 Sensor device) Use daily As directed to monitor glucose. change q 10 days blood-glucose,human services manager,cont (Dexcom G7 Family Consumer Science Teacher) use daily As directed to monito r blood glucose celecoxib 400 mg PO BID PRN insulin degludec (Tresiba FlexTouch U-200 insulin) 44 units (0.22 mL) subcut DAILY 30 days insulin lispro (Humalog KwikPen (U-100) Insulin) 4 units (0.04 mL) subcut TID lancets (Accu-Chek Softclix Lancets) use bid As directed to monitor blood glucose lisinopril 10 mg PO DAILY oxycodone myristate CR-ER (Xtampza ER) 9 mg PO Q12H tirzepatide (Mounjaro) 7.5 mg (0.5 mL) subcut QWEEK HPI HPI DMT2 Follow-Up: Details: Patient is a 64-year-old female with a significant past medical history of overactive bladder, chronic pain syndrome, PVD, lower leg edema, varicose veins, kidney stones, hyperlipidemia, type 2 diabetes presenting today for a follow up regarding her diabetes. Endo: Dm- Her a1c was 8.5. She was dx with t2dm in her early 30s. She is currently on Tresiba 60 units, humalog 6 units and mounjaro 5 mg weekly. She is tolerating the mounjaro well. She states that she does not like having to inject lantus twice a day. She feels it is ineffective. cgm- Dexcom download shows average glucose 135 (was 220), GMI 6.6% (was 8.6%). Very hyperglycemic 0% (was 23%), hyperglycemic 9% (was 56%), in range 91% (was 21%), 0% hypoglycemia She used to be on actos and states does not know why she was taken off, she used to be on metformin but had too much GI upset. She states that previously she thinks she was on glimepiride and had hypoglycemia. She was on glipizide recently but caused hypogylcemia. Did not tolerate trulicity with nausea and felt ineffective. ozempic caused n/v. She states that she has had diabetic training and met with an educator. CV: Blood pressure today is 120/60. [facility] Medical History Lupus (systemic lupus erythematosus) History of chronic back pain Type 2 diabetes mellitus with hyperglycemia Hx of hyperlipidemia Hx of essential hypertension Surgical History History of back surgery Family History Father Lupus (systemic lupus erythematosus) Mother Diabetes mellitus Maternal Aunt Diabetes mellitus Heart disease Social History Alcohol intake: current Alcohol intake frequency: does not drink Patient Tobacco Use Status: Never used Tobacco Physical Exam Vital Signs: Last Vital Signs Pulse 84 01/02/25 10:00 BP 120/60 01/02/25 10:00 Pulse Ox 96 01/02/25 10:00 Oxygen Delivery Method Room Air 01/02/25 10:00 BMI result Body Mass Index 39.0 Const Orientation/consciousness: patient oriented x3 HEENT Ears: hearing grossly normal bilaterally Neck Thyroid: Thyroid normal Lymphatic: no lymphadenopathy noted Resp Auscultation: clear to auscultation bilaterally Cardio Rate: regular rate Rhythm: regular rhythm Heart sounds: S1 normal heart sound present and S2 normal heart sound present Skin General skin exam: no rashes or lesions noted Neuro General: patient oriented x3, gait normal and no focal motor deficits Results AMB Hemoglobin A1c AMB Hemoglobin A1c 7.7 % Last Edit by ANJELICA Greer on 01/02/25 10:17 Results Reviewed Results Reviewed: Laboratory Last Values Glucose (Clinic) 124 mg/dL (60-115) H 01/02/25 10:06 Hgb A1c (Clinic) 7.7 % (4.0-6.0) H 01/02/25 10:16 Laboratory Tests 09/15/24 11/10/24 11:06 11:29 Glucose (Clinic) 230 H Hgb A1c (Clinic) 8.5 H Assessment & Plan Assessment & Plan (1) Uncontrolled type 2 diabetes mellitus with hyperglycemia, with long-term current use of insulin: Code(s): E11.65 - Type 2 diabetes mellitus with hyperglycemia; Z79.4 - weave defect charting clerk (current) use of insulin Category: Medical Plan: reduce tresiba to 44 units reduce humalog to 4 units increase mounjaro to 7.5 (2) Hypertension: Code(s): I10 - Essential (primary) hypertension Category: Medical Plan: wnl continue current plan (3) Hyperlipidemia: Code(s): E78.5 - Hyperlipidemia, unspecified Category: Medical Plan: will monitor Orders: Orders AMB Hemoglobin A1c Today E11.65 - Type 2 diabetes mellitus with hyperglycemia, Z79.4 - jail (current) use of insulin Medications: New tirzepatide (Mounjaro) 7.5 mg (0.5 mL) subcut QWEEK 2 mL 3RF Changed From insulin degludec (Tresiba FlexTouch U-200 insulin) 80 units (0.4 mL) subcut DAILY 30 days 12 mL 4RF To insulin degludec (Tresiba FlexTouch U-200 insulin) 44 units (0.22 mL) subcut DAILY 9 mL 4RF 30 days From insulin lispro (Humalog KwikPen (U-100) Insulin) with breakfast, lunch and dinner 8 units (0.08 mL) subcut TID 15 mL 3RF To insulin lispro (Humalog KwikPen (U-100) Insulin) with breakfast, lunch and dinner 4 units (0.04 mL) subcut TID 15 mL 3RF Discontinued insulin glargine U-300 conc (Toujeo Max U-300 SoloStar) Discontinued Reason: Doctor's Order 80 units (0.2667 mL) subcut DAILY 30 days 12 mL 5RF tirzepatide (Mounjaro) Discontinued Reason: Doctor's Order 5 mg (0.5 mL) subcut QWEEK 2 mL 5RF Patient Instructions: reduce tresiba to 44 units reduce humalog to 4 units increase mounjaro to 7.5 short term follow up due to lows call me sooner if needed Coding Level of Care Code Est Pt Level 4 (40205) Complex EM visit Add On G2211 Diagnoses Uncontrolled type 2 diabetes mellitus with hyperglycemia, with long-term current use of insulin E11.65; Z79.4 Hypertension I10 Hyperlipidemia E78.5
[2025-01-02 10:00] VITALS: BP 120/60; PULSE 84; O2SAT 96; BMI 39.0
--- OUTSIDE RECORDS SUMMARY | 2025-01-02 10:05 | XMS_ITS | Encounter Summary ---
Author Organization [facility] Address [address] [place] [address] Care Team Providers Care Patient Account Analyst Name Role Phone Brandyn Arriaga MD Unavailable Francisco Scales MD Unavailable [phone] Gianfranco Reynoso MD Unavailable Unavailable Efe Sanabria DO Unavailable Bryce Lema DPM Unavailable Dominique Nicholas MD Primary Care Provider [phone] Anne Marie Chance MD Unavailable [phone] Ishmael Shaw OD Unavailable [phone] Amaya Cardenas RN Unavailable Robel Camarena DO Unavailable [phone] RadhaadanteEvano DO Primary Care Provider Eva Camarenano DO Unavailable [phone] Anne Marie ShaferW Unavailable [phone] Encounter Details Date Type Department Care Team (Late st Contact Info) Description 01/08/2019 Scanned Document [address] [address] Provider, Generic Social History Tobacco [...] on filedocumented in this encounter Care Teams Patient Account Analyst Relationship Specialty Start Date End Date Dominique Nicholas MD [address] [facility] [address] [place] [address] PCP - General Internal Medicine 06/21/17 04/18/20 Robel Camarena DO [address] [place] [address] PCP - General Internal Medicine 04/19/20 Robel Camarena DO [address] [place] [address] PCP - [employer] Medicare Attributed 11/02/20 09/17/24 Brandyn Arriaga MD [address] [facility] [address] [place] [address] Consulting Provider Gastroenterology 06/04/15 Francisco Scales MD [address] [place] [address] Consulting Provider Cardiovascular Disease 06/04/15 Gianfranco Reynoso MD [address] [place] [address] Consulting Provider Endocrinology 07/06/15 Efe Sanabria DO [address] [facility] [address] [place] [address] Consulting Provider Pulmonary Disease 10/11/15 Bryce Lema DPM [id number] [place] [address] Consulting Provider Podiatry 05/22/17 Anne Marie Chance MD [id number] [place] [address] Consulting Provider Rheumatology 05/07/18 Ishmael Shaw OD [address] [place] [address] [address] [place] [address] Consulting Provider Optometry 07/22/18 Amaya Cardenas, RN [address] [facility] [address] [place] [address] [facility] Community Family Counselor 02/27/19 06/01/19 Robel Camarena DO [address] [place] [address] Internal Medicine 02/16/20 Anne Marie Shafer, [employer] OPERATOR [address] [place] [address] [facility] Community Family Counselor 03/02/22 03/02/22 Rell Howe MD Consulting Provider Anesthesiology 10/11/15 batsheva chow [facility] 11/06/16 06/29/19 documented as of this encounter
--- OUTSIDE RECORDS SUMMARY | 2025-01-02 10:05 | XMS_ITS | Clinical Summary ---
Author Organization [facility] Address [address] [place] [phone] Phone Care Team Providers Care Book Or Script Editor Name Role Phone Robel Liu DO Primary Care Provider [phone] Allergies Active Allergy Reactions Criticality Noted Date [...] Intolerance Latex Medium 01/11/2023 Other Reaction(s): Rash/Dermatitis Semaglutide Nausea And Vomiting 11/11/2024 Pregabalin High 10/11/2015 Other reaction(s): Other (See [...] ER) 9 mg capsule,sprinkle ,ER 12hr tmprr Activ e lidocaine-priloc luann (EMLA) 2.5-2.5 % cream Apply [...] Take 1 Tablet by mouth. 6 Active oxyCODONE-acetam inophen (PERCOCET) 10-325 mg per tablet Take 1 Tablet by mouth. 7 Active Lactobacillus acidophilus (PROBIOTIC ORAL) Take by mouth. Active blood sugar diagnostic (OneTouch Verio test strips) test stripIndications :Type 2 diabetes mellitus with hyperglycemia, with long-term current use of insulin ([facility] V24, [facility] V28) USE DIRECTED TO CHECK SUGARS THREE TIMES A DAY 200 strip 2 5 Active Active Problems Problem Noted Date Diagnosed Date Morbid obesity with BMI of 4 0.0-44.9, adult ([facility] V24, [facility] V28) 04/01/2024 Type 2 diabetes mellitus wit h hyperglycemia, with long-term current use of insulin ([facility] V24, [facility] V28) 04/01/2024 Kidney stones 09/07/2023 Encounters Date Type Department Care Team Description 12/02/2024 10:15 AM EDT Office Visit [facility] Hematology Oncology [address] [place] [address] Marc Villavicencio MD Granulocytosis (Primary Dx) 11/11/2024 10:00 AM EDT Office Visit [facility] Hematology Oncology [address] [place] [address] Marc Villavicencio MD Leukocytosis, unspecified type from Last 3 Months Surgical History Surgery Date Site/Laterality Comments BACK SURGERY LUMBAR FUSION BREAST LUMPECTOMY FOOT FRACTURE SURGERY Medical History Medical History Date Comments Diabetes mellitus ([facility] V24, [facility] V28) Hyperlipidemia Hypertension Lupus (systemic lupus erythematosus) ([facility] V2 4, [facility] V28) EMILY (obstructive sleep apnea) Osteomyelitis ([facility] V24, [facility] V28) Asthma Cystitis Social History Tobacco Use Types Packs/Day Years Used Date Smoking Tobacco: Never Smokeless Tobacco: Never Tobacco Cessation:Counseling Given: Not Answered Alcohol Use Standard Drinks/Week Comments Yes 0 (1 standard drink = 0.6 oz pur e alcohol) social Comments Unknown Sex and Gender Information Value Date Recorded Sex Assigned at Female 09/25/2024 11:03 AM EDT Legal Sex Female 1:58 PM EST Gender Identity Female 09/25/2024 11:03 AM EDT Sexual Orientation Straight 09/25/2024 11 :03 AM EDT Obstetrics History Last Filed Vital Signs Vital Sign Reading Time Taken Comments Blood Pressure 124/53 12/02/2024 10:10 AM EDT Pulse 68 12/02/2024 10:10 AM EDT Temperature 36 C (96.8 F) 12/02/2024 10:10 AM EDT Respiratory Rate - - Oxygen Saturation 100% 12/02/2024 10:10 AM EDT Inhaled Oxygen Concentration - - Weight 111 kg (245 lb) 12/02/2024 10:10 AM EDT Height 170.2 cm (5' 7 ) 11/11/2024 10:15 AM EDT Body Mass Index 38.37 11/11/2024 10:15 AM EDT Plan of Treatment Health Maintenance Due Date Last Done Comments Diabetes: Annual Foot Exam 10/30/1969 Diabetes: Annual Retina Eye Exam 10/30/1969 Cervical Cancer Screening: Pap Smear 10/30/1980 Pneumococcal Vaccine: 50+ Years (2 of 2 - PCV) 05/09/2002 05/09/2001 RSV Immunization Adult Patients (1 - Risk 60-74 years 1-dose series) 2019 Colorectal Cancer Screening: Colonoscopy 04/19/2022 Hepatitis C Screening 04/19/2022 Medicare Annual Wellness Visit 04/19/2022 Osteoporosis Screening (Bone Density Screening) 04/19/2022 Social Influencers of Health Screening 04/19/2022 Breast Cancer Screening 03/04/2023 03/04/2021 DTaP,Tdap,and Td Vaccines (2 - Td or Tdap) 05/23/2023 05/23/2013 Diabetes: Annual Urine Albumin-Creatinine Ratio (uACR) 04/01/2024 04/19/2020, 04/19/2020, 03/19/2019, Additional history exists Diabetes: Blood Sugar Control Test (HGBA1C) 04/01/2024 03/07/2023 Depression Screening 05/21/2024 COVID-19 Vaccine (6 - Pfizer risk season) 2024 03/10/2024, 02/19/2023, 09/20/2021, Additional history exists Falls Risk Assessment 10/30/2024 Influenza Vaccine (#1) 2025 , 01/27/2023, 05/03/2022, Additional history exists Diabetes: Annual GFR (Glomerular Filtration Rate) 09/18/2025 09/18/2024, 03/07/2023 Hypertension/CHF/CAD Annual BMP Blood Test 09/18/2025 09/18/2024, 03/07/2023 Cholesterol Screening (Lipid Panel) 09/18/2029 09/18/2024 Zoster Vaccines Completed 01/03/2022, 09/20/2021 HIB Vaccines Aged Out No longer eligi [...] Procedure Name Priority Date/Time Associated Diagnosis Comments CBC WITH AUTO DIFFERENTIAL Routine 11/11/2024 10:43 AM EDT Leukocytosis, unspecified type SEDIMENTATION RATE Routine 11/11/2024 10 :43 AM EDT Leukocytosis, unspecified type ALIRIO IFA WITH TITER AND PATTERN Routine 11/11/2024 10:43 AM EDT Leukocytosis, unspecified type CBC AND DIFFERENTIAL Routine 11/11/2024 10:43 AM EDT Leukocytosis, unspecified type BASIC METABOLIC PANEL Routine 09/18/2024 11:56 AM EDT Laboratory tests ordered as part of a complete physical exam (CPE) BMI 33.0-33.9,adult DM (diabetes mellitus) ([facility]/HCC V24, CMS/HCC V28) HLD (hyperlipidemia) LIPID PANEL WITH REFLEX TO DIRECT LDL Routine 09/18/2024 11:56 AM EDT Laboratory tests ordered as part of a complete physical exam (CPE) BMI 33.0-33.9,adult DM (diabetes mellitus) (CMS/HCC V24, CMS/HCC V28) HLD (hyperlipidemia) HEMOGLOBIN A1C Routine 03/07/2023 [facility] SCREENING DIGITAL Routine 03/04/2021 1:55 PM EDT Encounter for screening mammogram for malignant neoplasm of breast HM URINE ALBUMIN CREATININE RATIO Routine 04/19/2020 from Last 3 Months or Most Recently Relevant to Health Maintenance Results * ALIRIO IFA with titer and pattern (11/11/2024 10:43 AM EDT) ALIRIO Negative Negative 11/12/2024 2:20 PM EDT [facility] Blood Venous blood specimen / Unknown Venipuncture / Unknown 11/11/2024 10:43 AM EDT 11/11/2024 12:02 PM EDT Narrative [facility] - 11/12/2024 2:20 PM EDT ALIRIO appears negative, however there is a strong cytoplasmic staining present, which may mask a low-level positive ALIRIO. Testing for other autoantibodies may be useful if clinically indicated. us Marc Villavicencio MD LAB BLOOD ORDERABLES Final R esult [facility] [address] [place] [address], * (ABNORMAL) CBC auto differential (11/11/2024 10:43 AM EDT) WBC 14.8(H) 4.8 - 10.8 K/mcL LAB HEMETOLOGY METHOD 11/11/2024 12:36 PM EDT [facility] RBC 5.00(H) 3.80 - 4.80 M/mcL LAB HEMETOLOGY METHOD 11/11/2024 12:36 PM EDT [facility] Hemoglobin 14.8 11.5 - 16.0 g/dL LAB HEMETOLOGY METHOD 11/11/2024 12:36 PM EDT [facility] Hematocrit 45.5 35.0 - 47.0 % LAB HEMETOLOGY METHOD 11/11/2024 12:36 PM EDT [facility] MCV 91.9 79.0 - 98.0 FL LAB HEMETOLOGY METHOD 11/11/2024 12:36 PM EDT [facility] MCH 29.9 27.0 - 32.0 pcg LAB HEMETOLOGY METHOD [facility] MCHC 32.5 32.0 - 37.0 g/dL LAB HEMETOLOGY METHOD 11/11/2024 12:36 PM [facility] RDW 13.9 11.0 - 15.0 % LAB HEMETOLOGY METHOD 11/11/2024 12:36 PM [facility] Platelets 180 130 - 400 K/mcL LAB HEMETOLOGY METHOD 11/11/2024 12:36 PM [facility] MPV 12.9(H) 7.0 - 11.0 FL LAB HEMETOLOGY METHOD 11/11/2024 12:36 PM [facility] NRBC 0.0 <1.0 % LAB HEMETOLOGY METHOD 11/11/2024 12:36 PM [facility] NRBC Absolute 0.00 <0.10 K/mcL LAB HEMETOLOGY METHOD 11/11/2024 12:36 PM [facility] Neutrophils Relative 56.0 % LAB HEMETOLOGY METHOD 11/11/2024 12:36 PM [facility] Lymphocytes Relative 32.9 % LAB HEMETOLOGY METHOD 11/11/2024 12:36 PM [facility] Monocytes Relative 10.1 % LAB HEMETOLOGY METHOD 11/11/2024 12:36 PM [facility] Eosinophils Relative 0.0 % LAB HEMETOLOGY METHOD 11/11/2024 12:36 PM [facility] Basophils Relative 0.3 % LAB HEMETOLOGY METHOD 11/11/2024 12:36 PM [facility] Immature Granulocytes Relative 0.7 % LAB HEMETOLOGY METHOD 11/11/2024 12:36 PM [facility] Neutrophils Absolute 8.26(H) 1.50 - 7.00 K/mcL LAB HEMETOLOGY METHOD 11/11/2024 12:36 PM [facility] Lymphocytes Absolute 4.87 1.00 - 5.00 K/mcL LAB HEMETOLOGY METHOD 11/11/2024 12:36 PM EDT [facility] Monocytes Absolute 1.49(H) 0.20 - 1.00 K/[facility] LAB HEMETOLOGY METHOD 11/11/2024 12:36 PM EDT [facility] Eosinophils Absolute 0.00 0.00 - 0.50 K/[facility] HEMETOLOGY METHOD 11/11/2024 12:36 PM EDT [facility] Basophils Absolute 0.05 0.00 - 0.20 K/[facility] HEMETOLOGY METHOD 11/11/2024 12:36 PM EDT [facility] Immature Granulocytes Absolute 0.11(H) 0.00 - 0.03 K/[facility] HEMETOLOGY METHOD 11/11/2024 12:36 PM EDT [facility] Blood Venous blood specimen / Unknown Venipuncture / Unknown 11/11/2024 10:43 AM EDT 11/11/2024 12:01 PM EDT Marc Villavicencio MD LAB BLOOD ORDERABLES Final R esult [facility] [address] [place] [address], * (ABNORMAL) Sedimentation rate (11/11/2024 10:43 AM EDT) Sed Rate 31(H) 0 - 30 mm/hr LAB HEMETOLOGY METHOD 11/11/2024 12:53 PM EDT [facility] Blood Venous blood specimen / Unknown Venipuncture / Unknown 11/11/2024 10:43 AM EDT 11/11/2024 12:01 PM EDT us Marc Villavicencio MD LAB BLOOD ORDERABLES Final R esult [facility] [address] [place] [address], [place] [phone] * (ABNORMAL) Lipid panel with reflex to direct LDL (09/18/2024 11:56 AM EDT) Cholesterol 137 0 - 200 mg/dL LAB CHEMISTRY METHOD 09/18/2024 4:48 PM EDT [facility] Triglycerides 198(H) 0 - 150 mg/dL LAB CHEMISTRY METHOD 09/18/2024 4:48 PM EDT [facility] HDL 37(L) >=40 mg/dL LAB CHEMISTRY METHOD 09/18/2024 4:48 PM EDT [facility] LDL Calculated 60 0 - 100 mg/dL LAB CHEMISTRY METHOD 09/18/2024 4:48 PM EDT [facility] VLDL Cholesterol Nicolás 39.6 mg/dL LAB CHEMISTRY METHOD 09/18/2024 4:48 PM EDT [facility] Non HDL Chol. (LDL+VLDL) 100 <145 mg/dL LAB CHEMISTRY METHOD 09/18/2024 4:48 PM EDT [facility] Chol/HDL Ratio 3.7 0.0 - 4.4 LAB CHEMISTRY METHOD 09/18/2024 4:48 PM EDT [facility] Blood Venous blood specimen / Unknown Venipuncture / Unknown 09/18/2024 11:56 AM EDT 09/18/2024 11:56 AM EDT Moody Lozano LAB BLOOD ORDERABLES Final Resul t [facility] [address] [place] [address], [place] [phone] * (ABNORMAL) Basic metabolic panel (09/18/2024 11:56 AM EDT) Sodium 138 133 - 145 mmol/L LAB CHEMISTRY METHOD 09/18/2024 4:45 PM EDT [facility] Potassium 4.0 3.5 - 5.5 mmol/L LAB CHEMISTRY METHOD 09/18/2024 4:45 PM EDT [facility] Chloride 106 96 - 110 mmol/L LAB CHEMISTRY METHOD 09/18[facility]2024 [facility] CO2 22 21 - 32 mmol/L LAB CHEMISTRY METHOD 09/18/2024 4:45 PM EDT [facility] Anion Gap 10 3 - 11 LAB CHEMISTRY METHOD 09/18/2024 4:45 PM EDT [facility] Glucose 161(H) 70 - 100 mg/dL LAB CHEMISTRY METHOD 09/18[facility]2024 4[facility] BUN 15 5 - 25 mg/dL LAB CHEMISTRY METHOD 09/18/2024 4:45 PM [facility] Creatinine 0.73 0.50 - 1.10 mg/dL LAB CHEMISTRY METHOD 09/18/2024 4:45 PM EDT [facility] eGFR 92 >=60 mL/min/1. 73m2 LAB CHEMISTRY METHOD 09/18/2024 4:45 PM T [facility] Comment:Calculation based on the Chronic Kidney Disease Epidemiology Collaboration (CKD-EPI) equation refit without adjustment for race. BUN/Creatinine Ratio 20.5 LAB CHEMISTRY METHOD 09/18/2024 4:45 PM [facility] Calcium 9.2 8.5 - 10.5 mg/dL LAB CHEMISTRY METHOD 09/18/2024 4:45 PM [facility] Blood Venous blood specimen / Unknown Venipuncture / Unknown 09/18/2024 11:56 AM EDT 09/18/2024 11:56 AM EDT us Moody Lozano LAB BLOOD ORDERABLES Final Resul t [facility] [address] [place] [address], [place] [phone] * (ABNORMAL) Hemoglobin A1c (03/07/2023) Hemoglobin A1C 6.7(A) <=6.5 % Blood Venous blood specimen / Unknown us Historical Provider LAB BLOOD ORDERABLES Marycruz l Result * [facility] SCREENING DIGITAL (03/04/2021 1:55 PM EDT) Anatomical Region Laterality Modality Mammography 02/23/2021 9:35 AM EDT Narrative 03/04/2021 1:55 PM EDT [facility] Diagnostic Imaging Department [address] [place] [address] Patient: RONEY MERECDESO.B./Age/Sex: 1960 - 60 - F Unit#: [id number] Location/Status: [facility] CLI Mnemonic/Ordering Site: [facility] Ordering Physician: ROBEL LIU MD [facility] Screening Digital - 02/23/21 - 1014 INDICATION: SCREENING COMPARISON: No prior studies are available for comparison. TECHNIQUE: CC and MLO views of the breasts were obtained, using full field digital mammography with 3D tomosynthesis views in the MLO projection. Computer aided detection with the Simtrol 7.2-H was employed. FINDINGS: The breasts contain scattered fibroglandular tissues. No suspicious masses, suspicious microcalcifications, or areas of architectural distortion are identified. There are no secondary signs of breast malignancy. Rare benign-appearing breast calcifications are present bilaterally. IMPRESSION: No specific mammographic evidence of breast malignancy. Lack of an imaging correlate should not deter or delay biopsy of a clinically significant palpable finding. BI-RADS - Category 2 - Benign finding 3342F, 7025F Annual screening mammography is recommended. Patient entered into a reminder system with a target date for the next mammogram. ([id number] / [id number]) , [id number] Dictating Physician: TERESA GREWAL MD Electronically Signed by: TERESA GREWAL MD Dic Date/Time: 03/04/21 1356 Sign date/Time: 03/04/21 1358 Procedure Note Teresa Grewal MD - 05/10/2022 [facility] Diagnostic Imaging Department [address] [place] [address] Patient: EULALIA MERCEDESJASON Zepeda.O.B./Age/Sex: 1960 - 60 - F Unit#: [id number] Location/Status[facility] Mnemonic/Ordering Site: [facility] Ordering Physician: ROBEL LIU MD [facility] Screening Digital - 02/23/21 - 1014 INDICATION: SCREENING COMPARISON: No prior studies are available for comparison. TECHNIQUE: CC and MLO views of the breasts were obtained, using full field digital mammography with 3D tomosynthesis views in the MLO projection. Computer aided detection with the Simtrol 7.2-H was employed. FINDINGS: The breasts contain [...] a target date for the next mammogram. [id number]) , [id number] Dictating Physician: TERESA GREWAL MD Electronically Signed by: TERESA GREWAL MD Dic Date/Time: 03/04/21 1357 Sign date/Time: 03/04/21 5451 Robel Liu DO IMG BI PROCEDURES Final Resul t * Urine Albumin Creatinine Ratio (04/19/2020) Urine Albumin Creatinine Ratio abstracted Historical Provider HEALTH MAINTENANCE Final Result from Last 3 Months or Most Recently Relevant to Health Maintenance Insurance [employer] MEDICARE [place] [employer] MEDICARE [place] - [place] Care Teams Book Or Script Editor Relationship Specialty Start Date End Date Robel Liu DO [address] [place] [phone] PCP - General Internal Medicine 09/25/24
--- OUTSIDE RECORDS SUMMARY | 2025-01-02 10:05 | XMS_ITS | Clinical Summary ---
Author Organization [facility] Address [address] [place] [address] Care Team Providers Care Technical Photographer Name Role Phone Dominique Nicholas MD Primary Care Provider [phone] Allergies Active Allergy Reactions Criticality Noted Date [...] this topic Medical Devices Implanted Type Area Associate Director Of Sales Device Identifier Shelf Expiration Date Model / Serial / Lot Becket 3.5mm Insite Ft Ti W\(2) Strands Of Size 0 Needled Fo - [id number] - [id number] Implanted:Qty: 1 on 12/24/2015 by Bryce Lema DPM [place] [facility] Right: Ankle [employer] 12/18/2017 [id number] / / [id number] Becket 4.5mm Insite Ft Ti W\(2) Strands Of Size 2 Needled Fo - [id number] - [id number] Implanted:Qty: 1 on 12/24/2015 by Bryce Lema DPM [place] [facility] Right: Ankle [employer] 11/22/2016 [id number] / / [id number] [employer]ill Injectable Bone Substitute Material 3cc - [id number] - [id number] Implanted:Qty: 1 on 12/24/2015 by Bryce Lema DPM [place] [facility] Right: Ankle [employer] 02/17/2018 [id number] / / [id number] Advance Directives For more information, please contact: [phone] Latest Code Status on File Code Status Date Activated Date Inactivated Comments Full Code 12/24/2015 8:14 AM 12/24/2015 10:27 PM This c ode status was ascertained in the following way: discussion with patient. Care Teams Technical Photographer Relationship Specialty Start Date End Date Dominique Nicholas MD [address] [place] [address] PCP - General Internal Medicine 12/23/15
--- OUTSIDE RECORDS SUMMARY | 2025-01-02 10:05 | XMS_ITS | Clinical Summary ---
Author Organization [employer] [facility] Address [address] [place] [address] Care Team Providers Care Retail Support Manager Name Role Phone Dominique Nicholas MD Primary Care Provider [phone] Allergies Active Allergy Reactions Criticality Noted Date [...] Adults 18 yrs or above (or HM Modifier)([facility]) 10/30/1977 Hepatitis C Virus Infection in Adolescents and Adults: Screening (or Modifier) ([facility]) 10/30/1977 EMILY Screening: Once using ST OP-BANG Questionnaire for Adults with Conditions or high BMI([facility]) 10/30/1977 SDOH Screening Reminder: Debby lindsey for all adults ([facility]) 10/30/1977 Tobacco Smoking Cessation: i n Adults excluding Women: Behavioral and Pharmacotherapy Interventions ([facility]) 10/30/1977 DTaP/Tdap/Td Vaccines ([facility]) (1 - Tdap) 10/30/1978 Cervical Cancer Screenin 1-65 yrs of age (or Modifier) 10/30/1980 Cervical Cancer Screening: P ap every 3 yrs pts age 21-65 10/30/1980 Cervical Cancer: Pap Screeni ng with Modifier timing ([facility]) 10/30/1980 Cervical Cancer: hrHPV alone or with cotesting Pap for Pts 30-65yrs screening every 5yrs ([facility]) 10/30/1980 Colorectal Cancer Screening 45 -75 Yrs (or HM Modifier ) 10/30/2004 Colorectal Cancer: FLEXIBLE SIGMOIDOSCOPY Screening every 5 yrs 10/30/2004 Colorectal Cancer: Fecal Imm unochemical Test (FIT) Annually [facility] 10/30/2004 Colorectal Cancer: High-sens itivity gFOBT Screening Annually [facility] 10/30/2004 Colorectal Cancer: Stool Col oguard Screening every 3 yrs 10/30/2004 Colorectal Cancer:CT Colonography Screening every 5 yr s 10/30/2004 Breast Cancer: Screening Debby ually age 50-74 yrs (or HM Modifier)([facility]) 10/30/2009 Pneumococcal Vaccination Scr eening: Patients 50+ yrs of age ([facility]) (1 of 1 - PCV) 10/30/2009 Zoster/Shingles Vaccine Seri es Screening: Adults aged 18+ yrs (or HM Modifiers)([facility]) (1 of 2) 10/30/2009 COVID-19 Vaccine Screening: Initial Series and Booster Status ([facility]) (2023- season) 2024 Osteoporosis Screening to Pr event Fractures: Women aged 65 years+ ([facility]) 10/30/2024 Flu Vaccination: Ages 65+: Y early High Dose Recommended (or Modifier)([facility]) 12/19/2024 RSV Vaccines (1 - 1-dose 75+ series) 10/30/2034 Medical Devices Not on file Insurance [employer] MEDICARE Care Teams Retail Support Manager Relationship Specialty Start Date End Date Dominique Nicholas MD PCP - Psychological Aide 12/01/17
--- OUTSIDE RECORDS SUMMARY | 2025-01-02 10:05 | XMS_ITS | Encounter Summary ---
Author Organization Michelle Moscoso [facility] Address [address] [place] [address] Care Team Providers Care Woods Boss Name Role Phone Dominique Nicholas MD Primary Care Provider Dominique Nicholas MD Primary Care Provider [phone] Encounter Details Date Type Department Care Team (Late st Contact Info) Description 07/03/2016 Documentation [facility] [address] [place] [address] Tabitha Saldana MSW [facility] Social History Tobacco Use Types Packs/Day Years [...] on filedocumented in this encounter Care Teams Woods Boss Relationship Specialty Start Date End Date Dominique Nicholas MD [address] [place] [address] PCP - General Internal Medicine 05/16/16 07/25/16 Dominique Nicholas MD [address] [place] [address] PCP - General Internal Medicine 12/05/16 documented as of this encounter
[2025-01-02 10:11] LABS: Glucose, Whole Blood 124 mg/dL (60-115)
== END 2025-01-02 10:25 | disposition home or self-care (01) ==
PROVIDERS: PCP Internal Medicine; Visit Provider Physician Assistant
DX: E11.65 Type 2 diabetes mellitus with hyperglycemia (principal); Z79.4 Long term (current) use of insulin; I10 Essential (primary) hypertension; E78.5 Hyperlipidemia, unspecified

== ENCOUNTER → 2025-01-02 09:51 | Outpatient (BNVA) | payer MEDICARE, SELFPAY | PROVIDERS: PCP Internal Medicine; Visit Provider Physician Assistant | DX: E11.65 Type 2 diabetes mellitus with hyperglycemia (principal); E78.5 Hyperlipidemia, unspecified; I10 Essential (primary) hypertension; Z79.4 Long term (current) use of insulin | CPT/HCPCS: 82947; 83036; 99212 ==

== ENCOUNTER 2025-02-06 10:10 | Outpatient (AMB) | payer MEDICARE, SELFPAY ==
[2025-02-06 10:12] VITALS: BP 118/68; PULSE 70; O2SAT 99; BMI 37.6
--- NOTE | 2025-02-06 10:12 | A.OFFVIS_ITS ---
Vital Signs 02/06/25 10:12 Height 5 ft 7 in Weight 239 lb 13.807 oz BMI 37.6 BP 118/68 Blood Pressure Location Lt brachial Position Sitting Pulse 70 Pulse Source Pulse Oximeter Pulse Oximetry (%) 99 Oxygen Delivery Method Room Air Intake Visit Reasons: Low bs Intake Note: Patient present today for Type 2 Diabetes Mellitus Last Diabetic eye exam: Last exam was 02/2024 and has upcoming appt 02/2025 Last Podiatry Visit: Last exam was 08/2024 Random Glucose: 151 mg/dl HgA1C: 7.7% 01/02/25 Billing Customer Service Representative Required: No Accompanied by: Self / Same As Patient Allergies No Known Allergies Allergy (Verified 02/06/25 10:17) Medication List - Last Reconciled 02/06/25 by Edie Savage PA-C atenolol 50 mg PO DAILY atorvastatin 20 mg PO BEDTIME blood sugar diagnostic (Accu-Chek Guide test strips) use 2x daily As directed to monitor blood glucose blood-glucose meter (Accu-Chek Guide Glucose Meter) Use daily As directed to monitor blood glucose blood-glucose sensor (Dexcom G7 Sensor device) Use daily As directed to monitor glucose. change q 10 days blood-glucose,comparative sociology professor,cont (Dexcom G7 [employer] Engineer) use daily As directed to monitor blood glucose celecoxib 400 mg PO BID PRN insulin degludec (Tresiba FlexTouch U-200 insulin) 30 units subcut DAILY lancets (Accu-Chek Softclix Lancets) use bid As directed to monitor blood glucose lisinopril 10 mg PO DAILY oxycodone myristate CR-ER (Xtampza ER) 9 mg PO Q12H tirzepatide (Mounjaro) 7.5 mg (0.5 mL) subcut QWEEK HPI HPI Low bs: Details: Patient is a 64-year-old female with a significant past medical history of overactive bladder, chronic pain syndrome, PVD, lower leg edema, varicose veins, kidney stones, hyperlipidemia, type 2 diabetes presenting today for a follow up regarding her diabetes. Endo: Dm- Her a1c was 7.7. She was dx with t2dm in her early 30s. She is currently on Tresiba 44 units, humalog 4 units and mounjaro 7.5 mg weekly. She is tolerating the mounjaro well. cgm- [employer] download shows GMI 6.6% (was 8.6%). Very hyperglycemic 0% (was 23%), hyperglycemic 5% (was 56%), in range 93% (was 21%), 2% hypoglycemia -recently has a couple low blood sugars. She states that it has happened a few times but her blood sugar has dropped in it usually is with prolonged periods of fasting. She states that she will use the Humalog and not eat that much and then a few hours later we will also notice that sometimes her blood sugars low. She used to be on actos and states does not know why she was taken off, she used to be on metformin but had too much GI upset. She states that previously she thinks she was on glimepiride and had hypoglycemia. She was on glipizide recently but caused hypogylcemia. Did not tolerate trulicity with nausea and felt ineffective. ozempic caused n/v. Lantus was ineffective and wearing off. She states that she has had diabetic training and met with an educator. CV: Blood pressure today is 118/68. On lisinopril 10 mg and atenolol 50 mg daily. Taking atorvastatin 20 mg. [facility] Medical History Lupus (systemic lupus erythematosus) History of chronic back pain Type 2 diabetes mellitus with hyperglycemia Hx of hyperlipidemia Hx of essential hypertension Surgical History History of back surgery Family History Father Lupus (systemic lupus erythematosus) Mother Diabetes mellitus Maternal Aunt Diabetes mellitus Heart disease Social History Alcohol intake: current Alcohol intake frequency: does not drink Patient Tobacco Use Status: Never used Tobacco Physical Exam Vital Signs: Last Vital Signs Pulse 70 02/06/25 10:12 BP 118/68 02/06/25 10:12 Pulse Ox 99 02/06/25 10:12 Oxygen Delivery Method Room Air 02/06/25 10:12 BMI result Body Mass Index 37.6 Const Orientation/consciousness: patient oriented x3 HEENT Ears: hearing grossly normal bilaterally Neck Thyroid: Thyroid normal Lymphatic: no lymphadenopathy noted Resp Auscultation: clear to auscultation bilaterally Cardio Rate: regular rate Rhythm: regular rhythm Heart sounds: S1 normal heart sound present and S2 normal heart sound present Skin General skin exam: no rashes or lesions noted Neuro General: patient oriented x3, gait normal and no focal motor deficits Assessment & Plan Assessment & Plan (1) Controlled type 2 diabetes mellitus with hypoglycemia, with long-term current use of insulin: Code(s): E11.649 - Type 2 diabetes mellitus with hypoglycemia without coma; Z79.4 - halfway (current) use of insulin Category: Medical Plan: reduce tresiba to 30 units stop humalog increase mounjaro to 10 mg (2) Hypertension: Code(s): I10 - Essential (primary) hypertension Category: Medical Plan: wnl continue current plan (3) Hyperlipidemia: Code(s): E78.5 - Hyperlipidemia, unspecified Category: Medical Plan: will monitor Medications: New glucagon 3 mg/actuation 3 mg intranasal ONCE PRN 2 ea 0RF hypoglycemia tirzepatide (Mounjaro) 10 mg (0.5 mL) subcut QWEEK 2 mL 4RF Changed From insulin degludec (Tresiba FlexTouch U-200 insulin) 30 units subcut DAILY To insulin degludec (Tresiba FlexTouch U-200 insulin) 30 units (0.15 mL) subcut DAILY 9 mL 3RF 30 days Discontinued tirzepatide (Mounjaro) Discontinued Reason: Doctor's Order 7.5 mg (0.5 mL) subcut QWEEK 2 mL 3RF Patient Instructions: increase mounjaro to 10 mg reduce tresiba to 30 units stop humalog call if any low blood sugars return in 1 month for sooner f/u due to low blood sugar Coding Level of Care Code Est Pt Level 4 (23494) Complex EM visit Add On G2211 Diagnoses Controlled type 2 diabetes mellitus with hypoglycemia, with long-term current use of insulin E11.649; Z79.4 Hypertension I10 Hyperlipidemia E78.5
[2025-02-06 10:24] LABS: Glucose, Whole Blood 151 mg/dL (60-115)
--- OUTSIDE RECORDS SUMMARY | 2025-02-06 10:44 | XMS_ITS | Encounter Summary ---
Author Organization [facility] Address [address] [place] [address] Care Team Providers Care Lace And Textiles Restorer Name Role Phone Dominique Nicholas MD Primary Care Provider Brandyn Arriaga MD Unavailable Francisco Scales MD Unavailable [phone] Misbah Niño MD Unavailable [phone] David Maxwell MD Unavailable [phone] Ming Alvarez MD Unavailable [phone] Lino Carpio MD Unavailable [phone] Gianfranco Reynoso MD Unavailable Unavailable Efe Sanabria DO Unavailable [phone] Shaka Lyman MD Unavailable [phone] Pcp, No Primary Care Provider UnavailDominique Simmons MD Primary Care Provider Pcp, No Primary Care Provider UnavailBryce Nayak DPM Unavailable Dominique Nicholas MD Primary Care Provider [phone] Anne Marie Chance MD Unavailable +[phone] [phone] Ishmael Shaw OD Unavailable [phone] Amaya Cardenas RN Unavailable Robel Camarena DO Unavailable [phone] KathyRobel freeman DO Primary Care Provider KathyRobel freeman DO Unavailable [phone] Anne Marie Shafer PATTERNMAKER ALL AROUND Unavailable [phone] Encounter Details Date Type Department Care Team (Late st Contact Info) Description 06/01/2015 Scanned Document [address] [phone] Provider, Generic Social History Tobacco Use Types [...] on filedocumented in this encounter Care Teams Lace And Textiles Restorer Relationship Specialty Start Date End Date Dominique Nicholas MD PCP - General Internal Medicine 03/31/15 07/09/16 Pcp, No PCP - General General Medicine 07/13/16 10/29/16 Dominique Nicholas MD PCP - General Internal Medicine 10/30/16 11/05/16 Pcp, No PCP - General General Medicine 11/06/16 06/20/17 Dominique Nicholas MD PCP - General Internal Medicine 06/21/17 04/18/20 Robel Camarena DO [address] [place] [address] PCP - General Internal Medicine 04/19/20 Robel Camarena DO [address] [place] [address] PCP - United Medicare Attributed 11/02/20 09/17/24 Brandyn Arriaga MD 85 [facility] [place] 1000 [place] [address] Consulting Provider Gastroenterology 06/04/15 Francisco Scales MD [address] [place] [address] Consulting Provider Cardiovascular Disease 06/04/15 Misbah Niño MD [address] [place] [address] Consulting Provider Physical Medicine and Rehabilitation 06/04/15 05/21/17 David Maxwell MD 85 [facility] [place] [address] [place] [address] Consulting Provider Neurology 06/04/15 05/21/17 Ming Alvarez MD [address] [place] [address] Consulting Provider Surgery, Bariatric 06/04/15 05/21/17 Lino Carpio MD 100 [place] [address] Consulting Provider Internal Medicine 06/04/15 12/12/18 Gianfranco Reynoso MD 100 [place] [address] Consulting Provider Endocrinology 07/06/15 Efe Sanabria DO 85 [facility] 923 [place] [address] Consulting Provider Pulmonary Disease 10/11/15 Shaka Lyman MD 6 [facility] [address] [place] [address] Consulting Provider Gastroenterology 10/11/15 12/12/18 Bryce Lema DPM Consulting Provider Podiatry 05/22/17 Anne Marie Chance MD Consulting Provider Rheumatology 05/07/18 Ishmael Shaw OD [address] [place] [address] Consulting Provider Optometry 07/22/18 Amaya Cardenas, RN [address] [facility] 4 [place] [address] ICP Community Paradichlorobenzene Machine Operator 02/27/19 06/01/19 Robel Camarena DO [address] [place] [address] Internal Medicine 02/16/20 Anne Marie Shafer, [facility] [address] [place] [address] ICP Community Paradichlorobenzene Machine Operator 03/02/22 03/02/22 Rell Howe MD Consulting Provider Anesthesiology 10/11/15 KELLEN GEE MD [address] [place] [address] Rheumatology 03/22/16 05/21/17 batsheva chow [facility] Integrated Care [facility] 11/06/16 06/29/19 documented as of this encounter
--- OUTSIDE RECORDS SUMMARY | 2025-02-06 10:44 | XMS_ITS | Encounter Summary ---
Author Organization [facility] Address [address] [place] [address] Care Team Providers Care Senior Reliability Engineer Name Role Phone Brandyn Arriaga MD Unavailable Francisco Scales MD Unavailable [phone] Lino Carpio MD Unavailable [phone] Gianfranco Reynoso MD Unavailable Unavailable Efe Sanabria DO Unavailable [phone] Shaka Lyman MD Unavailable [phone] Bryce Lema DPM Unavailable Dominique Nicholas MD Primary Care Provider Anne Marie Chance MD Unavailable +[phone] 00-0000 Ishmael Shaw OD Unavailable [phone] Amaya Cardenas RN Unavailable Robel Camarena DO Unavailable Robel Camarena DO Primary Care Provider Robel Camarena DO Unavailable [phone] Anne Marie Shafer LCSW Unavailable [phone] Encounter Details Date Type Department Care Team (Late st Contact Info) Description 03/25/2018 Scanned Document [facility] [address] [place] [address] Provider, Generic Social History Tobacco Use Types [...] filedocumented in this encounter Care Teams Senior Reliability Engineer Relationship Specialty Start Date End Date Dominique Nicholas MD [address] [facility] [place] [address] [place] [address] PCP - General Internal Medicine 06/21/17 04/18/20 Robel Camarena DO 200 [place] [address] PCP - General Internal Medicine 04/19/20 Robel Camarena DO 200 [place] [address] PCP - United Medicare Attributed 11/02/20 09/17/24 Brandyn Arriaga MD [address] [place] [address] 1000 [place] [address] Consulting Provider Gastroenterology 06/04/15 Francisco Scales MD 100 [facility] 811 [place] [address] Consulting Provider Cardiovascular Disease 06/04/15 Lino Carpio MD 100 [place] [address] Consulting Provider Internal Medicine 06/04/15 12/12/18 Gianfranco Reynoso MD 100 [place] [address] Consulting Provider Endocrinology 07/06/15 Efe Sanabria DO [address] [place] [address] Consulting Provider Pulmonary Disease 10/11/15 Shaka Lyman MD [address] [facility] [address] [place] [address] Consulting Provider Gastroenterology 10/11/15 12/12/18 Bryce Lema DPM [address] [place] [address] [address] [place] [address] Consulting Provider Podiatry 05/22/17 Anne Marie Chance MD [address] [place] [address] [address] Consulting Provider Rheumatology 05/07/18 Ishmael Shaw OD [address] [place] [address] Consulting Provider Optometry 07/22/18 Amaya Cardenas, GREGORY [address] [place] [address] [facility] Community Cloth Winder 02/27/19 06/01/19 Robel Camarena DO [address] [place] [address] Internal Medicine 02/16/20 Anne Marie Shafer, SEB [address] [place] [address] [facility] Community Cloth Winder 03/02/22 03/02/22 Rell Howe MD Consulting Provider Anesthesiology 10/11/15 batsheva chow [facility] 11/06/16 06/29/19 documented as of this encounter
--- OUTSIDE RECORDS SUMMARY | 2025-02-06 10:44 | XMS_ITS | Encounter Summary ---
Author Organization [facility] Address [address] [place] [address] Care Team Providers Care Pharmacoepidemiologist Name Role Phone Dominique Nicholas MD Primary Care Provider [phone] Brandyn Arriaga MD Unavailable Francisco Scales MD Unavailable [phone] Misbah Niño MD Unavailable [phone] David Maxwell MD Unavailable [phone] Ming Alvarez MD Unavailable [phone] Lino Carpio MD Unavailable [phone] Gianfranco Reynoso MD Unavailable Unavailable Efe Sanabria DO Unavailable [phone] Shaka Lyman MD Unavailable [phone] Pcp, No Primary Care Provider UnavailDominique Simmons MD Primary Care Provider Pcp, No Primary Care Provider UnavailBryce Nayak DPM Unavailable Dominique Nicholas MD Primary Care Provider Anne Marie Chance MD Unavailable +[phone] 00-0000 Ishmael Shaw OD Unavailable [phone] Amaya Cardenas RN Unavailable [phone] Robel Camarena DO Unavailable [phone] Nicol Robel DO Primary Care Provider [phone] Kathypete Robel DO Unavailable [phone] Anne Marie Shafer PRINCIPAL ACCOUNTS CLERK Unavailable [phone] Encounter Details Date Type Department Care Team (Late st Contact Info) Description 10/28/2015 Scanned Document [address] [phone] Provider, Generic Social History Tobacco Use Types [...] on filedocumented in this encounter Care Teams Pharmacoepidemiologist Relationship Specialty Start Date End Date Dominique Nicholas MD PCP - General Internal Medicine 03/31/15 07/09/16 Pcp, No PCP - General General Medicine 07/13/16 10/29/16 Dominique Nicholas MD PCP - General Internal Medicine 10/30/16 11/05/16 Pcp, No PCP - General General Medicine 11/06/16 06/20/17 Dominique Nicholas MD PCP - General Internal Medicine 06/21/17 04/18/20 Robel Camarena DO [address] [place] [address] PCP - General Internal Medicine 04/19/20 Robel Camarena DO [address] [place] [address] PCP - United Medicare Attributed 11/02/20 09/17/24 Brandyn Arriaga MD 85 [facility] 1000 [place] [address] Consulting Provider Gastroenterology 06/04/15 Francisco Scales MD [address] [place] [address] Consulting Provider Cardiovascular Disease 06/04/15 Misbah Niño MD [address] [place] [address] Consulting Provider Physical Medicine and Rehabilitation 06/04/15 05/21/17 David Maxwell MD 85 [facility] 800 [place] [address] Consulting Provider Neurology 06/04/15 05/21/17 Ming Alvarez MD [address] [place] [address] Consulting Provider Surgery, Bariatric 06/04/15 05/21/17 Lino Carpio MD [address] [place] [address] Consulting Provider Internal Medicine 06/04/15 12/12/18 Gianfranco Reynoso MD [address] [place] [address] Consulting Provider Endocrinology 07/06/15 Efe Sanabria DO 85 [facility] 923 [place] [address] Consulting Provider Pulmonary Disease 10/11/15 Shaka Lyman MD [address] [facility] [address] [place] [address] Consulting Provider Gastroenterology 10/11/15 12/12/18 Byrce Lema DPM Consulting Provider Podiatry 05/22/17 Anne Marie Chance MD Consulting Provider Rheumatology 05/07/18 Ishmael Shaw OD [address] [place] [address] 100 [place] [address] Consulting Provider Optometry 07/22/18 Amaya Cardenas, GREGORY [address] [facility] 4 [place] [address] ICP Community Finisher Denture 02/27/19 06/01/19 Robel Camarena DO [address] [place] [address] Internal Medicine 02/16/20 Anne Marie hSafer, PRINCIPAL ACCOUNTS CLERK [address] [place] [address] ICP Community Finisher Denture 03/02/22 03/02/22 Rell Howe MD Consulting Provider Anesthesiology 10/11/15 KELLEN GEE MD [address] [place] [address] Rheumatology 03/22/16 05/21/17 batsheva chow [facility] 11/06/16 06/29/19 documented as of this encounter
--- OUTSIDE RECORDS SUMMARY | 2025-02-06 10:44 | XMS_ITS | Encounter Summary ---
Author Organization [facility] Address [address] [place] [address] Care Team Providers Care Surveyor'S Assistant Name Role Phone Dominique Nicholas MD Primary Care Provider [phone] Brandyn Arriaga MD Unavailable Francisco Scales MD Unavailable [phone] Misbah Niño MD Unavailable [phone] David Maxwell MD Unavailable [phone] Ming Alvarez MD Unavailable [phone] Lino Carpio MD Unavailable [phone] Gianfranco Reynoso MD Unavailable Unavailable Efe Sanabria DO Unavailable [phone] Shaka Lyman MD Unavailable [phone] Pcp, No Primary Care Provider UnavailDominique Simmons MD Primary Care Provider Pcp, No Primary Care Provider UnavailBryce Nayak DPM Unavailable Dominique Nicholas MD Primary Care Provider Anne aMrie Chance MD Unavailable +[phone] [phone] Ishmael Shaw OD Unavailable [phone] Amaya Cardenas RN Unavailable [phone] Robel Camarena DO Unavailable [phone] Nicol Robel DO Primary Care Provider [phone] Kathypete Robel DO Unavailable [phone] Anne Marie Shafer GUARD DRIVER Unavailable [phone] Encounter Details Date Type Department Care Team (Late st Contact Info) Description 09/24/2015 Scanned Document [address] [phone] Provider, Generic Social History Tobacco Use Types [...] on filedocumented in this encounter Care Teams Surveyor'S Assistant Relationship Specialty Start Date End Date Dominique Nicholas MD PCP - General Internal Medicine 03/31/15 07/09/16 Pcp, No PCP - General General Medicine 07/13/16 10/29/16 Dominique Nicholas MD PCP - General Internal Medicine 10/30/16 11/05/16 Pcp, No PCP - General General Medicine 11/06/16 06/20/17 Dominique Nicholas MD PCP - General Internal Medicine 06/21/17 04/18/20 Robel Camarena DO [address] [place] [address] PCP - General Internal Medicine 04/19/20 Robel Camarena DO [address] [place] [address] PCP - United Medicare Attributed 11/02/20 09/17/24 Brandyn Arriaga MD 85 [facility] 1000 [place] [address] Consulting Provider Gastroenterology 06/04/15 Francisco Scales MD [address] [place] [address] Consulting Provider Cardiovascular Disease 06/04/15 Misbah Niño MD [address] [place] [address] Consulting Provider Physical Medicine and Rehabilitation 06/04/15 05/21/17 David Maxwell MD 85 [facility] 800 [place] [address] Consulting Provider Neurology 06/04/15 05/21/17 Ming Alvarez MD [address] [place] [address] Consulting Provider Surgery, Bariatric 06/04/15 05/21/17 Lino Carpio MD [address] [place] [address] Consulting Provider Internal Medicine 06/04/15 12/12/18 Gianfranco Reynoso MD [address] [place] [address] Consulting Provider Endocrinology 07/06/15 Efe Sanabria DO 85 [facility] 923 [place] [address] Consulting Provider Pulmonary Disease 10/11/15 Shaka Lyman MD [address] [facility] [address] [place] [address] Consulting Provider Gastroenterology 10/11/15 12/12/18 Bryce Lema DPM Consulting Provider Podiatry 05/22/17 Anne Marie hCance MD Consulting Provider Rheumatology 05/07/18 Ishmael Shaw OD [address] [place] [address] 100 [place] [address] Consulting Provider Optometry 07/22/18 Amaya Cardenas, GREGORY [address] [facility] 4 [place] [address] ICP Community Transportation Assistant 02/27/19 06/01/19 Robel Camarena DO [address] [place] [address] Internal Medicine 02/16/20 Anne Marie Shafer, GUARD DRIVER [address] [place] [address] ICP Community Transportation Assistant 03/02/22 03/02/22 Rell Howe MD Consulting Provider Anesthesiology 10/11/15 KELLEN GEE MD [address] [place] [address] Rheumatology 03/22/16 05/21/[address] [facility] 11/06/16 06/29/19 documented as of this encounter
--- OUTSIDE RECORDS SUMMARY | 2025-02-06 10:44 | XMS_ITS | Encounter Summary ---
Author Organization [facility] Address [address] [place] [address] Care Team Providers Care Framing Mechanic Name Role Phone Brandyn Arriaga MD Unavailable Francisco Scales MD Unavailable [phone] Gianfranco Reynoso MD Unavailable Unavailable Efe Sanabria DO Unavailable Bryce Lema DPM Unavailable Dominique Nicholas MD Primary Care Provider [phone] Anne Marie Chance MD Unavailable [phone] Ishmael Shaw OD Unavailable [phone] Amaya Cardenas RN Unavailable Robel Camarena DO Unavailable RadhaadanteEvano DO Primary Care Provider Eva Camarenano DO Unavailable Anne Marie ShaferW Unavailable Encounter Details Date Type Department Care Team (Late st Contact Info) Description 01/08/2019 Scanned Document [address] [id number] Provider, Generic Social History Tobacco [...] on filedocumented in this encounter Care Teams Framing Mechanic Relationship Specialty Start Date End Date Dominique Nicholas MD 85 [facility] [address] [place] [address] PCP - General Internal Medicine 06/21/17 04/18/20 Robel Camarena DO 200 [place] [address] PCP - General Internal Medicine 04/19/20 Robel Camarena DO 200 [place] [address] PCP - United Medicare Attributed 11/02/20 09/17/24 Brandyn Arriaga MD 85 [facility] [address] [place] [address] Consulting Provider Gastroenterology 06/04/15 Francisco Scales MD [address] [place] [address] Consulting Provider Cardiovascular Disease 06/04/15 Gianfranco Reynoso MD [address] [place] [address] Consulting Provider Endocrinology 07/06/15 Efe Sanabria DO 85 [facility] [address] [place] [address] Consulting Provider Pulmonary Disease 10/11/15 Bryce Lema DPM [address] [place] [address] Consulting Provider Podiatry 05/22/17 Anne Marie Chance MD [address] [place] [address] Consulting Provider Rheumatology 05/07/18 Ishmael Shaw OD [address] [place] [address] 100 [place] [address] Consulting Provider Optometry 07/22/18 Amaya Cardenas, RN [address] [facility] 4 [place] [address] [facility] Community Reimbursement Consultant 02/27/19 06/01/19 Robel Camarena DO [address] [place] [address] Internal Medicine 02/16/20 Anne Marie Shafer, COMMUNICATIONS PROJECT LEAD [address] [place] [address] [facility] Community Reimbursement Consultant 03/02/22 03/02/22 Rell Howe MD Consulting Provider Anesthesiology 10/11/15 batsheva chow [facility] 11/06/16 06/29/19 documented as of this encounter
--- OUTSIDE RECORDS SUMMARY | 2025-02-06 10:44 | XMS_ITS | Encounter Summary ---
Author Organization [facility] Address [address] [place] [address] Care Team Providers Care Astro Technician Name Role Phone Darien Caraballo DO Primary Care Provider [phone] Dominique Nicholas MD Primary Care Provider [phone] Brandyn Arriaga MD Unavailable Francisco Scales MD Unavailable [phone] Misbah Niño MD Unavailable [phone] David Maxwell MD Unavailable [phone] Ming Alvarez MD Unavailable [phone] Lino Carpio MD Unavailable [phone] Gianfranco Reynoso MD Unavailable Unavailable Efe Sanabria DO Unavailable [phone] Shaka Lyman MD Unavailable [phone] Pcp, No Primary Care Provider UnavailDominique Simmons MD Primary Care Provider [phone] Pcp, No Primary Care Provider Unavailmaria del carmen e Bryce Lema DPM Unavailable Dominique Nicholas MD Primary Care Provider Anne Marie Chacne MD Unavailable [phone] Ishmael Shaw OD Unavailable Amaya Cardenas RN Unavailable Robel Camarena DO Unavailable [phone] KathyRobel freeman DO Primary Care Provider FridanellyRobel freeman DO Unavailable Anne Marie Shafer CORE BAKER Unavailable Dominique Nicholas MD Primary Care Provider [phone] Encounter Details Date Type Department Care Team (Late st Contact Info) Description 10/15/2014 Scanned Document [address] [place] [id number] Provider, Generic Social History Tobacco Use [...] on filedocumented in this encounter Care Teams Astro Technician Relationship Specialty Start Date End Date Darien Caraballo DO [facility] [place] [address] PCP - General Internal Medicine 02/18/15 03/30/15 Dominique Nicholas MD [facility] [place] [address] PCP - General Internal Medicine 03/31/15 07/09/16 Pcp, No PCP - General General Medicine 07/13/16 10/29/16 Dominique Nicholas MD 0 [place] [address] PCP - General Internal Medicine 10/30/16 11/05/16 Pcp, No PCP - General General Medicine 11/06/16 06/20/17 Dominique Nicholas MD [address] [place] [address] PCP - General Internal Medicine 06/21/17 04/18/20 Robel Camarena DO 200 [place] [address] PCP - General Internal Medicine 04/19/20 Robel Camarena DO 200 [place] [address] PCP - United Medicare Attributed 11/02/20 09/17/24 Dominique Nicholas MD 234 [facility] [address] [place] [address] PCP - General 02/17/15 Brandyn Arriaga MD 85 [facility] 1000 [place], [place] [address] Consulting Provider Gastroenterology 06/04/15 Francisco Scales MD [address] [place] [address] Consulting Provider Cardiovascular Disease 06/04/15 Misbah Niño MD [address] [place] [address] Consulting Provider Physical Medicine and Rehabilitation 06/04/15 05/21/17 David Maxwell MD 85 [facility] 800 [place] [address] Consulting Provider Neurology 06/04/15 05/21/17 Ming Alvarez MD [address] [address] Consulting Provider Surgery, Bariatric 06/04/15 05/21/17 Lino Carpio MD 100 [place] [address] Consulting Provider Internal Medicine 06/04/15 12/12/18 Gianfranco Reynoso MD 100 [place] [address] Consulting Provider Endocrinology 07/06/15 Efe Sanabria DO 85 [facility] 923 [place] [address] Consulting Provider Pulmonary Disease 10/11/15 Shaka Lmyan MD [address] [facility] [address] [place] [address] Consulting Provider Gastroenterology 10/11/15 12/12/18 Bryce Lema DPM Consulting Provider Podiatry 05/22/17 Anne Marie Chance MD Consulting Provider Rheumatology 05/07/18 Ishmael Shaw, LYDIA [address] [address] Consulting Provider Optometry 07/22/18 Amaya Cardenas, GREGORY [address] [facility] 4 [place] [address] [facility] Community Nozzle And Sleeve Worker 02/27/19 06/01/19 Robel Camarena DO [address] [place] [address] Internal Medicine 02/16/20 Anne Marie Shafer, CORE BAKER [address] [place] [address] [facility] Community Nozzle And Sleeve Worker 03/02/22 03/02/22 Rell Howe MD Consulting Provider Anesthesiology 10/11/15 KELLEN GEE MD [address] [place] [address] Rheumatology 03/22/16 05/21/17 batsheva chow [facility] 11/06/16 06/29/19 documented as of this encounter
--- OUTSIDE RECORDS SUMMARY | 2025-02-06 10:44 | XMS_ITS | Encounter Summary ---
Author Organization [facility] Address [address] [place] [address] Care Team Providers Care Brush Or Broom Cutter Name Role Phone Dominique Nicholas MD Primary Care Provider Brandyn Arriaga MD Unavailable Francisco Scales MD Unavailable [phone] Misbah Niño MD Unavailable [phone] David Maxwell MD Unavailable [phone] Ming Alvarez MD Unavailable [phone] Lino Carpio MD Unavailable [phone] Gianfranco Reynoso MD Unavailable Unavailable Efe Sanabria DO Unavailable [phone] Shaka Lyman MD Unavailable [phone] Pcp, No Primary Care Provider UnavailDominique Simmons MD Primary Care Provider Pcp, No Primary Care Provider UnavailBryce Nayak DPM Unavailable Dominique Nicholas MD Primary Care Provider Anne Marie Chance MD Unavailable [phone] Ishmael Shaw OD Unavailable [phone] Amaya Cardenas RN Unavailable Robel Camarena DO Unavailable [phone] Robel Camarena DO Primary Care Provider Robel Camarena DO Unavailable [phone] Anne Marie Shafer SALVAGE INSPECTOR Unavailable Encounter Details Date Type Department Care Team (Late st Contact Info) Description 12/04/2015 Scanned Document [address] [id number] Provider, Generic Social History Tobacco Use Types [...] on filedocumented in this encounter Care Teams Brush Or Broom Cutter Relationship Specialty Start Date End Date Dominique Nicholas MD PCP - General Internal Medicine 03/31/15 07/09/16 Pcp, No PCP - General General Medicine 07/13/16 10/29/16 Dominique Nicholas MD PCP - General Internal Medicine 10/30/16 11/05/16 Pcp, No PCP - General General Medicine 11/06/16 06/20/17 Dominique Nicholas MD PCP - General Internal Medicine 06/21/17 04/18/20 Robel Camarena DO 200 [place] [address] PCP - General Internal Medicine 04/19/20 Robel Camarena DO 200 [place] [address] PCP - United Medicare Attributed 11/02/20 09/17/24 Brandyn Arriaga MD 85 [facility] 1000 [place] [address] Consulting Provider Gastroenterology 06/04/15 Francisco Scales MD [address] [place] [address] Consulting Provider Cardiovascular Disease 06/04/15 Misbah Niño MD [address] [place] [address] Consulting Provider Physical Medicine and Rehabilitation 06/04/15 05/21/17 David Maxwell MD 85 [facility] 800 [place] [address] Consulting Provider Neurology 06/04/15 05/21/17 Ming Alvarez MD [address] [place] [address] Consulting Provider Surgery, Bariatric 06/04/15 05/21/17 Lino Carpio MD 100 [place] [address] Consulting Provider Internal Medicine 06/04/15 12/12/18 Gianfranco Reynoso MD 100 [place] [address] Consulting Provider Endocrinology 07/06/15 Efe Sanabria DO 85 [facility] 923 [place] [address] Consulting Provider Pulmonary Disease 10/11/15 Shaka Lyman MD 6 [facility] [address] [place] [address] Consulting Provider Gastroenterology 10/11/15 12/12/18 Bryce Lema DPM Consulting Provider Podiatry 05/22/17 Anne Marie Chance MD Consulting Provider Rheumatology 05/07/18 Ishmael Shaw OD [address] [place] [address] Consulting Provider Optometry 07/22/18 Amaya Cardenas, GREGORY 1290 [facility] 4 [place] [address] [facility] Community Manager Gift 02/27/19 06/01/19 Robel Camarena DO [address] [place] [address] Internal Medicine 02/16/20 Anne Marie hSafer, SALVAGE INSPECTOR [address] [place] [address] [facility] Community Manager Gift 03/02/22 03/02/22 Rell Howe MD Consulting Provider Anesthesiology 10/11/15 KELLEN GEE MD [address] [place] [address] Rheumatology 03/22/16 05/21/17 batsheva chow SALVAGE INSPECTOR [facility] 11/06/16 06/29/19 documented as of this encounter
--- OUTSIDE RECORDS SUMMARY | 2025-02-06 10:44 | XMS_ITS | Encounter Summary ---
Author Organization [facility] Address [address] [place] [address] Care Team Providers Care Artificial Flowers Supervisor Name Role Phone Brandyn Arriaga MD Unavailable Francisco Scales MD Unavailable [phone] Lino Carpio MD Unavailable [phone] Gianfranco Reynoso MD Unavailable Unavailable Efe Sanabria DO Unavailable [phone] Shaka Lyman MD Unavailable [phone] Bryce Lema DPM Unavailable Dominique Nicholas MD Primary Care Provider Anne Marie Chance MD Unavailable [phone] Ishmael Shaw OD Unavailable [phone] Amaya Cardenas RN Unavailable Robel Camarena DO Unavailable [phone] Robel Camarena DO Primary Care Provider Robel Camarena DO Unavailable [phone] Anne Marie Shafer LCSW Unavailable [phone] Encounter Details Date Type Department Care Team (Late st Contact Info) Description 09/20/[address] [facility] [place] [address] [place] [address] Provider, Generic Social History Tobacco Use Types [...] on filedocumented in this encounter Care Teams Artificial Flowers Supervisor Relationship Specialty Start Date End Date Dominique Nicholas MD 6 [facility] [address] [place] [address] PCP - General Internal Medicine 06/21/17 04/18/20 Robel Camarena DO 200 [place] [address] PCP - General Internal Medicine 04/19/20 Robel Camarena DO 200 [place] [address] PCP - [employer] Medicare Attributed 11/02/20 09/17/24 Brandyn Arriaga MD [address] [place] [address] 1000 [place] [address] Consulting Provider Gastroenterology 06/04/15 Francisco Scales MD 100 [facility] 811 [place] [address] Consulting Provider Cardiovascular Disease 06/04/15 Lino Carpio MD 100 [place] [address] Consulting Provider Internal Medicine 06/04/15 12/12/18 Gianfranco Reynoso MD 100 [place] [address] Consulting Provider Endocrinology 07/06/15 Efe Sanabria DO [address] [place] [address] Consulting Provider Pulmonary Disease 10/11/15 Shaka Lyman MD 6 [facility] [address] [place] [address] Consulting Provider Gastroenterology 10/11/15 12/12/18 Bryce Lema DPM [address] [place] [address] [address] [place] [address] Consulting Provider Podiatry 05/22/17 Anne Marie Chance MD [address] [place] [address] [address] Consulting Provider Rheumatology 05/07/18 Ishmael Shaw OD [address] [place] [address] Consulting Provider Optometry 07/22/18 Amaya Cardenas, GREGORY [address] [place] [address] [facility] Community Planer Mill Grader 02/27/19 06/01/19 Robel Camarena DO [address] [place] [address] Internal Medicine 02/16/20 Anne Marie Shafer, SEB [address] [place] [address] [facility] Community Planer Mill Grader 03/02/22 03/02/22 Rell Howe MD Consulting Provider Anesthesiology 10/11/15 [email or web address] chow [facility] 11/06/16 06/29/19 documented as of this encounter
--- OUTSIDE RECORDS SUMMARY | 2025-02-06 10:44 | XMS_ITS | Clinical Summary ---
Author Organization [facility] Address [address] [place] [address] Care Team Providers Care Receiving Inspector Name Role Phone Brandyn Arriaga MD Unavailable Francisco Scales MD Unavailable [phone] Gianfranco Reynoso MD Unavailable Unavailable Efe Sanabria DO Unavailable Bryce Lema DPM Unavailable Anne Marie Chance MD Unavailable [phone] Ishmael Shaw OD Unavailable Robel Camarena DO Unavailable Robel Camarena DO Primary Care Provider [phone] Allergies Active Allergy Reactions Criticality Noted Date [...] hyperglycemia, with long-term current use of insulin ([facility]) Tests blood sugar once daily 100 lancet [...] Osteoporosis Mother Thyroid disease Sister Heart disease Other 1 Hypertension Other 2 Stroke Other 3 Relation Name Status Comments Father Mother Sister Other 1 Other 2 Other 3 Social History Tobacco Use Types Packs/Day [...] 80 06/04/2020 10:56 AM EST Temperature 36.1 C (96.9 F) 06/04/2020 10:56 AM EST Respiratory Rate 20 12/13/2018 12:55 PM EDT Oxygen Saturation 97% 12/13/2018 12:55 PM EDT Inhaled Oxygen Concentration - - Weight 124 kg (274 lb) 06/04/2020 10:56 AM EST Height 170.2 cm (5' 7 ) 12/13/2018 12:55 PM EDT Body Mass Index 42.91 12/13/2018 12:55 PM EDT Plan of Treatment Health Maintenance Due Date Last Done Comments Advance Care Planning 1960 COVID-19 Vaccine (#1) 10/30/1964 HIV Screening 10/30/1972 [...] (2 - Td or Tdap) 05/23/2023 05/23/2013 DXA Bone Density (Females,Ages 65 and older) 10/30/2024 Influenza Vaccine 12/19/2024 02/20/2018, , 03/05/2017, Additional history exists Hepatitis [...] mellitus without complication (HCC) THINPREP PAP TEST (REGULATOR OPERATOR) WITH HPV SCREEN Routine 12/13/2018 1:34 PM EDT Screening for cervical cancer HEPATITIS C VIRUS (HCV) ANTIBODY Routine 11/14/2018 9:19 AM EDT Health care maintenance MAMMO - DIGITAL - SCREENING WITH CAD - G0202, 53024 Routine 10/08/2014 8:30 AM EDT HX GASTROENTEROLOGY COLONOSCOPY-SCAN Routine 07/19/2011 from Last 3 Months or Most Recently Relevant to Health Maintenance Results * Microalbumin, Creatinine, Urine, Random (04/19/2020 11:36 AM EST) Creatinine, Urine, Random 180 20 - 275 mg/dL [facility] Microalbumin, Urine, Random 2.5 See Note: mg/dL [facility] Comment: Reference Range: Reference Range Not established Microalbumin/Creat inine Ratio 14 <30 mcg/mg creat [facility] Comment: The ADA defines abnormalities in albumin excretion as follows: Category Result (mcg/mg creatinine) Normal <30 Microalbuminuria 30-299 Clinical albuminuria > OR = 300 The ADA recommends that at least two of three specimens collected within a 3-6 month period be abnormal before considering a patient to be within a diagnostic category. Urine Pharyngeal structure / Unknown 04/19/2020 11:36 AM EST 04/19/2020 11:39 AM EST Narrative [facility] - 04/19/2020 9:39 PM EST FASTING:YES FASTING: YES us Jv Connors ASSET RECOVERY SPECIALIST URINE ORDERABLES Final Resu lt [facility] [address] [place] [address], [place] [address] * (ABNORMAL) Hemoglobin A1c (04/19/2020 11:36 AM EST) Hemoglobin A1C 6.5(H) <5.7 % of total Hgb [facility] Comment: For someone without known diabetes, a [...] A1c for diagnosis of diabetes for children. Blood specimen (specimen) 04/19/2020 11:36 AM EST 04/19/2020 11:39 AM EST Narrative [facility] - 04/19/2020 9:39 PM EST FASTING:YES FASTING: YES us Jv Connors APRN LAB BLOOD ORDERABLES Final Result [facility] [address] [place] [address], [place] [address] * (ABNORMAL) Lipid Panel Reflex Direct LDL (03/19/2019 8:52 AM EDT) Cholesterol, Total 206(H) <200 mg/dL [facility] Cholesterol, HDL 43(L) >50 mg/dL [facility] Triglycerides 350(H) <150 mg/dL [facility] Comment: If a non-fasting specimen was collected, consider repeat triglyceride testing on a fasting specimen if clinically indicated. Zan et al. J. of Clin. Lipidol. 2015;9:129-169. LDL Cholesterol 113(H) mg/dL (calc) [facility] Comment: Reference range: <100 Desirable range <100 mg/dL for primary prevention; <70 mg/dL for patients with CHD or diabetic patients with > or = 2 CHD risk factors. LDL-C is now calculated using the Roverto-Seda calculation, which is a validated novel method providing better accuracy than the Friedewald equation in the estimation of LDL-C. Roverto KING et al. HAILEY. 2013;310(19): 5640-8131 (http://education.Boxcar.Encore Interactive/faq/UNQ117) Cholesterol/HDL Ratio 4.8 <5.0 (calc) [facility] [...] YES Resulting Agency Comment Performing Organization Information: Site ID: [id number] Name: [facility] Address: [address] [place] [id number] Director: Xenia Guerrero MD Gianfranco Reynoso MD LAB BLOOD ORDERABLES Final Resu lt [facility] [address] [place] [address] * Creatinine with eGFR (03/19/2019 8:52 AM EDT) Creatinine 0.77 0.50 - 1.05 mg/dL [facility] Comment: For patients >49 years of age, the reference limit for Creatinine is approximately 13% higher for people identified as -[place]. eGFR Non- 85 > OR = 60 mL/min/1. 73m2 [facility] eGFR 98 > OR = 60 mL/min/1. 73m2 [facility] Blood specimen (specimen) Blood specimen / Unknown 03/19/2019 8:52 AM EDT 03/19/2019 8:52 AM EDT Narrative [facility] - 03/20/2019 4:53 PM EDT FASTING:YES FASTING: YES Resulting Agency Comment Performing Organization Information: Site ID: [id number] Name: [facility] Address: [address] [place] [id number] Director: Xenia Guerrero MD us Gianfranco Reynoso MD LAB BLOOD ORDERABLES Final Resu lt [facility] [address] [facility] 3rd Floor, [place] [address] * ThinPrep Pap Test (Finishing Room Operator) with HPV Screen (12/13/2018 1:34 PM EDT) Clinical Information [facility] Comment:Postmenopausal LMP: [facility] Comment:POSTMENOPAUSAL Previous PAP: NONE GIVEN [facility] Previous Biopsy NONE GIVEN [facility] Source: Cervix [facility] Statement of Adequacy: [facility] Comment:SATISFACTORY FOR WILFREDO LUATION Interpretation/Res ult: [facility] Comment: Negative for intraepithelial lesion or malignancy. Atrophic pattern; predominantly parabasal cells Comment: [facility] Comment: This Pap test has been evaluated with computer assisted technology. Flight Surgeon: [facility] Comment: RMM, CT(ASCP) CT screening location: [place] [address] Review Flight Surgeon: [facility] Comment: HJP, CT(ASCP) CT screening location: [place] [address] Comment [facility] Comment: EXPLANATORY NOTE: [...] was performed using the APTIMA HPV Assay ([employer] This assay detects E6/E7 viral messenger RNA (mRNA) from 14 high-risk HPV types (16,18,31,33,35,39,45,51,52,56,58,59,66,68). The analytical performance characteristics of this assay have been determined by [facility]. The modifications have not been cleared or approved by the FDA. This assay has been validated pursuant to the CLIA regulations and is used for clinical purposes. 12/13/2018 1:34 PM EDT 12/14/2018 3:07 AM EDT Narrative Resulting Agency Comment Performing Organization Information: Site ID: [id number] Name: [facility] Address: [address] [place] [phone] Director: Xenia Guerrero MD us Dominique Nicholas MD LAB AMB PATH/CYTO ORDERABLES F inal Result Performing Organization Address [facility] de Phone Number [employer] [facility] [address] [place] [address] * Hepatitis C Virus (HCV) Antibody (11/14/2018 9:19 AM EDT) Hepatitis C Antibody NON-REACT ROMAN NON-REACT ROMAN [facility] Hepatitis C Antibody (s/co) 0.07 <1.00 [facility] Comment: HCV antibody was non-reactive. There is no laboratory evidence of HCV infection. In most cases, no further action is required. However, if recent HCV exposure is suspected, a test for HCV RNA (test code 98515) is suggested. For additional information please refer to http://education.Link_A_ Media/faq/QLR17d1 (This link is being provided for informational/ educational purposes only.) Blood specimen (specimen) Blood specimen / Unknown 11/14/2018 9:19 AM EDT 11/14/2018 9:20 AM EDT Narrative [facility] - 11/15/2018 7:08 AM EDT FASTING:YES FASTING: YES Resulting Agency Comment Performing Organization Information: Site ID: [id number] Name: [facility] Address: [address] [place] [address], [place] [address] Director: Xenia Guerrero MD us Dominique Nicholas MD LAB BLOOD ORDERABLES Final Res ult Performing Organization Address [facility] de Phone Number [employer] [facility] [address] [place] [address], [place] [address] * MAMMO - Digital - SCREENING with CAD - G0202, 83328 (10/08/2014 8:30 AM EDT) Anatomical Region Laterality Modality Other Narrative 10/08/2014 8:30 AM EDT HISTORY: Patient is 53 years old and is seen for screening. The patient has a history of bilateral biopsy more than 10 years ago - benign - 2003 and . The patient has no personal history of breast or ovarian cancer. The patient has no family history of breast cancer. FILMS COMPARED: The present examination has been compared to a prior imaging study dated 12/03/2010. TISSUE DENSITY: There are scattered fibroglandular densities. (ACR BIRADS density Category b) * MAMMOGRAM FINDINGS: The following digital mammographic views were obtained: bilateral craniocaudal, bilateral mediolateral oblique. Computer-aided detection was utilized by the radiologist in [...] standard practice guidelines of the ACR BI-RADS [place]. A reference guide is provided below. BREAST [...] 10 years ago - benign - 2003 [id number]. The patient has no personal history of [...] the standard practiceguidelines of the ACR BI-RADS [place]. A reference guide is providedbelow. BREAST COMPOSITION [...] 6:42 PM 09/13/2016 3:22 PM Care Teams Receiving Inspector Relationship Specialty Start Date End Date Robel Camarena DO [address] [place] [address] PCP - General Internal Medicine 04/19/20 Brandyn Arriaga MD 85 [facility] [address] [place] [address] Consulting Provider Gastroenterology 06/04/15 Francisco Scales MD [address] [place] [address] Consulting Provider Cardiovascular Disease 06/04/15 Giafnranco Reynoso MD [address] [place] [address] Consulting Provider Endocrinology 07/06/15 Efe Sanabria DO 85 [facility] [address]23 [place] [address] Consulting Provider Pulmonary Disease 10/11/15 Bryce Lema DPM 85 [facility] [address]23 [place] [address] Consulting Provider Podiatry 05/22/17 Anne Marie Chance MD 85 [facility] [address]23 [place] [address] Consulting Provider Rheumatology 05/07/18 Ishmael Shaw OD [facility] [place] [address] Consulting Provider Optometry 07/22/18 Robel Camarena DO [address] [place] [address] Internal Medicine 02/16/20 Rell Howe MD Consulting Provider Anesthesiology 10/11/15
--- OUTSIDE RECORDS SUMMARY | 2025-02-06 10:44 | XMS_ITS | Encounter Summary ---
Author Organization [facility] Address [address] [place] [address] Care Team Providers Care Chef Under Name Role Phone Darien Caraballo DO Primary Care Provider [phone] Dominique Nicholas MD Primary Care Provider [phone] Brandyn Arriaga MD Unavailable Francisco Scales MD Unavailable [phone] Misbah Niño MD Unavailable [phone] David Maxwell MD Unavailable [phone] Ming Alvarez MD Unavailable [phone] Lino Carpio MD Unavailable [phone] Gianfranco Reynoso MD Unavailable Unavailable Efe Sanabria DO Unavailable [phone] Shaka Lyman MD Unavailable [phone] Pcp, No Primary Care Provider UnavailDominique Simmons MD Primary Care Provider [phone] Pcp, No Primary Care Provider Unavailmaria del carmen e Bryce Lema DPM Unavailable Dominique Nicholas MD Primary Care Provider [phone] Anne Marie Chance MD Unavailable [phone] Ishmael Shaw OD Unavailable RonaldAmaya RN Unavailable Robel Camarena DO Unavailable [phone] Robel Camarena DO Primary Care Provider [phone] Robel Camarena DO Unavailable [phone] Soni Anne Marie J MACHINE ADJUSTER LEADER CASE TRIM Unavailable [phone] Dominique Nicholas MD Primary Care Provider Encounter Details Date Type Department Care Team (Late st Contact Info) Description 12/04/2014 Scanned Document [place] [id number] [place] [id number] Provider, Generic Social History Tobacco Use Types [...] on filedocumented in this encounter Care Teams Chef Under Relationship Specialty Start Date End Date Darien Caraballo DO [address] [place] [address] PCP - General Internal Medicine 02/18/15 03/30/15 Dominique Nicholas MD [address] [place] [address] PCP - General Internal Medicine 03/31/15 07/09/16 Pcp, No PCP - General General Medicine 07/13/16 10/29/16 [place] [address] [place], [place] [address], [place] [address] PCP - General Internal Medicine 10/30/16 11/05/16 Pcp, No PCP - General General Medicine 11/06/16 06/20/17 [place] [address] [place], [place] [address], [place] [address] PCP - General Internal Medicine 06/21/17 04/18/20 Robel Camarena DO 200 [place] [address] PCP - General Internal Medicine 04/19/20 Robel Camarena DO 200 [place] [address] PCP - [employer] Medicare Attributed 11/02/20 09/17/24 Dominique Nicholas MD [address] [place] [address] [place] [address] PCP - General 02/17/15 Brandyn Arriaga MD 85 [facility] 1000 [place] [address] Consulting Provider Gastroenterology 06/04/15 Francisco Scales MD [address] [place] [address] Consulting Provider Cardiovascular Disease 06/04/15 Misbah Niño MD [address] [place] [address] Consulting Provider Physical Medicine and Rehabilitation 06/04/15 05/21/17 David Maxwell MD [address] [place] [address] 800 [place] [address] Consulting Provider Neurology 06/04/15 05/21/17 Ming Alvarez MD [address] [place] [address] Consulting Provider Surgery, Bariatric 06/04/15 05/21/17 Lino Carpio MD [address] [place] [address] Consulting Provider Internal Medicine 06/04/15 12/12/18 Gianfranco Reynoso MD [address] [place] [address] Consulting Provider Endocrinology 07/06/15 Efe Sanabria DO [address] [place] [address] 923 [place] [address] Consulting Provider Pulmonary Disease 10/11/15 Shaka Lyman MD [address] [place] [address] [address] [place] [address] Consulting Provider Gastroenterology 10/11/15 12/12/18 Bryce Lema DPM Consulting Provider Podiatry 05/22/17 Anne Marie Chance MD Consulting Provider Rheumatology 05/07/18 Ishmael Shaw, LYDIA [address] [place] [address] 100 [place] [address] Consulting Provider Optometry 07/22/18 Amaya Cardenas, GREGORY [address] [place] [address] [facility] Community Poultry Processor 02/27/19 06/01/19 Robel Camarena DO [address] [place] [address] Internal Medicine 02/16/20 Anne Marie Shafer LCSW [address] [place] [address] [facility] Community Poultry Processor 03/02/22 03/02/22 Rell Howe MD Consulting Provider Anesthesiology 10/11/15 KELLEN GEE MD [address] [place] [address] Rheumatology 03/22/16 05/21/17 batsheva chow MACHINE ADJUSTER LEADER CASE TRIM [facility] 11/06/16 06/29/19 documented as of this encounter
--- OUTSIDE RECORDS SUMMARY | 2025-02-06 10:44 | XMS_ITS | Encounter Summary ---
Author Organization [facility] Address [address] [place] [address] Care Team Providers Care Halftone Operator Name Role Phone Darien Caraballo DO Primary Care Provider [phone] Dominique Nicholas MD Primary Care Provider [phone] Brandyn Arriaga MD Unavailable Francisco Scales MD Unavailable [phone] Misbah Niño MD Unavailable [phone] David Maxwell MD Unavailable [phone] Ming Alvarez MD Unavailable [phone] Lino Carpio MD Unavailable [phone] Gianfranco Reynoso MD Unavailable Unavailable Efe Sanabria DO Unavailable [phone] Shaka Lyman MD Unavailable [phone] Pcp, No Primary Care Provider UnavailDominique Simmons MD Primary Care Provider [phone] Pcp, No Primary Care Provider Unavailmaria del carmen e Bryce Lema DPM Unavailable Dominique Nicholas MD Primary Care Provider [phone] Anne Marie Chance MD Unavailable [phone] Ishmael Shaw OD Unavailable Amaya Cardenas RN Unavailable Robel Camarena DO Unavailable [phone] KathyRobel freeman DO Primary Care Provider FridanellyRobel freeman DO Unavailable [phone] Anne Marie Shafer MANAGER [employer] Unavailable Dominique Nicholas MD Primary Care Provider Encounter Details Date Type Department Care Team (Late st Contact Info) Description 06/01/2014 Scanned Document [address] [place] [phone] Provider, Generic Social History Tobacco Use [...] on filedocumented in this encounter Care Teams Halftone Operator Relationship Specialty Start Date End Date Darien Caraballo DO [facility] [place] [address] PCP - General Internal Medicine 02/18/15 03/30/15 Dominique Nicholas MD [facility] [place] [address] PCP - General Internal Medicine 03/31/15 07/09/16 Pcp, No PCP - General General Medicine 07/13/16 10/29/16 Dominique Nicholas MD [facility] [place] [address] PCP - General Internal Medicine 10/30/16 11/05/16 Pcp, No PCP - General General Medicine 11/06/16 06/20/17 Dominique Nicholas MD [address] [place] [address] PCP - General Internal Medicine 06/21/17 04/18/20 Robel Camarena DO 200 [place] [address] PCP - General Internal Medicine 04/19/20 Robel Camarena DO 200 [place] [address] PCP - [employer] Medicare Attributed 11/02/20 09/17/24 Dominique Nicholas MD 234 [facility] [address] [place] [address] PCP - General 02/17/15 Brandyn Arriaga MD 85 [facility] 1000 [place], [place] [address] Consulting Provider Gastroenterology 06/04/15 Francisco Scales MD [address] [place] [address] Consulting Provider Cardiovascular Disease 06/04/15 Misbah Niño MD [address] [place] [address] Consulting Provider Physical Medicine and Rehabilitation 06/04/15 05/21/17 David Maxwell MD 85 [facility] 800 [place] [address] Consulting Provider Neurology 06/04/15 05/21/17 Ming Alvarez MD [address] [address] Consulting Provider Surgery, Bariatric 06/04/15 05/21/17 Lino Carpio MD 100 [place] [address] Consulting Provider Internal Medicine 06/04/15 12/12/18 Gianfranco Reynoso MD 100 [place] [address] Consulting Provider Endocrinology 07/06/15 Efe Sanabria DO 85 [facility] 923 [place] [address] Consulting Provider Pulmonary Disease 10/11/15 Shaka Lyman MD [address] [facility] [address] [place] [address] Consulting Provider Gastroenterology 10/11/15 12/12/18 Bryce Lema DPM Consulting Provider Podiatry 05/22/17 Anne Marie Chance MD Consulting Provider Rheumatology 05/07/18 Ishmael Shaw, LYDIA [address] [address] Consulting Provider Optometry 07/22/18 Amaya Cardenas, GREGORY [address] [facility] 4 [place] [address] [facility] Community Egg Buyer 02/27/19 06/01/19 Robel Camarena DO [address] [place] [address] Internal Medicine 02/16/20 Anne Marie Shafer, MANAGER [employer] [address] [place] [address] [facility] Community Egg Buyer 03/02/22 03/02/22 Rell Howe MD Consulting Provider Anesthesiology 10/11/15 KELLEN GEE MD [address] [place] [address] Rheumatology 03/22/16 05/21/17 batsheva chow [facility] 11/06/16 06/29/19 documented as of this encounter
--- OUTSIDE RECORDS SUMMARY | 2025-02-06 10:44 | XMS_ITS | Encounter Summary ---
Author Organization [facility] Address [address] [place] [address] Care Team Providers Care Producer Name Role Phone Darien Caraballo DO Primary Care Provider [phone] Dominique Nicholas MD Primary Care Provider [phone] Brandyn Arriaga MD Unavailable Francisco Scales MD Unavailable [phone] Misbah Niño MD Unavailable [phone] David aMxwell MD Unavailable [phone] Ming Alvarez MD Unavailable [phone] Lino Carpio MD Unavailable [phone] Gianfranco Reynoso MD Unavailable Unavailable Efe Sanabria DO Unavailable [phone] Shaka Lyman MD Unavailable [phone] Pcp, No Primary Care Provider UnavailDominique Simmons MD Primary Care Provider [phone] Pcp, No Primary Care Provider Unavailmaria del carmen e Bryce Lema DPM Unavailable Dominique Nicholas MD Primary Care Provider [phone] Anne Marie Chance MD Unavailable [phone] Ishmael Shaw OD Unavailable Amaya Cardenas RN Unavailable Robel Camarena DO Unavailable [phone] KathyRobel freeman DO Primary Care Provider FridanellyRobel freeman DO Unavailable Anne Marie Shafer VENDOR REPRESENTATIVES Unavailable [phone] Dominique Nicholas MD Primary Care Provider [phone] Encounter Details Date Type Department Care Team (Late st Contact Info) Description 05/06/2014 Scanned Document [address] [place] [id number] Provider, Generic Social History Tobacco Use [...] on filedocumented in this encounter Care Teams Producer Relationship Specialty Start Date End Date Darien Caraballo DO [facility] [place] [address] PCP - General Internal Medicine 02/18/15 03/30/15 Dominique Nicholas MD [facility] [place] [address] PCP - General Internal Medicine 03/31/15 07/09/16 Pcp, No PCP - General General Medicine 07/13/16 10/29/16 Dominique Nicholas MD 0 [facility] [place] [address] PCP - General Internal Medicine 10/30/16 11/05/16 Pcp, No PCP - General General Medicine 11/06/16 06/20/17 Dominique Nicholas MD [address] [place] [address] PCP - General Internal Medicine 06/21/17 04/18/20 Robel Camarena DO 200 [place] [address] PCP - General Internal Medicine 04/19/20 Robel Camarena DO 200 [place] [address] PCP - United Medicare Attributed 11/02/20 09/17/24 Dominique Nicholas MD 234 [facility] [address] [place] [address] PCP - General 02/17/15 Brandyn Arriaga MD 85 [facility] 1000 [place], [place] [id number] Consulting Provider Gastroenterology 06/04/15 Francisco Scales MD [address] [place] [address] Consulting Provider Cardiovascular Disease 06/04/15 Misbah Niño MD [address] [place] [address] Consulting Provider Physical Medicine and Rehabilitation 06/04/15 05/21/17 David Maxwell MD 85 [facility] 800 [place] [address] Consulting Provider Neurology 06/04/15 05/21/17 Ming Alvarez MD [address] [address] Consulting Provider Surgery, Bariatric 06/04/15 05/21/17 Lino Carpio MD 100 [place] [address] Consulting Provider Internal Medicine 06/04/15 12/12/18 Gianfranco Reynoso MD 100 [place] [address] Consulting Provider Endocrinology 07/06/15 Efe Sanabria DO 85 [facility] 923 [place] [address] Consulting Provider Pulmonary Disease 10/11/15 Shaka Lyman MD [address] [facility] [address] [place] [address] Consulting Provider Gastroenterology 10/11/15 12/12/18 Bryce Lema DPM Consulting Provider Podiatry 05/22/17 Anne Marie Chance MD Consulting Provider Rheumatology 05/07/18 Ishmael Shaw, LYDIA [address] [address] Consulting Provider Optometry 07/22/18 Amaya Cardenas, GREGORY [address] [facility] 4 [place] [address] [facility] Community Coat Operator 02/27/19 06/01/19 Robel Camarena DO [address] [place] [address] Internal Medicine 02/16/20 Anne Marie Shafer, VENDOR REPRESENTATIVES [address] [place] [address] [facility] Community Coat Operator 03/02/22 03/02/22 Rell Howe MD Consulting Provider Anesthesiology 10/11/15 KELLEN GEE MD [address] [place] [address] Rheumatology 03/22/16 05/21/17 batsheva chow [facility] 11/06/16 06/29/19 documented as of this encounter
--- OUTSIDE RECORDS SUMMARY | 2025-02-06 10:44 | XMS_ITS | Encounter Summary ---
Author Organization [facility] Address [address] [place] [address] Care Team Providers Care Admitting Supervisor Name Role Phone Dominique Nicholas MD Primary Care Provider Dominique Nicholas MD Primary Care Provider Encounter Details Date Type Department Care Team (Late st Contact Info) Description 07/03/2016 Documentation [facility] [address] [place] [address] Tabitha Saldana MSW [facility] Social History Tobacco Use Types Packs/Day [...] on filedocumented in this encounter Care Teams Admitting Supervisor Relationship Specialty Start Date End Date Dominique Nicholas MD [address] [place] [address] PCP - General Internal Medicine 05/16/16 07/25/16 Dominique Nicholas MD [address] [place] [address] PCP - General Internal Medicine 12/05/16 documented as of this encounter
--- OUTSIDE RECORDS SUMMARY | 2025-02-06 10:44 | XMS_ITS | Encounter Summary ---
Author Organization [facility] Address [address] [place] [address] Care Team Providers Care Push Bench Operator Helper Name Role Phone Brandyn Arriaga MD Unavailable Francisco Scales MD Unavailable [phone] Lino Carpio MD Unavailable [phone] Gianfranco Reynoso MD Unavailable Unavailable Efe Sanabria DO Unavailable [phone] Shaka Lyman MD Unavailable Bryce Lema DPM Unavailable Dominique Nicholas MD Primary Care Provider Anne Marie Chance MD Unavailable +[phone] [phone] Ishmael Shaw OD Unavailable Amaya Cardenas RN Unavailable Robel Camarena DO Unavailable Robel Camarena DO Primary Care Provider Robel Camarena DO Unavailable [phone] Anne Marie ShaferW Unavailable Reason for Visit * Reason Comments Medication Refill Encounter Details Date Type Department Care Team (Late st Contact Info) Description 01/19/2018 [facility] Endocrinology [address] [place] [address] Gianfranco Reynoso MD Social History Tobacco Use [...] on filedocumented in this encounter Care Teams Push Bench Operator Helper Relationship Specialty Start Date End Date Dominique Nicholas MD 6 [facility] [address] [place] [address] PCP - General Internal Medicine 06/21/17 04/18/20 Robel Camarena DO 200 [place] [address] PCP - General Internal Medicine 04/19/20 Robel Camarena DO 200 [place] [address] PCP - United Medicare Attributed 11/02/20 09/17/24 Brandyn Arriaga MD [address] [place] [address] 1000 [place] [address] Consulting Provider Gastroenterology 06/04/15 Francisco Scales MD [address] [place] [address] Consulting Provider Cardiovascular Disease 06/04/15 Lino Carpio MD 100 [place] [address] Consulting Provider Internal Medicine 06/04/15 12/12/18 Gianfranco Reynoso MD 100 [place] [address] Consulting Provider Endocrinology 07/06/15 Efe Sanabria DO 85 [facility] [address] [place] [address] Consulting Provider Pulmonary Disease 10/11/15 Shaka Lyman MD [address] [facility] [address] [place] [address] Consulting Provider Gastroenterology 10/11/15 12/12/18 Bryce Lema DPM [address] [facility] [address] [address] [place] [address] Consulting Provider Podiatry 05/22/17 Anne Marie Chance MD [address] [facility] [address] [place] [address] Consulting Provider Rheumatology 05/07/18 Ishmael Shaw OD [address] [place] [address] Consulting Provider Optometry 07/22/18 Amaya Cardenas, GREGORY [address] [facility] 4 [place] [address] [facility] Community Director Inbound Sales 02/27/19 06/01/19 Robel Camarena DO [address] [place] [address] Internal Medicine 02/16/20 Anne Marie Shafer, ELECTRIC FRYING PAN REPAIRER [address] [place] [address] [facility] Community Director Inbound Sales 03/02/22 03/02/22 Rell Howe MD Consulting Provider Anesthesiology 10/11/15 batsheva chow [facility] 11/06/16 06/29/19 documented as of this encounter
--- OUTSIDE RECORDS SUMMARY | 2025-02-06 10:44 | XMS_ITS | Encounter Summary ---
Author Organization [facility] Address [address] [place] [address] Care Team Providers Care Marine Surveyor Name Role Phone Brandyn Arriaga MD Unavailable Francisco Scales MD Unavailable [phone] Gianfranco Reynoso MD Unavailable Unavailable Efe Sanabria DO Unavailable Bryce Lema DPM Unavailable Dominique Nicholas MD Primary Care Provider Anne Marie Chance MD Unavailable +[phone] 00-0000 Ishmael Shaw OD Unavailable [phone] Amaya Cardenas RN Unavailable [phone] Robel Camarena DO Unavailable [phone] Radhaadante Robel DO Primary Care Provider Eva Camarenano DO Unavailable [phone] Anne Marie ShaferW Unavailable [phone] Encounter Details Date Type Department Care Team (Late st Contact Info) Description 12/24/2018 Scanned Document [facility] NEUROSURGERY SCAN Neurosurgery, Scan Social History [...] on filedocumented in this encounter Care Teams Marine Surveyor Relationship Specialty Start Date End Date Dominique Nicholas MD 85 [facility] 923 [place] [address] PCP - General Internal Medicine 06/21/17 04/18/20 Robel Camarena DO 200 [place] [address] PCP - General Internal Medicine 04/19/20 Robel Camarena DO 200 [place] [address] PCP - United Medicare Attributed 11/02/20 09/17/24 Brandyn Arriaga MD 85 [facility] [place] 1000 [place] [address] Consulting Provider Gastroenterology 06/04/15 Francisco Scales MD [address] [place] [address] Consulting Provider Cardiovascular Disease 06/04/15 Gianfranco Reynoso MD [address] [place] [address] Consulting Provider Endocrinology 07/06/15 Efe Sanabria DO 85 [facility] 923 [place] [address] Consulting Provider Pulmonary Disease 10/11/15 Bryce Lema DPM 85 [facility] 923 [place] [address] Consulting Provider Podiatry 05/22/17 Anne Marie Chance MD 85 [facility] 923 [place] [address] Consulting Provider Rheumatology 05/07/18 Ishmael Shaw OD 110 [facility] 100 [place] [address] Consulting Provider Optometry 07/22/18 Amaya Cardenas, GREGORY [address] [place] [address] [facility] Community Drum Saw Operator 02/27/19 06/01/19 Robel Camarena DO [address] [place] [address] Internal Medicine 02/16/20 Anne Marie Shafer [facility] [address] [place] [address] [facility] Community Drum Saw Operator 03/02/22 03/02/22 Rell Howe MD Consulting Provider Anesthesiology 10/11/15 [email or web address] chow [facility] 11/06/16 06/29/19 documented as of this encounter
--- OUTSIDE RECORDS SUMMARY | 2025-02-06 10:45 | XMS_ITS | Encounter Summary ---
Author Organization [facility] Address [address] [place] [address] Care Team Providers Care Metal Fabricating Supervisor Name Role Phone Dominique Nicholas MD Primary Care Provider Brandyn Arriaga MD Unavailable Francisco Scales MD Unavailable [phone] Misbah Niño MD Unavailable [phone] David Maxwell MD Unavailable [phone] Ming Alvarez MD Unavailable [phone] Lino Carpio MD Unavailable [phone] Gianfranco Reynoso MD Unavailable Unavailable Efe Sanabria DO Unavailable [phone] Shaka Lyman MD Unavailable [phone] Pcp, No Primary Care Provider UnavailDominique Simmons MD Primary Care Provider Pcp, No Primary Care Provider UnavailBryce Nayak DPM Unavailable Dominique Nicholas MD Primary Care Provider Anne Marie Chance MD Unavailable +1-000-0 00-0000 Ishmael Shaw OD Unavailable [phone] Amaya Cardenas RN Unavailable Robel Camarena DO Unavailable [phone] KathyRobel freeman DO Primary Care Provider KathyEva freemanno DO Unavailable [phone] Anne Marie Shafer FIELD STAFF Unavailable Encounter Details Date Type Department Care Team (Late st Contact Info) Description 05/12/2016 Scanned Document [address] [id number] Provider, Generic Social History Tobacco Use Types [...] on filedocumented in this encounter Care Teams Metal Fabricating Supervisor Relationship Specialty Start Date End Date Dominique Nicholas MD PCP - General Internal Medicine 03/31/15 07/09/16 Pcp, No PCP - General General Medicine 07/13/16 10/29/16 Dominique Nicholas MD PCP - General Internal Medicine 10/30/16 11/05/16 Pcp, No PCP - General General Medicine 11/06/16 06/20/17 Dominique Nicholas MD PCP - General Internal Medicine 06/21/17 04/18/20 Robel Camarena DO [address] [place] [address] PCP - General Internal Medicine 04/19/20 Robel Camarena DO 200 [place] [address] PCP - United Medicare Attributed 11/02/20 09/17/24 Brandyn Arriaga MD 85 [facility] 1000 [place] [id number] Consulting Provider Gastroenterology 06/04/15 Francisco Scales MD [address] [place] [address] Consulting Provider Cardiovascular Disease 06/04/15 Misbah Niño MD [address] [place] [address] Consulting Provider Physical Medicine and Rehabilitation 06/04/15 05/21/17 David Maxwell MD [address] [place] [address] 800 [place] [address] Consulting Provider Neurology 06/04/15 05/21/17 Ming Alvarez MD [address] [place] [address] Consulting Provider Surgery, Bariatric 06/04/15 05/21/17 Lino Carpio MD [address] [place] [address] Consulting Provider Internal Medicine 06/04/15 12/12/18 Gianfranco Reynoso MD [address] [place] [address] Consulting Provider Endocrinology 07/06/15 Efe Sanabria DO 85 [facility] 923 [place] [address] Consulting Provider Pulmonary Disease 10/11/15 Shaka Lyman MD 6 [facility] [address] [place] [address] Consulting Provider Gastroenterology 10/11/15 12/12/18 Bryce Lema DPM Consulting Provider Podiatry 05/22/17 Anne Marie Chance MD Consulting Provider Rheumatology 05/07/18 Ishmael Shaw OD [address] [place] [address] 100 [place] [address] Consulting Provider Optometry 07/22/18 Amaya Cardenas, GREGORY [address] [place] [address] [facility] Community Guest Room Attendant 02/27/19 06/01/19 Robel Camarena DO [address] [place] [address] Internal Medicine 02/16/20 Anne Marie Shafer, FIELD STAFF [address] 4 [place] [address] [facility] Community Guest Room Attendant 03/02/22 03/02/22 Rell Howe MD Consulting Provider Anesthesiology 10/11/15 KELLEN GEE MD [address] [place] [address] Rheumatology 03/22/16 05/21/17 [email or web address] chow [facility] 11/06/16 06/29/19 documented as of this encounter
--- OUTSIDE RECORDS SUMMARY | 2025-02-06 10:45 | XMS_ITS | Encounter Summary ---
Author Organization [facility] Address [address] [place] [address] Care Team Providers Care Acquisitions Editor Name Role Phone Brandyn Arriaga MD Unavailable Francisco Scales MD Unavailable [phone] Lnio Carpio MD Unavailable [phone] Gianfranco Reynoso MD Unavailable Unavailable Efe Sanabria DO Unavailable Shaka Lyman MD Unavailable Bryce Lema DPM Unavailable Dominique Nicholas MD Primary Care Provider Anne Marie Chance MD Unavailable +[phone] [phone] Ishmael Shaw OD Unavailable Amaya Cardenas RN Unavailable [phone] Robel Camarena DO Unavailable Robel Camarena DO Primary Care Provider Robel Camarena DO Unavailable [phone] Anne Marie Shafer LCSW Unavailable [phone] Encounter Details Date Type Department Care Team (Late st Contact Info) Description 06/21/2017 Scanned Document [facility] 1060 [place] [address] Dominique Nicholas MD [address] [place] [address] Social History Tobacco Use Types Packs/Day Years [...] on filedocumented in this encounter Care Teams Acquisitions Editor Relationship Specialty Start Date End Date Dominique Nicholas MD 6 [facility] [address] [place] [address] PCP - General Internal Medicine 06/21/17 04/18/20 Robel Camarena DO 200 [place] [address] PCP - General Internal Medicine 04/19/20 Robel Camarena DO 200 [place] [address] PCP - United Medicare Attributed 11/02/20 09/17/24 Brandyn Arriaga MD 85 [facility] 1000 [place] [address] Consulting Provider Gastroenterology 06/04/15 Francisco Scales MD [address] [place] [address] [place] [address] Consulting Provider Cardiovascular Disease 06/04/15 Lino Carpio MD [address] [place] [address] Consulting Provider Internal Medicine 06/04/15 12/12/18 Gianfranco Reynoso MD [address] [place] [address] Consulting Provider Endocrinology 07/06/15 Efe Sanabria DO [address] [place] [address] Consulting Provider Pulmonary Disease 10/11/15 Shaka Lyman MD [address] [place] [address] Consulting Provider Gastroenterology 10/11/15 12/12/18 Bryce Lema DPM [address] [place] [address] Consulting Provider Podiatry 05/22/17 Anne Marie Chance MD [address] [place] [address] Consulting Provider Rheumatology 05/07/18 Ishmael Shaw OD [address] [place] [address] Consulting Provider Optometry 07/22/18 Amaya Cardenas, GREGORY [address] [address] [facility] Community Scrap Crane Operator 02/27/19 06/01/19 Robel Camarena DO [address] [place] [address] Internal Medicine 02/16/20 Anne Marie Shafer, SOLE INKER [address] [place] [address] [facility] Community Scrap Crane Operator 03/02/22 03/02/22 Rell Howe MD Consulting Provider Anesthesiology 10/11/15 [email or web address] chow [facility] 11/06/16 06/29/19 documented as of this encounter
--- OUTSIDE RECORDS SUMMARY | 2025-02-06 10:45 | XMS_ITS | Encounter Summary ---
Author Organization [facility] Address 100 [place] [address] Care Team Providers Care Quality Auditor Name Role Phone Brandyn Arriaga MD Unavailable Francisco Scales MD Unavailable [phone] Misbah Niño MD Unavailable [phone] David Maxwell MD Unavailable Ming Alvarez MD Unavailable [phone] Lino Carpio MD Unavailable [phone] Gianfranco Reynoso MD Unavailable Unavailable Efe Sanabria DO Unavailable Shaka Lyman MD Unavailable Pcp, No Primary Care Provider UnavailBryce Nayak DPM Unavailable Dominique Nicholas MD Primary Care Provider Anne Marie Chance MD Unavailable +1-000-0 00-0000 Ishmael Shaw OD Unavailable Amaya Cardenas RN Unavailable [phone] Robel Camarena DO Unavailable Robel Camarena DO Primary Care Provider [phone] Robel Camarena DO Unavailable Anne Marie Shafer [facility] Unavailable Reason for Visit * Reason Comments Medication Refill Encounter Details Date Type Department Care Team (Late st Contact Info) Description 02/16/2017 Refill [facility] 1060 [place] [phone] Dominique Nicholas MD [address] [place] [address] [place] [address] [id number] Allergic rhinitis due to other allergic trigger, [...] seasonality documented in this encounter Care Teams Quality Auditor Relationship Specialty Start Date End Date Pcp, No PCP - General General Medicine 11/06/16 06/20/17 Dominique Nicholas MD PCP - General Internal Medicine 06/21/17 04/18/20 RadhaRobel gutierrez DO 200 [place] [address] PCP - General Internal Medicine 04/19/20 KathyRobel freeman DO 200 [place] [address] PCP - United Medicare Attributed 11/02/20 09/17/24 Brandyn Arriaga MD [address] [facility] 1000 [place] [address] Consulting Provider Gastroenterology 06/04/15 Francisco Scales MD [address] [place] [address] Consulting Provider Cardiovascular Disease 06/04/15 Misbah Niño MD [address] [place] [address] Consulting Provider Physical Medicine and Rehabilitation 06/04/15 05/21/17 David Maxwell MD [address] [facility] 800 [place] [address] Consulting Provider Neurology 06/04/15 05/21/17 Ming Alvarez MD [address] [place] [address] Consulting Provider Surgery, Bariatric 06/04/15 05/21/17 Lino Carpio MD [address] [place] [address] Consulting Provider Internal Medicine 06/04/15 12/12/18 Gianfranco Reynoso MD 100 [place] [address] Consulting Provider Endocrinology 07/06/15 Efe Sanabria DO [address] [facility] 923 [place] [address] Consulting Provider Pulmonary Disease 10/11/15 Shaka Lyman MD 6 [facility] [address] [place] [address] Consulting Provider Gastroenterology 10/11/15 12/12/18 Bryce Lema DPM Consulting Provider Podiatry 05/22/17 Anne Marie Chance MD Consulting Provider Rheumatology 05/07/18 Ishmael Shaw OD [address] [address] Consulting Provider Optometry 07/22/18 Amaya Cardenas, GREGORY [facility] [address] [address] [facility] Community Tube Heater 02/27/19 06/01/19 Robel Camarena DO [address] [place] [address] Internal Medicine 02/16/20 Anne Marie Shafer, SEB [address] [facility] 4 [place] [address] [facility] Community Tube Heater 03/02/22 03/02/22 Rell Howe MD Consulting Provider Anesthesiology 10/11/15 KELLEN GEE MD [address] [place], [place] Rheumatology 03/22/16 05/21/17 [email or web address] chow [facility] 11/06/16 06/29/19 documented as of this encounter
--- OUTSIDE RECORDS SUMMARY | 2025-02-06 10:45 | XMS_ITS | Encounter Summary ---
Author Organization [facility] Address [address] [place] [address] Care Team Providers Care Forensics Team Director Name Role Phone Dominique Nicholas MD Primary Care Provider Brandyn Arriaga MD Unavailable Francisco Scales MD Unavailable [phone] Misbah Niño MD Unavailable [phone] David Maxwell MD Unavailable [phone] Ming Alvarez MD Unavailable [phone] Lino Carpio MD Unavailable [phone] Gianfranco Reynoso MD Unavailable Unavailable Efe Sanabria DO Unavailable [phone] Shaka Lyman MD Unavailable [phone] Pcp, No Primary Care Provider UnavailDominique Simmons MD Primary Care Provider Pcp, No Primary Care Provider UnavailBryce Nayak DPM Unavailable Dominique Nicholas MD Primary Care Provider [phone] Anne Marie Chance MD Unavailable [phone] Ishmael Shaw OD Unavailable [phone] Amaya Cardenas RN Unavailable Robel Camarena DO Unavailable [phone] Robel Camarena DO Primary Care Provider Robel Camarena DO Unavailable [phone] Anne Marie Shafer PLANNER CHIEF Unavailable Encounter Details Date Type Department Care Team (Late st Contact Info) Description 05/09/2016 Scanned Document [address] [phone] Provider, Generic Social History Tobacco Use Types [...] on filedocumented in this encounter Care Teams Forensics Team Director Relationship Specialty Start Date End Date Dominique Nicholas MD PCP - General Internal Medicine 03/31/15 07/09/16 Pcp, No PCP - General General Medicine 07/13/16 10/29/16 Dominique Nicholas MD PCP - General Internal Medicine 10/30/16 11/05/16 Pcp, No PCP - General General Medicine 11/06/16 06/20/17 Dominique Nicholas MD PCP - General Internal Medicine 06/21/17 04/18/20 Robel Camarena DO 200 [place] [address] PCP - General Internal Medicine 04/19/20 Robel Camarena DO 200 [place] [address] PCP - United Medicare Attributed 11/02/20 09/17/24 Brandyn Arriaga MD 85 [facility] 1000 [place] [address] Consulting Provider Gastroenterology 06/04/15 Francisco Scales MD [address] [place] [address] Consulting Provider Cardiovascular Disease 06/04/15 Misbah Niño MD [address] [place] [address] Consulting Provider Physical Medicine and Rehabilitation 06/04/15 05/21/17 David Maxwell MD 85 [facility] 800 [place] [address] Consulting Provider Neurology 06/04/15 05/21/17 Ming Alvarez MD [address] [place] [address] Consulting Provider Surgery, Bariatric 06/04/15 05/21/17 Lino Carpio MD 100 [place] [address] Consulting Provider Internal Medicine 06/04/15 12/12/18 Gianfranco Reynoso MD 100 [place] [address] Consulting Provider Endocrinology 07/06/15 Efe Sanabria DO [address] [place] [address] 923 [place] [address] Consulting Provider Pulmonary Disease 10/11/15 Shaka Lyman MD [address] [place] [address] 302 [place] [address] Consulting Provider Gastroenterology 10/11/15 12/12/18 Bryce Lema DPM Consulting Provider Podiatry 05/22/17 Anne Marie Chance MD Consulting Provider Rheumatology 05/07/18 Ishmael Shaw OD [address] [place] [address] Consulting Provider Optometry 07/22/18 Amaya Cardenas, RN [address] [place] [address] [facility] Community Residential Air Sealing Technician 02/27/19 06/01/19 Robel Camarena DO [address] [place] [address] Internal Medicine 02/16/20 Anne Marie Shafer, PLANNER CHIEF [address] [place] [address] [facility] Community Residential Air Sealing Technician 03/02/22 03/02/22 Rell Howe MD Consulting Provider Anesthesiology 10/11/15 KELLEN GEE MD [address] [place] [address] Rheumatology 03/22/16 05/21/17 batsheva chow [facility] 11/06/16 06/29/19 documented as of this encounter
--- OUTSIDE RECORDS SUMMARY | 2025-02-06 10:45 | XMS_ITS | Encounter Summary ---
Author Organization [facility] Address [address] [place] [address] Care Team Providers Care Academic Director Name Role Phone Dominique Nicholas MD Primary Care Provider [phone] Brandyn Arriaga MD Unavailable Francisco Scales MD Unavailable [phone] Misbah Niño MD Unavailable [phone] David Maxwell MD Unavailable [phone] Ming Alvarez MD Unavailable [phone] Lino Carpio MD Unavailable [phone] Gianfranco Reynoso MD Unavailable Unavailable Efe Sanabria DO Unavailable [phone] Shaka Lyman MD Unavailable [phone] Pcp, No Primary Care Provider UnavailDominique Simmons MD Primary Care Provider [phone] Pcp, No Primary Care Provider UnavailBryce Nayak DPM Unavailable Dominique Nicholas MD Primary Care Provider Anne Marie Chance MD Unavailable [phone] Ishmael Shaw OD Unavailable [phone] Amaya Cardenas RN Unavailable Robel Camarena DO Unavailable KathyRobel freeman DO Primary Care Provider [phone] KathyRobel freeman DO Unavailable [phone] Anne Marie Shafer DRIVER SERVICE TECHNICIAN Unavailable [phone] Encounter Details Date Type Department Care Team (Late st Contact Info) Description 05/06/2015 Scanned Document [address] [phone] Provider, Generic Social History Tobacco Use Types [...] on filedocumented in this encounter Care Teams Academic Director Relationship Specialty Start Date End Date Dominique Nichloas MD PCP - General Internal Medicine 03/31/15 07/09/16 Pcp, No PCP - General General Medicine 07/13/16 10/29/16 Dominique Nicholas MD PCP - General Internal Medicine 10/30/16 11/05/16 Pcp, No PCP - General General Medicine 11/06/16 06/20/17 Dominique Nicholas MD PCP - General Internal Medicine 06/21/17 04/18/20 Robel Camarena DO [address] [place] [address] PCP - General Internal Medicine 04/19/20 Robel Camarena DO [address] [place] [address] PCP - United Medicare Attributed 11/02/20 09/17/24 Brandyn Arriaga MD 85 [facility] 1000 [place] [address] Consulting Provider Gastroenterology 06/04/15 Francisco Scales MD [address] [place] [address] Consulting Provider Cardiovascular Disease 06/04/15 Misbah Niño MD [address] [place] [address] Consulting Provider Physical Medicine and Rehabilitation 06/04/15 05/21/17 David Maxwell MD 85 [facility] 800 [place] [address] Consulting Provider Neurology 06/04/15 05/21/17 Ming Alvarez MD [address] [place] [address] Consulting Provider Surgery, Bariatric 06/04/15 05/21/17 Lino Carpio MD 100 [place] [address] Consulting Provider Internal Medicine 06/04/15 12/12/18 Gianfranco Reynoso MD 100 [place] [address] Consulting Provider Endocrinology 07/06/15 Efe Sanabria DO 85 [facility] 923 [place] [address] Consulting Provider Pulmonary Disease 10/11/15 Shaka Lyman MD 6 [facility] [address] [place] [address] Consulting Provider Gastroenterology 10/11/15 12/12/18 Bryce Lema DPM Consulting Provider Podiatry 05/22/17 Anne Marie Chance MD Consulting Provider Rheumatology 05/07/18 Ishmael Shaw OD [address] [place] [address] Consulting Provider Optometry 07/22/18 Amaya Cardenas, RN [address] [facility] 4 [place] [address] ICP Community Technical Staff Engineer 02/27/19 06/01/19 Robel Camarena DO [address] [place] [address] Internal Medicine 02/16/20 Anne Marie Shafer, [facility] [address] 4 [place] [address] [facility] Community Technical Staff Engineer 03/02/22 03/02/22 Rell Howe MD Consulting Provider Anesthesiology 10/11/15 KELLEN GEE MD [address] [place] [address] Rheumatology 03/22/16 05/21/17 batsheva chow [facility] Integrated [facility] 11/06/16 06/29/19 documented as of this encounter
--- OUTSIDE RECORDS SUMMARY | 2025-02-06 10:45 | XMS_ITS | Encounter Summary ---
Author Organization [facility] Address [address] [place] [address] Care Team Providers Care Railroad Car Painter Name Role Phone Dominique Nicholas MD Primary Care Provider [phone] Dominique Nicholas MD Primary Care Provider Encounter Details Date Type Department Care Team (Late st Contact Info) Description 05/18/2016 Documentation [facility] [address] [place] [address] Tabitha Saldana MSW [facility] Social History Tobacco Use Types Packs/Day Years [...] on filedocumented in this encounter Care Teams Railroad Car Painter Relationship Specialty Start Date End Date Dominique Nicholas MD [address] [place] [address] PCP - General Internal Medicine 05/16/16 07/25/16 Dominique Nicholas MD [address] [place] [address] PCP - General Internal Medicine 12/05/16 documented as of this encounter
--- OUTSIDE RECORDS SUMMARY | 2025-02-06 10:45 | XMS_ITS | Encounter Summary ---
Author Organization [facility] Address [address] [place] [address] Care Team Providers Care Dumper Name Role Phone Brandyn Arriaga MD Unavailable Francisco Scales MD Unavailable [phone] Gianfranco Reynoso MD Unavailable Unavailable Efe Sanabria DO Unavailable Bryce Lema DPM Unavailable Anne Marie Chance MD Unavailable [phone] Ishmael Shaw OD Unavailable Robel Camarena DO Unavailable Robel Camarena DO Primary Care Provider Robel Camarena DO Unavailable [phone] Anne Marie Shafer [facility] Unavailable Reason for Visit * Reason Comments Medication Refill Encounter Details Date Type Department Care Team (Late st Contact Info) Description 06/14/[address] [phone] Gianfranco Reynoso MD Diabetes mellitus without complication [...] uncontrolled documented in this encounter Care Teams Dumper Relationship Specialty Start Date End Date Robel Camarena DO 200 [place] [address] PCP - General Internal Medicine 04/19/20 Robel Camarena DO 200 [place] [address] PCP - United Medicare Attributed 11/02/20 09/17/24 Brandyn Arriaga MD 85 [facility] [address] [place] [address] Consulting Provider Gastroenterology 06/04/15 Francisco Scales MD [address] [place] [address] Consulting Provider Cardiovascular Disease 06/04/15 Gianfranco Reynoso MD [address] [place] [address] Consulting Provider Endocrinology 07/06/15 Efe Sanabria DO 85 [facility] [address] [place] [address] Consulting Provider Pulmonary Disease 10/11/15 Bryce Lema DPM 85 [facility] 923 [place] [address] Consulting Provider Podiatry 05/22/17 Anne Marie Chance MD 85 [facility] 923 [place] [address] Consulting Provider Rheumatology 05/07/18 Ishmael Shaw OD 110 [facility] 100 [place] [address] Consulting Provider Optometry 07/22/18 Robel Camarena DO [address] [place] [address] Internal Medicine 02/16/20 Anne Marie Shafer, [facility] 1290 [facility] 4 [place] [address] [facility] Community Well Drill Operator Cable Tool 03/02/22 03/02/22 Rell Howe MD Consulting Provider Anesthesiology 10/11/15 documented as of this encounter
--- OUTSIDE RECORDS SUMMARY | 2025-02-06 10:45 | XMS_ITS | Encounter Summary ---
Author Organization [facility] Address [address] [place] [address] Care Team Providers Care Crude Oil Treater Name Role Phone Brandyn Arriaga MD Unavailable Francisco Scales MD Unavailable [phone] Gianfranco Reynoso MD Unavailable Unavailable Efe Sanabria DO Unavailable [phone] Bryce Lema DPM Unavailable Anne Marie Chance MD Unavailable +[phone] [phone] Ishmael Shaw OD Unavailable Robel Camarena DO Unavailable [phone] Robel Camarena DO Primary Care Provider Robel Camarena DO Unavailable [phone] Anne Marie Shafer [facility] Unavailable Reason for Visit * Reason Comments Medication Refill Encounter Details Date Type Department Care Team (Late st Contact Info) Description 09/08/[address] [phone] Gianfranco Reynoso MD Diabetes mellitus without complication [...] uncontrolled documented in this encounter Care Teams Crude Oil Treater Relationship Specialty Start Date End Date Robel Camarena DO 200 [place] [address] PCP - General Internal Medicine 04/19/20 Robel Camarena DO 200 [place] [address] PCP - United Medicare Attributed 11/02/20 09/17/24 Brandyn Arriaga MD 85 [facility] [place] [address] [place] [address] Consulting Provider Gastroenterology 06/04/15 Francisco Scales MD [address] [place] [address] Consulting Provider Cardiovascular Disease 06/04/15 Gianfranco Reynoso MD [address] [place] [address] Consulting Provider Endocrinology 07/06/15 Efe Sanabria DO 85 [facility] [address] [place] [address] Consulting Provider Pulmonary Disease 10/11/15 Brcye Lema DPM 85 [facility] [address] [place] [address] Consulting Provider Podiatry 05/22/17 Anne Marie Chance MD 85 [facility] 923 [place] [address] Consulting Provider Rheumatology 05/07/18 Ishmael Shaw OD 110 [facility] 100 [place] [address] Consulting Provider Optometry 07/22/18 Robel Camarena DO [address] [place] [address] Internal Medicine 02/16/20 Anne Marie Shafer, STRAINER MILL OPERATOR [address] [place] [facility] 4 [place] [address] [facility] Community Animal Doctor 03/02/22 03/02/22 Rell Howe MD Consulting Provider Anesthesiology 10/11/15 documented as of this encounter
--- OUTSIDE RECORDS SUMMARY | 2025-02-06 10:45 | XMS_ITS | Encounter Summary ---
Author Organization [facility] Address [address] [place] [address] Care Team Providers Care Assembly Department Supervisor Name Role Phone Brandyn Arriaga MD Unavailable Francisco Scales MD Unavailable [phone] Misbah Niño MD Unavailable David Maxwell MD Unavailable Ming Alvarez MD Unavailable [phone] Lino Carpio MD Unavailable [phone] Gianfranco Reynoso MD Unavailable Unavailable Efe Sanabria DO Unavailable Shaka Lyman MD Unavailable Dominique Nicholas MD Primary Care Provider [phone] Pcp, No Primary Care Provider Unavailmaria del carmen e Bryce Lema DPM Unavailable Dominique Nicholas MD Primary Care Provider [phone] Anne Marie Chance MD Unavailable [phone] Ishmael Shaw OD Unavailable Amaya Cardenas RN Unavailable Robel Camarena DO Unavailable [phone] Robel Camarena DO Primary Care Provider Kathypete Robel DO Unavailable Anne Marie Shafer [facility] Unavailable Encounter Details Date Type Department Care Team (Late st Contact Info) Description 11/01/2016 Abstract [facility] DIABETES & NUTRITION [address] [place] [phone] Matthew Sahu LPN [address] [place] [address] Social History Tobacco Use Types Packs/Day Years [...] on filedocumented in this encounter Care Teams Assembly Department Supervisor Relationship Specialty Start Date End Date Dominique Nicholas MD 6 [facility] [address] [address] PCP - General Internal Medicine 10/30/16 11/05/16 Pcp, No PCP - General General Medicine 11/06/16 06/20/17 Dominique Nicholas MD [address] [place] [address] [address] [place] [address] PCP - General Internal Medicine 06/21/17 04/18/20 Robel Camarena DO [address] [place] [address] PCP - General Internal Medicine 04/19/20 Robel Camarena DO [address] [place] [address] PCP - United Medicare Attributed 11/02/20 09/17/24 Brandyn Arriaga MD 85 [facility] 1000 [place] [id number] Consulting Provider Gastroenterology 06/04/15 Francisco Scales MD [address] [place] [address] Consulting Provider Cardiovascular Disease 06/04/15 Misbah Niño MD [address] [place] [address] Consulting Provider Physical Medicine and Rehabilitation 06/04/15 05/21/17 David Maxwell MD 85 [facility] 800 [place] [address] Consulting Provider Neurology 06/04/15 05/21/17 Ming Alvarez MD [address] [place] [address] Consulting Provider Surgery, Bariatric 06/04/15 05/21/17 Lino Carpio MD [address] [place] [address] Consulting Provider Internal Medicine 06/04/15 12/12/18 Gianfranco Reynoso MD [address] [place] [address] Consulting Provider Endocrinology 07/06/15 Efe Sanabria DO [address] [facility] 923 [place] [address] Consulting Provider Pulmonary Disease 10/11/15 Shaka Lyman MD [address] [facility] [address] [place] [address] Consulting Provider Gastroenterology 10/11/15 12/12/18 Bryce Lema DPM Consulting Provider Podiatry 05/22/17 Anne Marie Chance MD Consulting Provider Rheumatology 05/07/18 Ishmael Shaw OD [address] [place] [address] Consulting Provider Optometry 07/22/18 Amaya Cardenas, RN [address] [address] ICP Community Admitting Supervisor 02/27/19 06/01/19 Robel Camarena DO [address] [place] [address] Internal Medicine 02/16/20 Anne Marie Shafer, RN ORTHOPEDIC [address] 4 [place] [address] ICP Community Admitting Supervisor 03/02/22 03/02/22 Rell Howe MD Consulting Provider Anesthesiology 10/11/15 KELLEN GEE MD [address] [place] [address] Rheumatology 03/22/16 05/21/17 batsheva chow [facility] 11/06/16 06/29/19 documented as of this encounter
--- OUTSIDE RECORDS SUMMARY | 2025-02-06 10:45 | XMS_ITS | Encounter Summary ---
Author Organization [facility] Address [address] [place] [address] Care Team Providers Care Occupational Therapy Department Chair Name Role Phone Brandyn Arriaga MD Unavailable Francisco Scales MD Unavailable [phone] Misbah Nioñ MD Unavailable David Maxwell MD Unavailable Ming Alvarez MD Unavailable [phone] Lino Carpio MD Unavailable [phone] Gianfranco Reynoso MD Unavailable Unavailable Efe Sanabria DO Unavailable Shaka Lyman MD Unavailable Pcp, No Primary Care Provider Unavailabl Dominique Huang MD Primary Care Provider [phone] Pcp, No Primary Care Provider Unavailmaria del carmen e Bryce Lema DPM Unavailable Dominique Nicholas MD Primary Care Provider Anne Marie Chance MD Unavailable [phone] Ishmael Shaw OD Unavailable Amaya Cardenas RN Unavailable Robel Camarena DO Unavailable Robel Camarena DO Primary Care Provider Robel Camarena DO Unavailable [phone] Anne Marie Shafer [facility] Unavailable Encounter Details Date Type Department Care Team (Late st Contact Info) Description 09/13/2016 Documentation [place] [address] [address] [place] [address] Inez Galo, GREGORY 80 [place] [address] Social History Tobacco Use Types Packs/Day Years [...] on filedocumented in this encounter Care Teams Occupational Therapy Department Chair Relationship Specialty Start Date End Date Pcp, No PCP - General General Medicine 07/13/16 10/29/16 Dominique Nicholas MD PCP - General Internal Medicine 10/30/16 11/05/16 Pcp, No PCP - General General Medicine 11/06/16 06/20/17 Dominique Nicholas MD PCP - General Internal Medicine 06/21/17 04/18/20 Robel Camarena DO 200 [place] [address] PCP - General Internal Medicine 04/19/20 Robel Camarena DO [address] [place] [address] PCP - United Medicare Attributed 11/02/20 09/17/24 Brandyn Arriaga MD 85 [facility] 1000 [place] [id number] Consulting Provider Gastroenterology 06/04/15 Francisco Scales MD 100 [place] [facility] [address] [place] [id number] Consulting Provider Cardiovascular Disease 06/04/15 Misbah Niño MD [address] [place] [facility] [address] [place] [address] Consulting Provider Physical Medicine and Rehabilitation 06/04/15 05/21/17 David Maxwell MD [address] [place] [address] 800 [place] [address] Consulting Provider Neurology 06/04/15 05/21/17 Ming Alvarez MD [address] [place] [address] Consulting Provider Surgery, Bariatric 06/04/15 05/21/17 Lino Carpio MD [address] [place] [address] Consulting Provider Internal Medicine 06/04/15 12/12/18 Gianfranco Reynoso MD [address] [place] [address] Consulting Provider Endocrinology 07/06/15 Efe Sanabria DO 85 [facility] 923 [place] [address] Consulting Provider Pulmonary Disease 10/11/15 Shaka Lyman MD 6 [facility] [address] [place] [address] Consulting Provider Gastroenterology 10/11/15 12/12/18 Bryce Lema DPM Consulting Provider Podiatry 05/22/17 Anne Marie Chance MD Consulting Provider Rheumatology 05/07/18 Ishmael Shaw OD [address] [place] [address] Consulting Provider Optometry 07/22/18 Amaya Cardenas, RN [address] [facility] 4 [place] [address] ICP Community Maintenance Supervisor 2Nd Shift 02/27/19 06/01/19 Robel Camarena DO [address] [place] [address] Internal Medicine 02/16/20 Anne Marie Shafer, [facility] [address] [place] [address] ICP Community Maintenance Supervisor 2Nd Shift 03/02/22 03/02/22 Rell Howe MD Consulting Provider Anesthesiology 10/11/15 KELLEN GEE MD [address] [place] [address] Rheumatology 03/22/16 05/21/17 batsheva chow [facility] 11/06/16 06/29/19 documented as of this encounter
--- OUTSIDE RECORDS SUMMARY | 2025-02-06 10:45 | XMS_ITS | Encounter Summary ---
Author Organization Formerly [facility] Address [address] [place] [address] Care Team Providers Care Histologic Technician Name Role Phone Brandyn Arriaga MD Unavailable Francisco Scales MD Unavailable [phone] Misbah Niño MD Unavailable David Maxwell MD Unavailable Ming Alvarez MD Unavailable [phone] Lino Carpio MD Unavailable [phone] Gianfranoc Reynoso MD Unavailable Unavailable Efe Sanabria DO Unavailable Shaka Lyman MD Unavailable Pcp, No Primary Care Provider UnavailBryce Nayak DPM Unavailable Dominique Nicholas MD Primary Care Provider Anne Marie Chance MD Unavailable [phone] Ishmael Shaw OD Unavailable Amaya Cardenas RN Unavailable [phone] Robel Camarena DO Unavailable Robel Camarena DO Primary Care Provider [phone] Robel Camarena DO Unavailable Anne Marie Shafer [facility] Unavailable Reason for Visit * Reason Comments Medication Refill Encounter Details Date Type Department Care Team (Late st Contact Info) Description 03/22/2017 Refill [facility] [address] [place] [address] Dominique Nicholas MD [address] [place] [address] [id number] Essential hypertension Social History Tobacco Use Types [...] hypertension documented in this encounter Care Teams Histologic Technician Relationship Specialty Start Date End Date Pcp, No PCP - General General Medicine 11/06/16 06/20/17 Dominique Nicholas MD PCP - General Internal Medicine 06/21/17 04/18/20 Robel Camarena DO [address] [place] [address] PCP - General Internal Medicine 04/19/20 Robel Camarena DO [address] [place] [address] PCP - United Medicare Attributed 11/02/20 09/17/24 Brandyn Arriaga MD 85 [facility] [address] [place] [address] Consulting Provider Gastroenterology 06/04/15 Francisco Scales MD [address] [place] [address] Consulting Provider Cardiovascular Disease 06/04/15 Misbah Niño MD [address] [place] [address] Consulting Provider Physical Medicine and Rehabilitation 06/04/15 05/21/17 David Maxwell MD 85 [facility] [address] [place] [address] Consulting Provider Neurology 06/04/15 05/21/17 Ming Alvarez MD [address] [place] [address] Consulting Provider Surgery, Bariatric 06/04/15 05/21/17 Lino Carpio MD 100 [place] [address] Consulting Provider Internal Medicine 06/04/15 12/12/18 Gianfranco Reynoso MD [address] [place] [address] Consulting Provider Endocrinology 07/06/15 Efe Sanabria DO 85 [facility] [address] [place] [address] Consulting Provider Pulmonary Disease 10/11/15 Shaka Lyman MD [address] [facility] [address] [place] [address] Consulting Provider Gastroenterology 10/11/15 12/12/18 Bryce Lema DPM Consulting Provider Podiatry 05/22/17 Anne Marie Chance MD Consulting Provider Rheumatology 05/07/18 Ishmael Shaw OD [address] [place] [address] Consulting Provider Optometry 07/22/18 Amaya Cardenas, RN [address] [address] ICP Community Emt Dispatcher 02/27/19 06/01/19 Robel Camarena DO [address] [place] [address] Internal Medicine 02/16/20 Anne Marie Shafer PAPERBACK MACHINE OPERATOR [address] [address] ICP Community Emt Dispatcher 03/02/22 03/02/22 Rell Howe MD Consulting Provider Anesthesiology 10/11/15 KELLEN GEE MD [address] [place] [address] Rheumatology 03/22/16 05/21/17 batsheva chow [facility] 11/06/16 06/29/19 documented as of this encounter
--- OUTSIDE RECORDS SUMMARY | 2025-02-06 10:45 | XMS_ITS | Encounter Summary ---
Author Organization [facility] Address [address] [place] [address] Care Team Providers Care Guitar Maker Name Role Phone Dominique Nicholas MD Primary Care Provider [phone] Brandyn Arriaga MD Unavailable Francisco Scales MD Unavailable [phone] Misbah Niño MD Unavailable [phone] David Maxwell MD Unavailable [phone] Ming Alvarez MD Unavailable [phone] Lino Carpio MD Unavailable [phone] Gianfranco Palomo MD Unavailable Unavailable Efe Sanabria DO Unavailable [phone] Shaka Lyman MD Unavailable [phone] Pcp, No Primary Care Provider UnavailDominique Simmons MD Primary Care Provider Pcp, No Primary Care Provider UnavailBryce Nayak DPM Unavailable Dominique Nicholas MD Primary Care Provider Anne Marie Chance MD Unavailable [phone] Ishmael Shaw OD Unavailable [phone] Amaya Cardenas RN Unavailable [phone] Robel Camarena DO Unavailable [phone] Robel Camarena DO Primary Care Provider [phone] Robel Camarena DO Unavailable [phone] Anne Marie Shafer [facility] Unavailable [phone] Reason for Visit * Reason Comments Medication Refill Encounter Details Date Type Department Care Team (Late st Contact Info) Description 04/05/[address] [address] Catina Mckoy MD [address] [place] [address] Social History Tobacco Use Types Packs/Day Years [...] FORWARD REFILL REQUEST TO DR. PALOMO IN [place] documented in this encounter Plan of Treatment Not on file documented as of this encounter Visit Diagnoses Not on filedocumented in this encounter Care Teams Guitar Maker Relationship Specialty Start Date End Date Dominique Nicholas MD PCP - General Internal Medicine 03/31/15 07/09/16 Pcp, No PCP - General General Medicine 07/13/16 10/29/16 Dominique Nicholas MD PCP - General Internal Medicine 10/30/16 11/05/16 Pcp, No PCP - General General Medicine 11/06/16 06/20/17 Dominique Nicholas MD PCP - General Internal Medicine 06/21/17 04/18/20 Robel Camarena DO [address] [place] [address] PCP - General Internal Medicine 04/19/20 Robel Camarena DO [address] [place] [address] PCP - United Medicare Attributed 11/02/20 09/17/24 Brandyn Arriaga MD 85 [facility] [address] [place] [address] Consulting Provider Gastroenterology 06/04/15 Francisco Scales MD [address] [place] [address] Consulting Provider Cardiovascular Disease 06/04/15 Misbah Niño MD [address] [place] [address] Consulting Provider Physical Medicine and Rehabilitation 06/04/15 05/21/17 David Maxwell MD 85 [facility] [address] [place] [address] Consulting Provider Neurology 06/04/15 05/21/17 Ming Alvarez MD [address] [place] [address] Consulting Provider Surgery, Bariatric 06/04/15 05/21/17 Lino Carpio MD 100 [place] [address] Consulting Provider Internal Medicine 06/04/15 12/12/18 Gianfranco Palomo MD [address] [place] [address] Consulting Provider Endocrinology 07/06/15 Efe Sanabria DO 85 [facility] [address] [place] [address] Consulting Provider Pulmonary Disease 10/11/15 Shaka Lyman MD 6 [facility] [address] [place] [address] Consulting Provider Gastroenterology 10/11/15 12/12/18 Bryce Lema DPM Consulting Provider Podiatry 05/22/17 Anne Marie Chance MD Consulting Provider Rheumatology 05/07/18 Ishmael Shaw OD [address] [address] Consulting Provider Optometry 07/22/18 Amaya Cardenas, GREGORY [address] [facility] 4 [place] [address] [facility] Community Senior Sales Representative 02/27/19 06/01/19 Robel Camarena DO [address] [place] [address] Internal Medicine 02/16/20 Anne Marie Shafer, ASSOCIATE ART DIRECTOR [address] [place] [address] [facility] Community Senior Sales Representative 03/02/22 03/02/22 Rell Howe MD Consulting Provider Anesthesiology 10/11/15 KELLEN GEE MD [address] [place] Rheumatology 03/22/16 05/21/17 batsheva chow [facility] 11/06/16 06/29/19 documented as of this encounter
--- OUTSIDE RECORDS SUMMARY | 2025-02-06 10:45 | XMS_ITS | Encounter Summary ---
Author Organization [facility] Address [address] [place] [address] Care Team Providers Care Fitter Type Bar And Segment Name Role Phone Darien Caraballo DO Primary Care Provider [phone] Dominique Nicholas MD Primary Care Provider [phone] Brandyn Arriaga MD Unavailable Francisco Scales MD Unavailable [phone] Misbah Niño MD Unavailable [phone] David Maxwell MD Unavailable [phone] Ming Alvarez MD Unavailable [phone] Lino Carpio MD Unavailable [phone] Gianfranco Reynoso MD Unavailable Unavailable Efe Sanabria DO Unavailable [phone] Shaka Lyman MD Unavailable [phone] Pcp, No Primary Care Provider UnavailDominique Simmons MD Primary Care Provider [phone] Pcp, No Primary Care Provider Unavailmaria del carmen e Bryce Lema DPM Unavailable Dominique Nicholas MD Primary Care Provider Anne Marie Chance MD Unavailable [phone] Ishmael Shaw OD Unavailable Amaya Cardenas RN Unavailable Robel Camarena DO Unavailable RadhaadriannaRobel freeman DO Primary Care Provider [phone] FridanellyRobel freeman DO Unavailable Anne Marie Shafer CARDIAC MONITOR Unavailable [phone] Encounter Details Date Type Department Care Team (Late st Contact Info) Description 03/19/2015 Scanned Document [facility] [address] [place] [id number] Provider, Generic Social History Tobacco Use Types [...] on filedocumented in this encounter Care Teams Fitter Type Bar And Segment Relationship Specialty Start Date End Date Darien Caraballo DO [address] [place] [address] PCP - General Internal Medicine 02/18/15 03/30/15 Dominique Nicholas MD [address] [place] [address] PCP - General Internal Medicine 03/31/15 07/09/16 Pcp, No PCP - General General Medicine 07/13/16 10/29/16 Dominique Nicholas MD [address] [place] [address] PCP - General Internal Medicine 10/30/16 11/05/16 Pcp, No PCP - General General Medicine 11/06/16 06/20/17 Dominique Nicholas MD [address] [place] [address] PCP - General Internal Medicine 06/21/17 04/18/20 Robel Camarena DO 200 [place] [address] PCP - General Internal Medicine 04/19/20 Robel Camarena DO 200 [place] [address] PCP - United Medicare Attributed 11/02/20 09/17/24 Brandyn Arriaga MD 85 [facility] 1000 [place] [address] Consulting Provider Gastroenterology 06/04/15 Francisco Scales MD [address] [place] [address] Consulting Provider Cardiovascular Disease 06/04/15 Misbah Niño MD [address] [place] [address] Consulting Provider Physical Medicine and Rehabilitation 06/04/15 05/21/17 David Maxwell MD 85 [facility] [address] [place] [address] Consulting Provider Neurology 06/04/15 05/21/17 Ming Alvarez MD [address] [place] [address] Consulting Provider Surgery, Bariatric 06/04/15 05/21/17 Lino Carpio MD 100 [place] [address] Consulting Provider Internal Medicine 06/04/15 12/12/18 Gianfranco Reynoso MD 100 [place] [address] Consulting Provider Endocrinology 07/06/15 Efe Sanabria DO [address] [place] [address] 923 [place] [address] Consulting Provider Pulmonary Disease 10/11/15 Shaka Lyman MD [address] [place] [address] 302 [place] [address] Consulting Provider Gastroenterology 10/11/15 12/12/18 Bryce Lema DPM Consulting Provider Podiatry 05/22/17 Anne Marie Chance MD Consulting Provider Rheumatology 05/07/18 Ishmael Shaw OD [address] [place] [address] Consulting Provider Optometry 07/22/18 Amaya Cardenas, GREGORY [address] [place] [address] [facility] Community Assistant Floor Covering Printer 02/27/19 06/01/19 Robel Camarena DO [address] [place] [address] Internal Medicine 02/16/20 Anne Marie Shafer, CARDIAC MONITOR [address] [place] [address] ICP Community Assistant Floor Covering Printer 03/02/22 03/02/22 Rell Howe MD Consulting Provider Anesthesiology 10/11/15 KELLEN GEE MD [address] [place] [address] Rheumatology 03/22/16 05/21/17 batsheva chow [facility] 11/06/16 06/29/19 documented as of this encounter
--- OUTSIDE RECORDS SUMMARY | 2025-02-06 10:45 | XMS_ITS | Encounter Summary ---
Author Organization [facility] Address [address] [place] [address] Care Team Providers Care Section Forest Fire Warden Name Role Phone Darien Caraballo DO Primary Care Provider [phone] Dominique Nicholas MD Primary Care Provider [phone] Brandyn Arriaga MD Unavailable Francisco Scales MD Unavailable [phone] Misbah Niño MD Unavailable [phone] David Maxwell MD Unavailable [phone] Ming Alvarez MD Unavailable [phone] Lino Carpio MD Unavailable [phone] Gianfranco Reynoso MD Unavailable Unavailable Efe Sanabria DO Unavailable [phone] Shaka Lyman MD Unavailable [phone] Pcp, No Primary Care Provider UnavailDominique Simmons MD Primary Care Provider [phone] Pcp, No Primary Care Provider Unavailmaria del carmen e Bryce Lema DPM Unavailable Dominique Nicholas MD Primary Care Provider Anne Marie Chance MD Unavailable [phone] Ishmael Shaw OD Unavailable Amaya Cardenas RN Unavailable Robel Camarena DO Unavailable RadhaadriannaRobel freeman DO Primary Care Provider FridanellyRobel freeman DO Unavailable Anne Marie Shafer REMOTE ENCODING CENTER MANAGER Unavailable Encounter Details Date Type Department Care Team (Late st Contact Info) Description 03/01/2015 Scanned Document [facility] [address] [place] [phone] Provider, Generic Social History Tobacco Use Types [...] on filedocumented in this encounter Care Teams Section Forest Fire Warden Relationship Specialty Start Date End Date Darien Caraballo DO [address] [place] [address] PCP - General Internal Medicine 02/18/15 03/30/15 Dominique Nicholas MD [address] [place] [address] PCP - General Internal Medicine 03/31/15 07/09/16 Pcp, No PCP - General General Medicine 07/13/16 10/29/16 Dominique Nicholas MD [address] [place] [address] PCP - General Internal Medicine 10/30/16 11/05/16 Pcp, No PCP - General General Medicine 11/06/16 06/20/17 Dominique Nicholas MD [address] [place] [address] PCP - General Internal Medicine 06/21/17 04/18/20 Robel Camarena DO 200 [place] [address] PCP - General Internal Medicine 04/19/20 Robel Camarena DO 200 [place] [address] PCP - United Medicare Attributed 11/02/20 09/17/24 Brandyn Arriaga MD 85 [facility] 1000 [place] [address] Consulting Provider Gastroenterology 06/04/15 Francisco Scales MD [address] [place] [address] Consulting Provider Cardiovascular Disease 06/04/15 Misbah Niño MD [address] [place] [address] Consulting Provider Physical Medicine and Rehabilitation 06/04/15 05/21/17 Davdi Maxwell MD 85 [facility] 800 [place] [address] Consulting Provider Neurology 06/04/15 05/21/17 Ming Alvarez MD [address] [place] [address] Consulting Provider Surgery, Bariatric 06/04/15 05/21/17 Lino Carpio MD 100 [place] [address] Consulting Provider Internal Medicine 06/04/15 12/12/18 Gianfranco Reynoso MD 100 [place] [address] Consulting Provider Endocrinology 07/06/15 Efe Sanabria DO [address] [place] [address] 923 [place] [address] Consulting Provider Pulmonary Disease 10/11/15 Shaka Lyman MD [address] [place] [address] 302 [place] [address] Consulting Provider Gastroenterology 10/11/15 12/12/18 Bryce Lema DPM Consulting Provider Podiatry 05/22/17 Anne Marie Chance MD Consulting Provider Rheumatology 05/07/18 Ishmael Shaw OD [address] [place] [address] Consulting Provider Optometry 07/22/18 Amaya Cardenas, GREGORY [address] [place] [address] [facility] Community Scabbler 02/27/19 06/01/19 Robel Camarena DO [address] [place] [address] Internal Medicine 02/16/20 Anne Marie Shafer, REMOTE ENCODING CENTER MANAGER [address] [place] [address] ICP Community Scabbler 03/02/22 03/02/22 Rell Howe MD Consulting Provider Anesthesiology 10/11/15 KELLEN GEE MD [address] [place] [address] Rheumatology 03/22/16 05/21/17 [email or web address] [facility] 11/06/16 06/29/19 documented as of this encounter
--- OUTSIDE RECORDS SUMMARY | 2025-02-06 10:45 | XMS_ITS | Encounter Summary ---
Author Organization [facility] Address [address] [place] [address] Care Team Providers Care Tie Buyer Name Role Phone Brandyn Arriaga MD Unavailable Francisco Scales MD Unavailable [phone] Gianfranco Reynoso MD Unavailable Unavailable Efe Sanabria DO Unavailable Bryce Lema DPM Unavailable Anne Marie Chance MD Unavailable +[phone] 00-0000 Ishmael Shaw OD Unavailable Robel Camarena DO Unavailable [phone] Robel Camarena DO Primary Care Provider Robel Camarena DO Unavailable Anne Marie Shafer [facility] Unavailable [phone] Reason for Visit * Reason Comments Medication Refill Encounter Details Date Type Department Care Team (Late st Contact Info) Description 11/10/[address] [phone] Gianfranco Reynoso MD Diabetes mellitus without complication [...] uncontrolled documented in this encounter Care Teams Tie Buyer Relationship Specialty Start Date End Date Robel Camarena DO 200 [place] [address] PCP - General Internal Medicine 04/19/20 Robel Camarena DO 200 [place] [address] PCP - United Medicare Attributed 11/02/20 09/17/24 Brandyn Arriaga MD 85 [facility] [address] [place] [address] Consulting Provider Gastroenterology 06/04/15 Francisco Scales MD [address] [place] [address] Consulting Provider Cardiovascular Disease 06/04/15 Gianfranco Reynoso MD [address] [place] [address] Consulting Provider Endocrinology 07/06/15 Efe Sanabria DO 85 [facility] [address] [place] [address] Consulting Provider Pulmonary Disease 10/11/15 Bryce Lema DPM 85 [facility] [address] [place] [address] Consulting Provider Podiatry 05/22/17 Anne Marie Chance MD 85 [facility] 923 [place] [address] Consulting Provider Rheumatology 05/07/18 Ishmael Shaw OD 110 [facility] 100 [place] [address] Consulting Provider Optometry 07/22/18 Robel Camarena DO [address] [place] [address] Internal Medicine 02/16/20 Anne Marie Shafer, NITROGLYCERIN SEPARATOR OPERATOR [address] [place] [facility] 4 [place] [address] [facility] Community Ticket Broker 03/02/22 03/02/22 Rell Howe MD Consulting Provider Anesthesiology 10/11/15 documented as of this encounter
--- OUTSIDE RECORDS SUMMARY | 2025-02-06 10:45 | XMS_ITS | Encounter Summary ---
Author Organization [facility] Address [address] [place] [address] Care Team Providers Care Passenger Brakeman Name Role Phone Darien Caraballo DO Primary Care Provider [phone] Dominique Nicholas MD Primary Care Provider [phone] Brandyn Arriaga MD Unavailable Francisco Scales MD Unavailable [phone] Misbah Niño MD Unavailable [phone] David Maxwell MD Unavailable [phone] Ming Alvarez MD Unavailable [phone] Lino Carpio MD Unavailable [phone] Gianfranco Reynoso MD Unavailable Unavailable Efe Sanabria DO Unavailable [phone] Shaka Lyman MD Unavailable [phone] Pcp, No Primary Care Provider UnavailDominique Simmons MD Primary Care Provider [phone] Pcp, No Primary Care Provider Unavailmaria del carmen e Bryce Lema DPM Unavailable Dominique Nicholas MD Primary Care Provider [phone] Anne Marie Chance MD Unavailable +1-000-0 00-0000 Ishmael Shaw OD Unavailable RonaldAmaya RN Unavailable Robel Camarena DO Unavailable [phone] Robel Camarena DO Primary Care Provider [phone] Robel Camarena DO Unavailable [phone] Soni Anne Marie J HVAC REFRIGERATION TECHNICIAN Unavailable [phone] Dominique Nicholas MD Primary Care Provider [phone] Encounter Details Date Type Department Care Team (Late st Contact Info) Description 01/28/2015 Scanned Document [address] [phone] Provider, Generic Social History Tobacco Use Types [...] on filedocumented in this encounter Care Teams Passenger Brakeman Relationship Specialty Start Date End Date Darien Caraballo DO [address] [place] [address] PCP - General Internal Medicine 02/18/15 03/30/15 Dominique Nicholas MD [address] [place] [address] PCP - General Internal Medicine 03/31/15 07/09/16 Pcp, No PCP - General General Medicine 07/13/16 10/29/16 [place] [address] [place], [place] [address], [place] [address] PCP - General Internal Medicine 10/30/16 11/05/16 Pcp, No PCP - General General Medicine 11/06/16 06/20/17 [place] [address] [place], [place] [address], [place] [address] PCP - General Internal Medicine 06/21/17 04/18/20 Robel Camarena DO 200 [place] [address] PCP - General Internal Medicine 04/19/20 Robel Camarena DO 200 [place] [address] PCP - United Medicare Attributed 11/02/20 09/17/24 Dominique Nicholas MD [address] [place] [address] 4[address] [place] [address] PCP - General 02/17/15 Brandyn Arriaga MD 85 [facility] 1000 [place] [address] Consulting Provider Gastroenterology 06/04/15 Francisco Scales MD [address] [place] [address] Consulting Provider Cardiovascular Disease 06/04/15 Misbah Niño MD [address] [place] [address] Consulting Provider Physical Medicine and Rehabilitation 06/04/15 05/21/17 David Maxwell MD [address] [place] [address] 800 [place] [address] Consulting Provider Neurology 06/04/15 05/21/17 Ming Alvarez MD [address] [place] [address] Consulting Provider Surgery, Bariatric 06/04/15 05/21/17 Lino Carpio MD [address] [place] [address] Consulting Provider Internal Medicine 06/04/15 12/12/18 Gianfranco Reynoso MD [address] [place] [address] Consulting Provider Endocrinology 07/06/15 Efe Sanabria DO [address] [place] [address] 923 [place] [address] Consulting Provider Pulmonary Disease 10/11/15 Shaka Lyman MD [address] [place] [address] [address] [place] [address] Consulting Provider Gastroenterology 10/11/15 12/12/18 Bryce Lema DPM Consulting Provider Podiatry 05/22/17 Anne Marie Chance MD Consulting Provider Rheumatology 05/07/18 Ishmael Shaw, LYDIA [address] [place] [address] 100 [place] [address] Consulting Provider Optometry 07/22/18 Amaya Cardenas, GREGORY [address] [place] [address] [facility] Community Sheet Fed Printer 02/27/19 06/01/19 Robel Camarena DO [address] [place] [address] Internal Medicine 02/16/20 Anne Marie Shafer LCSW [address] 4 [place] [address] [facility] Community Sheet Fed Printer 03/02/22 03/02/22 Rell Howe MD Consulting Provider Anesthesiology 10/11/15 KELLEN GEE MD [address] [place] [address] Rheumatology 03/22/16 05/21/17 batsheva chow HVAC REFRIGERATION TECHNICIAN [facility] 11/06/16 06/29/19 documented as of this encounter
--- OUTSIDE RECORDS SUMMARY | 2025-02-06 10:45 | XMS_ITS | Clinical Summary ---
Author Organization [facility] Address [address] [place] [phone] Phone Care Team Providers Care Cross Country Truck Driver Name Role Phone Robel Liu DO Primary Care Provider Allergies Active Allergy Reactions [...] hyperglycemia, with long-term current use of insulin ([facility] V24, [facility] V28) USE DIRECTED TO CHECK SUGARS THREE TIMES A DAY 200 strip 2 5 Active Active Problems Problem Noted Date Diagnosed Date Morbid obesity with BMI of 4 0.0-44.9, adult ([facility] V24, [facility] V28) 04/01/2024 Type 2 diabetes mellitus wit h hyperglycemia, with long-term current use of insulin ([facility] V24, [facility] V28) 04/01/2024 Kidney stones 09/07/2023 Encounters Date Type Department Care Team Description 12/02/2024 10:15 AM EDT Office Visit [facility] Hematology Oncology [address] [place] [address] Marc Villavicencio MD Granulocytosis (Primary Dx) 11/11/2024 10:00 AM EDT Office Visit [facility] Hematology Oncology [address] [place] [address] Marc Villavicencio MD Leukocytosis, unspecified type from Last 3 Months Surgical History Surgery Date Site/Laterality Comments BACK SURGERY LUMBAR FUSION BREAST LUMPECTOMY FOOT FRACTURE SURGERY Medical History Medical History Date Comments Diabetes mellitus ([facility] V24, [facility] V28) Hyperlipidemia Hypertension Lupus (systemic lupus erythematosus) ([facility] V2 4, [facility] V28) EMILY (obstructive sleep apnea) Osteomyelitis ([facility] V24, [facility] V28) Asthma Cystitis Social History Tobacco Use [...] Test (HGBA1C) 04/01/2024 03/07/2023 Depression Screening 05/21/2024 Falls Risk Assessment 10/30/2024 COVID-19 Vaccine (6 - Pfizer risk season) 2025 03/10/2024, 02/19/2023, 09/20/2021, Additional history exists Influenza Vaccine (#1) 2025 , 01/27/2023, 05/03/2022, [...] exam (CPE) BMI 33.0-33.9,adult DM (diabetes mellitus) ([facility] V24, [facility]/HCC V28) HLD (hyperlipidemia) LIPID [...] ALIRIO Negative Negative 11/12/2024 2:20 PM EDT [facility] Blood Venous blood specimen / Unknown Venipuncture / Unknown 11/11/2024 10:43 AM EDT 11/11/2024 12:02 PM EDT Narrative [facility] - 11/12/2024 2:20 PM EDT ALIRIO appears negative, however there is a strong cytoplasmic staining present, which may mask a low-level positive ALIRIO. Testing for other autoantibodies may be useful if clinically indicated. us Marc Villavicencio MD LAB BLOOD ORDERABLES Final R esult [facility] [address] [place] [address], * (ABNORMAL) CBC auto differential (11/11/2024 10:43 AM EDT) WBC 14.8(H) 4.8 - 10.8 K/mcL LAB HEMETOLOGY METHOD 11/11/2024 12:36 PM EDT [facility] RBC 5.00(H) 3.80 - 4.80 M/mcL LAB HEMETOLOGY METHOD 11/11/2024 12:36 PM EDT [facility] Hemoglobin 14.8 11.5 - 16.0 g/dL LAB HEMETOLOGY METHOD 11/11/2024 12:36 PM EDT [facility] Hematocrit 45.5 35.0 - 47.0 % LAB HEMETOLOGY METHOD 11/11/2024 12:36 PM EDT [facility] MCV 91.9 79.0 - 98.0 FL LAB HEMETOLOGY METHOD 11/11/2024 12:36 PM EDT [facility] MCH 29.9 27.0 - 32.0 pcg LAB HEMETOLOGY METHOD [facility] MCHC 32.5 32.0 - 37.0 g/dL LAB HEMETOLOGY METHOD 11/11/2024 12:36 PM [facility] RDW 13.9 11.0 - 15.0 % LAB HEMETOLOGY METHOD 11/11/2024 12:36 PM [facility] Platelets 180 130 - 400 K/mcL LAB HEMETOLOGY METHOD 11/11/2024 12:36 PM [facility] MPV 12.9(H) 7.0 - 11.0 FL LAB HEMETOLOGY METHOD 11/11/2024 12:36 PM [facility] NRBC 0.0 <1.0 % LAB HEMETOLOGY METHOD 11/11/2024 12:36 PM [facility] NRBC Absolute 0.00 <0.10 K/mcL LAB HEMETOLOGY METHOD 11/11/2024 12:36 PM [facility] Neutrophils Relative 56.0 % LAB HEMETOLOGY METHOD 11/11/2024 12:36 PM [facility] Lymphocytes Relative 32.9 % LAB HEMETOLOGY METHOD 11/11/2024 12:36 PM [facility] Monocytes Relative 10.1 % LAB HEMETOLOGY METHOD 11/11/2024 12:36 PM [facility] Eosinophils Relative 0.0 % LAB HEMETOLOGY METHOD 11/11/2024 12:36 PM [facility] Basophils Relative 0.3 % LAB HEMETOLOGY METHOD 11/11/2024 12:36 PM [facility] Immature Granulocytes Relative 0.7 % LAB HEMETOLOGY METHOD 11/11/2024 12:36 PM [facility] Neutrophils Absolute 8.26(H) 1.50 - 7.00 K/mcL LAB HEMETOLOGY METHOD 11/11/2024 12:36 PM [facility] Lymphocytes Absolute 4.87 1.00 - 5.00 K/mcL LAB HEMETOLOGY METHOD 11/11/2024 12:36 PM EDT [facility] Monocytes Absolute 1.49(H) 0.20 - 1.00 K/[facility] LAB HEMETOLOGY METHOD 11/11/2024 12:36 PM EDT [facility] Eosinophils Absolute 0.00 0.00 - 0.50 K/[facility] LAB HEMETOLOGY METHOD 11/11/2024 12:36 PM EDT [facility] Basophils Absolute 0.05 0.00 - 0.20 K/[facility] LAB HEMETOLOGY METHOD 11/11/2024 12:36 PM EDT [facility] Immature Granulocytes Absolute 0.11(H) 0.00 - 0.03 K/[facility] LAB HEMETOLOGY METHOD 11/11/2024 12:36 PM EDT [facility] Blood Venous blood specimen / Unknown Venipuncture / Unknown 11/11/2024 10:43 AM EDT 11/11/2024 12:01 PM EDT Marc Villavicencio MD LAB BLOOD ORDERABLES Final R esult [facility] [address] [place] [address], * (ABNORMAL) Sedimentation rate (11/11/2024 10:43 AM EDT) Sed Rate 31(H) 0 - 30 mm/hr LAB HEMETOLOGY METHOD 11/11/2024 12:53 PM EDT [facility] Blood Venous blood specimen / Unknown Venipuncture / Unknown 11/11/2024 10:43 AM EDT 11/11/2024 12:01 PM EDT us Marc Villavicencio MD LAB BLOOD ORDERABLES Final R esult [facility] [address] [place] [address], [place] [phone] * (ABNORMAL) Lipid panel with reflex to direct LDL (09/18/2024 11:56 AM EDT) Cholesterol 137 0 - 200 mg/dL LAB CHEMISTRY METHOD 09/18/2024 4:48 PM EDT [facility] Triglycerides 198(H) 0 - 150 mg/dL LAB CHEMISTRY METHOD 09/18/2024 4:48 PM EDT [facility] HDL 37(L) >=40 mg/dL LAB CHEMISTRY METHOD 09/18/2024 4:48 PM EDT [facility] LDL Calculated 60 0 - 100 mg/dL LAB CHEMISTRY METHOD 09/18/2024 4:48 PM EDT [facility] VLDL Cholesterol Nicolás 39.6 mg/dL LAB CHEMISTRY METHOD 09/18/2024 4:48 PM EDT [facility] Non HDL Chol. (LDL+VLDL) 100 <145 mg/dL LAB CHEMISTRY METHOD 09/18/2024 4:48 PM EDT [facility] Chol/HDL Ratio 3.7 0.0 - 4.4 LAB CHEMISTRY METHOD 09/18/2024 4:48 PM EDT [facility] Blood Venous blood specimen / Unknown Venipuncture / Unknown 09/18/2024 11:56 AM EDT 09/18/2024 11:56 AM EDT Moody Lozano LAB BLOOD ORDERABLES Final Resul t [facility] [address] [place] [address], [place] [phone] * (ABNORMAL) Basic metabolic panel (09/18/2024 11:56 AM EDT) Sodium 138 133 - 145 mmol/L LAB CHEMISTRY METHOD 09/18/2024 4:45 PM EDT [facility] Potassium 4.0 3.5 - 5.5 mmol/L LAB CHEMISTRY METHOD 09/18/2024 4:45 PM EDT [facility] Chloride 106 96 - 110 mmol/L LAB CHEMISTRY METHOD [facility] CO2 22 21 - 32 mmol/L LAB CHEMISTRY METHOD 09/18/2024 4:45 PM EDT [facility] Anion Gap 10 3 - 11 LAB CHEMISTRY METHOD 09/18/2024 4:45 PM EDT [facility] Glucose 161(H) 70 - 100 mg/dL LAB CHEMISTRY METHOD [facility]/18[facility]2024 [facility] BUN 15 5 - 25 mg/dL LAB CHEMISTRY METHOD 09/18/2024 4:45 PM [facility] Creatinine 0.73 0.50 - 1.10 mg/dL LAB CHEMISTRY METHOD 09/18/2024 4:45 PM EDT [facility] eGFR 92 >=60 mL/min/1. 73m2 LAB CHEMISTRY METHOD 09/18/2024 4:45 PM T [facility] Comment:Calculation based on the Chronic Kidney Disease Epidemiology Collaboration (CKD-EPI) equation refit without adjustment for race. BUN/Creatinine Ratio 20.5 LAB CHEMISTRY METHOD 09/18/2024 4:45 PM [facility] Calcium 9.2 8.5 - 10.5 mg/dL LAB CHEMISTRY METHOD 09/18/2024 4:45 PM [facility] Blood Venous blood specimen / Unknown Venipuncture / Unknown 09/18/2024 11:56 AM EDT 09/18/2024 11:56 AM EDT us Moody Lozano LAB BLOOD ORDERABLES Final Resul t [facility] [address] [place] [address], [place] [phone] * (ABNORMAL) Hemoglobin A1c (03/07/2023) Hemoglobin A1C 6.7(A) <=6.5 % Blood Venous blood specimen / Unknown us Historical Provider LAB BLOOD ORDERABLES Marycruz l Result * [facility] SCREENING DIGITAL (03/04/2021 1:55 PM EDT) Anatomical Region Laterality Modality Mammography 02/23/2021 9:35 AM EDT Narrative 03/04/2021 1:55 PM EDT [facility] Diagnostic Imaging Department [address] [place] [address] Patient: RONEY MERCEDESO.B./Age/Sex: 1960 - 60 - F Unit#: [id number] Location/Status: [facility] CLI Mnemonic/Ordering Site: [facility] Ordering Physician: ROBEL LIU MD [facility] Screening Digital - 02/23/21 - 1014 INDICATION: SCREENING COMPARISON: No prior studies are available for comparison. TECHNIQUE: CC and MLO views of the breasts were obtained, using full field digital mammography with 3D tomosynthesis views in the MLO projection. Computer aided detection with the POW 7.2-H was employed. FINDINGS: The breasts contain [...] a target date for the next mammogram. ([id number] / [id number]) , [id number] Dictating Physician: TERESA GREWAL MD Electronically Signed by: TERESA GREWAL MD Dic Date/Time: 03/04/21 1354 Sign date/Time: 03/04/21 1352 Procedure Note Teresa Grewal MD - 05/10/2022 [facility] Diagnostic Imaging Department [address] [place] [id number] Patient: EULALIA MERCEDESJASON Zepeda.O.B./Age/Sex: 1960 - 60 - F Unit#: [id number] [facility] Ordering Physician: ROBEL LIU MD [facility] Screening Digital - 02/23/21 - 1014 INDICATION: SCREENING COMPARISON: No prior studies are available for comparison. TECHNIQUE: CC and MLO views of the breasts were obtained, using full field digital mammography with 3D tomosynthesis views in the MLO projection. Computer aided detection with the POW 7.2-H was employed. FINDINGS: The breasts contain [...] target date for the next mammogram. [id number]) , [id number] Dictating Physician: TERESA GREWAL MD Electronically Signed by: TERESA GREWAL MD Dic Date/Time: 03/04/21 1359 Sign date/Time: 03/04/21 7521 Robel Liu DO IMG BI PROCEDURES Final Resul t * Urine Albumin Creatinine Ratio (04/19/2020) Urine Albumin Creatinine Ratio abstracted Historical Provider HEALTH MAINTENANCE Final Result from Last 3 Months or Most Recently Relevant to Health Maintenance Insurance [employer] MEDIC[place] [employer] MEDICARE [place] Care Teams Cross Country Truck Driver Relationship Specialty Start Date End Date Robel Liu DO [address] [place] [phone] PCP - General Internal Medicine 09/25/24
--- OUTSIDE RECORDS SUMMARY | 2025-02-06 10:45 | XMS_ITS | Encounter Summary ---
Author Organization [facility] Address [address] [place] [address] Care Team Providers Care Ethylene Plant Helper Name Role Phone Brandyn Arriaga MD Unavailable Francisco Scales MD Unavailable [phone] Misbah Niño MD Unavailable [phone] David Maxwell MD Unavailable [phone] Ming Alvarez MD Unavailable [phone] Lino Carpio MD Unavailable [phone] Gianfranco Reynoso MD Unavailable Unavailable Efe Sanabria DO Unavailable Shaka Lyman MD Unavailable Pcp, No Primary Care Provider Unavailabl Dominique Huang MD Primary Care Provider [phone] Pcp, No Primary Care Provider Unavailmaria del carmen e Bryce Lema DPM Unavailable Dominique Nicholas MD Primary Care Provider Anne Marie Chance MD Unavailable [phone] Ishmael Shaw OD Unavailable Amaya Cardenas RN Unavailable Robel Camarena DO Unavailable Robel Camarena Primary Care Provider [phone] Nicol Robel BHARDWAJ Unavailable [phone] Anne Marie ShaferW Unavailable [phone] Encounter Details Date Type Department Care Team (Late st Contact Info) Description 09/13/2016 Documentation HH ADMINISTRATION [address] [place] [address] Rowena Baker, GREGORY [address] [place] [address] Social History Tobacco Use Types Packs/Day Years [...] on filedocumented in this encounter Care Teams Ethylene Plant Helper Relationship Specialty Start Date End Date Pcp, No PCP - General General Medicine 07/13/16 10/29/16 Dominique Nicholas MD PCP - General Internal Medicine 10/30/16 11/05/16 Pcp, No PCP - General General Medicine 11/06/16 06/20/17 Dominique Nicholas MD PCP - General Internal Medicine 06/21/17 04/18/20 Robel Camarena DO [address] [place] [address] PCP - General Internal Medicine 04/19/20 Robel Camarena DO [address] [place] [address] PCP - [place] Medicare Attributed 11/02/20 09/17/24 Brandyn Arriaga MD 85 [facility] [address] [place] [address] Consulting Provider Gastroenterology 06/04/15 Francisco Scales MD [address] [place] [address] Consulting Provider Cardiovascular Disease 06/04/15 Misbah Niño MD [address] [place] [address] Consulting Provider Physical Medicine and Rehabilitation 06/04/15 05/21/17 David Maxwell MD 85 [facility] [address] [place] [address] Consulting Provider Neurology 06/04/15 05/21/17 Ming Alvarez MD [address] [place], [place] [id number] Consulting Provider Surgery, Bariatric 06/04/15 05/21/17 Lino Carpio MD [address] [place] [address] Consulting Provider Internal Medicine 06/04/15 12/12/18 Gianfranco Reynoso MD [address] [place] [address] Consulting Provider Endocrinology 07/06/15 Efe Sanabria DO 85 [facility] [address] [place] [address] Consulting Provider Pulmonary Disease 10/11/15 Shaka Lyman MD [address] [facility] [address] [place] [address] Consulting Provider Gastroenterology 10/11/15 12/12/18 Bryce Lema DPM Consulting Provider Podiatry 05/22/17 Anne Marie Chance MD Consulting Provider Rheumatology 05/07/18 Ishmael Shaw OD [address] [place] [address] Consulting Provider Optometry 07/22/18 Amaya Cardenas, GREGORY [address] [facility] 4 [place] [address] ICP Community Stopper Maker Helper 02/27/19 06/01/19 Robel Camarena DO [address] [place] [address] Internal Medicine 02/16/20 Anne Marie Shfaer, LITIGATION LEGAL ASSISTANT [address] [place] [address] ICP Community Stopper Maker Helper 03/02/22 03/02/22 Rell Howe MD Consulting Provider Anesthesiology 10/11/15 KELLEN GEE MD [address] [place] [address] Rheumatology 03/22/16 05/21/17 batsheva chow [facility] 11/06/16 06/29/19 documented as of this encounter
--- OUTSIDE RECORDS SUMMARY | 2025-02-06 10:45 | XMS_ITS | Encounter Summary ---
Author Organization [facility] Address [address] [place] [address] Care Team Providers Care Dry Sand Molder Name Role Phone Brandyn Arriaga MD Unavailable Francisco Scales MD Unavailable [phone] Gianfranco Reynoso MD Unavailable Unavailable Efe Sanabria DO Unavailable [phone] Bryce Lema DPM Unavailable Anne Marie Chance MD Unavailable [phone] Ishmael Shaw OD Unavailable Robel Camarena DO Unavailable Robel Camarena DO Primary Care Provider Robel Camarena DO Unavailable [phone] Anne Marie Shafer [facility] Unavailable Reason for Visit * Reason Comments Medication Refill Encounter Details Date Type Department Care Team (Late st Contact Info) Description 05/18/2021 Refill [facility] Endocrinology [address] [phone] Gianfranco Reynoso MD Type 2 diabetes mellitus [...] (HCC) documented in this encounter Care Teams Dry Sand Molder Relationship Specialty Start Date End Date Robel Camarena DO [address] [place] [address] PCP - General Internal Medicine 04/19/20 Robel Camarena DO [address] [place] [address] PCP - [place] Medicare Attributed 11/02/20 09/17/24 Brandyn Arriaga MD 85 [facility] [place] [address] [place] [address] Consulting Provider Gastroenterology 06/04/15 Francisco Scales MD [address] [place] [address] Consulting Provider Cardiovascular Disease 06/04/15 Gianfranco Reynoso MD [address] [place] [address] Consulting Provider Endocrinology 07/06/15 Efe Sanabria DO 85 [facility] [address] [place] [id number] Consulting Provider Pulmonary Disease 10/11/15 Bryce Lema DPM [address] [place] [address] [address] Consulting Provider Podiatry 05/22/17 Anne Marie Chance MD [address] [address] Consulting Provider Rheumatology 05/07/18 Ishmael Shaw OD 110 [facility] 100 [place] [address] Consulting Provider Optometry 07/22/18 Robel Camarena DO [address] [place] [address] Internal Medicine 02/16/20 Anne Marie Shafer, [facility] 1290 [facility] 4 [place] [address] [facility] Community Manager Speech 03/02/22 03/02/22 Rell Hwoe MD Consulting Provider Anesthesiology 10/11/15 documented as of this encounter
--- OUTSIDE RECORDS SUMMARY | 2025-02-06 10:45 | XMS_ITS | Encounter Summary ---
Author Organization [facility] Address [address] [place] [address] Care Team Providers Care Freight Separator Name Role Phone Brandyn Arriaga MD Unavailable Francisco Scales MD Unavailable Misbah Niño MD Unavailable [phone] David Maxwell MD Unavailable [phone] Ming Alvarez MD Unavailable [phone] Lino Carpio MD Unavailable [phone] Gianfranco Reynoso MD Unavailable Unavailable Efe Sanabria DO Unavailable Shaka Lyman MD Unavailable Pcp, No Primary Care Provider Unavailabl Dominique Huang MD Primary Care Provider Pcp, No Primary Care Provider Unavailmaria del carmen e Bryce Lema DPM Unavailable Dominique Nicholas MD Primary Care Provider Anne Marie Chance MD Unavailable [phone] Ishmael Shaw OD Unavailable Amaya Cardenas RN Unavailable Robel Camarena DO Unavailable FridanellyEva freemanno Primary Care Provider Nicol Robel Unavailable [phone] Anne Marie Shafer [facility] Unavailable [phone] Encounter Details Date Type Department Care Team (Late st Contact Info) Description 07/19/2016 Scanned Document [address] [phone] Provider, Generic Social History Tobacco [...] filedocumented in this encounter Care Teams Freight Separator Relationship Specialty Start Date End Date Pcp, No PCP - General General Medicine 07/13/16 10/29/16 Dominique Nicholas MD PCP - General Internal Medicine 10/30/16 11/05/16 Pcp, No PCP - General General Medicine 11/06/16 06/20/17 Dominique Nicholas MD PCP - General Internal Medicine 06/21/17 04/18/20 Robel Camarena DO [address] [place] [address] PCP - General Internal Medicine 04/19/20 Robel Camarena DO [address] [place] [address] PCP - [place] Medicare Attributed 11/02/20 09/17/24 Brandyn Arriaga MD 85 [facility] [address] [place] [phone] Consulting Provider Gastroenterology 06/04/15 Francisco Scales MD [address] [place] [address] Consulting Provider Cardiovascular Disease 06/04/15 Misbah Niño MD [address] [place] [address] Consulting Provider Physical Medicine and Rehabilitation 06/04/15 05/21/17 David Maxwell MD [address] [place] [address] [address] [place] [address] Consulting Provider Neurology 06/04/15 05/21/17 Ming Alvarez MD [address] [place] [address] Consulting Provider Surgery, Bariatric 06/04/15 05/21/17 Lino Carpio MD [address] [place] [address] Consulting Provider Internal Medicine 06/04/15 12/12/18 Gianfranco Reynoso MD [address] [place] [address] Consulting Provider Endocrinology 07/06/15 Efe Sanabria DO [address] [place] [address] [address] [place] [address] Consulting Provider Pulmonary Disease 10/11/15 Shaka Lyman MD [address] [place] [address] Consulting Provider Gastroenterology 10/11/15 12/12/18 Bryce Lmea DPM Consulting Provider Podiatry 05/22/17 Anne Marie Chance MD Consulting Provider Rheumatology 05/07/18 Ishmael Shaw OD [address] [address] Consulting Provider Optometry 07/22/18 Amaya Cardenas, RN [facility] 4 [place] [address] ICP Community Manager Nursing 02/27/19 06/01/19 Robel Camarena DO [address] [place] [address] Internal Medicine 02/16/20 Anne Marie Shafer, SUPERVISOR FRONT [address] [facility] 4 [place] [address] ICP Community Manager Nursing 03/02/22 03/02/22 Rell Howe MD Consulting Provider Anesthesiology 10/11/15 KELLEN GEE MD [address] [place] [address] Rheumatology 03/22/16 05/21/17 batsheva chow [facility] 11/06/16 06/29/19 documented as of this encounter
--- OUTSIDE RECORDS SUMMARY | 2025-02-06 10:45 | XMS_ITS | Encounter Summary ---
Author Organization [facility] Address [address] [place] [address] Care Team Providers Care Direct Customer Service Representative Name Role Phone Dominique Nicholas MD Primary Care Provider [phone] Brandyn Arriaga MD Unavailable Francisco Scales MD Unavailable [phone] Misbah Niño MD Unavailable [phone] David Maxwell MD Unavailable [phone] Ming Avlarez MD Unavailable [phone] Lino Carpio MD Unavailable Gianfranco Reynoso MD Unavailable Unavailable Efe Sanabria DO Unavailable [phone] Shaka Lyman MD Unavailable [phone] Pcp, No Primary Care Provider UnavailDominique Simmons MD Primary Care Provider [phone] Pcp, No Primary Care Provider UnavailBryce Nayak DPM Unavailable Dominique Nicholas MD Primary Care Provider Anne Marie Chance MD Unavailable [phone] Ishmael Shaw OD Unavailable [phone] Amaya Cardenas RN Unavailable Robel Camarena DO Unavailable [phone] Robel Camarena DO Primary Care Provider [phone] Robel Camarena DO Unavailable [phone] Anne Marie Shafer YARN TWISTER Unavailable Encounter Details Date Type Department Care Team (Late st Contact Info) Description 04/06/2016 Scanned Document [facility] [place] [address] Provider, Generic Social History Tobacco Use Types [...] on filedocumented in this encounter Care Teams Direct Customer Service Representative Relationship Specialty Start Date End Date Dominique Nicholas MD PCP - General Internal Medicine 03/31/15 07/09/16 Pcp, No PCP - General General Medicine 07/13/16 10/29/16 Dominique Nicholas MD PCP - General Internal Medicine 10/30/16 11/05/16 Pcp, No PCP - General General Medicine 11/06/16 06/20/17 Dominique Nicholas MD PCP - General Internal Medicine 06/21/17 04/18/20 FridanellyRobel freeman DO 200 [place] [address] PCP - General Internal Medicine 04/19/20 KathyRobel freeman DO 200 [place] [address] PCP - [employer] Medicare Attributed 11/02/20 09/17/24 Brandyn Arriaga MD 85 [facility] 1000 [place] [address] Consulting Provider Gastroenterology 06/04/15 Francisco Scales MD [address] [place] [address] Consulting Provider Cardiovascular Disease 06/04/15 Misbah Niño MD [address] [place] [address] Consulting Provider Physical Medicine and Rehabilitation 06/04/15 05/21/17 David Maxwell MD 85 [facility] 800 [place] [address] Consulting Provider Neurology 06/04/15 05/21/17 Ming Alvarez MD [address] [place] [address] Consulting Provider Surgery, Bariatric 06/04/15 05/21/17 Lino Carpio MD 100 [place] [address] Consulting Provider Internal Medicine 06/04/15 12/12/18 Gianfranco Reynoso MD 100 [place] [address] Consulting Provider Endocrinology 07/06/15 Efe Sanabria DO [address] [place] [address] 923 [place] [address] Consulting Provider Pulmonary Disease 10/11/15 Shaka Lyman MD [address] [place] [address] 302 [place] [address] Consulting Provider Gastroenterology 10/11/15 12/12/18 Bryce Lema DPM Consulting Provider Podiatry 05/22/17 Anne Marie Chance MD Consulting Provider Rheumatology 05/07/18 Ishmael Shaw OD [address] [place] [address] Consulting Provider Optometry 07/22/18 Amaya Cardenas, GREGORY [address] [place] [address] [facility] Community Grizzly Worker 02/27/19 06/01/19 Robel Camarena DO [address] [place] [address] Internal Medicine 02/16/20 Anne Marie Shafer, YARN TWISTER [address] [place] [address] [facility] Community Grizzly Worker 03/02/22 03/02/22 Rell Howe MD Consulting Provider Anesthesiology 10/11/15 KELLEN GEE MD [address] [place] [address] Rheumatology 03/22/16 05/21/17 batsheva chow [facility] 11/06/16 06/29/19 documented as of this encounter
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
--- OUTSIDE RECORDS SUMMARY | 2025-02-06 10:45 | XMS_ITS | Encounter Summary ---
Author Organization [facility] Address [address] [place] [address] Care Team Providers Care Job Training Supervisor Name Role Phone Darien Caraballo DO Primary Care Provider [phone] Dominique Nicholas MD Primary Care Provider [phone] Brandyn Arriaga MD Unavailable Francisco Scales MD Unavailable [phone] Misbah Niño MD Unavailable [phone] David Maxwell MD Unavailable [phone] Ming Alvarez MD Unavailable [phone] Lino Carpio MD Unavailable [phone] Gianfranco Reynoso MD Unavailable Unavailable Efe Sanabria DO Unavailable [phone] Shaka Lyman MD Unavailable [phone] Pcp, No Primary Care Provider UnavailDominique Simmons MD Primary Care Provider [phone] Pcp, No Primary Care Provider Unavailmaria del carmen e Bryce Lema DPM Unavailable Dominique Nicholas MD Primary Care Provider Anne Marie Chance MD Unavailable [phone] Ishmael Shaw OD Unavailable Amaya Cardenas RN Unavailable Robel Camarena DO Unavailable [phone] KathyRobel freeman DO Primary Care Provider [phone] FridanellyRobel freeman DO Unavailable Anne Marie Shafer AIRPLANE FUELER Unavailable Dominique Nicholas MD Primary Care Provider Encounter Details Date Type Department Care Team (Late st Contact Info) Description 12/28/2014 Scanned Document [address] [place] [id number] Provider, Generic Social History Tobacco Use [...] on filedocumented in this encounter Care Teams Job Training Supervisor Relationship Specialty Start Date End Date Darien Caraballo DO [facility] [place] [address] PCP - General Internal Medicine 02/18/15 03/30/15 Dominique Nicholas MD [facility] [place] [address] PCP - General Internal Medicine 03/31/15 07/09/16 Pcp, No PCP - General General Medicine 07/13/16 10/29/16 Dominique Nicholas MD 0 [facility] [place] [address] PCP - General Internal Medicine 10/30/16 11/05/16 Pcp, No PCP - General General Medicine 11/06/16 06/20/17 Dominique Nicholas MD [address] [place] [address] PCP - General Internal Medicine 06/21/17 04/18/20 Robel Camarena DO 200 [place] [address] PCP - General Internal Medicine 04/19/20 Robel Camarena DO 200 [place] [address] PCP - United Medicare Attributed 11/02/20 09/17/24 Dominique Nicholas MD 234 [facility] [address] [place] [address] PCP - General 02/17/15 Brandyn Arriaga MD 85 [facility] 1000 [place], [place] [address] Consulting Provider Gastroenterology 06/04/15 Francisco Scales MD [address] [place] [address] Consulting Provider Cardiovascular Disease 06/04/15 Misbah Niño MD [address] [place] [address] Consulting Provider Physical Medicine and Rehabilitation 06/04/15 05/21/17 David Maxwell MD 85 [facility] 800 [place] [address] Consulting Provider Neurology 06/04/15 05/21/17 Ming Alvarez MD [address] [address] Consulting Provider Surgery, Bariatric 06/04/15 05/21/17 Lino Carpio MD 100 [place] [address] Consulting Provider Internal Medicine 06/04/15 12/12/18 Gianfranco Reynoso MD 100 [place] [address] Consulting Provider Endocrinology 07/06/15 Efe Sanabria DO 85 [facility] 923 [place] [address] Consulting Provider Pulmonary Disease 10/11/15 Shaka Lyman MD [address] [place] [address] Consulting Provider Gastroenterology 10/11/15 12/12/18 Bryce Lema DPM Consulting Provider Podiatry 05/22/17 Anne Marie Chance MD Consulting Provider Rheumatology 05/07/18 Ishmael Shaw, LYDIA [address] [address] Consulting Provider Optometry 07/22/18 Amaya Cardenas, GREGORY [address] [facility] 4 [place] [address] [facility] Community Box Storage Worker 02/27/19 06/01/19 Robel Camarena DO [address] [place] [address] Internal Medicine 02/16/20 Anne Marie Shafer, AIRPLANE FUELER [address] [place] [address] [facility] Community Box Storage Worker 03/02/22 03/02/22 Rell Howe MD Consulting Provider Anesthesiology 10/11/15 KELLEN GEE MD [address] [place] [address] Rheumatology 03/22/16 05/21/17 batsheva chow [facility] 11/06/16 06/29/19 documented as of this encounter
--- OUTSIDE RECORDS SUMMARY | 2025-02-06 10:45 | XMS_ITS | Encounter Summary ---
Author Organization [facility] Address [address] [place] [address] Care Team Providers Care Ent Nurse Name Role Phone Brandyn Arriaga MD Unavailable Francisco Scales MD Unavailable [phone] Lino Carpio MD Unavailable [phone] Gianfranco Reynoso MD Unavailable Unavailable Efe Sanabria DO Unavailable Shaka Lyman MD Unavailable Pcp, No Primary Care Provider UnavailBryce Nayak DPM Unavailable Dominique Nicholas MD Primary Care Provider [phone] Anne Marie Chance MD Unavailable [phone] Ishmael Shaw OD Unavailable Amaya Cardenas RN Unavailable [phone] Robel Camarena DO Unavailable Robel Camarena DO Primary Care Provider Robel Camarena DO Unavailable [phone] Anne Marie Shafer OIL WELL SERVICES SUPERINTENDENT Unavailable [phone] Reason for Visit * Reason Comments Medication Refill Encounter Details Date Type Department Care Team (Late st Contact Info) Description 06/20/2017 [facility] [address] [facility] [place] [id number] Darien Caraballo, [address] [place] [address] Social History Tobacco Use Types Packs/Day Years [...] on filedocumented in this encounter Care Teams Ent Nurse Relationship Specialty Start Date End Date Pcp, No PCP - General General Medicine 11/06/16 06/20/17 Dominique Nicholas MD PCP - General Internal Medicine 06/21/17 04/18/20 Robel Camarena DO [address] [place] [address] PCP - General Internal Medicine 04/19/20 Robel Camarena DO [address] [place] [address] PCP - United Medicare Attributed 11/02/20 09/17/24 Brandyn Arriaga MD 85 [facility] [address] [place] [address] Consulting Provider Gastroenterology 06/04/15 Francisco Scales MD [address] [place] [address] Consulting Provider Cardiovascular Disease 06/04/15 Lino Carpio MD 100 [place] [address] Consulting Provider Internal Medicine 06/04/15 12/12/18 Gianfranco Reynoso MD 100 [place] [address] Consulting Provider Endocrinology 07/06/15 fEe Sanabria DO 85 [facility] [address] [place] [address] Consulting Provider Pulmonary Disease 10/11/15 Shaka Lyman MD 6 [facility] [address] [place] [address] Consulting Provider Gastroenterology 10/11/15 12/12/18 Bryce Lema DPM Consulting Provider Podiatry 05/22/17 Anne Marie Chance MD Consulting Provider Rheumatology 05/07/18 Ishmael Shaw OD [address] [place] [address] 100 [place] [address] Consulting Provider Optometry 07/22/18 Amaya Cardenas, RN [address] [place] [address] [facility] Community Solid Waste Collection Worker 02/27/19 06/01/19 Robel Camarena DO [address] [place] [address] Internal Medicine 02/16/20 Anne Marie Shafer OIL WELL SERVICES SUPERINTENDENT [address] [place] [address] [facility] Community Solid Waste Collection Worker 03/02/22 03/02/22 Rell Howe MD Consulting Provider Anesthesiology 10/11/15 batsheva chow OIL WELL SERVICES SUPERINTENDENT [facility] 11/06/16 06/29/19 documented as of this encounter
--- OUTSIDE RECORDS SUMMARY | 2025-02-06 10:45 | XMS_ITS | Encounter Summary ---
Author Organization [facility] Address [address] [place] [address] Care Team Providers Care Program Architect Name Role Phone Dominique Nicholas MD Primary Care Provider Brandyn Arriaga MD Unavailable Francisco Scales MD Unavailable [phone] Misbah Niño MD Unavailable [phone] David Maxwell MD Unavailable [phone] Ming Alvarez MD Unavailable [phone] Lino Carpio MD Unavailable [phone] Gianfranco Reynoso MD Unavailable Unavailable Efe Sanabria DO Unavailable [phone] Shaka Lyman MD Unavailable [phone] Pcp, No Primary Care Provider UnavailDominique Simmons MD Primary Care Provider [phone] Pcp, No Primary Care Provider UnavailBryce Nayak DPM Unavailable Dominique Nicholas MD Primary Care Provider Anne Marie Chance MD Unavailable +[phone] Ishmael Shaw OD Unavailable [phone] Amaya Cardenas RN Unavailable [phone] Robel Camarena DO Unavailable [phone] Nicol Robel DO Primary Care Provider Robel Camarena Unavailable [phone] Anne Marie Shafer WELL DRILL OPERATOR Unavailable Encounter Details Date Type Department Care Team (Late st Contact Info) Description 04/21/2016 Scanned Document [facility] Bariatric Surgery [address] [place] [address] Tressa Goddard PA Needs valid address Social [...] on filedocumented in this encounter Care Teams Program Architect Relationship Specialty Start Date End Date Dominique Nicholas MD PCP - General Internal Medicine 03/31/15 07/09/16 Pcp, No PCP - General General Medicine 07/13/16 10/29/16 Dominique Nicholas MD PCP - General Internal Medicine 10/30/16 11/05/16 Pcp, No PCP - General General Medicine 11/06/16 06/20/17 Dominique Nicholas MD PCP - General Internal Medicine 06/21/17 04/18/20 Robel Camarena DO 200 [place] [address] PCP - General Internal Medicine 04/19/20 Robel Camarena DO 200 [place] [address] PCP - United Medicare Attributed 11/02/20 09/17/24 Brandyn Arriaga MD 85 [facility] 1000 [place] [address] Consulting Provider Gastroenterology 06/04/15 Francisco Scales MD [address] [place] [address] Consulting Provider Cardiovascular Disease 06/04/15 Misbah Niño MD [address] [place] [address] Consulting Provider Physical Medicine and Rehabilitation 06/04/15 05/21/17 David Maxwell MD [address] [place] [address] 800 [place] [address] Consulting Provider Neurology 06/04/15 05/21/17 Ming Alvarez MD [address] [place] [address] Consulting Provider Surgery, Bariatric 06/04/15 05/21/17 Lino Carpio MD [address] [place] [address] Consulting Provider Internal Medicine 06/04/15 12/12/18 Gianfranco Reynoso MD 100 [place] [address] Consulting Provider Endocrinology 07/06/15 Efe Sanabria DO 85 [facility] 923 [place] [address] Consulting Provider Pulmonary Disease 10/11/15 Shaka Lyman MD 6 [facility] [address] [place] [address] Consulting Provider Gastroenterology 10/11/15 12/12/18 Bryce Lema DPM Consulting Provider Podiatry 05/22/17 Anne Marie Chance MD Consulting Provider Rheumatology 05/07/18 Ishmael Shaw OD [address] [place] [address] 100 [place] [address] Consulting Provider Optometry 07/22/18 Amaya Cardenas, GREGORY [address] [address] [facility] Community Feed Mill Tender 02/27/19 06/01/19 Robel Camarena DO [address] [place] [address] Internal Medicine 02/16/20 Anne Marie Shafer LCSW [address] [address] [facility] Community Feed Mill Tender 03/02/22 03/02/22 Rell Howe MD Consulting Provider Anesthesiology 10/11/15 KELLEN GEE MD [address] [place] [address] Rheumatology 03/22/16 05/21/17 batsheva chow [facility] 11/06/16 06/29/19 documented as of this encounter
--- OUTSIDE RECORDS SUMMARY | 2025-02-06 10:45 | XMS_ITS | Clinical Summary ---
Author Organization [facility] Address [address] [place] [address] Care Team Providers Care Fuel Verification Technician Name Role Phone Dominique Nicholas MD Primary Care Provider [phone] Allergies Active Allergy Reactions Criticality Noted Date [...] this topic Medical Devices Implanted Type Area Life Insurance Salesperson Device Identifier Shelf Expiration Date Model / Serial / Lot [place] 3.5mm Insite Ft Ti W\(2) Strands Of Size 0 Needled Fo - [id number] - [id number] Implanted:Qty: 1 on 12/24/2015 by Bryce Lema DPM at [facility] Right: Ankle [employer] 12/18/2017 [id number] / / [id number] [place] 4.5mm Insite Ft Ti W\(2) Strands Of Size 2 Needled Fo - [id number] - [id number] Implanted:Qty: 1 on 12/24/2015 by Bryce Lema DPM at [facility] Right: Ankle [employer] 11/22/2016 [id number] / / [id number] [employer]ill Injectable Bone Substitute Material 3cc - [id number] - [id number] Implanted:Qty: 1 on 12/24/2015 by Bryce Lema DPM at [facility] Right: Ankle [employer] 02/17/2018 [id number] / / [id number] Advance Directives For more information, please contact: [phone] Latest Code Status on File Code Status Date Activated Date Inactivated Comments Full Code 12/24/2015 8:14 AM 12/24/2015 10:27 PM This c ode status was ascertained in the following way: discussion with patient. Care Teams Fuel Verification Technician Relationship Specialty Start Date End Date Dominique Nicholas MD [address] [facility] [address] [facility] [address] [place] [address] PCP - General Internal Medicine 12/23/15
--- OUTSIDE RECORDS SUMMARY | 2025-02-06 10:45 | XMS_ITS | Clinical Summary ---
Author Organization [facility] Seriously Address [address] [place] [address] Care Team Providers Care Transplant Surgeon Name Role Phone Dominique Nicholas MD Primary Care Provider [phone] Allergies Active Allergy Reactions Criticality Noted Date [...] Adults 18 yrs or above (or HM Modifier)([facility]) 10/30/1977 Hepatitis C Virus Infection in Adolescents and Adults: Screening (or Modifier) ([facility]) 10/30/1977 EMILY Screening: Once using ST OP-BANG Questionnaire for Adults with Conditions or high BMI([facility]) 10/30/1977 SDOH Screening Reminder: Debby lindsey for all adults ([facility]) 10/30/1977 Tobacco Smoking Cessation: i n Adults excluding Women: Behavioral and Pharmacotherapy Interventions ([facility]) 10/30/1977 DTaP/Tdap/Td Vaccines ([facility]) (1 - Tdap) 10/30/1978 Cervical Cancer Screenin 1-65 yrs of age (or Modifier) 10/30/1980 Cervical Cancer Screening: P ap every 3 yrs pts age 21-65 10/30/1980 Cervical Cancer: Pap Screeni ng with Modifier timing ([facility]) 10/30/1980 Cervical Cancer: hrHPV alone or with cotesting Pap for Pts 30-65yrs screening every 5yrs ([facility]) 10/30/1980 Colorectal Cancer Screening 45 -75 Yrs (or HM Modifier ) 10/30/2004 Colorectal Cancer: FLEXIBLE SIGMOIDOSCOPY Screening every 5 yrs 10/30/2004 Colorectal Cancer: Fecal Imm unochemical Test (FIT) Annually [facility] 10/30/2004 Colorectal Cancer: High-sens itivity gFOBT Screening Annually [facility] 10/30/2004 Colorectal Cancer: Stool Col oguard Screening every 3 yrs 10/30/2004 Colorectal Cancer:CT Colonography Screening every 5 yr s 10/30/2004 Breast Cancer: Screening Debby ually age 50-74 yrs (or HM Modifier)([facility]) 10/30/2009 Pneumococcal Vaccination Scr eening: Patients 50+ yrs of age ([facility]) (1 of 1 - PCV) 10/30/2009 Zoster/Shingles Vaccine Seri es Screening: Adults aged 18+ yrs (or HM Modifiers)([facility]) (1 of 2) 10/30/2009 Osteoporosis Screening to Pr event Fractures: Women aged 65 years+ ([facility]) 10/30/2024 Flu Vaccination: Ages 65+: Y early High Dose Recommended (or Modifier)([facility]) 12/19/2024 COVID-19 Vaccine Screening: Initial Series and Booster Status ([facility]) ( - 2023- season) 2025 RSV Vaccines (1 - 1-dose 75+ series) 10/30/2034 Medical Devices Not on file Insurance [employer] MED[employer] Care Teams Transplant Surgeon Relationship Specialty Start Date End Date Dominique Nicholas MD PCP - Doffer 12/01/17
--- OUTSIDE RECORDS SUMMARY | 2025-02-06 10:45 | XMS_ITS | Encounter Summary ---
Author Organization [facility] Address [address] [place] [address] Care Team Providers Care Enamel Dipper Name Role Phone Brandyn Arriaga MD Unavailable Francisco Scales MD Unavailable [phone] Lino Carpio MD Unavailable [phone] Gianfranco Reynoso MD Unavailable Unavailable Efe Sanabria DO Unavailable Shaka Lyman MD Unavailable Bryce Lema DPM Unavailable Dominique Nicholas MD Primary Care Provider [phone] Anne Marie Chance MD Unavailable [phone] Ishmael Shaw OD Unavailable [phone] Amaya Cardenas RN Unavailable [phone] Robel Camarena DO Unavailable [phone] Robel Camarena DO Primary Care Provider Robel Camarena DO Unavailable [phone] Anne Marie Shafer LCSW Unavailable [phone] Encounter Details Date Type Department Care Team (Late st Contact Info) Description 08/13/2017 Scanned Document [facility] [address] [place] [address] Provider, Generic Social History Tobacco Use Types [...] on filedocumented in this encounter Care Teams Enamel Dipper Relationship Specialty Start Date End Date Dominique Nicholas MD [address] [facility] [address] [place] [address] PCP - General Internal Medicine 06/21/17 04/18/20 Robel Camarena DO [address] [place] [address] PCP - General Internal Medicine 04/19/20 Robel Camarena DO [address] [place] [address] PCP - [employer] Attributed 11/02/20 09/17/24 Brandyn Arriaga MD [address] [place] [address] [address] [place] [address] Consulting Provider Gastroenterology 06/04/15 Francisco Scales MD [address] [facility] [address] [place] [address] Consulting Provider Cardiovascular Disease 06/04/15 Lino Carpio MD [address] [place] [address] Consulting Provider Internal Medicine 06/04/15 12/12/18 Gianfranco Reynoso MD [address] [place] [address] Consulting Provider Endocrinology 07/06/15 Efe Sanabria DO [address] [place] [address] Consulting Provider Pulmonary Disease 10/11/15 Shaka Lyman MD [address] [facility] [address] [place] [address] Consulting Provider Gastroenterology 10/11/15 12/12/18 Bryce Lema DPM [address] [place] [address] [address] [place] [address] Consulting Provider Podiatry 05/22/17 Anne Marie Chance MD [address] [place] [address] [address] Consulting Provider Rheumatology 05/07/18 Ishmael Shaw OD [address] [place] [address] Consulting Provider Optometry 07/22/18 Amaya Cardenas, GREGORY [address] [place] [address] [facility] Community Animal Ride Manager 02/27/19 06/01/19 Robel Camarena DO [address] [place] [address] Internal Medicine 02/16/20 Anne Marie Shafer, SEB [address] [place] [address] [facility] Community Animal Ride Manager 03/02/22 03/02/22 Rell Howe MD Consulting Provider Anesthesiology 10/11/15 batsheva chow [facility] 11/06/16 06/29/19 documented as of this encounter
== END 2025-02-06 10:38 | disposition home or self-care (01) ==
LOC: HO.ENCR 10:10
PROVIDERS: PCP Internal Medicine; Visit Provider Physician Assistant
DX: E11.649 Type 2 diabetes mellitus with hypoglycemia without coma (principal); Z79.4 Long term (current) use of insulin; I10 Essential (primary) hypertension; E78.5 Hyperlipidemia, unspecified

== ENCOUNTER → 2025-02-06 10:10 | Outpatient (BNVA) | payer MEDICARE, SELFPAY | PROVIDERS: PCP Internal Medicine; Visit Provider Physician Assistant | DX: E11.51 Type 2 diabetes mellitus with diabetic peripheral angiopathy without gangrene (principal); E11.649 Type 2 diabetes mellitus with hypoglycemia without coma; I10 Essential (primary) hypertension; E78.5 Hyperlipidemia, unspecified; Z79.4 Long term (current) use of insulin; Z79.899 Other long term (current) drug therapy | CPT/HCPCS: 82947; 99212 ==

== ENCOUNTER 2025-04-03 11:22 | Outpatient (AMB) | payer MEDICARE, SELFPAY ==
[2025-04-03 11:27] VITALS: BP 116/74; PULSE 76; O2SAT 98; BMI 36.3
--- NOTE | 2025-04-03 11:27 | A.OFFVIS_ITS ---
Vital Signs 04/03/25 11:27 Height 5 ft 7 in Weight 231 lb 7.766 oz BMI 36.3 BP 116/74 Blood Pressure Location Rt brachial Position Sitting Pulse 76 Pulse Source Pulse Oximeter Pulse Oximetry (%) 98 Oxygen Delivery Method Room Air Intake Visit Reasons: DMT2 Follow-up Hypoglycemia Intake Note: Patient presents today for a follow-up on Type 2 Diabetes Mellitus: Last Diabetic eye exam was on: 02/2025 Last Podiatry exam was on: Patient does not see a Lollypop Machine Operator Most recent HbA1c: 6.0%, 04/03/2025 Random Glucose- 160 mg/dL, Today Sound Designer Required: No Accompanied by: Self / Same As Patient Allergies No Known Allergies Allergy (Verified 04/03/25 11:44) Medication List - Last Reconciled 04/03/25 by Edie Savage PA-C atenolol 50 mg PO DAILY atorvastatin 20 mg PO BEDTIME blood sugar diagnostic (Accu-Chek Guide test strips) use 2x daily As directed to monitor blood glucose blood-glucose meter (Accu-Chek Guide Glucose Meter) Use daily As directed to monitor blood glucose blood-glucose sensor (Dexcom G7 Sensor device) Use daily As directed to monitor glucose. change q 10 days blood-glucose,home school liaison officer,cont (Dexcom G7 Planer Setter) use daily As directed to monitor blood glucose celecoxib 400 mg PO BID PRN glucagon 3 mg/actuation 3 mg intranasal ONCE PRN insulin degludec (Tresiba FlexTouch U-200 insulin) 30 units (0.15 mL) subcut DAILY 30 days lancets (Accu-Chek Softclix Lancets) use bid As directed to monitor blood glucose lisinopril 10 mg PO DAILY oxycodone myristate CR-ER (Xtampza ER) 9 mg PO Q12H tirzepatide (Mounjaro) 10 mg (0.5 mL) subcut QWEEK HPI HPI DMT2 Follow-up Hypoglycemia: Details: Patient is a 64-year-old female with a significant past medical history of overactive bladder, chronic pain syndrome, PVD, lower leg edema, varicose veins, kidney stones, hyperlipidemia, type 2 diabetes presenting today for a follow up regarding her diabetes. Endo: Dm- Her a1c was 7.7 and today is 6. She was dx with t2dm in her early 30s. She is currently on Tresiba 40 units and mounjaro 10 mg weekly. She is tolerating the mounjaro well. She is having a lot of appetite suppression with it. cgm- Dexcom download shows GMI 6.6% (was 8.6%). Very hyperglycemic 0% (was 23%), hyperglycemic 2% (was 56%), in range 98% (was 21%), 0% hypoglycemia -recently has a couple low blood sugars. She states that it has happened a few times but her blood sugar has dropped in it usually is with prolonged periods of fasting. She states that she will use the Humalog and not eat that much and then a few hours later we will also notice that sometimes her blood sugars low. She used to be on actos and states does not know why she was taken off, she used to be on metformin but had too much GI upset. She states that previously she thinks she was on glimepiride and had hypoglycemia. She was on glipizide recently but caused hypogylcemia. Did not tolerate trulicity with nausea and felt ineffective. ozempic caused n/v. Lantus was ineffective and wearing off. She states that she has had diabetic training and met with an educator. CV: Blood pressure today is 116/74. On lisinopril 10 mg and atenolol 50 mg daily. Taking atorvastatin 20 mg. [facility] Medical History Lupus (systemic lupus erythematosus) History of chronic back pain Type 2 diabetes mellitus with hyperglycemia Hx of hyperlipidemia Hx of essential hypertension Surgical History History of back surgery Family History Father Lupus (systemic lupus erythematosus) Mother Diabetes mellitus Maternal Aunt Diabetes mellitus Heart disease Social History Alcohol intake: current Alcohol intake frequency: does not drink Patient Tobacco Use Status: Never used Tobacco Physical Exam Vital Signs: Last Vital Signs Pulse 76 04/03/25 11:27 BP 116/74 04/03/25 11:27 Pulse Ox 98 04/03/25 11:27 Const Orientation/consciousness: patient oriented x3 HEENT Ears: hearing grossly normal bilaterally Neck Thyroid: Thyroid normal Lymphatic: no lymphadenopathy noted Resp Auscultation: clear to auscultation bilaterally Cardio Rate: regular rate Rhythm: regular rhythm Heart sounds: S1 normal heart sound present and S2 normal heart sound present Skin General skin exam: no rashes or lesions noted Neuro General: patient oriented x3, gait normal and no focal motor deficits Results AMB Hemoglobin A1c AMB Hemoglobin A1c 6.0 % Last Edit by ANJELICA Greer on 04/03/25 11:44 Results Reviewed Results Reviewed: Laboratory Last Values Glucose (Clinic) 160 mg/dL (60-115) H 04/03/25 11:31 Hgb A1c (Clinic) 6.0 % (4.0-6.0) 04/03/25 11:34 Assessment & Plan Assessment & Plan (1) Controlled type 2 diabetes mellitus with hypoglycemia, with long-term current use of insulin: Code(s): E11.649 - Type 2 diabetes mellitus with hypoglycemia without coma; Z79.4 - jail (current) use of insulin Category: Medical Plan: reduce tresiba to 30 units continue mounjaro to 10 mg f/u in 3-4 months or sooner prn (2) Hypertension: Code(s): I10 - Essential (primary) hypertension Category: Medical Plan: wnl continue current plan Orders: Orders AMB Hemoglobin A1c Today E11.649 - Type 2 diabetes mellitus with hypoglycemia without coma, Z79.4 - jail (current) use of insulin Medications: Refilled insulin degludec (Tresiba FlexTouch U-200 insulin) 30 units (0.15 mL) subcut DAILY 9 mL 3RF 30 days tirzepatide (Mounjaro) 10 mg (0.5 mL) subcut QWEEK 2 mL 4RF Coding Level of Care Code Est Pt Level 4 (88472) Complex EM visit Add On G2211 Diagnoses Controlled type 2 diabetes mellitus with hypoglycemia, with long-term current use of insulin E11.649; Z79.4 Hypertension I10
[2025-04-03 11:36] LABS: Glucose, Whole Blood 160 mg/dL (60-115)
== END 2025-04-03 11:55 | disposition home or self-care (01) ==
LOC: HO.ENCR 11:23
PROVIDERS: PCP Internal Medicine; Visit Provider Physician Assistant
DX: E11.649 Type 2 diabetes mellitus with hypoglycemia without coma (principal); Z79.4 Long term (current) use of insulin; I10 Essential (primary) hypertension

== ENCOUNTER → 2025-04-03 11:22 | Outpatient (BNVA) | payer MEDICARE, SELFPAY | PROVIDERS: PCP Internal Medicine; Visit Provider Physician Assistant | DX: E11.649 Type 2 diabetes mellitus with hypoglycemia without coma (principal); Z79.4 Long term (current) use of insulin; I10 Essential (primary) hypertension | CPT/HCPCS: 82947; 83036; 99212 ==